=== PATIENT | male | born 1980 | race African-American/Black ===

== ENCOUNTER 2020-08-04 11:32 | Emergency (ER) | payer SELFPAY ==
--- NOTE | ~2020-08-04 | US_ITS ---
EXAMINATION:US venous doppler LE LT INDICATION:Left calf pain TECHNIQUE: Multiple grayscale, color flow and Doppler images of the left lower extremity deep venous systems were obtained and reviewed. COMPARISON:No prior studies for comparison. FINDINGS: The common femoral, superficial femoral and popliteal veins demonstrate normal respiratory variation, augmentation and compressibility. Color flow is also seen within the posterior tibial, pe roneal, greater saphenous and profunda veins. IMPRESSION: 1: No lower extremity deep venous thrombosis. Reviewed, dictated and finalized at [facility].
[2020-08-04 11:33] VITALS: BP 144/88; PULSE 68; RESP 14; TEMP 36.4; O2SAT 100
[2020-08-04 11:37] VITALS: BP 138/78; PULSE 78; RESP 18; TEMP 36.8; O2SAT 99
--- NOTE | 2020-08-04 12:14 | ED.GENADULT ---
HPI - General Adult General Chief complaint: Extremity Injury, Lower Stated complaint: calf pain Time Seen by Provider: 08/04/20 11:52 Source: patient Mode of arrival: ambulatory Limitations: no limitations History of Present Illness HPI narrative: Patient is a 40-year-old male who presents with injury to the left calf that occurred a month ago was jogging when he felt a pop in the calf developed swelling has since had aching pain and tingling from the calf to chest above the ankle patient no swelling of the calf presents in no distress denies other complaints denies similar occurrence in the past Related Data Allergies Allergy/AdvReac Type Severity Reaction Status Date / Time No Known Allergies Allergy Unknown Verified 08/03/19 12:37 No Known Allergies Allergy Uncoded 08/03/19 12:37 Review of Systems Review of Systems: All systems reviewed & are unremarkable except as noted in HPI and below PMFSH Surgical History Surgical History History of orthopedic surgery Social History Social History Gender identity (if verbalized by the patient): Male Exam Narrative: Exam Narrative: GENERAL: Well-appearing, well-nourished, and in no acute distress. HEAD: Normocephalic, atraumatic. EYES: PERRLA and EOMI. ENT: Nares clear, no rhinorrhea or epistaxis. Mucous membranes moist. CHEST: Clear to auscultation. No respiratory distress. No wheezes rales or rhonchi HEART: Regular rate and rhythm. No murmur heard. Normal peripheral pulses. EXTREMITIES: Normal range of motion. No edema. Mild tenderness of the left calf no deformity noted SKIN: Warm, dry, no rash. NEURO: No focal deficits. Alert and oriented x3. Neurovascularly intact. Capillary refill less than 2 seconds PSYCH: Normal mood and affect. Course Course Emergency Course: Patient in the room in no distress aware of case findings treatment plan diagnosis will be referred to orthopedic surgery Vital Signs Vital signs: Vital Signs Temperature 97.5 F L 08/04/20 11:33 Pulse Rate 68 08/04/20 11:33 Respiratory Rate 14 08/04/20 11:33 Blood Pressure 144/88 H 08/04/20 11:33 Pulse Oximetry 100 08/04/20 11:33 Temperature 98.3 F 08/04/20 11:37 Pulse Rate 78 08/04/20 11:37 Respiratory Rate 18 08/04/20 11:37 Blood Pressure 138/78 08/04/20 11:37 Pulse Oximetry 99 08/04/20 11:37 Medical Decision Making MDM Narrative Medical decision making narrative: Patients injury or pain is consistent with musculoskeletal etiology. No signs of neurological or vascular compromise on exam. Compartments and tisues are soft without signs of compartment syndrome. Pain is felt appropriate for further evaluation on an outpatient basis. Vital Signs Vital Signs: Vital Signs Temperature 97.5 F L 08/04/20 11:33 Pulse Rate 68 08/04/20 11:33 Respiratory Rate 14 08/04/20 11:33 Blood Pressure 144/88 H 08/04/20 11:33 Pulse Oximetry 100 08/04/20 11:33 Temperature 98.3 F 08/04/20 11:37 Pulse Rate 78 08/04/20 11:37 Respiratory Rate 18 08/04/20 11:37 Blood Pressure 138/78 08/04/20 11:37 Pulse Oximetry 99 08/04/20 11:37 Discharge Plan Discharge Clinical Impression: Leg pain, left Patient Disposition: Home, Self-Care Condition: Stable Instructions: Antibiotic Form, Leg Pain (ED) Additional Instructions: Wear Jeremy wrap with limited weight on the affected leg until able to bear weight without pain. Ice and elevate extremity. Pain medication as needed and directed. Follow up with your doctor for further care in the next 7 days. Return if symptoms worsen or concerns or any increase in redness swelling pain or fever over 100.5 Prescriptions: New ibuprofen [IBU] 600 mg tablet 600 mg PO Q6H PRN (Reason: fever or pain) Qty: 7 RF: 0 Follow-up/Referrals: Nitesh De La Torre MD [Physician] - PHYSICIAN,[facility]
[2020-08-04 13:10] VITALS: BP 148/76; PULSE 80; RESP 18; O2SAT 99
== END 2020-08-04 13:12 | disposition home or self-care (01) ==
PROVIDERS: Emergency Provider Emergency Medicine
DX: M79.662 Pain in left lower leg (principal)
CPT/HCPCS: 93971; 99284

== ENCOUNTER 2022-02-23 12:19 | Emergency (ER) | payer OTHER, SELFPAY ==
[2022-02-23 12:30] VITALS: BP 160/114; PULSE 66; RESP 20; TEMP 37.1; O2SAT 97
[2022-02-23 13:38] LABS: Anion Gap 7 mmol/L (8-16); Blood Urea Nitrogen 11 mg/dL (9-20); Calcium 8.9 mg/dL (8.4-10.2); Carbon Dioxide 27 mmol/L (22-30); Chloride 102 mmol/L (98-107); Estimated CRCL calculation 83 ml/min; Estimated Glomerular Filt Rate > 60; Glucose 97 mg/dL (65-110); Sodium 136 mmol/L (137-145)
--- NOTE | 2022-02-23 14:04 | ED.GENADULT ---
HPI - General Adult General Chief complaint: Recheck/Abnormal Lab/Rx Stated complaint: HTN Time Seen by Provider: 02/23/22 12:48 History of Present Illness HPI narrative: Patient is a 42-year-old male who presents ER with elevated blood pressure. Reports he has had a work physical when he was told his blood pressure was high and he needed to seek evaluation. No chest pain or chest pressure. No fevers or chills or sweats. Reports he occasionally checks his blood pressure. Last time he checked his blood pressure was a week ago and he felt like his blood pressure was in the 110's/70s. Reports has been told in the past that his blood pressure was elevated when he gets a work physical but then he reports of being normal and goes to [facility]. He does not have a primary care physician. Related Data Allergies Allergy/AdvReac Type Severity Reaction Status Date / Time No Known Allergies Allergy Unknown Verified 02/23/22 12:42 Review of Systems Constitutional: Constitutional: Denies chills, Denies fever(s) and Denies weakness Cardiovascular: Cardiovascular: Denies chest pain, Denies rapid heart rate and Denies radiating jaw, neck or arm pain Respiratory: Respiratory: Denies cough and Denies dyspnea Gastrointestinal: Gastrointestinal: Denies abdominal pain, Denies nausea and Denies vomiting Psychiatric: Psychiatric: Denies anxiety PMFSH Past Medical History Medical History (Updated 02/23/22 @ 14:09 by Romulo Cope MD) Healthy adult male Surgical History Surgical History History of orthopedic surgery Family History Family History Other Hypertension Social History Social History Smoking packs per day: 0.5 Smoking cigarettes per day: 10.0 Years smoked: 20 Smoking pack-years: 10.00 Smoking status: Never smoker Alcohol intake: current Drinks per week: 5 Gender identity (if verbalized by the patient): Male Exam Narrative: GENERAL: Well-appearing, well-nourished, and in no acute distress. HEAD: Normocephalic, atraumatic. CHEST: Clear to auscultation. No respiratory distress. HEART: Regular rate and rhythm. Normal peripheral pulses. EXTREMITIES: Normal range of motion. No edema. SKIN: Warm, dry, no rash. NEURO: Alert and oriented x3. PSYCH: Normal mood and affect. Course Course Emergency Course: Patient's blood pressure has been 160s/116 mmHg. We will start patient on hydrochlorothiazide and give him PCP follow-up. Vital Signs Vital signs: Vital Signs Temperature 98.7 F 02/23/22 12:30 Pulse Rate 66 02/23/22 12:30 Respiratory Rate 20 02/23/22 12:30 Blood Pressure 160/114 H 02/23/22 12:30 Pulse Oximetry 97 02/23/22 12:30 Temperature 98.7 F 02/23/22 12:30 Pulse Rate 66 02/23/22 12:30 Respiratory Rate 20 02/23/22 12:30 Blood Pressure 160/114 H 02/23/22 12:30 Pulse Oximetry 97 02/23/22 12:30 Medical Decision Making Vital Signs Vital Signs: Vital Signs Temperature 98.7 F 02/23/22 12:30 Pulse Rate 66 02/23/22 12:30 Respiratory Rate 02/23/22 12:30 Blood Pressure 160/114 H 02/23/22 12:30 Pulse Oximetry 97 02/23/22 12:30 Temperature 98.7 F 02/23/22 12:30 Pulse Rate 66 02/23/22 12:30 Respiratory Rate 02/23/22 12:30 Blood Pressure 160/114 H 02/23/22 12:30 Pulse Oximetry 97 02/23/22 12:30 Lab Data Result diagrams: 02/23/22 13:20 Labs: Lab Results 02/23/22 Range/Units 13:20 Sodium 136 L (137-145) mmol/L Potassium 4.0 (3.4-5.0) mmol/L Chloride 102 (98-107) mmol/L Carbon Dioxide 27 (22-30) mmol/L Anion Gap 7 L (8-16) mmol/L BUN 11 (9-20) mg/dL Creatinine 1.00 (0.7-1.3) mg/dL Estim Creat Clear Calc 83 ml/min Estimated GFR > 60 (59 - ) Glucose 97 (65-110) mg/dL Calcium 8.9 (8.4-10.2) mg
[2022-02-23 14:33] VITALS: BP 165/105; PULSE 92; RESP 17; O2SAT 99
== END 2022-02-23 14:32 | disposition home or self-care (01) ==
PROVIDERS: Emergency Provider Emergency Medicine
DX: I10 Essential (primary) hypertension (principal); F17.210 Nicotine dependence, cigarettes, uncomplicated
CPT/HCPCS: 36415; 80048; 83735; 99283

== ENCOUNTER 2024-06-03 12:59 | Emergency (ER) | payer BC, SELFPAY ==
[2024-06-03] VITALS (7 sets, daily range): BP systolic 124–154; BP diastolic 88–118; PULSE 119–130; RESP 20–30; TEMP 36.3–38.1; O2SAT 94–99
--- NOTE | ~2024-06-03 | CT_ITS ---
EXAMINATION: CT chest abdomen pelvis w con DATE: 06/03/2024 15:11 INDICATION: Recent fall downstairs. Reportedly rib fractures and liver laceration. Shortness of breath, nausea and vomiting TECHNIQUE: Computed tomography (CT) of the chest, abdomen, and pelvis was performed with 100 CC Omnip aque 350 intravenous contrast. Automated exposure control and iterative reconstruction technique were employed. Exam dose: 730.34 mGy-cm total exam DLP. COMPARISON: None FINDINGS: CHEST CT: Normal heart size. No thoracic aortic aneurysm or dissection. No hilar or mediastinal mass lesion or lymphadenopathy. Trace pericardial fluid. No pleural effusion. There is suspicion of left lower lobe possible pulmonary embolism. This examination is diagnostically limited for evaluation of pulmonary emboli. At least right third through seventh nondisplaced recent rib fractures. Is atelectasis in the right mid and lower lung zones. No pneumothorax or pneumomediastinum. No pleural effusion. ABDOMEN/PELVIS CT: The stomach is distended with fluid and gas with prominent air-fluid level. Dilatation of the duodenu m with air-fluid levels. Prominent jejunal dilatation up to 4.5 cm diameter, with air-fluid levels an d pneumatosis of the wall of the small bowel. There is a transition zone in the left lower quadrant. Small bowel obstruction due to internal hernia with vascular compromise and bowel necrosis is suspect ed There is extensive portal venous gas. Emergency surgical consultation is recommended. There is moderate free fluid in the dependent pelvic area. There is a huge subcapsular fluid collection along the posterior inferior aspect of the right hepatic lobe, which may be due to hematoma; infected hematoma or abscess not excluded. The patient did prese nt with complaint of shortness of breath in addition to nausea and vomiting. There is evidence of right hepatic laceration with apparent coil embolization; recommend correlation with recent medical history. The spleen, pancreas, adrenal glands and kidneys are unremarkable. Normal caliber of the abdominal aorta. The urinary bladder is relatively evacuated, unremarkable. IMPRESSION: Suspected internal bowel hernia causing prominent small bowel dilatation, air-fluid leve ls, pneumatosis and portal venous hypertension. Emergency surgical consultation and surgical intervention are recommended. Cannot exclude left lower lobe pulmonary embolism Large right hepatic subcapsular fluid collection which may be hematoma; infected hematoma or abscess is not excluded Right hepatic laceration with suggestion of prior coil embolization Dr. Nagel discussed by telephone the results with the emergency room physician Dr. Syed Rosenbaum at 16 11 hours on 06/03/2024, with urgent recommendation for emergency surgical consult and surgery to corre ct the suspected internal hernia/bowel obstruction causing the vascular compromise of the bowel and p ortal venous gas. Additional findings include moderate free fluid in the dependent lower abdomen pelv is the large subcapsular fluid collection of the liver and evidence of liver laceration and probable prior embolization. Dr. Nagel telephoned Dr. Rosenbaum again at 1623 hours to inform him that left lower lobe pulmonary emb olism is suggested on the scan. The scan is not conclusively diagnostic but pulmonary emboli are susp ected. Reviewed, dictated and finalized at [facility]. Reviewed, dictated and finalized at [facility]. IMPRESSION: Suspected internal bowel hernia causing prominent small bowel dila tation, air-fluid levels, pneumatosis and portal venous hypertension. Emergency surgical consultation and surgical intervention are recommended. Cannot exclude left lower lobe pulmonary embolism Large right hepatic subcapsular fluid
--- NOTE | 2024-06-03 13:51 | ECG_ITS ---
Test Date: 2024-06-03 13:57:30 Measurements Intervals [place] Rate: 126 P: 48 AK: 146 QRS: -1 QRSD: 97 T: 3 QT: 323 QTc: 469 Interpretive Statements SINUS TACHYCARDIA LEFT VENTRICULAR HYPERTROPHY AND ST-T CHANGE [VOLTAGE CRITERIA PLUS ST/T ABNORMALITY] POSSIBLE INFERIOR MYOCARDIAL INFARCTION , PROBABLY OLD [30 ms Q WAVE IN II/aVF] POSSIBLE ANTEROSEPTAL MYOCARDIAL INFARCTION , POSSIBLY ACUTE [30 ms Q WAVE IN V1-V4] ABNORMAL ECG Electronically Signed On 06-04-2024 10:54:36 CDT by Wade Love M.D.
[2024-06-03] MEDS: ONDANSETRON INJ 4 MG/2 ML VIAL IV PUSH (14:06)
[2024-06-03] MEDS: SODIUM CHLORIDE 0.9% IV 1,000 ML 999 ML IV CONT ×2 (14:22→15:26)
--- NOTE | 2024-06-03 14:23 | ED.GENADULT ---
HPI - General Adult General Chief complaint: Nausea/Vomiting/Diarrhea Stated complaint: dehyrdated Time Seen by Provider: 06/03/24 14:11 History of Present Illness HPI narrative: 44-year-old male presenting to the emergency department for evaluation for abdominal distension, persistent nausea and vomiting, suprapubic abdominal pain and generalized weakness. Was involved in a fall 05/23 and was admitted to [facility] due to having multiple rib fractures and a liver laceration. Patient states he did have surgery on his liver with suspected embolization. Patient reports he did have some nausea and vomiting while hospitalized but it was worsened after being discharged.. Patient states he has not been able to keep anything down over last few days and has also had increased difficulty with urination. Related Data Home Medications Medication Instructions Recorded Confirmed acetaminophen 500 mg capsule 500 mg PO Q6H PRN 06/01/24 06/01/24 folic acid 1 mg tablet 1 mg PO DAILY 06/01/24 06/01/24 lidocaine 5 % topical patch 2 patch topical DAILY 06/01/24 06/01/24 (DermacinRx Lidocan) oxycodone 5 mg tablet 5 mg PO Q6H PRN 06/01/24 06/01/24 polyethylene glycol 3350 17 17 g PO DAILY 06/01/24 06/01/24 gram/dose oral powder thiamine HCl (vitamin B1) 100 mg 50 mg PO DAILY 06/01/24 06/01/24 tablet Allergies Allergy/AdvReac Type Severity Reaction Status Date / Time No Known Allergies Allergy Unknown Verified 06/01/24 13:49 Review of Systems Review of Systems: All systems reviewed & are unremarkable except as noted in HPI and below PMFSH Surgical History Surgical History History of orthopedic surgery Family History Family History Other Hypertension Social History Social History Smoking packs per day: 0.5 Smoking cigarettes per day: 10.0 Years smoked: 20 Smoking pack-years: 10.00 Smoking status: Former smoker Alcohol intake: current Drinks per week: 5 Gender identity (if verbalized by the patient): Male Exam Narrative: APPEARANCE: Ill-appearing HEAD: normocephalic, atraumatic. EYES: PERRLA/EOMI, conjunctivae clear. NOSE: Normal no drainage EARS:TMS clear with good light reflex. THROAT: Pharynx clear, no exudate. NECK: Supple. No adenopathy, no masses. RESPIRATORY: Airway patent, respirations nonlabored. Clear to auscultation bilaterally, no rales, rhonchi, wheezing. CARDIOVASCULAR: Regular rate and rhythm without murmurs rubs or gallops. ABDOMINAL: Distended abdomen, decreased bowel sounds MUSCULOSKELETAL: Moves all extremities. Strength/ROM intact, No edema, No calf tenderness. NEURO: Alert. Cranial nerves II through XII intact. Grossly intact SKIN: Warm, dry. Normal Color Course Course Emergency Course: Patient was transferred to [facility] emergency department via helicopter for incarcerated bowel, internal hernia with bowel necrosis Vital Signs Vital signs: Vital Signs Temperature 97.7 F 06/03/24 13:08 Pulse Rate 127 H 06/03/24 13:08 Respiratory Rate 20 06/03/24 13:08 Blood Pressure 124/88 06/03/24 13:08 Pulse Oximetry 98 06/03/24 13:08 Oxygen Delivery Room Air 06/03/24 13:08 Temperature 100.5 F H 06/03/24 16:43 Pulse Rate 129 H 06/03/24 16:43 Respiratory Rate 26 H 06/03/24 16:43 Blood Pressure 141/113 H 06/03/24 16:43 Pulse Oximetry 94 06/03/24 16:43 Oxygen Delivery Room Air 06/03/24 13:45 Medical Decision Making MDM Narrative Medical decision making narrative: 44-year-old male present to the emergency department for evaluation for worsening abdominal pain and decreased p.o. intake after a recent abdominal trauma and surgery. Patient was afebrile upon arrival emergency department but does have a leukocytosis of 26.3. Patient's hemoglobin was 15.8. Patient does have a new MEDHAT with a
[2024-06-03] MEDS: HYDROmorphone HCL INJ (*CRX) 1 MG/ML SYR 0.5 MG IV PUSH (14:30)
[2024-06-03 15:01] LABS: Estimated CRCL calculation 33 ml/min; Estimated Glomerular Filt Rate 32
[2024-06-03 15:04] LABS: Hematocrit 47.2 % (42.0-52.0); Hemoglobin 15.8 g/dL (14.0-18.0); Mean Corpuscular HGB Conc 33.5 g/dl (32-36); Mean Corpuscular Hemoglobin 31.5 pg (26-34); Mean Platelet Volume 9.5 fl (7.4-10.4); Platelet Count Result 727 k/mm3 (150-375); Red Blood Count 5.02 M/mm3 (4.6-6.20); Red Cell Distribution Width 13.4 % (11.5-14.5); White Blood Count 26.3 K/mm3 (4.5-10.0)
[2024-06-03 15:15] LABS: Alanine Aminotransferase 141 U/L (6-50); Albumin Level 4.4 g/dL (3.5-5.1); Alkaline Phosphatase 196 U/L (38-126); Anion Gap 16 mmol/L (4-12); Aspartate Amino Transferase 97 U/L (17-59); Bilirubin,Total 1.7 mg/dL (0.2-1.3); Blood Urea Nitrogen 48 mg/dL (9-20); Calcium 8.9 mg/dL (8.4-10.2); Carbon Dioxide 36 mmol/L (22-30); Chloride 89 mmol/L (98-107); Estimated CRCL calculation 35 ml/min; Estimated Glomerular Filt Rate 36; Glucose 130 mg/dL (65-110); Potassium 3.5 mmol/L (3.4-5.0); Sodium 141 mmol/L (137-145)
[2024-06-03 15:19] LABS: INR 1.2; Partial Thromboplastin Time 27.9 Seconds (22.3-36.8); Prothrombin Time 15.8 Seconds (11.1-14.7)
[2024-06-03 15:37] LABS: Band Neutrophils Percent 4 % (0-6); Lymphocytes Absolute Manual 1.31 K/mm3 (1.1-4.5); Metamyelocytes Percent 2 %; Monocytes Percent Manual 8 % (3-9); Myelocytes Percent 1 %; Neutrophils Absolute Manual 22.09 K/mm3 (1.3-6.7); Neutrophils Percent Manual 80 % (46-73); Platelet Estimate Increased (Adequate); Schistocytes None Seen; Total Cells Counted 100
[2024-06-03 16:13] LABS: Add Urine Microscopic? YES; Appearance Urine Cloudy (Clear); Bacteria Urine Rare /hpf; Bilirubin Urine 2+ (Negative); Blood Urine Non-Hemolyzed Trace (Negative); Color Urine Dark Yellow (Yellow); Glucose Urine UA Negative (Negative); Ketones Urine Trace mg/dL (Negative); Leukocyte Esterase Ur Negative LEU/UL (Negative); Need Manual Microscopic Reviewed; Nitrate Urine Negative (Negative); Non Pathogenic Casts >20; Protein Urine 1+ mg/dL (Negative); Specific Grav Ur > 1.045 (1.001-1.035); Squamous Epithelial Cell Urine Few /hpf (Few)
[2024-06-03] MEDS: METOCLOPRAMIDE HCL INJ 10 MG/2 ML VIAL IV PUSH (16:16)
[2024-06-03] MEDS: PIPERACILLN/TAZ 3.375GM/NS50ML 3.375 GM/50 ML BAG IVPB (16:54)
[2024-06-03 18:02] LABS: Reflex Lactic Acid Yes or No Add Lactic
== END 2024-06-03 17:10 | disposition short-term general hospital (02) ==
PROVIDERS: Emergency Provider Emergency Medicine; PCP Family Medicine
DX: A41.9 Sepsis, unspecified organism (principal); S36.112A Contusion of liver, initial encounter; K46.0 Unspecified abdominal hernia with obstruction, without gangrene; R00.0 Tachycardia, unspecified; N17.9 Acute kidney failure, unspecified; Z87.891 Personal history of nicotine dependence; K76.6 Portal hypertension; K63.89 Other specified diseases of intestine; R91.8 Other nonspecific abnormal finding of lung field; I51.7 Cardiomegaly; R94.31 Abnormal electrocardiogram [ECG] [EKG]; W10.9XXA Fall (on) (from) unspecified stairs and steps, initial encounter
CPT/HCPCS: 36415; 51702; 71260; 74177; 80053; 81001; 83605; 85025; 85610; 85730; 86850; 86900; 86901; 87086; 93005; 96361; 96365; 96375; 99285; J1170; J2405; J2543; J2765; J7030; Q9967

== ENCOUNTER 2024-07-02 13:53 | Outpatient (CLI) | payer BC, SELFPAY ==
--- NOTE | ~2024-07-02 | XR_ITS ---
EXAMINATION: XR shoulder RT min 2V DATE: 07/02/2024 14:11 INDICATION: Bilateral shoulder pain and limited range of motion post fall one month prior TECHNIQUE: 1. AP internally and externally rotated, AP oblique externally rotated and transscapular Y views of t he right shoulder were obtained. 2. AP internally and externally rotated, AP oblique externally rotated and transscapular Y views of t he left shoulder were obtained. COMPARISON: Chest CT dated 06/03/2024 FINDINGS: Normal alignment at both shoulders. No fracture at either shoulder. There are likely subacute nondisp laced fractures at the anterior right fifth and sixth ribs. Additional nondisplaced fractures of the third, fourth and seventh ribs on the prior CT. There is also a minimally displaced subacute fracture at the posterior right ninth rib. Additional nondisplaced fractures of the posterior right seventh a nd eighth ribs also evident on prior CT. Finally there are subacute fractures of the left anterior fi fth and sixth ribs also evident on prior CT. Mild bilateral acromioclavicular osteoarthritis. Bilater al glenohumeral joint spaces are normal. Visualized portion of the lungs are clear. Soft tissues are unremarkable. Small likely embolization coils projecting over the liver. IMPRESSION: Subacute non to minimally displaced bilateral rib fractures. No acute osseous abnormality at either s [facility]. Reviewed, dictated and finalized at location [facility]. IMPRESSION: Subacute non to minimally displaced bilateral rib fractures. No acute osseous a bnormality at either shoulder.
--- NOTE | ~2024-07-02 | XR_ITS ---
EXAMINATION: XR shoulder LT min 2V DATE: 07/02/2024 14:11 INDICATION: Bilateral shoulder pain and limited range of motion post fall one month prior TECHNIQUE: 1. AP internally and externally rotated, AP oblique externally rotated and transscapular Y views of t he right shoulder were obtained. 2. AP internally and externally rotated, AP oblique externally rotated and transscapular Y views of t he left shoulder were obtained. COMPARISON: Chest CT dated 06/03/2024 FINDINGS: Normal alignment at both shoulders. No fracture at either shoulder. There are likely subacute nondisp laced fractures at the anterior right fifth and sixth ribs. Additional nondisplaced fractures of the third, fourth and seventh ribs on the prior CT. There is also a minimally displaced subacute fracture at the posterior right ninth rib. Additional nondisplaced fractures of the posterior right seventh a nd eighth ribs also evident on prior CT. Finally there are subacute fractures of the left anterior fi fth and sixth ribs also evident on prior CT. Mild bilateral acromioclavicular osteoarthritis. Bilater al glenohumeral joint spaces are normal. Visualized portion of the lungs are clear. Soft tissues are unremarkable. Small likely embolization coils projecting over the liver. IMPRESSION: Subacute non to minimally displaced bilateral rib fractures. No acute osseous abnormality at either s [facility]. Reviewed, dictated and finalized at location [facility]. IMPRESSION: Subacute non to minimally displaced bilateral rib fractures. No acute osseous a bnormality at either shoulder.
== END 2024-07-02 13:54 | disposition home or self-care (01) ==
PROVIDERS: PCP Family Medicine; Visit Provider Family Medicine
DX: M25.511 Pain in right shoulder (principal); M25.512 Pain in left shoulder; S22.32XD Fracture of one rib, left side, subsequent encounter for fracture with routine healing; S22.31XD Fracture of one rib, right side, subsequent encounter for fracture with routine healing; X58.XXXD Exposure to other specified factors, subsequent encounter
CPT/HCPCS: 73030

== ENCOUNTER 2024-08-02 07:22 | Outpatient (CLI) | payer BC, SELFPAY ==
--- NOTE | ~2024-08-02 | MR_ITS ---
MRI of the right shoulder Technique: Axial proton-density fat-sat images, coronal proton density fat-sat and T2 fat-sat images, and sagittal T1-weighted and T2 fat-sat images were acquired. Clinical History: Pain Findings: There is mild AC joint degenerative change, with small subacromial spur. Coracoclavicular, coracoacromial, and coracohumeral ligaments are intact. There are complete, full-thickness tears involving the entirety of the supraspinatus and infraspinatu s tendons. Fluid-filled gap measures approximately 4.9 x 4.6 cm in extent, the tendons retracted to t he level of glenoid. Subscapularis tendon is intact, with moderate tendinosis. Tendon of long head of the biceps is intact. No definite labral tear seen. Inferior glenohumeral ligament is mildly thickened and hyperintense. There are small glenohumeral mary nt effusion, with fluid passing through the rotator cuff defect into the subacromial/subdeltoid bursa . There is edematous change of the supraspinatus and infraspinatus muscle bellies, without mehnaz atro phy. No degenerative change of the glenohumeral joint is evident. Impression: Complete, full-thickness tears involving the entire supraspinatus and infraspinatus tendons, as detden led above. Edematous change of the supraspinatus and infraspinatus muscle bellies, without mehnaz atrophic change . Mildly thickened and hyperintense inferior glenohumeral ligament. Correlate for adhesive capsulitis. Reviewed, dictated and finalized at [facility]. Impression: Complete, full-thickness tears involving the entire supraspinatus and infraspin atus tendons, as detailed above. Edematous change of the supraspinatus and infraspinatus muscle bellies, without mehnaz atrophic change. Mildly thickened and hyperintense inferior glenohumeral ligament. Correlate for adhesive capsulitis.
--- NOTE | ~2024-08-02 | MR_ITS ---
MRI of the left shoulder Technique: Axial proton-density fat-sat images, coronal proton density fat-sat and T2 fat-sat images, and sagittal T1-weighted and T2 fat-sat images were acquired. Clinical History: Pain Findings: There is mild AC joint degenerative change. Coracoclavicular, coracoacromial, and coracohum eral ligaments are intact. There is complete, full-thickness tear involving the entire supraspinatus tendon, which is retracted to the medial aspect of the humeral head. Fluid-filled gap measures approximately 3.1 x 3.8 cm in ext ent. Infraspinatus tendon is intact. There is tearing of the distal transverse ligament fibers of the subscapularis tendon, with medial dislocation of the biceps tendon from the bicipital groove. No labral tear evident. Inferior glenohumeral ligament is intact. No degenerative change of the glenohumeral joint. There is small glenohumeral joint effusion, with fluid passing through the rotator cuff defect, into the subac romial/subdeltoid bursa. No muscle atrophy or edema. Impression: Complete, full-thickness tear involving the entire supraspinatus tendon, as detailed above. Full-thickness tearing of the distal subscapularis tendon, with associated medial dislocation of the biceps tendon from the bicipital groove. Reviewed, dictated and finalized at [facility]. Impression: Complete, full-thickness tear involving the entire supraspinatus tendon, as det nicole above. Full-thickness tearing of the distal subscapularis tendon, with associated medi al dislocation of the biceps tendon from the bicipital groove.
== END 2024-08-02 07:23 | disposition home or self-care (01) ==
PROVIDERS: PCP Family Medicine; Visit Provider Family Medicine
DX: S43.431A Superior glenoid labrum lesion of right shoulder, initial encounter (principal); S43.432A Superior glenoid labrum lesion of left shoulder, initial encounter; X58.XXXA Exposure to other specified factors, initial encounter
CPT/HCPCS: 73221

== ENCOUNTER 2024-11-26 10:32 | Outpatient (CLI) | payer BC, SELFPAY ==
--- NOTE | 2024-11-26 10:39 | ECG_ITS ---
Test Date: 2024-11-26 11:01:30 Measurements Intervals [place] Rate: 84 P: 61 [place]: 187 QRS: -30 QRSD: 119 T: 31 QT: 364 QTc: 431 Interpretive Statements SINUS RHYTHM INCOMPLETE LEFT BUNDLE BRANCH BLOCK CANNOT R/O SEPTAL INFARCT, AGE INDETERMINATE CONSIDER INFERIOR INFARCT, AGE INDETERMINATE BASELINE ARTIFACT- I, II, AVR, AVL, AVF ABNORMAL ECG Compared to ECG 06/03/2024 13:57:30 HEART RATE HAS DECREASED INCOMPLETE LEFT BUNDLE BRANCH BLOCK NOW PRESENT Electronically Signed On 11-26-2024 12:00:59 JET SKI MECHANIC by Jose E Hurt D.O.
--- OUTSIDE RECORDS SUMMARY | 2024-11-26 11:24 | XMS_ITS | Continuity of Care Document ---
Author Organization [facility] Address [address] [facility] [place] [address] [place] [address] Phone Care Team Providers Care Mental Health Program Director Name Role Phone Matty Dasilva MD Unavailable Unavailable Allergies, Adverse Reactions, Alerts Substance Reaction Status Criticality No Known Allergies Active No Inform ation Medications Medication Instructions Dosage Effective Dates (start - stop) Status Comments Klonopin 1 mg tablet take 1 tablet (1MG) by oral route every bedtime 1 MG - Active Procedures Procedure Date PREV VISIT, [facility], AGE 18-39 OFFICE/OUTPATIENT VISIT, [facility] Advance Directives Directive Yes / No Effective Date File Name No Information Encounters Encounter Description Practice Location Reason(s) For Visit Diagnoses Date Provider Providers Copied on Encounter PREV VISIT, NEW, AGE 18-39 [facility], [address], [place], [id number], [place] tel:[phone] [facility] Physical (chief complaint) Routine Medical ExamInsomnia, OtherRoutine Medical ExamGeneralized anxiety disorder [address] [facility] [place], [id number] , [place]. tel:[phone] Referring Provider: Matty Dasilva, [address] [facility] [place], [id number]. tel:[phone] Family History Family Member Type Diagnosis Age At Onset Father Problem (finding) Hypertension Sister Problem (finding) Alive and well Mother Problem (finding) Hypertension Payers Payer name Insurance type Covered green party ID Authoriza tion(s) No Information Social History Type Description Quantity Date Captured Comments Alcohol Use Details Caffeine Use Details Unknown Tobacco Use Status No Information Smoking Status Current every day smoker Non-Smoking Tobacco Use Details Smokeless: No Details Available Smokeless: No Details Available Sex Male Vital Signs Date / Time: Height Weight BMI Pulse Rate Blood Pressure Temperature Respiratory Rate Body Surface Area Head Circumference BMI percentile Pulse Ox Inhaled Ox 5:52 PM 69.00 in 182.00 lbs 26.8 7 kg/m eter (2) 79 /min 139/91 mm[Hg] 98.5 F 16 /min Chief Complaint And Reason For Visit From encounter dated '05/09/2013 15:45'. Physical (chief complaint) Plan Of Treatment Date Type Action Status Goal Tobacco cessation counseling completed History Of Present Illness Encounter Date Complaint History Of Prese nt Illness No Information Instructions Date Instruction Additional Infor mation No Information Assessments Type Assessment Date No Information Mental Status Date Cognitive Assessment Orientation - [address] ed to time, place, person, situation.
--- OUTSIDE RECORDS SUMMARY | 2024-11-26 11:24 | XMS_ITS | Clinical Summary ---
Author Organization [facility] Address [address] [place] [address] Care Team Providers Care Facility Maintenance Mechanic Name Role Phone Esteban Palm MD Primary Care Provider [phone] Source Comments [facility],non-owned Affiliates and Associated Physician Practices is amultiple site organization consisting of ambulatory clinics and hospital sitesin [place], [place], [place] and [place]. This disclosure is being madepursuant to the Care Everywhere program and may not contain all information available regarding this patient. Last updated 18.[facility] Allergies No known active allergies Medications * Be aware that medications may not be up to date on this document. Alwaysverify current medications with the patient. Medication Sig Dispensed Refills Start Date End Date Status acetaminophen (Tylenol) 500 MG tablet Take 2 (two) tablets by mouth every 6 hours Maximum allowable Acetaminophen amount = 4 Grams (4000 mg) / 24 hours. 06/15/2024 Active saline nasal spray ([place]; Baby Lamoure) 0.65 % nasal spray [place] 1 (one) spray into each nostril every 1 hour as needed for Dry Nose 06/15/2024 Active lidocaine (Lidoderm) 5 % patch Apply 2 (two) patches to skin every 24 hours Apply patch to most painful area and remove after 12 hours. May reapply a new patch 12 hours later. 06/15/2024 Active folic acid (Folvite) 1 MG tablet Take 1 (one) tablet by mouth once daily 06/15/2024 Active polyethylene glycol 3350 (Miralax) 17 g packetIndications :Constipation Take 17 (seventeen) g by mouth once daily Reasons: Constipation 06/15/2024 Active senna-docusate (Senokot-S) 8.6-50 MG tablet Take 1 (one) tablet by mouth once daily 06/15/2024 Active phenol 1.4 % 1 spray by Mouth/Throat route every 1 hour as needed 06/15/2024 Active multiple vitamins with minerals tablet Take 1 (one) tablet by mouth once daily 06/15/2024 Active white petroleum (Vaseline) ointment Apply to affected area 2 times daily 06/15/2024 Active thiamine (Vitamin B-1) 100 MG tablet Take 1 (one) tablet by mouth once daily 06/15/2024 Active methocarbamol (Robaxin) 750 MG tablet TAKE ONE TABLET BY MOUTH EVERY 6 HOURS NEEDED FOR MUSCLE SPASMS 12 tablet 05/30/2024 05/30/2025 Active oxyCODONE, immediate release, (Roxicodone) 5 MG tabletIndications :Unspecified laceration of spleen, initial encounter TAKE ONE TABLET BY MOUTH EVERY 4 HOURS NEEDED 16 tablet 06/15/2024 12/12/2024 Active Active Problems Problem Noted Date Diagnosed Date Ileus following gastrointestinal surgery 024 Small bowel ischemia 06/15/2024 Leukocytosis 06/15/2024 Decreased mobility 06/15/2024 SBO (small bowel obstruction) 06/03/2024 Splenic laceration, initial encounter 05/24/2024 Multiple fractures of ribs, right side, init for clos fx 05/24/2024 Laceration of liver, initial encounter Immunizations Name Administration Dates Next Due TDAP (7yrs+) 05/23/2024 Social History Tobacco Use Types Packs/Day Years Used Date Smoking Tobacco: Former Cigarettes Smokeless Tobacco: Never Tobacco Cessation:Counseling Given: No Alcohol Use Standard Drinks/Week Comments Yes 30 (1 standard drink = 0.6 oz pure alcohol) Pt states he drinks at least 3-4 beers daily AUDIT-C Answer Date Recorded Q1: How often do you have a drink containing alc ohol? 2-4 times a month 06/03/2024 Q2: How many drinks containi ng alcohol do you have on a typical day when you are drinking? 5 or 6 06/03/2024 Q3: How often do you have si x or more drinks on one occasion? Monthly 06/03/2024 Overall Financial Resource Strain (CARDIA) Answe r Date Recorded How hard is it for you to pa y for the very basics like food, housing, medical care, and heating? Not hard at all 06/04/2024 [facility] [place] of Occupat ional Health - Occupational Stress Questionnaire Answer Date Recorded Do you feel stress - tense, restless, nervous, or anxious, or unable to sleep at night because your mind is troubled all the time - these days? Only a little 06/04/2024 Hunger Vital Sign Answer Date Recorded Within the past 12 months, y ou worried that your food would run out before you got the money to buy more. Never true 06/04/20 24 Within the past 12 months, t he food you bought just didn't last and you didn't have money to get more. Never true 06/04/2024 PRAPARE - Transportation Answer Date Re corded In the past 12 months, has l ack of transportation kept you from medical appointments or from getting medications? No 05/17 In the past 12 months, has l ack of transportation kept you from meetings, work, or from getting things needed for daily living? No 06/04/2024 Housing Stability Vital Sign Answer Romeo e Recorded In the last 12 months, was t here a time when you were not able to pay the mortgage or rent on time? No 06/04/2024 In the last 12 months, how many places have you lived? 1 06/04/2024 In the last 12 months, was t here a time when you did not have a steady place to sleep or slept in a mcc (including now)? No 06/04/2024 Sex and Gender Information Value Date Recorded Sex Assigned at Not on file Gender Identity Not on file Sexual Orientation Not on file Last Filed Vital Signs Vital Sign Reading Time Taken Comments Blood Pressure 150/97 07/10/2024 2:31 PM CDT Pulse 85 07/10/2024 2:31 PM CDT Temperature 37.1 C (98.7 F) 07/10/2024 2:31 PM CDT Respiratory Rate 18 06/21/2024 11:44 AM CDT Oxygen Saturation 97% 07/10/2024 2:31 PM CDT Inhaled Oxygen Concentration 40% 06/09/2024 6 :28 AM CDT Weight 70.8 kg (156 lb) 07/10/2024 2:31 PM CDT Height 175.3 cm (5' 9 ) 07/10/2024 2:31 PM CDT Body Mass Index 23.04 07/10/2024 2:31 PM CDT Plan of Treatment Health Maintenance Due Date Last Done Comments COLOGUARD (AGES 45-75) - COL ON CA SCREENING 1978 COLON MONITORING 1978 COLONOSCOPY - COLON CA SCREENING 1978 CT COLONOGRAPHY - COLON CA SCREENING 1978 Colorectal Cancer Screening 1978 FIT - COLON CA SCREENING 1978 FLEX SIG - COLON CA SCREENING 1978 LIPID TESTING 1978 HIV SCREENING 1993 HEPATITIS C SCREENING 12/29/1995 HEPATITIS B VACCINE (1 of 3 - + 3-dose series) 1997 COVID-19 VACCINE (2023-2 5 season) 2024 05/08/2021, 04/17/2021 INFLUENZA VACCINE (#1) 2024 08/25/2015 DEPRESSION SCREENING 10/17/2024 ZOSTER VACCINE (1 of 2) 01/03/2028 DTAP/TDAP/TD VACCINES (2 - T d or Tdap) 05/23/2034 05/23/2024 HIB VACCINE Aged Out No longer eligi ble based on patient's age to complete this topic HPV VACCINE Aged Out No longer eligi ble based on patient's age to complete this topic MENINGOCOCCAL (Group B) VACCINE Aged Out No longer eligible b ased on patient's age to complete this topic MENINGOCOCCAL VACCINE Aged Out No anjel jason eligible based on patient's age to complete this topic PNEUMOCOCCAL VACCINE Aged Out No long er eligible based on patient's age to complete this topic Medical Devices Implanted Type Area Nuclear Waste Management Engineer Device Identifier Shelf Expiration Date Model / Serial / Lot Coil Azur Cx Hdrcl 4cm 2mm Dtch Loop Sld Implanted:Qty: 1 on 05/24/2024 by Deonna Huff MD at [facility] [employer] [facility] 01/14/2029 [id number] / / [id number] Prtcl Embl 2.5mm 1ml Syr Embocube Geltn Implanted:Qty: 1 on 05/24/2024 by Deonna Huff MD at [facility] Right: Liver [employer] 01/23/2027 [id number] / / [id number] Coil Azur Cx Hdrcl 4cm 2mm Dtch Loop Sld Implanted:Qty: 1 on 05/24/2024 by Deonna Huff MD at [facility] Right: Liver [employer] 01/14/2029 [id number] / / [id number] Advance Directives * Full Code (Latest Code Status on File) Date Activated Date Inactivated Comments 06/08/2024 5:14 PM 06/15/2024 5:35 PM * Full Code Date Activated Date Inactivated Comments 05/23/2024 11:39 PM 05/31/2024 6:42 PM Care Teams Facility Maintenance Mechanic Relationship Specialty Start Date End Date Esteban Palm MD [address] [place] [address] PCP - General Family Medicine 05/25/24
--- OUTSIDE RECORDS SUMMARY | 2024-11-26 11:24 | XMS_ITS | Clinical Summary ---
Author Organization [facility] [address] Address [address] [place] [address] Care Team Providers Care Jewelry Bench Worker Name Role Phone No, Physician Primary Care Provider [phone] Allergies No known active allergies Medications al & mag hydroxide with simethicone-diph enhydramine-lido edis (MAGIC MOUTHWASH) suspension [id number] :Acute pharyngitis, unspecified etiology Swish and swallow 15 mL every 4 (four) hours as needed (sore throat) 120 mL 3 Active Additional Information Patient not taking.Reported on 09/21/2023 predniSONE (DELTASONE) 10 mg tablet 3 Active triamcinolone (KENALOG) 0.1 % cream APPLY TOPICALLY TO THE AFFECTED AREA TWICE DAILY UNTIL GONE. RUB IN WELL 3 Active Active Problems No known active problems Social History Tobacco Use Types Packs/Day Years Used Date Smoking Tobacco: Never Assessed Sex and Gender Information Value Date Recorded Sex Assigned at Not on file Legal Sex Male 1:55 PM IT SENIOR ANALYST Gender Identity Not on file Sexual Orientation Not on file Obstetrics History Last Filed Vital Signs Vital Sign Reading Time Taken Comments Blood Pressure 132/84 09/21/2023 5:59 PM IT SENIOR ANALYST Pulse 76 09/21/2023 5:59 PM IT SENIOR ANALYST Temperature 36.9 C (98.4 F) 09/21/2023 5:59 PM IT SENIOR ANALYST Respiratory Rate 18 09/21/2023 5:59 PM IT SENIOR ANALYST Oxygen Saturation 96% 09/21/2023 5:59 PM IT SENIOR ANALYST Inhaled Oxygen Concentration - - Weight 78 kg (172 lb) 09/21/2023 5:59 PM IT SENIOR ANALYST Height 175.3 cm (5' 9 ) 09/21/2023 5:59 PM IT SENIOR ANALYST Body Mass Index 25.4 09/21/2023 5:59 PM IT SENIOR ANALYST Plan of Treatment Health Maintenance Due Date Last Done Comments Colon Cancer Screening-Colonoscopy 1978 Depression Screening 1978 Hepatitis C Screening 1978 Prostate Cancer Screening-PSA 1978 DTaP/Tdap/Td Vaccine (1 - Tdap) 1989 Hepatitis B Screening 01/03/1996 Regular Well Visit/Exam 18-64 01/03/1996 Covid-19 Vaccine (3 - 2023-2 5 season) 2024 05/08/2021, 04/17/2021 Influenza Vaccine (#1) 2024 08/25/2015 HPV Vaccines Aged Out No longer eligi ble based on patient's age to complete this topic Pneumococcal vaccine <65 Aged Out No longer eligible based on patient's age to complete this topic Insurance [employer] O[employer] Care Teams Jewelry Bench Worker Relationship Specialty Start Date End Date No, Physician PCP - General 03/01/23
--- OUTSIDE RECORDS SUMMARY | 2024-11-26 11:24 | XMS_ITS | CONTINUITY OF CARE DOCUMENT ---
Author Name stephen mitchell Address Unknown Organization [facility] Address [address] [place] [address] [address] [place] [address] Phone [phone] Care Team Providers Care Rn Case Management Name Role Phone Ranjit NÚÑEZ, Akash Unavailable [phone] INSURANCE PROVIDERS Payer name Policy type / Coverage type Constantin red constitution party ID SELF PAY [id number]
--- OUTSIDE RECORDS SUMMARY | 2024-11-26 11:24 | XMS_ITS | Referral Summary ---
Author Organization [facility] [address] Address [address] [place] [address] Care Team Providers Care Corporate Travel Counselor Name Role Phone No, Physician Primary Care Provider [phone] Allergies No known active allergies Medications al & mag hydroxide with simethicone-diph enhydramine-lido edis (MAGIC MOUTHWASH) suspension [id number] :Acute pharyngitis, unspecified etiology Swish and swallow [...] on file Legal Sex Male 1:55 PM KNIFE FINISHER Gender Identity Not on file Sexual Orientation Not on file Last Filed Vital Signs Vital Sign Reading Time Taken Comments Blood Pressure 132/84 09/21/2023 5:59 PM KNIFE FINISHER Pulse 76 09/21/2023 5:59 PM KNIFE FINISHER Temperature 36.9 C (98.4 F) 09/21/2023 5:59 PM KNIFE FINISHER Respiratory Rate 18 09/21/2023 5:59 PM KNIFE FINISHER Oxygen Saturation 96% 09/21/2023 5:59 PM KNIFE FINISHER Inhaled Oxygen Concentration - - Weight 78 kg (172 lb) 09/21/2023 5:59 PM KNIFE FINISHER Height 175.3 cm (5' 9 ) 09/21/2023 5:59 PM KNIFE FINISHER Body Mass Index 25.4 09/21/2023 5:59 PM KNIFE FINISHER Plan of Treatment Not on file Insurance [employer]IM[employer] OOS NIMBOXX OOS Care Teams Corporate Travel Counselor Relationship Specialty Start Date End Date No, Physician PCP - General 03/01/23
--- OUTSIDE RECORDS SUMMARY | 2024-11-26 11:24 | XMS_ITS | Referral Summary ---
Author Organization [facility] Address [address] [facility] [place] [address] Care Team Providers Care Pest Controller Assistant Name Role Phone Esteban Palm MD Primary Care Provider [phone] Source Comments [facility],non-owned Affiliates and Associated Physician Practices is amultiple site organization consisting of ambulatory clinics and hospital sitesin [place], [place], [place] and [place]. This disclosure is being madepursuant to the Care Everywhere program and may not contain all information available regarding this patient. Last updated 18.[facility] Allergies No known active allergies Medications * [...] 24 hours. 06/15/2024 Active saline nasal spray ([place]; Baby Swisher) 0.65 % nasal spray [place] 1 (one) spray into each nostril every [...] and heating? Not hard at all 06/04/2024 [facility] [place] of Occupat ional Health - Occupational Stress [...] place to sleep or slept in a intermediate (including now)? No 06/04/2024 Sex and Gender [...] Mass Index 23.04 07/10/2024 2:31 PM CDT Functional Status Functional Status Response Date of Assess ment Is person deaf or have serious hearing difficult y? No 06/04/2024 Is person blind or have serious difficulty seein g? No 06/04/2024 Does person have serious dif ficulty walking/climbing stairs? No 06/04/2024 Does person have difficulty dressing/bathing? No 06/04/2024 Does person have difficulty doing errands alone? No 06/04/2024 Cognitive Status Response Date of Assessm ent Does person have difficulty concentrating/remembering/making decisions? No 06/04/2024 Plan of Treatment Not on file Medical Devices Implanted Type Area Ase Certified Technician Device Identifier Shelf Expiration Date Model / Serial / Lot Coil Azur Cx Hdrcl 4cm 2mm Dtch Loop Sld Implanted:Qty: 1 on 05/24/2024 by Deonna Huff MD at [facility] [employer] 01/14/2029 [id number] / / [id number] Prtcl Embl 2.5mm 1ml Syr Embocube Geltn Implanted:Qty: 1 on 05/24/2024 by Deonna Huff MD at [facility] Right: Liver [employer] 01/23/2027 [id number] / / [id number] Coil Azur Cx Hdrcl 4cm 2mm Dtch Loop Sld Implanted:Qty: 1 on 05/24/2024 by Deonna Huff MD at [facility] Right: Liver [employer] 01/14/2029 [id number] / / [id number] Advance Directives * Full Code (Latest Code Status on File) Date Activated Date Inactivated Comments 06/08/2024 5:14 PM 06/15/2024 5:35 PM * Full Code Date Activated Date Inactivated Comments 05/23/2024 11:39 PM 05/31/2024 6:42 PM Care Teams Pest Controller Assistant Relationship Specialty Start Date End Date Esteban Palm MD [address] [place] [address] PCP - General Family Medicine 05/25/24
--- OUTSIDE RECORDS SUMMARY | 2024-11-26 11:25 | XMS_ITS | Patient Health Summary ---
Author Organization [facility] Address [address] [place] [address] Care Team Providers Care Team Otr Truck Driver Name Role Phone Esteban Palm MD Primary Care Provider [phone] Note from [facility],non-owned Affiliates and Associated Physician Practices is amultiple site organization consisting of ambulatory clinics and hospital sitesin [place] and [place]. This disclosure is being madepursuant to the Care Everywhere program and may not contain all information available regarding this patient. Last updated 18.[facility] Allergies No known active allergies Medications * Be aware that medications may not be up to date on this document. Alwaysverify current medications with the patient. * acetaminophen (Tylenol) 500 MG tablet(Started 06/15/2024) Take 2 (two) tablets by mouth every 6 hours Maximum allowable Acetaminophen amount = 4 Grams (4000 mg) / 24 hours. * saline nasal spray ([place]; Baby [place]) 0.65 % nasal spray(Started 06/15/2024) [place] 1 (one) spray into each nostril every 1 hour as needed for Dry Nose * lidocaine (Lidoderm) 5 % patch(Started 06/15/2024) Apply 2 (two) patches to skin every 24 hours Apply patch to most painful area and remove after 12 hours. May reapply a new patch 12 hours later. * folic acid (Folvite) 1 MG tablet(Started 06/15/2024) Take 1 (one) tablet by mouth once daily * polyethylene glycol 3350 (Miralax) 17 g packet(Started 06/15/2024) Take 17 (seventeen) g by mouth once daily Reasons: Constipation * senna-docusate (Senokot-S) 8.6-50 MG tablet(Started 06/15/2024) Take 1 (one) tablet by mouth once daily * phenol 1.4 %(Started 06/15/2024) 1 spray by Mouth/Throat route every 1 hour as needed * multiple vitamins with minerals tablet(Started 06/15/2024) Take 1 (one) tablet by mouth once daily * white petroleum (Vaseline) ointment(Started 06/15/2024) Apply to affected area 2 times daily * thiamine (Vitamin B-1) 100 MG tablet(Started 06/15/2024) Take 1 (one) tablet by mouth once daily * methocarbamol (Robaxin) 750 MG tablet(Started 05/30/2024) TAKE ONE TABLET BY MOUTH EVERY 6 HOURS NEEDED FOR MUSCLE SPASMS * oxyCODONE, immediate release, (Roxicodone) 5 MG tablet(Started 06/15/2024) TAKE ONE TABLET BY MOUTH EVERY 4 HOURS NEEDED Active Problems Problem Noted Date Diagnosed Date Ileus following gastrointestinal surgery 024 Small bowel ischemia 06/15/2024 Leukocytosis 06/15/2024 Decreased mobility 06/15/2024 SBO (small bowel obstruction) 06/03/2024 Splenic laceration, initial encounter 05/24/2024 Multiple fractures of ribs, right side, init for clos fx 05/24/2024 Laceration of liver, initial encounter 4 Immunizations * TDAP (7yrs+)(Given 05/23/2024) Social History Tobacco Use Types Packs/Day Years [...] and heating? Not hard at all 06/04/2024 [facility] - Occupational Stress [...] place to sleep or slept in a nursing home (including now)? No 06/04/2024 Sex and Gender [...] Mass Index 23.04 07/10/2024 2:31 PM CDT Medical Devices Implanted Type Area Network Support Manager Device Identifier Shelf Expiration Date Model / Serial / Lot Coil Azur Cx Hdrcl 4cm 2mm Dtch Loop Sld Implanted:Qty: 1 on 05/24/2024 by Deonna Huff MD at [facility] [employer] 01/14/2029 [id number] / / [id number] Prtcl Embl 2.5mm 1ml Syr Embocube Geltn Implanted:Qty: 1 on 05/24/2024 by Deonna Huff MD at [facility] Right: Liver [employer] 01/23/2027 [id number] / / [id number] Coil Azur Cx Hdrcl 4cm 2mm Dtch Loop Sld Implanted:Qty: 1 on 05/24/2024 by Deonna Huff MD at [facility] Right: Liver [employer] Winifred 01/14/2029 [id number] / / [id number] Procedures * PHOSPHORUS BLOOD(Performed 06/15/2024) * MAGNESIUM BLOOD(Performed 06/15/2024) * CBC W/O DIFFERENTIAL(Performed 06/15/2024) * BASIC METABOLIC PANEL (CALCIUM TOTAL)(Performed 06/15/2024) * TRIGLYCERIDES BLOOD(Performed 06/14/2024) * PHOSPHORUS BLOOD(Performed 06/14/2024) * MAGNESIUM BLOOD(Performed 06/14/2024) * CBC W/O DIFFERENTIAL(Performed 06/14/2024) * BASIC METABOLIC PANEL (CALCIUM TOTAL)(Performed 06/14/2024) * PHOSPHORUS BLOOD(Performed 06/13/2024) * MAGNESIUM BLOOD(Performed 06/13/2024) * CBC W/O DIFFERENTIAL(Performed 06/13/2024) * CALCIUM IONIZED WHOLE BLOOD(Performed 06/13/2024) * BASIC METABOLIC PANEL (CALCIUM TOTAL)(Performed 06/13/2024) * XR ABDOMEN KUB PORTABLE(Performed 06/12/2024) Performed for SBO (small bowel obstruction) (HCC) * HEPATIC FUNCTION PANEL(Performed 06/12/2024) * CBC W/O DIFFERENTIAL(Performed 06/12/2024) * BASIC METABOLIC PANEL (CALCIUM TOTAL)(Performed 06/12/2024) * CALCIUM IONIZED WHOLE BLOOD(Performed 06/12/2024) * PHOSPHORUS BLOOD(Performed 06/12/2024) * MAGNESIUM BLOOD(Performed 06/12/2024) * CBC W/O DIFFERENTIAL(Performed 06/11/2024) * BASIC METABOLIC PANEL (CALCIUM TOTAL)(Performed 06/11/2024) * CALCIUM IONIZED WHOLE BLOOD(Performed 06/11/2024) * PHOSPHORUS BLOOD(Performed 06/11/2024) * MAGNESIUM BLOOD(Performed 06/11/2024) * XR CHEST 1VW PORTABLE(Performed 06/10/2024) Performed for Splenic laceration, initial encounter * CBC W/O DIFFERENTIAL(Performed 06/10/2024) * BASIC METABOLIC PANEL (CALCIUM TOTAL)(Performed 06/10/2024) * CALCIUM IONIZED WHOLE BLOOD(Performed 06/10/2024) * PHOSPHORUS BLOOD(Performed 06/10/2024) * MAGNESIUM BLOOD(Performed 06/10/2024) * XR ABDOMEN KUB PORTABLE(Performed 06/09/2024) Performed for SBO (small bowel obstruction) (HCC) * EXTUBATION(Performed 06/09/2024) * XR ABDOMEN KUB PORTABLE(Performed 06/09/2024) Performed for SBO (small bowel obstruction) (HCC) * CBC W/O DIFFERENTIAL(Performed 06/09/2024) * BASIC METABOLIC PANEL (CALCIUM TOTAL)(Performed 06/09/2024) * CALCIUM IONIZED WHOLE BLOOD(Performed 06/09/2024) * PHOSPHORUS BLOOD(Performed 06/09/2024) * MAGNESIUM BLOOD(Performed 06/09/2024) * XR CHEST 1VW PORTABLE(Performed 06/08/2024) Performed for Multiple fractures of ribs, right side, init for clos fx * METABOLIC STUDY(Performed 06/08/2024) * CALCIUM IONIZED WHOLE BLOOD(Performed 06/08/2024) * PHOSPHORUS BLOOD(Performed 06/08/2024) * MAGNESIUM BLOOD(Performed 06/08/2024) * BASIC METABOLIC PANEL (CALCIUM TOTAL)(Performed 06/08/2024) * CBC W/O DIFFERENTIAL(Performed 06/08/2024) * XR CHEST 1VW PORTABLE(Performed 06/08/2024) Performed for Splenic laceration, initial encounter * XR CHEST 1VW PORTABLE(Performed 06/07/2024) Performed for Splenic laceration, initial encounter * TX EXPLORATORY OF ABDOMEN(Performed 06/07/2024) Performed for Open wound of abdomen, subsequent encounter * XR CHEST 1VW PORTABLE(Performed 06/07/2024) Performed for Splenic laceration, initial encounter * VANCOMYCIN LEVEL RANDOM(Performed 06/07/2024) * XR CHEST 1VW PORTABLE(Performed 06/07/2024) Performed for Multiple fractures of ribs, right side, init for clos fx * TYPE + SCREEN PANEL(Performed 06/07/2024) Performed for Splenic laceration, initial encounter * CALCIUM IONIZED WHOLE BLOOD(Performed 06/07/2024) * BASIC METABOLIC PANEL (CALCIUM TOTAL)(Performed 06/07/2024) * CBC W AUTO DIFFERENTIAL(Performed 06/07/2024) * PHOSPHORUS BLOOD(Performed 06/07/2024) * MAGNESIUM BLOOD(Performed 06/07/2024) * DIFFERENTIAL MANUAL(Performed 06/07/2024) * CBC W AUTO DIFFERENTIAL(Performed 06/07/2024) * BASIC METABOLIC PANEL (CALCIUM TOTAL)(Performed 06/07/2024) * CALCIUM IONIZED WHOLE BLOOD(Performed 06/07/2024) * TRIGLYCERIDES BLOOD(Performed 06/07/2024) * PHOSPHORUS BLOOD(Performed 06/07/2024) * MAGNESIUM BLOOD(Performed 06/07/2024) * DIFFERENTIAL MANUAL(Performed 06/06/2024) * BASIC METABOLIC PANEL (CALCIUM TOTAL)(Performed 06/06/2024) * VANCOMYCIN LEVEL RANDOM(Performed 06/06/2024) * CBC W AUTO DIFFERENTIAL(Performed 06/06/2024) * XR CHEST 1VW PORTABLE(Performed 06/06/2024) Performed for Splenic laceration, initial encounter * BASIC METABOLIC PANEL (CALCIUM TOTAL)(Performed 06/06/2024) * XR CHEST 1VW PORTABLE(Performed 06/06/2024) Performed for Splenic laceration, initial encounter * DIFFERENTIAL MANUAL(Performed 06/06/2024) * BASIC METABOLIC PANEL (CALCIUM TOTAL)(Performed 06/06/2024) * CALCIUM IONIZED WHOLE BLOOD(Performed 06/06/2024) * CBC W AUTO DIFFERENTIAL(Performed 06/06/2024) * PHOSPHORUS BLOOD(Performed 06/06/2024) * MAGNESIUM BLOOD(Performed 06/06/2024) * VANCOMYCIN LEVEL RANDOM(Performed 06/05/2024) * BASIC METABOLIC PANEL (CALCIUM TOTAL)(Performed 06/05/2024) * CBC W/O DIFFERENTIAL(Performed 06/05/2024) * BASIC METABOLIC PANEL (CALCIUM TOTAL)(Performed 06/05/2024) * BLOOD GAS+COOX+LYTES+METAB VENOUS POCT(Performed 06/05/2024) * BLOOD GAS BRANDI+LYTES+METAB+COOX POC NOTIF(Performed 06/05/2024) Performed for Splenic laceration, initial encounter * CARDIAC EKG ORDER(Performed 06/05/2024) * TX EXPLORATORY OF ABDOMEN(Performed 06/05/2024) Performed for Open wound of abdomen, initial encounter * VANCOMYCIN LEVEL RANDOM(Performed 06/05/2024) * BASIC METABOLIC PANEL (CALCIUM TOTAL)(Performed 06/05/2024) * XR CHEST 1VW PORTABLE(Performed 06/05/2024) Performed for Splenic laceration, initial encounter * DIFFERENTIAL MANUAL(Performed 06/05/2024) * PHOSPHORUS BLOOD(Performed 06/05/2024) * MAGNESIUM BLOOD(Performed 06/05/2024) * CALCIUM IONIZED WHOLE BLOOD(Performed 06/05/2024) * BASIC METABOLIC PANEL (CALCIUM TOTAL)(Performed 06/05/2024) * CBC W AUTO DIFFERENTIAL(Performed 06/05/2024) * TRIGLYCERIDES BLOOD(Performed 06/05/2024) * BASIC METABOLIC PANEL (CALCIUM TOTAL)(Performed 06/04/2024) * DIFFERENTIAL MANUAL(Performed 06/04/2024) * BASIC METABOLIC PANEL (CALCIUM TOTAL)(Performed 06/04/2024) * CBC W AUTO DIFFERENTIAL(Performed 06/04/2024) * XR ABDOMEN KUB PORTABLE(Performed 06/04/2024) Performed for SBO (small bowel obstruction) (HCC) * DIFFERENTIAL MANUAL(Performed 06/04/2024) * LACTIC ACID BLOOD(Performed 06/04/2024) * BASIC METABOLIC PANEL (CALCIUM TOTAL)(Performed 06/04/2024) * CBC W AUTO DIFFERENTIAL(Performed 06/04/2024) * VANCOMYCIN LEVEL RANDOM(Performed 06/04/2024) * CULTURE BLOOD(Performed 06/04/2024) * CULTURE BLOOD(Performed 06/04/2024) * DIFFERENTIAL MANUAL(Performed 06/04/2024) * BASIC METABOLIC PANEL (CALCIUM TOTAL)(Performed 06/04/2024) * CBC W AUTO DIFFERENTIAL(Performed 06/04/2024) * XR CHEST 1VW PORTABLE(Performed 06/04/2024) Performed for SBO (small bowel obstruction) (HCC) * DIFFERENTIAL MANUAL(Performed 06/04/2024) * PHOSPHORUS BLOOD(Performed 06/04/2024) * MAGNESIUM BLOOD(Performed 06/04/2024) * LACTIC ACID BLOOD(Performed 06/04/2024) * BASIC METABOLIC PANEL (CALCIUM TOTAL)(Performed 06/04/2024) * CBC W AUTO DIFFERENTIAL(Performed 06/04/2024) * BLOOD GASES ART + COOX PANEL(Performed 06/04/2024) * CULTURE FLUID+GRAM STAIN(Performed 06/04/2024) * CULTURE ANAEROBE(Performed 06/04/2024) * BLOOD GAS+COOX+LYTES+METAB ARTERIAL POCT(Performed 06/03/2024) * BLOOD GAS ART+LYTES+METAB+COOX POC NOTIF(Performed 06/03/2024) Performed for SBO (small bowel obstruction) (HCC) * ENDOTRACHEAL TUBE NOTE(Performed 06/03/2024) * ARTERIAL LINE NOTE(Performed 06/03/2024) * TX EXPLORATORY OF ABDOMEN(Performed 06/03/2024) Performed for Trauma * LACTIC ACID BLOOD(Performed 06/03/2024) * TYPE + SCREEN PANEL(Performed 06/03/2024) * DIFFERENTIAL MANUAL(Performed 06/03/2024) * PT-INR [facility](Performed 06/03/2024) * CBC W AUTO DIFFERENTIAL(Performed 06/03/2024) * COMPREHENSIVE METABOLIC PANEL(Performed 06/03/2024) * EKG 12-LEAD(Performed 06/03/2024) Performed for SBO (small bowel obstruction) (HCC) * GLUCOSE - POINT OF CARE(Performed 05/30/2024) * XR ABDOMEN KUB PORTABLE(Performed 05/29/2024) Performed for Trauma * GLUCOSE - POINT OF CARE(Performed 05/29/2024) * PHOSPHORUS BLOOD(Performed 05/29/2024) * MAGNESIUM BLOOD(Performed 05/29/2024) * CBC W/O DIFFERENTIAL(Performed 05/29/2024) * BASIC METABOLIC PANEL (CALCIUM TOTAL)(Performed 05/29/2024) * XR CHEST 1VW PORTABLE(Performed 05/29/2024) Performed for Chest tube in place * OT EVAL AND TREAT(Performed 05/28/2024) * CBC W/O DIFFERENTIAL(Performed 05/28/2024) * PHOSPHORUS BLOOD(Performed 05/28/2024) * MAGNESIUM BLOOD(Performed 05/28/2024) * BASIC METABOLIC PANEL (CALCIUM TOTAL)(Performed 05/28/2024) * XR CHEST 1VW PORTABLE(Performed 05/28/2024) Performed for Trauma, Multiple fractures of ribs, right side, init for clos fx * TROPONIN-I HIGH SENSITIVE(Performed 05/27/2024) * CK BLOOD(Performed 05/27/2024) * XR CHEST 1VW PORTABLE(Performed 05/27/2024) Performed for Trauma, Laceration of spleen, initial encounter * XR ABDOMEN KUB PORTABLE(Performed 05/27/2024) Performed for Nausea and vomiting, unspecified vomiting type * EKG 12-LEAD(Performed 05/27/2024) Performed for Nausea and vomiting, unspecified vomiting type, Tachycardia, unspecified * PREPARE RBC LEUKOREDUCED UNIT(Performed 05/27/2024) Performed for Trauma * PREPARE RBC LEUKOREDUCED UNIT(Performed 05/27/2024) Performed for Trauma * CBC W/O DIFFERENTIAL(Performed 05/26/2024) * PHOSPHORUS BLOOD(Performed 05/26/2024) * MAGNESIUM BLOOD(Performed 05/26/2024) * BASIC METABOLIC PANEL (CALCIUM TOTAL)(Performed 05/26/2024) * CBC W/O DIFFERENTIAL(Performed 05/26/2024) * MAGNESIUM BLOOD(Performed 05/26/2024) * BASIC METABOLIC PANEL (CALCIUM TOTAL)(Performed 05/26/2024) * PHOSPHORUS BLOOD(Performed 05/26/2024) * CBC W/O DIFFERENTIAL(Performed 05/26/2024) * CBC W/O DIFFERENTIAL(Performed 05/25/2024) * CBC W/O DIFFERENTIAL(Performed 05/25/2024) * XR CHEST 1VW PORTABLE(Performed 05/25/2024) Performed for Multiple fractures of ribs, right side, init for clos fx * CBC W/O DIFFERENTIAL(Performed 05/25/2024) * XR CHEST 1VW PORTABLE(Performed 05/25/2024) Performed for Trauma * PHOSPHORUS BLOOD(Performed 05/24/2024) * MAGNESIUM BLOOD(Performed 05/24/2024) * BASIC METABOLIC PANEL (CALCIUM TOTAL)(Performed 05/24/2024) * CBC W/O DIFFERENTIAL(Performed 05/24/2024) * XR HUMERUS LEFT 2VW OR MORE(Performed 05/24/2024) Performed for Trauma * XR SHOULDER RIGHT 2VW OR MORE(Performed 05/24/2024) Performed for Trauma * XR SHOULDER LEFT 2VW OR MORE(Performed 05/24/2024) Performed for Trauma * CBC W/O DIFFERENTIAL(Performed 05/24/2024) * CARDIAC EKG ORDER(Performed 05/24/2024) * CBC W/O DIFFERENTIAL(Performed 05/24/2024) * GLUCOSE - POINT OF CARE(Performed 05/24/2024) * GLUCOSE - POINT OF CARE(Performed 05/24/2024) * CT 3D RECON W INDEPENDENT WKSN(Performed 05/24/2024) Performed for Trauma * BLOOD GASES ART + COOX PANEL(Performed 05/24/2024) * BASIC METABOLIC PANEL (CALCIUM TOTAL)(Performed 05/24/2024) * GLUCOSE - POINT OF CARE(Performed 05/24/2024) * GLUCOSE - POINT OF CARE(Performed 05/24/2024) * BASIC METABOLIC PANEL (CALCIUM TOTAL)(Performed 05/24/2024) * CBC W/O DIFFERENTIAL(Performed 05/24/2024) * GLUCOSE - POINT OF CARE(Performed 05/24/2024) * GLUCOSE - POINT OF CARE(Performed 05/24/2024) * EKG 12-LEAD(Performed 05/24/2024) Performed for Trauma * TEG 6 GLOBAL HEMOSTASIS W/ LYSIS(Performed 05/24/2024) * TEG 6S PLATELET MAPPING(Performed 05/24/2024) * PHOSPHORUS BLOOD(Performed 05/24/2024) * MAGNESIUM BLOOD(Performed 05/24/2024) * CBC W/O DIFFERENTIAL(Performed 05/24/2024) * BASIC METABOLIC PANEL (CALCIUM TOTAL)(Performed 05/24/2024) * XR CHEST 1VW PORTABLE(Performed 05/24/2024) Performed for Trauma * IR VISCERAL ANGIO(Performed 05/24/2024) Performed for Trauma * TRANSFUSE RED BLOOD CELL LEUKOREDUCED ML(S)(Performed 05/24/2024) * TRANSFUSE RED BLOOD CELL LEUKOREDUCED ML(S)(Performed 05/24/2024) * PREPARE RBC LEUKOREDUCED UNIT(Performed 05/24/2024) * ENDOTRACHEAL TUBE NOTE(Performed 05/24/2024) * BLOOD TYPE VERIFICATION(Performed 05/23/2024) * URINE DRUG SCREEN IMMUNOASSAY(Performed 05/23/2024) * DIFFERENTIAL MANUAL(Performed 05/23/2024) * TROPONIN-I HIGH SENSITIVE REFLEX 1HOUR(Performed 05/23/2024) * CBC W AUTO DIFFERENTIAL(Performed 05/23/2024) * CT FACIAL BONES WO CONTRAST(Performed 05/23/2024) Performed for Trauma * CT LUMBAR SPINE WO CONTRAST(Performed 05/23/2024) Performed for Trauma * CT THORACIC SPINE WO CONTRAST(Performed 05/23/2024) Performed for Trauma * CT CHEST ABDOMEN PELVIS W CONT(Performed 05/23/2024) Performed for Trauma * CT CERVICAL SPINE WO CONTRAST(Performed 05/23/2024) Performed for Trauma * CT HEAD WO CONTRAST(Performed 05/23/2024) Performed for Trauma * EKG 12-LEAD(Performed 05/23/2024) Performed for Fall, initial encounter * TYPE + SCREEN PANEL(Performed 05/23/2024) * TROPONIN-I HIGH SENSITIVE BASELINE + 1HR(Performed 05/23/2024) * PT-INR [facility](Performed 05/23/2024) * BASIC METABOLIC PANEL (CALCIUM TOTAL)(Performed 05/23/2024) * ALCOHOL ETHYL BLOOD(Performed 05/23/2024) * XR CHEST 1VW PORTABLE(Performed 05/23/2024) Performed for Trauma * XR PELVIS 1 OR 2VW(Performed 05/23/2024) Performed for Trauma Results * (ABNORMAL) CBC W/O DIFFERENTIAL (06/15/2024 4:17 AM CDT) Only the most recent of22 resultswithin the time period is included. WBC 14.8(H) 4.0 - 10.7 x10E9/L 06/15/2024 5:40 AM CDT [facility] RBC Count 3.39(L) 4.30 - 5.80 x10E12/L 06/15/2024 5:40 AM CDT [facility] Hemoglobin 10.3(L) 13.3 - 17.5 g/dL 06/15/2024 5:40 AM [facility] Hematocrit 31.5(L) 38.7 - 51.1 % 06/15/2024 5:40 AM [facility] MCV 92.9 80.0 - 98.0 fL 06/15/2024 5:40 AM [facility] MCH 30.4 26.7 - 33.6 pg 06/15/2024 5:40 AM [facility] MCHC 32.7 31.7 - 36.3 g/dL 06/15/2024 5:40 AM [facility] RDW-CV 13.2 11.3 - 14.8 % 06/15/2024 5:40 AM [facility] Platelet Count 435(H) 150 - 420 x10E9/L 06/15/2024 5:40 AM [facility] MPV 9.8 7.8 - 11.4 fL 06/15/2024 5:40 AM [facility] Blood BLOOD SPECIMEN / Unknown Lab Venipuncture / Unknown 06/15/2024 4:17 AM CDT 06/15/2024 5:14 AM CDT Honey Alfaro MD LAB - HEMATOLOGY ORDERABLES [facility] [address] [place] [id number], [facility] [phone] * (ABNORMAL) BASIC METABOLIC PANEL (CALCIUM TOTAL) (06/15/2024 4:17 AM CDT) Only the most recent of31 resultswithin the time period is included. BUN 20 7 - 26 mg/dL 06/15/2024 5:51 AM [facility] Creatinine 0.68(L) 0.71 - 1.16 mg/dL 06/15/2024 5:51 AM [facility] Sodium 139 136 - 145 mmol/L 06/15/2024 5:51 AM [facility] Potassium 3.5 3.5 - 4.5 mmol/L 06/15/2024 5:51 AM [facility] Chloride 108(H) 98 - 107 mmol/L 06/15/2024 5:51 AM [facility] CO2 21(L) 22 - 29 mmol/L 06/15/2024 5:51 AM [facility] Glucose 114 70 - 115 mg/dL 06/15/2024 5:51 AM [facility] Calcium 8.1(L) 8.4 - 10.2 mg/dL 06/15/2024 5:51 AM [facility] Anion Gap 10 6 - 16 06/15/2024 5:51 AM [facility] BUN/Creatinine Ratio 29(H) 7 - 23 06/15/2024 5:51 AM [facility] Osmolality Calculated 291 275 - 295 mOsm/kg 06/15/2024 5:51 AM [facility] eGFR by CKD-EPI >90 >=90 mL/min/1.7 3 m2 06/15/2024 5:51 AM [facility] Blood BLOOD SPECIMEN / Unknown Lab Venipuncture / Unknown 06/15/2024 4:17 AM CDT 06/15/2024 5:14 AM CDT Honey Alfaro MD LAB - CHEMISTRY O FALGUNI Performing Organization Address City/[facility]/ZIP Co de Phone Number [address] [address], [facility] [phone] * PHOSPHORUS BLOOD (06/15/2024 4:17 AM CDT) Only the most recent of19 resultswithin the time period is included. Phosphorus 4.0 2.8 - 5.1 mg/dL 06/15/2024 5:51 AM T [facility] Blood BLOOD SPECIMEN / Unknown Lab Venipuncture / Unknown 06/15/2024 4:17 AM CDT 06/15/2024 5:14 AM CDT Honey Alfaro MD LAB - CHEMISTRY O FALG[place]I [address] [place] [address], [place] [phone] * MAGNESIUM BLOOD (06/15/2024 4:17 AM CDT) Only the most recent of19 resultswithin the time period is included. Magnesium 1.9 1.6 - 2.6 mg/dL 06/15/2024 5:51 AM CDT [facility] Blood BLOOD SPECIMEN / Unknown Lab Venipuncture / Unknown 06/15/2024 4:17 AM CDT 06/15/2024 5:14 AM CDT Honey Alfaro MD LAB - CHEMISTRY O [place] [address] [address], [facility] [phone] * (ABNORMAL) TRIGLYCERIDES BLOOD (06/14/2024 4:04 AM CDT) Only the most recent of3 resultswithin the time period is included. Triglycerides 225(H) <150 mg/dL 06/14/2024 4:51 AM CDT [facility] Comment: ATP III Classification of Triglycerides: <150 mg/dL: Normal 150 - 199 mg/dL: Borderline High 200 - 400 mg/dL: High >500 mg/dL: Very High Blood BLOOD SPECIMEN / Unknown Lab Venipuncture / Unknown 06/14/2024 4:04 AM CDT 06/14/2024 4:21 AM CDT Celina Tellez PA-C LAB - CHEMISTRY ONEAL CALDERA [address] [address], [facility] [phone] * (ABNORMAL) CALCIUM IONIZED WHOLE BLOOD (06/13/2024 4:08 AM CDT) Only the most recent of10 resultswithin the time period is included. Calcium Ionized 1.14 mmol/L 06/13/2024 4:28 AM CDT [facility] pH 7.45 7.35 - 7.45 pH 06/13/2024 4:28 AM CDT [facility] Ionized Calcium pH Adjusted 1.16(L) 1.19 - 1.34 mmol/L 06/13/2024 4:28 AM CDT [facility] Blood BLOOD SPECIMEN / Unknown Lab Venipuncture / Unknown 06/13/2024 4:08 AM CDT 06/13/2024 4:19 AM CDT Honey Alfaro MD LAB - CHEMISTRY O RDERABLES [facility] [address] [place] [address], [facility] [phone] * XR Abdomen Kub Portable (06/12/2024 9:29 AM CDT) Only the most recent of6 resultswithin the time period is included. Anatomical Region Laterality Modality Abdomen Radiographic Alicia ging 06/12/2024 9:53 AM CDT Impressions 06/12/2024 2:57 PM CDT IMPRESSION: Improving appearance of the previously visualized incomplete small bowel obstruction. > Dictated by Scott Baltazar MD, (director of residential services). I, Nick Polanco MD have personally reviewed and interpreted this examination/study. > Interpreting Provider: Nick Polanco MD on 06/12/2024 2:57 PM Narrative 06/12/2024 2:57 PM CDT PROCEDURE: XR ABDOMEN KUB PORTABLE, DATE/TIME OF EXAM: 06/12/2024 9:29 AM, LOCATION [facility] INDICATION: K56.609: SBO (small bowel obstruction) ([facility]) ADDITIONAL CLINICAL INFORMATION: Ordering Provider Reason For Exam: r/o ileus COMPARISON: X-ray KUB from 06/09/2024. TECHNIQUE: AP Supine frontal radiograph of the abdomen. FINDINGS/IMPRESSION: *Enteric tube partially coiled with tip terminating in the fundus of the stomach. *Surgical maricel along the abdominal midline Moderate colonic stool load is present with gas mixed with fecal debris extending to the level of the rectal vault.. Improvement in previously seen dilated loops of small bowel in the left upper quadrant. Procedure Note Nick Polanco MD - 06/12/2024 PROCEDURE: XR ABDOMEN KUB PORTABLE, DATE/TIME OF EXAM: 06/12/2024 9:29AM, LOCATION [facility] INDICATION: K56.609: SBO (small bowel obstruction) ([facility]) ADDITIONAL CLINICAL INFORMATION: Ordering Provider Reason For Exam: r/o ileus COMPARISON: X-ray KUB from 06/09/2024. TECHNIQUE: AP Supine frontal radiograph of the abdomen. FINDINGS/IMPRESSION: *Enteric tube partially coiled with tip terminating in the fundus of the stomach. *Surgical maricel along the abdominal midline Moderate colonic stool load is present with gas mixed with fecal debris extending to the level of the rectal vault.. Improvement in previouslyseen dilated loops of small bowel in the left upper quadrant. IMPRESSION: Improving appearance of the previously visualized incomplete small bowel obstruction. > Dictated by Scott Baltazar MD, (director of residential services). I, Nick Polanco MD have personally reviewed and interpreted this examination/study. > Interpreting Provider: Nick Polanco MD on 06/12/2024 2:57 PM Honey Alfaro MD DIAGNOSTIC ACACIA G ORDERABLES * (ABNORMAL) HEPATIC FUNCTION PANEL (06/12/2024 12:38 AM CDT) Protein Total 7.3 6.0 - 8.3 g/dL 024 1:16 AM [facility] Albumin 1.9(L) 3.4 - 5.0 g/dL 06/12/2024 1:16 AM [facility] Bilirubin Total 0.3 0.2 - 1.2 mg/dL 05/18 1:16 AM CDT [facility] Bilirubin Conjugated 0.2 0.1 - 0.5 mg/dL 06/12/2024 1:16 AM [facility] Bilirubin Unconjugated 0.1 Unconjugated Bilirubin is a calculated value: Reference ranges have not been established. mg/dL 06/12/2024 1:16 AM [facility] Alkaline Phosphatase 173(H) 40 - 150 U/L 06/12/2024 1:16 AM [facility] ALT 71(H) 5 - 55 U/L 06/12/2024 1:16 AM CDT [facility] AST 76(H) 5 - 34 U/L 06/12/2024 1:16 AM CDT [facility] Albumin/Globulin Ratio 0.4(L) 1.1 - 2.3 06/12/2024 1:16 AM CDT [facility] Blood BLOOD SPECIMEN / Unknown Venipuncture / Unknown 06/12/2024 12:38 AM CDT 06/12/2024 12:49 AM CDT Honey Alfaro MD LAB - CHEMISTRY O RDERABLES [facility] [address] [place] [address], [facility] [phone] * XR Chest 1Vw Portable (06/10/2024 5:10 AM CDT) Only the most recent of17 resultswithin the time period is included. Anatomical Region Laterality Modality Chest Radiographic Alicia ging 06/10/2024 12:1 3 PM CDT Narrative 06/10/2024 1:05 PM CDT PROCEDURE: XR CHEST 1VW PORTABLE, DATE/TIME OF EXAM: 06/10/2024 5:10 AM, LOCATION [facility] INDICATION: S36.039A: Splenic laceration, initial encounter ADDITIONAL CLINICAL INFORMATION: Ordering Provider Reason For Exam: intrapulmonary process? COMPARISON: Chest radiograph dated 06/08/2024 FINDINGS/IMPRESSION: Enteric tube coursing the stomach. Low lung volumes bilaterally with bronchovascular crowding. Mild bibasilar atelectasis. Intervally improved aeration of left retrocardiac space. There is no pleural effusion or pneumothorax. The cardiomediastinal silhouette is normal. > Dictated by James Foreman MD (director of residential services). I, Wade Garner DO have personally reviewed and interpreted this examination/study. > Interpreting Provider: Wade Garner DO on 06/10/2024 1:05 PM Procedure Note Wade Garner DO - 06/10/2024 PROCEDURE: XR CHEST 1VW PORTABLE, DATE/TIME OF EXAM: 06/10/2024 5:10AM, LOCATION [facility] INDICATION: S36.039A: Splenic laceration, initial encounter ADDITIONAL CLINICAL INFORMATION: Ordering Provider Reason For Exam: intrapulmonary process? COMPARISON: Chest radiograph dated 06/08/2024 FINDINGS/IMPRESSION: Enteric tube coursing the stomach. Low lung volumes bilaterally with bronchovascular crowding. Mildbibasilar atelectasis. Intervally improved aeration of left retrocardiac space.There is no pleural effusion or pneumothorax. The cardiomediastinal silhouetteis normal. > Dictated by James Foreman MD (director of residential services). I, Wade Garner DO have personally reviewed and interpreted this examination/study. > Interpreting Provider: Wade Garner DO on 06/10/2024 1:05 PM Honey Alfaro MD DIAGNOSTIC IMAGIN G ORDERABLES * METABOLIC STUDY (06/08/2024 11:40 AM CDT) Impressions Beatriz Lazaro MD - 06/08/2024 11:40 AM CDT [facility] DEPARTMENT OF PULMONARY, CRITICAL CARE, AND SLEEP MEDICINE METABOLIC STUDY Darin Yepez Robi 06/08/2024 INTERPRETATION The test shows a mean resting energy expenditure (REE) of 2368 kcal/day. The mean respiratory quotient (RQ) is 0.81. IMPRESSION 1- The patient is not meeting his daily caloric needs, but patient is NPO. Haider Waller MD Pulmonary & Critical Care Fellow Division of Pulmonary, Critical Care and Sleep Medicine [facility] I have personally reviewed the fellow's interpretation of the test and made any necessary changes when needed. Beatriz Lazaro MD Class A Regional Driverspantry worker Division of Pulmonary, Critical Care and Sleep Medicine [facility] Pager: [phone] Narrative Beatriz Lazaro MD - 06/08/2024 11:40 AM CDT Haider Fox MD 06/08/2024 12:24 PM Procedure Note Haider Fox MD - 06/08/2024 11:40 AM CDT Images from the original note were not included. Willie Marte PA-C RESPIRATORY THERA PY ORDERABLES * VANCOMYCIN LEVEL RANDOM (06/07/2024 6:35 AM CDT) Only the most recent of5 resultswithin the time period is included. [facility] Vancomycin Random 9.1 Therapeutic Ranges not established for random specimens ug/mL 06/07/2024 7:19 AM CDT [facility] Blood BLOOD SPECIMEN / Unknown Venipuncture / Unknown 06/07/2024 6:35 AM CDT 06/07/2024 6:39 AM CDT Narrative [facility] - 06/07/2024 7:19 AM CDT See institution protocol. Honey Alfaro MD LAB - CHEMISTRY O RDERABLES Performing Organization Address City/[facility]/ZIP Co de Phone Number [address] [address], [facility] [phone] * TYPE + SCREEN PANEL (06/07/2024 12:03 AM CDT) Only the most recent of3 resultswithin the time period is included. [facility] Antibody Screen NEG 06/07/2024 1:45 AM CDT [facility] BLOOD BANK LAB ABO Rh AB POS 06/07/2024 1:45 AM CDT [facility] BLOOD BANK LAB Blood Bank BLOOD SPECIMEN / Unknown Venipuncture / Unknown 06/07/2024 12:03 AM CDT 06/07/2024 1:09 AM CDT Calderon Ramos MD LAB - BLOOD BANK ORD ERABLES Performing Organization Address City/[facility]/ZIP Co de Phone Number [facility] B[facility]OD BANK LAB [address] [place] [phone], [place] [phone] * (ABNORMAL) CBC W AUTO DIFFERENTIAL (06/07/2024 12:03 AM CDT) Only the most recent of11 resultswithin the time period is included. [facility] WBC 18.2(H) 4.0 - 10.7 x10E9/L 06/07/2024 12:15 AM [facility] RBC Count 2.92(L) 4.30 - 5.80 x10E12/L 06/07/2024 12:15 AM [facility] Hemoglobin 9.0(L) 13.3 - 17.5 g/dL 06/07/2024 12:15 AM [facility] Hematocrit 28.2(L) 38.7 - 51.1 % 06/07/2024 12:15 AM [facility] MCV 96.6 80.0 - 98.0 fL 06/07/2024 12:15 AM [facility] MCH 30.8 26.7 - 33.6 pg 06/07/2024 12:15 AM [facility] MCHC 31.9 31.7 - 36.3 g/dL 06/07/2024 12:15 AM [facility] RDW-CV 14.3 11.3 - 14.8 % 06/07/2024 12:15 AM [facility] Platelet Count 396 150 - 420 x10E9/L 06/07/2024 12:15 AM [facility] MPV 9.1 7.8 - 11.4 fL 06/07/2024 12:15 AM [facility] Neutrophil % 83.3(H) 41.0 - 74.0 % 06/07/2024 12:15 AM [facility] Lymphocyte % 5.3(L) 17.0 - 47.0 % 06/07/2024 12:15 AM [facility] Monocyte % 5.3 3.0 - 11.0 % 06/07/2024 12:15 AM [facility] Eosinophil % 1.2 0.0 - 7.0 % 06/07/2024 12:15 AM [facility] Basophil % 0.4 0.0 - 1.6 % 06/07/2024 12:15 AM [facility] Immature Granulocytes % 4.5(H) 0.0 - 1.0 % 06/07/2024 12:15 AM [facility] Neutrophil Absolute 15.18(H) 1.60 - 7.50 x10E9/L 06/07/2024 12:15 AM [facility] Lymphocyte Absolute 0.96(L) 1.00 - 4.40 x10E9/L 06/07/2024 12:15 AM CDT [facility] Monocyte Absolute 0.96 0.15 - 1.00 x10E9/L 06/07/2024 12:15 AM CDT [facility] Eosinophil Absolute 0.22 0.00 - 0.60 x10E9/L 06/07/2024 12:15 AM T [facility] Basophil Absolute 0.07 0.00 - 0.13 x10E9/L 06/07/2024 12:15 AM [facility] Blood BLOOD SPECIMEN / Unknown Venipuncture / Unknown 06/07/2024 12:03 AM CDT 06/07/2024 12:11 AM CDT Willie Marte PA-C LAB - HEMATOLOGY ORDERABLES [facility] [address] [place] [address], [facility] [phone] * (ABNORMAL) DIFFERENTIAL MANUAL (06/07/2024 12:00 AM CDT) Only the most recent of10 resultswithin the time period is included. Neutrophil % 82(H) 41 - 74 % 06/08/2024 12:57 AM [facility] Lymphocyte % 4(L) 17 - 47 % 06/08/2024 12:57 AM [facility] Monocyte % 7 3 - 11 % 06/08/2024 12:57 AM [facility] Eosinophil % 1 0 - 7 % 06/08/2024 12:57 AM [facility] Metamyelocyte % 3(H) 0% % 12:57 AM [facility] Myelocyte % 3(H) 0% % 06/08/2024 12:57 AM [facility] Neutrophil Absolute 14.27(H) 1.60 - 7.50 x10E9/L 06/08/2024 12:57 AM [facility] Lymphocyte Absolute 0.70(L) 1.00 - 4.40 x10E9/L 06/08/2024 12:57 AM T [facility] Monocyte Absolute 1.22(H) 0.15 - 1.00 x10E9/L 06/08/2024 12:57 AM [facility] Eosinophil Absolute 0.17 0.00 - 0.60 x10E9/L 06/08/2024 12:57 AM [facility] RBC Morphology REVIEWED 06/08/2024 12:57 AM [facility] Stomatocytes MANY(A) (none) 06/08/2024 12:57 AM [facility] Comment See Comment 06/08/2024 12:57 AM [facility] Comment:Platelets Clumped On Smear Blood BLOOD SPECIMEN / Unknown Venipuncture / Unknown 06/07/2024 06/08/2024 12:09 AM T Willie Marte PA-C LAB - HEMATOLOGY ORDERABLES Performing Organization Address City/State/[facility] Co de Phone Number [facility] [address] [place] [phone], [facility] [phone] * (ABNORMAL) BLOOD GAS+COOX+LYTES+METAB VENOUS POCT (06/05/2024 12:16 PM CDT) pH Venous 7.45(H) 7.32 - 7.42 pH 06/05/2024 12:16 PM [facility] pO2 Venous 44(H) 35 - 40 mmHg 06/05/2024 12:16 PM [facility] pCO2 Venous 43 40 - 50 mmHg 06/05/2024 12:16 PM [facility] HCO3 Venous 29.9 20 - 30 mmol/L 06/05/2024 12:16 PM [facility] Base Excess Venous 5.2(H) -2.0 - 2.0 mmol/L 06/05/2024 12:16 PM [facility] Oxyhemoglobin Venous 73.8 % 05/18 12:16 PM [facility] Deoxyhemoglobin (HHB) Venous % 23.9 % 06/05/2024 12:16 PM [facility] Methemoglobin <0.8 0.0 - 2.0 % 06/05/2024 12:16 PM [facility] Carboxyhemoglobin 1.9 0.0 - 2.0 % 2023 12:16 PM [facility] Comment:Carboxyhemoglobin No rmal Concentration: Non-smokers: 0-2%; Smokers: 0- 9%; Toxic: >20% O2 Content Venous 13.8 Interpret within clinical context ml/dL 06/05/2024 12:16 PM [facility] Hemoglobin by COOX 13.3 12.0 - 17.6 g/dL 06/05/2024 12:16 PM [facility] O2 Saturation Venous 76 >=70 % 05/18 12:16 PM [facility] Sodium Whole Blood 134(L) 135 - 145 mmol/L 06/05/2024 12:16 PM [facility] Potassium Whole Blood 4.0 3.5 - 5.5 mmol/L 06/05/2024 12:16 PM [facility] Chloride WB 102 78 - 107 mmol/L 06/05/2024 12:16 PM [facility] Calcium Ionized 1.12 mmol/L 12:16 PM [facility] Ionized Calcium pH Adjusted 1.14(L) 1.19 - 1.34 mmol/L 06/05/2024 12:16 PM [facility] Anion Gap (AG) Arterial 2(L) 6 - 16 mmol/L 06/05/2024 12:16 PM [facility] Glucose WB 105 70 - 115 mg/dL 06/05/2024 12:16 PM [facility] Lactic Acid Whole Blood 1.5 <=2.0 mmol/L 06/05/2024 12:16 PM [facility] Blood BLOOD SPECIMEN / Unknown 06/05/2024 12:16 PM CDT 06/05/2024 12:16 PM [facility] Honey Alfaro MD LAB - POINT OF [place] RE ORDERABLES [facility] [address] [place] [address], [place] [phone] * BLOOD GAS BRANDI+LYTES+METAB+COOX POC NOTIF (06/05/2024 12:14 PM CDT) [facility] Comment Notification Label Only - See Separate Report 06/05/2024 1:32 PM CDT [facility] Other MISCELLANEOUS SAMPLES / Unknown 06/05/2024 12:14 PM CDT 06/05/2024 12:14 PM CDT Shireen Baird MD LAB - BLOOD GASES ORDERABLES Performing Organization Address City/[facility]/ZIP Co de Phone Number [address] [address], [facility] [phone] * CARDIAC EKG ORDER (06/05/2024 11:50 AM CDT) Only the most recent of2 resultswithin the time period is included. Narrative 06/05/2024 11:50 AM CDT Ordered by an unspecified provider. Scanned Document CARDIAC SERVICES ORD ERABLES * LACTIC ACID BLOOD (06/04/2024 8:23 AM CDT) Only the most recent of3 resultswithin the time period is included. [facility] Lactic Acid-Stat 1.5 <=2.0 mmol/L 06/04/2024 8:50 AM CDT [facility] Blood BLOOD SPECIMEN / Unknown Venipuncture / Unknown 06/04/2024 8:23 AM CDT 06/04/2024 8:27 AM CDT Honey Alfaro MD LAB - CHEMISTRY O RDERABLES [address] [address], [facility] [phone] * CULTURE BLOOD (06/04/2024 5:45 AM CDT) Only the most recent of2 resultswithin the time period is included. [facility] Culture No growth day 5 SKYLER 06/09/2024 10:32 AM CDT [facility] MICROBIOLOGY Blood PERIPHERAL BLOOD / Unknown Venipuncture / Unknown 06/04/2024 5:45 AM CDT 06/04/2024 5:48 AM CDT Honey Alfaro MD LAB - MICROBIOLOG Y ORDERABLES [facility] MICROBIOLOGY [address] [place] [address], [facility] [phone] * (ABNORMAL) BLOOD GASES ART + COOX PANEL (06/04/2024 12:42 AM CDT) Only the most recent of2 resultswithin the time period is included. pH Arterial 7.48(H) 7.35 - 7.45 pH 06/04/2024 12:46 AM [facility] pO2 Arterial 129(H) 80 - 100 mmHg 06/04/2024 12:46 AM [facility] pCO2 Arterial 39 35 - 45 mmHg 12:46 AM [facility] HCO3 Arterial 29.0 20.0 - 30.0 mmol/L 06/04/2024 12:46 AM [facility] BE Arterial 5.2(H) -2.0 - 2.0 mmol/L 06/04/2024 12:46 AM [facility] Oxyhemoglobin Arterial 96.3 % 06/04/2024 12:46 AM [facility] Dexoyhemoglobin (HHB) % <1.0 % 06/04/2024 12:46 AM [facility] Methemoglobin 1.2 0.0 - 2.0 % 06/04/2024 12:46 AM [facility] Carboxyhemoglobin 2.4(H) 0.0 - 2.0 % 2023 12:46 AM [facility] O2 Content Arterial 19.9 Interpret within clinical context ml/dL 06/04/2024 12:46 AM [facility] Hemoglobin by COOX 14.6 12.0 - 17.6 g/dL 06/04/2024 12:46 AM [facility] O2 Saturation Arterial 100 90 - 100 % 06/04/2024 12:46 AM CDT [facility] FI O2 Arterial 50.0 % 06/04/2024 12:46 AM CDT [facility] Blood, arterial ARTERIAL BLOOD SPECIMEN / Unknown 06/04/2024 12:42 AM CDT 06/04/2024 12:42 AM CDT Narrative [facility] - 06/04/2024 12:46 AM CDT Carboxyhemoglobin Normal Concentration: Non-smokers: 0-2%; Smokers: 0-9%; Toxic: >20% Honey Alfaro MD LAB - BLOOD GASES ORDERABLES [facility] [address] [place] [address], [place] [phone] * CULTURE FLUID+GRAM STAIN (06/04/2024 12:27 AM CDT) Culture No growth SKYLER 06/07/2024 5:07 AM CDT [facility] MICROBIOLOGY Gram Stain Heavy Red blood cells 06/07/2024 5:07 AM CDT [facility] MICRO[facility]OLOG[facility] Gram Stain Light Polymorphonuclear cells 06/07/2024 5:07 AM CDT [facility] MICRO[facility]OLOG[facility] Gram Stain No organisms seen 024 5:07 AM CDT [facility] MICRO[facility]OLOG[facility] Other PERITONEAL FLUID / Unknown Collection / Unknown 06/04/2024 12:27 AM CDT 06/04/2024 12:27 AM CDT Honey Alfaro MD LAB - MICROBIOLOG Y ORDERABLES [facility] MICROBIOLOGY [address] [place] [address], [facility] [phone] * (ABNORMAL) CULTURE ANAEROBE (06/04/2024 12:26 AM CDT) Culture Rare Cutibacterium (formerly Propionibacterium ) acnes(AA) SKYLER 06/10/2024 10:40 AM CDT [facility] MICROBIOLOGY Microbiology PERITONEAL FLUID / Unknown Collection / Unknown 06/04/2024 12:26 AM CDT 06/04/2024 12:26 AM CDT Honey Alfaro MD LAB - MICROBIOLOG Y ORDERABLES [facility] MICROBIOLOGY [address] [place] [address], [facility] [phone] * (ABNORMAL) BLOOD GAS+COOX+LYTES+METAB ARTERIAL POCT (06/03/2024 10:15 PM CDT) pH Arterial 7.52(H) 7.35 - 7.45 pH 06/03/2024 10:15 PM [facility] pO2 Arterial 167(H) 80 - 100 mmHg 06/03/2024 10:15 PM [facility] pCO2 Arterial 40 35 - 45 mmHg 10:15 PM [facility] HCO3 Arterial 32.7(H) 20.0 - 30.0 mmol/L 06/03/2024 10:15 PM [facility] BE Arterial 9.0(H) -2.0 - 2.0 mmol/L 06/03/2024 10:15 PM [facility] Oxyhemoglobin Arterial 96.5 % 06/03/2024 10:15 PM [facility] Dexoyhemoglobin (HHB) % <1.0 % 06/03/2024 10:15 PM [facility] Methemoglobin 1.3 0.0 - 2.0 % 06/03/2024 10:15 PM [facility] Carboxyhemoglobin 1.7 0.0 - 2.0 % 2023 10:15 PM [facility] Comment:Carboxyhemoglobin No rmal Concentration: Non-smokers: 0-2%; Smokers: 0- 9%; Toxic: >20% O2 Content Arterial 19.2 Interpret within clinical context ml/dL 06/03/2024 10:15 PM [facility] Hemoglobin by COOX 13.9 12.0 - 17.6 g/dL 06/03/2024 10:15 PM [facility] O2 Saturation Arterial 99 90 - 100 % 06/03/2024 10:15 PM CDT [facility] Sodium Whole Blood 136 135 - 145 mmol/L 06/03/2024 10:15 PM CDT [facility] Potassium Whole Blood 4.0 3.5 - 5.5 mmol/L 06/03/2024 10:15 PM CDT [facility] Chloride WB 97 78 - 107 mmol/L 06/03/2024 10:15 PM CDT [facility] Calcium Ionized 0.94 mmol/L 10:15 PM CDT [facility] Ionized Calcium pH Adjusted 0.99(L) 1.19 - 1.34 mmol/L 06/03/2024 10:15 PM CDT [facility] Anion Gap (AG) Arterial 6 6 - 16 mmol/L 06/03/2024 10:15 PM CDT [facility] Glucose WB 110 70 - 115 mg/dL 06/03/2024 10:15 PM CDT [facility] Lactic Acid Whole Blood 1.8 <=2.0 mmol/L 06/03/2024 10:15 PM CDT [facility] Blood, arterial ARTERIAL BLOOD SPECIMEN / Unknown 06/03/2024 10:15 PM CDT 06/03/2024 10:16 PM CDT Honey Alfaro MD LAB - [place]INT [place] RE ORDERABLES [address] [address], [facility] [phone] * BLOOD GAS ART+LYTES+METAB+COOX POC NOTIF (06/03/2024 10:10 PM CDT) Comment Notification Label Only - See Separate Report 06/03/2024 11:32 PM CDT [facility] Other MISCELLANEOUS SAMPLES / Unknown 06/03/2024 10:10 PM CDT 06/03/2024 10:13 PM CDT Jovani Banegas MD LAB - BLOOD GASES O RDERABLES [facility] [address] [address], [facility] [phone] * ETT LINE PERFORMABLE (06/03/2024 9:47 PM CDT) Narrative Crys Dawson MD - 06/03/2024 9:47 PM CDT Crys Dawson MD 06/03/2024 9:47 PM Endotracheal Tube Placement: Patient Location: OR. Intubation Event Date/Time: 06/03/2024 9:27 PM Procedure: intubation ([id number]) Procedure Section: Sedation: under general anesthesia. Indications for Airway Management: anesthesia Induction: standard IV Patient Position: supine and sniffing Mask Ventilation: easy and not attempted. Blade Type: Video Blade Size: 4 Laryngoscopy View: grade 1 (full cords) Intubation Adjuncts: stylet and video laryngoscope Tube: endotracheal tube Placement: oral Tube type: cuff - inflated Tube Size (MM): 8 Depth of Insertion (CM): 22 Measured From: teeth Cuff Inflated With: air Number of Attempts: 1. Placement Verified By: direct visualization, bilateral breath sounds, CO2 monitor and chest auscultation Tube secured with: adhesive tape. Dentition unchanged? Yes Difficult Airway? No. Procedure Start Time: 06/03/2024 9:27 PM. Staff Section Anesthesia Provider: Crys Dawson MD, Performed the procedure Provider #1: Jovani Banegas MD. Jovani Banegas MD GENERAL ANESTHESIA ORDERABLES * ARTERIAL LINE PERFORMABLE (06/03/2024 9:41 PM CDT) Narrative Gavin Hayes MD - 06/03/2024 9:41 PM CDT Gavin Hayes MD 06/03/2024 9:41 PM Arterial Line Placement Procedure Note Patient Location: OR. Insertion Time: 06/03/2024 9:35 PM Procedure: Arterial Line ([id number]) Procedure Section Indications: continuous blood pressure monitoring and blood sampling needed. Consent: informed consent was obtained for the procedure. Skin Prep: Chloraprep. Orientation: Right. Site: radial. Site Identification: palpation. Sterile Technique: cap and mask. Gauge: 20. Catheter Length: 1 and 3/4 inch. Catheter Type: Arrow. Seldinger Technique Used? Yes Number of Attempts: 1. Line Secured with: Tegaderm. Procedure Tolerance: performed while patient under general anesthesia. Local Anesthetic Used? No Staff Section Anesthesia Provider: Crys Dawson MD, Performed the procedure Provider #1: Gavin Hayes MD. Provider #2: Jovani Banegas MD. Jovani Banegas MD GENERAL ANESTHESIA ORDERABLES * (ABNORMAL) PT-INR [facility] (06/03/2024 6:27 PM CDT) Only the most recent of2 resultswithin the time period is included. Pathologist [facility] PT 15.6(H) 12.1 - 14.8 Seconds 06/03/2024 6:55 PM CDT [facility] INR 1.3 See Comment 06/03/2024 6:55 PM T [facility] Comment:The suggested therap eutic range for standard coumadin (warfarin) therapy is an INR of 2.0-3.0. For high-risk patients (Mechanical Mitral Valve Prosthesis, etc.), the suggested prophylactic therapeutic range is an INR of 2.5-3.5. Blood BLOOD SPECIMEN / Unknown Venipuncture / Unknown 06/03/2024 6:27 PM CDT 06/03/2024 6:33 PM CDT Blaze Dumont MD LAB - COAGULATION OR DERABLES Performing Organization Address City/State/[facility] Co de Phone Number [facility] [address] [place] [address], [facility] [phone] * (ABNORMAL) COMPREHENSIVE METABOLIC PANEL (06/03/2024 6:27 PM CDT) BUN 49(H) 7 - 26 mg/dL 06/03/2024 7:00 PM CDT [facility] Creatinine 2.35(H) 0.71 - 1.16 mg/dL 06/03/2024 7:00 PM T [facility] Sodium 142 136 - 145 mmol/L 06/03/2024 7:00 PM T [facility] Potassium 3.6 3.5 - 4.5 mmol/L 06/03/2024 7:00 PM T [facility] Chloride 92(L) 98 - 107 mmol/L 06/03/2024 7:00 PM [facility] CO2 30(H) 22 - 29 mmol/L 06/03/2024 7:00 PM [facility] Glucose 112 70 - 115 mg/dL 06/03/2024 7:00 PM [facility] Calcium 8.8 8.4 - 10.2 mg/dL 06/03/2024 7:00 PM [facility] Protein Total 8.2 6.0 - 8.3 g/dL 06/03/2024 7:00 PM [facility] Albumin 2.8(L) 3.4 - 5.0 g/dL 06/03/2024 7:00 PM [facility] Bilirubin Total 1.5(H) 0.2 - 1.2 mg/dL 06/03/2024 7:00 PM [facility] Alkaline Phosphatase 166(H) 40 - 150 U/L 06/03/2024 7:00 PM [facility] ALT 351(H) 5 - 55 U/L 06/03/2024 7:00 PM [facility] AST 360(H) 5 - 34 U/L 06/03/2024 7:00 PM [facility] Anion Gap 20(H) 6 - 16 06/03/2024 7:00 PM [facility] BUN/Creatinine Ratio 21 7 - 23 06/03/2024 7:00 PM [facility] Osmolality Calculated 308(H) 275 - 295 mOsm/kg 06/03/2024 7:00 PM [facility] Albumin/Globulin Ratio 0.5(L) 1.1 - 2.3 06/03/2024 7:00 PM [facility] eGFR by CKD-EPI 34(L) >=90 mL/min/1.7 3 m2 06/03/2024 7:00 PM [facility] Blood BLOOD SPECIMEN / Unknown Venipuncture / Unknown 06/03/2024 6:27 PM CDT 06/03/2024 6:33 PM T Blaze Dumont MD LAB - CHEMISTRY [facility] Organization Address City/State/ZIP Co de Phone Number [address] [address], [facility] [phone] * EKG 12-LEAD (06/03/2024 6:12 PM CDT) Only the most recent of4 resultswithin the time period is included. Pathologist [facility] Ventricular Rate 140 BPM [facility] MUSE Atrial Rate 140 BPM [facility] P-R Interval 114 ms [facility] QRS Duration ms 80 ms [facility] Q-T Interval ms 304 ms [facility] QTC Calculation (Bezet) 464 ms [facility] Calculated P [place] 28 degrees [facility] Calculated R [place] -41 degrees [facility] MUSE Calculated T [place] 5 degrees [facility] MUSE Interpretation EKG SINUS TACHYCARDIA POSSIBLE LEFT ATRIAL ENLARGEMENT LEFT AXIS DEVIATION LEFT VENTRICULAR HYPERTROPHY ( Kalen product , Romhilt-Powell ) CANNOT RULE OUT SEPTAL INFARCT (CITED ON OR BEFORE 23-MAY-2024) ABNORMAL ECG WHEN COMPARED WITH ECG OF 27-MAY-2024 06:23, QUESTIONABLE CHANGE IN INITIAL FORCES OF LATERAL LEADS T WAVE AMPLITUDE HAS INCREASED IN ANTERIOR LEADS Confirmed by MD DAMIR, HENOK ([id number]) on 06/04/2024 12:56:07 PM [facility] MUSE 06/03/2024 6:12 PM CDT 06/04/2024 12:56 PM CDT Blaze Dumont MD ECG ORDERABLES Performing Organization Address City/[facility]/ZIP Co de Phone Number [facility] MUSE * (ABNORMAL) GLUCOSE - POINT OF CARE (05/30/2024 7:41 AM CDT) Only the most recent of8 resultswithin the time period is included. [facility] Glucose WB/POC 119(H) 70 - 115 mg/dL 05/30/2024 6:13 PM CDT [facility] Specimen Type Cap Fingerstick 2023 6:13 PM CDT [facility] Blood BLOOD SPECIMEN / Unknown 05/30/2024 7:41 AM CDT 05/30/2024 6:13 PM CDT Willie Johnson DO LAB - POINT OF CARE ORDERABLES [address] [address], [place] [phone] * TROPONIN-I HIGH SENSITIVE (05/27/2024 12:39 PM CDT) Pathologist [facility] Troponin I High Sensitive <3 <=35 ng/L 05/27/2024 1:35 PM CDT [facility] Blood BLOOD SPECIMEN / Unknown Venipuncture / Unknown 05/27/2024 12:39 PM CDT 05/27/2024 12:52 PM CDT Willie Johnson DO LAB - CHEMISTRY ORD ERABLES Performing Organization Address [facility] Co de Phone Number [address] [address], [place] [phone] * (ABNORMAL) CK BLOOD (05/27/2024 8:38 AM CDT) Pathologist [facility] CK Total 262(H) 30 - 200 U/L 05/27/2024 9:22 AM CDT [facility] Blood BLOOD SPECIMEN / Unknown Venipuncture / Unknown 05/27/2024 8:38 AM CDT 05/27/2024 8:53 AM CDT Willie Johnson DO LAB - CHEMISTRY ORD ERABLES Performing Organization Address [facility] Co de Phone Number [address] [address], [place] [phone] * PREPARE (CROSSMATCH) RBC UNIT(S), 2 Units (05/27/2024 1:17 AM CDT) Only the most recent of3 resultswithin the time period is included. Pathologist [facility] Unit Description N/A [facility] BLOOD BANK LAB Blood Bank BLOOD SPECIMEN / Unknown 05/23/2024 10:33 PM CDT Willie Johnson DO LAB - BLOOD BANK OR DERABLES Performing Organization Address City/[facility]/ZIP Co de Phone Number [facility] BLOOD BANK LAB [address] [place] [address], [facility] [phone] * XR Humerus Left 2Vw or More (05/24/2024 8:11 PM CDT) Anatomical Region Laterality Modality Upper Extremity Radiographic Alicia ging 05/25/2024 8:57 AM CDT Impressions 05/25/2024 8:58 AM CDT IMPRESSION: No humeral fracture > Interpreting Provider: Adin Corral MD on 05/25/2024 8:58 AM Narrative 05/25/2024 8:58 AM CDT PROCEDURE: XR HUMERUS LEFT 2VW OR MORE DATE/TIME OF EXAM: 05/24/2024 8:30 PM CLINICAL INFORMATION: None relevant/not provided if blank. Indication: T14.90XA: Trauma Additional History: COMPARISON: None. TECHNIQUE: FINDINGS: No humeral fracture is present. An antecubital IV is noted. Procedure Note Adin Corral MD - 05/25/2024 PROCEDURE: XR HUMERUS LEFT 2VW OR MORE DATE/TIME OF EXAM: 05/24/2024 8:30 PM CLINICAL INFORMATION: None relevant/not provided if blank. Indication: T14.90XA: Trauma Additional History: COMPARISON: None. TECHNIQUE: FINDINGS: No humeral fracture is present. An antecubital IV is noted. IMPRESSION: No humeral fracture > Interpreting Provider: Adin Corral MD on 05/25/2024 8:58 AM Willie Marte PA-C DIAGNOSTIC IMAGIN G ORDERABLES * XR Shoulder Right 2Vw or More (05/24/2024 8:10 PM CDT) Anatomical Region Laterality Modality Upper Extremity Radiographic Alicia ging 05/25/2024 8:55 AM CDT Impressions 05/25/2024 8:59 AM CDT IMPRESSION: No acute fracture or dislocation identified. > Dictated by Wade Morin DO (director of residential services). I, Adin Corral MD have personally reviewed and interpreted this examination/study. > Interpreting Provider: Adin Corral MD on 05/25/2024 8:59 AM Narrative 05/25/2024 8:59 AM CDT PROCEDURE: XR SHOULDER RIGHT 2VW OR MORE, DATE/TIME OF EXAM: 05/24/2024 8:30 PM, LOCATION [facility] INDICATION: T14.90XA: Trauma ADDITIONAL CLINICAL INFORMATION: Ordering Provider Reason For Exam: acute fracture COMPARISON: None. FINDINGS: The lung volumes. Opacities noted within the right midlung, potentially atelectasis. The osseous structures are intact without acute fracture. The glenohumeral and acromioclavicular joints are in anatomic alignment. Bone density and texture are normal. Procedure Note Adin Corral MD - 05/25/2024 PROCEDURE: XR SHOULDER RIGHT 2VW OR MORE, DATE/TIME OF EXAM: 05/24/2024 8:30 PM, LOCATION [facility] INDICATION: T14.90XA: Trauma ADDITIONAL CLINICAL INFORMATION: Ordering Provider Reason For Exam: acute fracture COMPARISON: None. FINDINGS: The lung volumes. Opacities noted within the right midlung, potentially atelectasis. The osseous structures are intact without acute fracture. Theglenohumeral and acromioclavicular joints are in anatomic alignment. Bone density and texture are normal. IMPRESSION: No acute fracture or dislocation identified. > Dictated by Wade Morin DO (director of residential services). Adin Pardo MD have personally reviewed and interpreted this examination/study. > Interpreting Provider: Adin Corral MD on 05/25/2024 8:59 AM Willie GARCIA-Kaveh DIAGNOSTIC IMAGIN G ORDERABLES * XR Shoulder Left 2Vw or More (05/24/2024 8:05 PM CDT) Anatomical Region Laterality Modality Upper Extremity Radiographic Alicia ging 05/25/2024 1:36 PM CDT Impressions 05/25/2024 1:39 PM CDT IMPRESSION: No acute fracture or dislocation identified. > Dictated by Wade Morin DO (director of residential services). Meme Pardo MD have personally reviewed and interpreted this examination/study. > Interpreting Provider: Meme Valenzuela MD on 05/25/2024 1:39 PM Narrative 05/25/2024 1:39 PM CDT PROCEDURE: XR SHOULDER LEFT 2VW OR MORE, DATE/TIME OF EXAM: 05/24/2024 9:42 PM, LOCATION [facility] INDICATION: T14.90XA: Trauma ADDITIONAL CLINICAL INFORMATION: Ordering Provider Reason For Exam: acute fracture COMPARISON: None. FINDINGS: The osseous structures are intact without acute fracture. The glenohumeral and acromioclavicular joints are in anatomic alignment. Bone density and texture are normal. Procedure Note Meme Valenzuela MD - 05/25/2024 PROCEDURE: XR SHOULDER LEFT 2VW OR MORE, DATE/TIME OF EXAM: 49:42 PM, LOCATION [facility] INDICATION: T14.90XA: Trauma ADDITIONAL CLINICAL INFORMATION: Ordering Provider Reason For Exam: acute fracture COMPARISON: None. FINDINGS: The osseous structures are intact without acute fracture. Theglenohumeral and acromioclavicular joints are in anatomic alignment. Bone density and texture are normal. IMPRESSION: No acute fracture or dislocation identified. > Dictated by Wade Morin DO (director of residential services). Meme Pardo MD have personally reviewed and interpreted this examination/study. > Interpreting Provider: Meme Valenzuela MD on 05/25/2024 1:39 PM Willie Marte PA-C DIAGNOSTIC IMAGIN G ORDERABLES * CT 3D Recon W Independent Wksn (05/24/2024 9:09 AM CDT) Anatomical Region Laterality Modality Computed Tomogra phy 05/24/2024 1:07 PM CDT Impressions 05/24/2024 11:55 PM CDT IMPRESSION: Three-dimensional rendering for operative planning. Report dictated by Cherrie Villa Dr, MD (director of residential services). Eliseo Pardo MD have personally reviewed and interpreted this examination/study. > Interpreting Provider: Eliseo Mckeon MD on 05/24/2024 11:55 PM Narrative 05/24/2024 11:55 PM CDT PROCEDURE: CT 3D RECON W INDEPENDENT WKSN, DATE/TIME OF EXAM: 05/24/2024 9:10 AM, LOCATION [facility] INDICATION: T14.90XA: Trauma ADDITIONAL CLINICAL INFORMATION: Ordering Provider Reason For Exam: ct chest, rib fracture for possible plating Technologist Note: Additional: COMPARISON: CT chest abdomen pelvis with contrast dated 05/23/2024 TECHNIQUE: Three-dimensional shaded surface rendering of the ribs was performed by a technologist on a separate three-dimensional workstation at the request of the referring physician and submitted for review. FINDINGS: The three-dimensional images confirm the findings of Nondisplaced fractures of right posterior 7th-12th ribs and right anterolateral 4th-7th ribs.Please see the report from the original study for further details. Procedure Note Eliseo Mckeon MD - 05/24/2024 PROCEDURE: CT 3D RECON W INDEPENDENT WKSN, DATE/TIME OF EXAM: 05/24/2024 9:10 AM, LOCATION [facility] INDICATION: T14.90XA: Trauma ADDITIONAL CLINICAL INFORMATION: Ordering Provider Reason For Exam: ct chest, rib fracture for possible plating Technologist Note: Additional: COMPARISON: CT chest abdomen pelvis with contrast dated 05/23/2024 TECHNIQUE: Three-dimensional shaded surface rendering of the ribs was performed by a technologist on a separate three-dimensional workstationat the request of the referring physician and submitted for review. FINDINGS: The three-dimensional images confirm the findings of Nondisplacedfractures of right posterior 7th-12th ribs and right anterolateral 4th-7th ribs.Please see the report from the original study for further details. IMPRESSION: Three-dimensional rendering for operative planning. Report dictated by Cherrie Villa Dr, MD (director of residential services). I, Eliseo Mckeon MD have personally reviewed and interpreted this examination/study. > Interpreting Provider: Eliseo Mckeon MD on 05/24/2024 11:55 PM Willie Marte PA-C CT ORDERABLES * (ABNORMAL) TEG 6 GLOBAL HEMOSTASIS W/ LYSIS (05/24/2024 3:06 AM CDT) Citrated Kaolin R (Reaction Time) 3.3(L) 4.6 - 9.1 min 05/24/2024 4:55 AM [facility] Comment:CK R result below no rmal range. Consistent with hypercoagulable clotting factors. Citrated Kaolin LY30 (Lysis) 0.0 0.0 - 2.6 % 05/24/2024 4:55 AM [facility] Citrated Functional Fibrinogen MA (Max Amplitude) 4.2(L) 15.0 - 32.0 mm 05/24/2024 4:55 AM [facility] Comment:CFF MA below normal range. Consistent with decreased fibrinogen contribution to clot strength. Citrated RapidTEG MA (Max Amplitude) <40.0(L) 52.0 - 70.0 mm 05/24/2024 4:55 AM [facility] Comment:PET HOUSE SITTER MA below normal range. Consistent with reduced clot strength from platelets or fibrinogen. Compare with CFF MA. Blood BLOOD SPECIMEN / Unknown Venipuncture / Unknown 05/24/2024 3:06 AM CDT 05/24/2024 3:40 AM CDT Willie Johnson DO LAB - HEMATOLOGY OR DERABLES [facility] [address] [place] [address], [facility] [phone] * (ABNORMAL) TEG 6S PLATELET MAPPING (05/24/2024 3:06 AM CDT) TEGPLM (Max Amplitude) Koalin <42.0(L) 53.0 - 68.0 mm 05/24/2024 4:30 AM [facility] TEGPLM (Max Amplitude) ACTF 4.2 2.0 - 19.0 mm 05/24/2024 4:30 AM [facility] TEGPLM (Max Amplitude) ADP 20.4(L) 45.0 - 69.0 mm 05/24/2024 4:30 AM [facility] Comment:ADP MA below normal range. Inhibition present. TEGPLM (Max Amplitude) AA 19.8(L) 51.0 - 71.0 mm 05/24/2024 4:30 AM CDT [facility] Comment:AA MA below normal r froilan. Inhibition present. TEGPLM %Inhibition ADP 05/24/2024 4:30 AM CDT [facility] Comment:1 or more values are outside of the TEG maximum reportable ranges, calculation cannot be determined. TEGPLM %Inhibition AA 05/24/2024 4:30 AM T [facility] Comment:1 or more values are outside of the TEG maximum reportable ranges, calculation cannot be determined. TEGPLM %Aggregation ADP 05/24/2024 4:30 AM T [facility] Comment:1 or more values are outside of the TEG maximum reportable ranges, calculation cannot be determined. TEGPLM % Aggregation AA 05/24/2024 4:30 AM T [facility] Comment:1 or more values are outside of the TEG maximum reportable ranges, calculation cannot be determined. Blood BLOOD SPECIMEN / Unknown Venipuncture / Unknown 05/24/2024 3:06 AM CDT 05/24/2024 3:40 AM CDT Willie Johnson DO LAB - HEMATOLOGY OR DERABLES [address] [address], [facility] [phone] * IR Visceral Angio (05/24/2024 1:38 AM CDT) Anatomical Region Laterality Modality Abdomen X-Ray Angiograph y 05/24/2024 1:49 AM CDT Impressions 05/24/2024 8:20 AM CDT Impression: 1.Visceral angiogram demonstrated a replaced common hepatic artery arising from the superior mesenteric artery with extravasation from two branches of the right hepatic artery 2.No active extravasation seen within the splenic artery. Dr. Deonna Pardo performed/was present throughout the procedure. The anesthesia team provided general anesthesia throughout the case. > Dictated by Jonathon Rosario MD (Truck Engine Technician) 05/24/2024 1:49 AM Deonna Pardo MD have personally reviewed and interpreted this examination/study. > Interpreting Provider: Deonna Huff MD on 05/24/2024 8:20 AM Narrative 05/24/2024 8:20 AM CDT History: Approximately 44-year-old male brought in by ambulance as level 1 trauma following an unwitnessed fall down stairs while intoxicated (alcohol), noted to have splenic and liver injury with active extravasation noted from a branch of the right hepatic artery on triple phase CT scan referred to interventional radiology reversal angiogram and possible embolization. Operators: 1.Dr. Deonna Huff, Attending Physician 2.Dr. Jonathon Rosario, interventional director of residential services Physician Anesthesia: 1.Local anesthesia - 10 mL of 1% lidocaine 2.General anesthesia with anesthesia team Procedure: 1.Ultrasound-guided access of the right common femoral artery. 2.Selective catheterization of the superior mesenteric artery (1st order) and angiogram. 3.Selective coaxial catheterization of the replaced common hepatic (2nd order) followed by the proper hepatic artery (3rd order) and angiogram. 4.Selective catheterization of the replaced right hepatic artery (beyond 3rd order) and angiogram. 5.Embolization of 2 branches of the right hepatic artery with coils (lateralmost branch) and Gelfoam (medial branch) under fluoroscopic guidance. 6.Post-embolization angiogram of the replaced hepatic artery. 7.Post-embolization angiogram of the superior mesenteric artery. 8.Selective catheterization of the celiac artery (first order) and angiogram 9.Selective coaxial catheterization of the splenic artery (second order) and angiogram 10.Selective catheterization of upper and lower splenic arterial branches with angiogram 11.Sheath angiogram of the right common femoral artery. 12.Hemostasis with mynx control closure device. Fluoroscopic time: 30.7 minutes Contrast: 120 mL of Isovue-300 Procedure in detail: The procedure, risks, and possible complications were explained to the patient's family, with the patient's mother being patient's designated decision maker (per patient) in detail, and informed consent was from the mother. The patient was placed supine on the angiography table. The right groin was prepped and draped in the usual sterile fashion. Perforator Typist radiograph of the abdomen was obtained, which was unremarkable. The patient was induced with general anesthesia the anesthesia team present. Following induction, the patient briefly required pressor support; his blood pressure improved throughout the case with 2 units of PRBC and fluid. Limited ultrasound of the right common femoral artery demonstrated a patent vessel, and the level of its bifurcation was identified. A mello scale image was documented. The right common femoral artery was accessed using a micropuncture needle under realtime ultrasound guidance. The needle entry was documented. Following a series of exchanges, a 5-St Lucian vascular sheath was placed. 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 Selective catheterization of the replaced common hepatic artery was performed with a coaxially advanced 2.4 [place] Lucian microcatheter and angiogram was obtained. The angiogram demonstrated a replaced but otherwise normal gastroduodenal artery without evidence of acute arterial injury. Under fluoroscopic guidance, the coaxial system was advanced beyond the gastroduodenal artery into the proper hepatic artery. Contrast injection and angiogram demonstrated 2 areas (a more lateral and a more medial branch) of contrast in the region seen on CT in the right posterior liver. Embolization of the more lateral branch of the hepatic artery was performed with 2mm amy coils under fluoroscopic guidance. Post-embolization angiogram just proximal to this demonstrated adequate stasis without further extravasation from this branch but continue to show contrast pooling on subsequent images arising from the more medial arterial branch. This vessel was coaxially selected, but the microcatheter/wire system could not safely be advanced to the more distal aspect of this branch in the location of extravasation; therefore, embolization was performed proximally using Gelfoam. Following both embolizations, contrast injection through the replaced common Hepatic artery showed satisfactory stasis. The microcatheter system was removed and a reverse curvature catheter and wire were again used to selectively catheterize the splenic artery. System was exchanged for a coaxial microcatheter system which was advanced more distally. Contrast injection revealed filling of the lower pole without evidence of extravasation. The coaxial system was retracted slightly and used to select a branch supplying the upper and lower pole. No evidence of extravasation was seen within the spleen. The coaxial microcatheter system was removed. The reversed curvature base catheter was then removed. Hemostasis was achieved with mynx control closure device. Sterile dressing with Erlin, gauze, and Tegaderm was applied. The patient tolerated the procedure well and was transferred to the holding area in stable condition. There were no immediate complications associated with the procedure. Procedure Note Deonna Huff MD - 05/24/2024 History: Approximately 44-year-old male brought in by ambulance as level1 trauma following an unwitnessed fall down stairs while intoxicated (alcohol), noted to have splenic and liver injury with activeextravasation noted from a branch of the right hepatic artery on triple phase CT scan referred to interventional radiology reversal angiogram and possible embolization. Operators: 1.Dr. Deonna Huff, Attending Physician 2.Dr. Jonathon Rosario, interventional director of residential services Physician Anesthesia: 1.Local anesthesia - 10 mL of 1% lidocaine 2.General anesthesia with anesthesia team Procedure: 1.Ultrasound-guided access of the right common femoral artery. 2.Selective catheterization of the superior mesenteric artery (1storder) and angiogram. 3.Selective coaxial catheterization of the replaced common hepatic (2nd order) followed by the proper hepatic artery (3rd order) and angiogram. 4.Selective catheterization of the replaced right hepatic artery (beyond 3rd order) and angiogram. 5.Embolization of 2 branches of the right hepatic artery with coils (lateralmost branch) and Gelfoam (medial branch) under fluoroscopic guidance. 6.Post-embolization angiogram of the replaced hepatic artery. 7.Post-embolization angiogram of the superior mesenteric artery. 8.Selective catheterization of the celiac artery (first order) and angiogram 9.Selective coaxial catheterization of the splenic artery (second order) and angiogram 10.Selective catheterization of upper and lower splenic arterialbranches with angiogram 11.Sheath angiogram of the right common femoral artery. 12.Hemostasis with mynx control closure device. Fluoroscopic time: 30.7 minutes Contrast: 120 mL of Isovue-300 Procedure in detail: The procedure, risks, and possible complications were explained to the patient's family, with the patient's mother being patient's designated decision maker (per patient) in detail, and informed consent was fromthe mother. The patient was placed supine on the angiography table. Theright groin was prepped and draped in the usual sterile fashion. Scoutradiograph of the abdomen was obtained, which was unremarkable. The patient was induced with general anesthesia the anesthesia team present. Following induction, the patient briefly required pressorsupport; his blood pressure improved throughout the case with 2 units of PRBC and fluid. Limited ultrasound of the right common femoral artery demonstrated apatent vessel, and the level of its bifurcation was identified. A mello scaleimage was documented. The right common femoral artery was accessed using a micropuncture needle under realtime ultrasound guidance. The needleentry was documented. Following a series of exchanges, a 5-St Lucian vascular sheath was placed. 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 Selective catheterization of the replaced common hepatic artery was performed with a coaxially advanced 2.4 [place] Lucian microcatheter andangiogram was obtained. The angiogram demonstrated a replaced but otherwise normal gastroduodenal artery without evidence of acute arterial injury. Under fluoroscopic guidance, the coaxial system was advanced beyond the gastroduodenal artery into the proper hepatic artery. Contrastinjection and angiogram demonstrated 2 areas (a more lateral and a more medial branch) of contrast in the region seen on CT in the right posteriorliver. Embolization of the more lateral branch of the hepatic artery wasperformed with 2mm amy coils under fluoroscopic guidance. Post-embolization angiogram just proximal to this demonstrated adequate stasis without further extravasation from this branch but continue to show contrast pooling on subsequent images arising from the more medial arterialbranch. This vessel was coaxially selected, but the microcatheter/wire systemcould not safely be advanced to the more distal aspect of this branch in the location of extravasation; therefore, embolization was performedproximally using Gelfoam. Following both embolizations, contrast injection through the replaced common Hepatic artery showed satisfactory stasis. The microcathetersystem was removed and a reverse curvature catheter and wire were again used to selectively catheterize the splenic artery. System was exchanged for a coaxial microcatheter system which was advanced more distally. Contrast injection revealed filling of the lower pole without evidence of extravasation. The coaxial system was retracted slightly and used toselect a branch supplying the upper and lower pole. No evidence ofextravasation was seen within the spleen. The coaxial microcatheter system was removed. The reversed curvaturebase catheter was then removed. Hemostasis was achieved with mynx control closure device. Sterile dressing with Erlin, gauze, and Tegaderm was applied. The patient tolerated the procedure well [facility] There were no immediate complicationsassociated with the procedure. Impression: 1.Visceral angiogram demonstrated a replaced common hepatic arteryarising from the superior mesenteric artery with extravasation from two branchesof the right hepatic artery 2.No active extravasation seen within the splenic artery. IDr. Deonna performed/was present throughout the procedure. The anesthesia team provided general anesthesia throughout the case. > Dictated by Jonathon Rosario MD (Truck Engine Technician) 05/24/2024 1:49 AM IDeonna MD have personally reviewed and interpreted this examination/study. > Interpreting Provider: Deonna Huff MD on 05/24/2024 8:20 AM Farrukh Bedolla MD IR ORDERABLES * TRANSFUSE RED BLOOD CELL LEUKOREDUCED ML(S) (05/24/2024 12:54 AM CDT) Cheyenne Jackson DO NURSING - BLOOD TX OD TRANSFUSION * TRANSFUSE RED BLOOD CELL LEUKOREDUCED ML(S) (05/24/2024 12:44 AM CDT) Cheyenne Jackson DO NURSING - BLOOD TX OD TRANSFUSION * ETT LINE PERFORMABLE (05/24/2024 12:04 AM CDT) Narrative Jen Haskins MD - 05/24/2024 12:04 AM CDT Jen Haskins MD 05/24/2024 12:05 AM Endotracheal Tube Placement: Patient Location: OR. Intubation Event Date/Time: 05/23/2024 11:50 PM Procedure: intubation (88409) Procedure Section: Sedation: under general anesthesia. Indications for Airway Management: anesthesia Procedure pretreatments used? No Induction: rapid sequence Patient Position: sniffing Mask Ventilation: not attempted. Blade Type: Video Blade Size: 4 Laryngoscopy View: grade 1 (full cords) Intubation Adjuncts: stylet Tube: endotracheal tube Placement: oral Tube type: cuff - inflated Tube Size (MM): 8 Depth of Insertion (CM): 25 Measured From: teeth Cuff volume (mL): 10 Cuff Inflated With: air Number of Attempts: 1. Placement Verified By: direct visualization, bilateral breath sounds, chest auscultation and CO2 monitor Tube secured with: adhesive tape. Dentition unchanged? Yes Difficult Airway? No. Procedure Start Time: 05/23/2024 11:50 PM. Procedure End Time: 05/24/2024 11:51 PM. Procedure Total Time: 1441 minutes. Staff Section Anesthesia Provider: Jen Haskins MD, Performed the procedure Provider #1: Cheyenne Jackson DO. Additional Comments: Airway performed by LAKEISHA Bob. Cheyenne Jackson DO GENERAL ANESTHESIA ORDERABLES * BLOOD TYPE VERIFICATION (05/23/2024 11:02 PM CDT) ABO Rh AB POS 05/23/2024 11:40 PM CDT [facility] BLOOD BANK LAB Blood Bank BLOOD SPECIMEN / Unknown Venipuncture / Unknown 05/23/2024 11:02 PM CDT 05/23/2024 11:12 PM CDT Romulo Willis MD LAB - BLOOD BANK ORD ERABLES [facility] BLOOD BANK LAB [address] [place] [address], [facility] [phone] * (ABNORMAL) URINE DRUG SCREEN IMMUNOASSAY (05/23/2024 10:18 PM CDT) Amphetamines Screen Urine Negative Negative : < 1000 ng/mL 05/23/2024 10:49 PM CDT [facility] Barbiturates Screen Urine Negative Negative : < 200 ng/mL 05/23/2024 10:49 PM CDT [facility]ORAT[facility] Benzodiazepine Screen Urine Negative Negative : < 200 ng/mL 05/23/2024 10:49 PM CDT [facility] Opiates Urine Negative Negative : < 300 ng/mL 05/23/2024 10:49 PM T [facility] Cocaine Metabolites Urine Negative Negative : < 300 ng/mL 05/23/2024 10:49 PM CDT [facility] Phencyclidine Screen Urine Negative Negative : < 25 ng/ml 05/23/2024 10:49 PM T [facility] Cannabinoids Screen Urine Positive(A) Negative : <50 ng/mL 05/23/2024 10:49 PM T [facility] Comment:Positive urine canna binoids (THC) screening results should be confirmed by another generally accepted non-immunological method such as gas chromatography or mass spectrometry. Methadone Screen Urine Negative Negative : < 300 ng/mL 05/23/2024 10:49 PM CDT [facility] Fentanyl Screen Urine Negative Negative : <1.5 ng/mL 05/23/2024 10:49 PM CDT [facility] Urine URINE / Unknown Collection / Unknown 05/23/2024 10:18 PM CDT 05/23/2024 10:36 PM CDT Narrative [facility] - 05/23/2024 10:49 PM CDT The Urine Toxicology Screening Panel does not screen for Propoxyphene, Meprobamate, Carisoprodol, Trazodone, afxm-ijm-[id number] medications and/or volatiles (Acetone, Isopropanol, Methanol or Ethylene Glycol). Ethanol, Salicylate, Acetaminophen, Tricyclic Antidepressants and several therapeutic drugs may be individually assayed in serum or plasma specimen. Toxicology testing by the [facility] is an aid to medical diagnosis and treatment of patients. No documented chain of custody was maintained. Results are intended to be used for clinical purposes only. Romulo Willis MD LAB - URINE CHEMISTR Y ORDERABLES Performing Organization Address City/[facility]/ZIP Co de Phone Number [address] [address], [facility] [phone] * TROPONIN-I HIGH SENSITIVE REFLEX 1HOUR (05/23/2024 9:54 PM CDT) Troponin I High Sensitive 4 <=35 ng/L 05/23/2024 10:38 PM CDT [facility] Delta Troponin I HS 1 <6 ng/L 05/23/2024 10:38 PM CDT [facility] Blood BLOOD SPECIMEN / Unknown Venipuncture / Unknown 05/23/2024 9:54 PM CDT 05/23/2024 10:17 PM CDT Romulo Willis MD LAB - CHEMISTRY ORDE RABLES Performing Organization Address City/[facility]/ZIP Co de Phone Number [address] [address], [place] [phone] * CT CHEST ABDOMEN PELVIS W CONT - Abdomen-pelvis trauma, blunt or penetrating (05/23/2024 9:32 PM CDT) Anatomical Region Laterality Modality Chest, Abdomen, Pelvis Computed Tomography 05/23/2024 9:23 PM CDT Impressions 05/24/2024 12:43 AM CDT IMPRESSION: 1.Nondisplaced fractures of right posterior 7th-12th ribs and right anterolateral 4th-7th. 2.Trace pneumothorax in posterior aspect of the right hemithorax adjacent to the above mentioned fractures. 3.Right liver laceration involving hepatic segments 6 and 7 with active extravasation. (AAST liver injury grade 4). 4.Moderate sized subcapsular hematoma of the spleen involving over 50% of its surface. No evidence of contrast extravasation or parenchymal hematoma (AAST splenic injury grade 3). 5.Moderate volume hemoperitoneum with blood surrounding the pancreatic body and jejunal loops in left hemiabdomen as well as in the pelvis likely from the liver and spleen injury. Recommend serial abdominal exams. 6.Right adrenal gland injury with hematoma. These findings were discussed in detail with the patient's care provider, Dr. Jaxon Loyd at 9:[address] Branden Reina at [address] Cerna via telephone on 05/23/2024 with readback comprehension and verification. > Dictated by He Cerna MD (director of residential services). I, Eliseo Mckeon MD have personally reviewed and interpreted this examination/study. > Interpreting Provider: Eliseo Mckeon MD on 05/24/2024 12:43 AM Narrative 05/24/2024 12:43 AM CDT PROCEDURE: CT CHEST ABDOMEN PELVIS W CONT, DATE/TIME OF EXAM: 05/23/2024 9:34 PM, LOCATION [facility] INDICATION: Trauma COMPARISON: None. TECHNIQUE: CT of the chest, abdomen, and pelvis was performed after the uneventful administration of 100 mL of Isovue 370 intravenous contrast according to standard protocol. FINDINGS: Chest: Lower Neck and Axillae: Normal. Lungs: Trace pneumothorax in posterior aspect of the right hemithorax adjacent to the below-mentioned fractures. Mild bibasilar atelectasis. No pulmonary parenchymal or airway process is otherwise present. No suspicious pulmonary nodules are identified. No pleural fluid is present. Heart and Pericardium: The cardiac chambers are normal in size. No pericardial fluid or thickening is present. Mediastinum and Ella: No mediastinal hemorrhage is present. No enlarged lymph nodes are present. Thoracic Vasculature: No vascular abnormality is present. Abdomen/pelvis: Liver: There is a laceration involving hepatic 6 and 7 extension of hematoma into the peritoneal cavity within the abdomen and pelvis. There is a large intraparenchymal hematoma measuring up to 8 cm within segment 7 of the liver and to lesser extent involving segments 8 and 6. There is active contrast extravasation enlarging up to 2 cm during delayed images (series 11, image 15) compatible with active bleeding. Findings are compatible with liver injury (AAST grade 4). Gallbladder and Bile Ducts: Normal. Spleen: Moderate sized subcapsular hematoma over the spleen involving over 50% of its surface. No evidence of contrast extravasation or parenchymal hematoma. Findings are compatible with splenic injury (AAST grade 3). Adrenals: Contour irregularity with 7 to 8 mm hypoattenuation within the right adrenal gland (series 4, image 32 and series 5, image 70) adjacent to the above mentioned perihepatic hematoma is suspicious for adrenal injury/hematoma. The left adrenal gland is normal. Kidneys: There are multiple renal cysts with cortical scarring. No hydronephrosis. Gastrointestinal/Pancreas/Mesentery/Peritoneum/Retroperitoneum: There is moderate volume hemoperitoneum. Hyperattenuated blood products are noted within the dependent portion in the cul-de-sac (for example series 4, image 127). Additional areas of intra-abdominal hematoma around the pancreatic body (series 4, image 31) and jejunal loops in left upper quadrant (for reference series 4, image 51) with lesser extension into left lower quadrant are concerning for injuries to these organs. The stomach and visualized loops of large and small bowel are otherwise unremarkable. Normal appendix. No free intraperitoneal air. Bladder: Normal. Reproductive Organs: The prostate is normal. Abdominal Vasculature: Atherosclerotic calcification of the aorta and its branch vessels. Bones: Nondisplaced fractures of right posterior 7th-12th ribs and right anterolateral 4th-7th. Chronic fracture deformities of C6, T4 and T5 spinous processes. Bone windows demonstrate no suspicious lytic or blastic lesions. Soft tissues: Small soft tissue stranding over right lateral hip area. Small fat-containing umbilical hernia. Procedure Note Eliseo Mckeon MD - 05/24/2024 PROCEDURE: CT CHEST ABDOMEN PELVIS W CONT, DATE/TIME OF EXAM: 05/23/2024 9:34 PM, LOCATION [facility] INDICATION: Trauma COMPARISON: None. TECHNIQUE: CT of the chest, abdomen, and pelvis was performed after the uneventful administration of 100 mL of Isovue 370 intravenous contrast according to standard protocol. FINDINGS: Chest: Lower Neck and Axillae: Normal. Lungs: Trace pneumothorax in posterior aspect of the right hemithorax adjacent to the below-mentioned fractures. Mild bibasilar atelectasis.No pulmonary parenchymal or airway process is otherwise present. Nosuspicious pulmonary nodules are identified. No pleural fluid is present. Heart and Pericardium: The cardiac chambers are normal in size. No pericardial fluid or thickening is present. Mediastinum and Ella: No mediastinal hemorrhage is present. No enlarged lymph nodes are present. Thoracic Vasculature: No vascular abnormality is present. Abdomen/pelvis: Liver: There is a laceration involving hepatic 6 and 7 extension of hematoma into the peritoneal cavity within the abdomen and pelvis. Thereis a large intraparenchymal hematoma measuring up to 8 cm within segment 7of the liver and to lesser extent involving segments 8 and 6. There isactive contrast extravasation enlarging up to 2 cm during delayed images(series 11, image 15) compatible with active bleeding. Findings are compatiblewith liver injury (AAST grade 4). Gallbladder and Bile Ducts: Normal. Spleen: Moderate sized subcapsular hematoma over the spleen involvingover 50% of its surface. No evidence of contrast extravasation or parenchymal hematoma. Findings are compatible with splenic injury (AAST grade 3). Adrenals: Contour irregularity with 7 to 8 mm hypoattenuation within the right adrenal gland (series 4, image 32 and series 5, image 70) adjacentto the above mentioned perihepatic hematoma is suspicious for adrenal injury/hematoma. The left adrenal gland is normal. Kidneys: There are multiple renal cysts with cortical scarring. No hydronephrosis. Gastrointestinal/Pancreas/Mesentery/Peritoneum/Retroperitoneum: There is moderate volume hemoperitoneum. Hyperattenuated blood products are noted within the dependent portion in the cul-de-sac (for example series 4,image 127). Additional areas of intra-abdominal hematoma around the pancreatic body (series 4, image 31) and jejunal loops in left upper quadrant (for reference series 4, image 51) with lesser extension into left lower quadrant are concerning for injuries to these organs. The stomach and visualized loops of large and small bowel are otherwise unremarkable. Normal appendix. No free intraperitoneal air. Bladder: Normal. Reproductive Organs: The prostate is normal. Abdominal Vasculature: Atherosclerotic calcification of the aorta andits branch vessels. Bones: Nondisplaced fractures of right posterior 7th-12th ribs and right anterolateral 4th-7th. Chronic fracture deformities of C6, T4 and T5 spinous processes. Bone windows demonstrate no suspicious lytic orblastic lesions. Soft tissues: Small soft tissue stranding over right lateral hip area. Small fat-containing umbilical hernia. IMPRESSION: 1.Nondisplaced fractures of right posterior 7th-12th ribs and right anterolateral 4th-7th. 2.Trace pneumothorax in posterior aspect of the right hemithoraxadjacent to the above mentioned fractures. 3.Right liver laceration involving hepatic segments 6 and 7 with active extravasation. (AAST liver injury grade 4). 4.Moderate sized subcapsular hematoma of the spleen involving over 50%of its surface. No evidence of contrast extravasation or parenchymalhematoma (AAST splenic injury grade 3). 5.Moderate volume hemoperitoneum with blood surrounding the pancreaticbody and jejunal loops in left hemiabdomen as well as in the pelvis likelyfrom the liver and spleen injury. Recommend serial abdominal exams. 6.Right adrenal gland injury with hematoma. These findings were discussed in detail with the patient's careprovider, Dr. Jaxon Loyd at 9:[address] Branden Reina at 10 PM byDr. Cerna via telephone on 05/23/2024 with readback comprehension and verification. > Dictated by He Cerna MD (director of residential services). I, Eliseo Mckeon MD have personally reviewed and interpreted this examination/study. > Interpreting Provider: Eliseo Mckeon MD on 05/24/2024 12:43 AM Romulo Willis MD CT ORDERABLES * CT LUMBAR SPINE WO CONTRAST - T/L-spine trauma, Spine fracture (05/23/2024 9:32 PM CDT) Anatomical Region Laterality Modality Spine Computed Tomogra phy 05/23/2024 10:1 7 PM CDT Impressions 05/24/2024 12:28 AM CDT IMPRESSION: 1.No acute intracranial abnormality. 2.No acute maxillofacial fracture. 3.Cerumen and nonspecific small metallic foreign body within the right external auditory canal. Recommend correlation with otoscopic exam. 4.No acute fracture or traumatic malalignment of the cervical, thoracic, or lumbar spine. 5.Please refer to concurrently reported chest, abdomen, and pelvis CT for description of additional nonspine-related abnormalities, including an acute nondisplaced fractures of the right posterior fourth rib and right posterior seventh through ninth ribs, trace right pneumothorax, laceration of the posterior aspect of the right hepatic lobe, right adrenal gland hemorrhage, and tgaet-[id number] volume hemoperitoneum within the abdomen and pelvis. Report dictated by Twan Mullen MD I, Yadira Jj MD, PhD have personally reviewed and interpreted this examination/study. > Interpreting Provider: Yadira Jj MD, PhD on 05/24/2024 12:28 AM Narrative 05/24/2024 12:28 AM CDT EXAM: CT HEAD WO CONTRAST, CT FACIAL BONES WO CONTRAST, CT CERVICAL SPINE WO CONTRAST, CT THORACIC SPINE WO CONTRAST, CT LUMBAR SPINE WO CONTRAST, DATE/TIME OF EXAM: 05/23/2024 9:34 PM, LOCATION: [facility] HISTORY: Trauma EXAMINATION: CT scan of the head and facial bones/paranasal sinuses in addition to CT scan of the cervical, thoracic, and lumbar spine without intravenous contrast TECHNIQUE: CT of the head, facial bones/paranasal sinuses, and cervical spine was performed without intravenous contrast according to standard protocol. CT dose reduction technique was used, including Automated Exposure Control. Reformatted axial, sagittal, and coronal images of the thoracic and lumbar spine were obtained by the technologist from a concurrently performed chest, abdomen, and pelvis CT and sent to the workstation for review. COMPARISON: No prior similar studies are available for comparison. FINDINGS: HEAD: BRAIN PARENCHYMA: No acute hemorrhage, large vascular territory infarct, or mass effect. White matter is within normal limits for age. VENTRICLES/EXTRA-AXIAL SPACES: No ventriculomegaly or extra-axial collection. Basal cisterns are patent. EXTRACRANIAL STRUCTURES: No acute osseous abnormality. Normal soft tissues. Brain injury guidelines: Skull fracture: No. Subdural hematoma: No subdural hematoma. Epidural hematoma: No epidural hematoma. Intraparenchymal hemorrhage: No intraparenchymal hemorrhage. Subarachnoid hemorrhage: No subarachnoid hemorrhage. Intraventricular hemorrhage: No. Midline shift: No. FACE/SINUSES: BONES: No acute maxillofacial fracture. Incidentally noted torus maxillaris. Osseous structures are demineralized. SOFT TISSUES: Unremarkable. PARANASAL SINUSES: Clear. NASAL CAVITY: Left middle and inferior nasal turbinate hypertrophy; otherwise, nasal cavity is clear. Midline nasal septum with a small right-sided spur. MASTOID AIR CELLS/MIDDLE EAR CAVITIES: Clear. ORBITS: Unremarkable. OTHER: Cerumen and nonspecific small metallic foreign body within the right external auditory canal. Periodontal disease characterized by scattered missing teeth and a few periapical lucencies/possible abscesses and dental caries of the remaining maxillary mandibular teeth. CERVICAL SPINE: ALIGNMENT: Mild levoconvex curvature of the cervical spine without significant listhesis. No traumatic malalignment. ATLANTOAXIAL JOINT: The dens is intact, the lateral masses of C1 are normally aligned relative to C2, and the atlantodental interval is normal. Mild degenerative changes of the middle atlantoaxial joint. BONES: Vertebral body heights are maintained without evidence of acute fracture. Osseous structures are demineralized. DISCS: Multilevel mild disc space narrowing. DEGENERATIVE CHANGES: Overall minimal multilevel degenerative changes, characterized by varying degrees of anterior endplate osteophytes and posterior disc bulges. SPINAL CANAL/NEUROFORAMEN: No significant osseous spinal canal stenosis or neuroforaminal narrowing. SOFT TISSUES: No prevertebral soft tissue swelling. Visualized neck soft tissues are normal. OTHER: Minimal calcific atherosclerosis of the left carotid bulb. Partially imaged portions of lung apices are clear with minimal paraseptal emphysema. THORACIC SPINE: ALIGNMENT: Minimal levoconvex curvature of the upper thoracic spine and mild kyphosis centered at the T5-T6 level without significant listhesis. No traumatic malalignment. BONES: No evidence of an acute fracture. Chronic-appearing minimal anterior wedging of T5 and T6 vertebral bodies without retropulsion, which is likely degenerative in nature. Remaining vertebral body heights are maintained. Osseous structures are demineralized. DISCS: Normal. DEGENERATIVE CHANGES: No significant degenerative changes for age. SPINAL CANAL/NEUROFORAMEN: No significant osseous spinal canal stenosis or neuroforaminal narrowing. SOFT TISSUES: Visualized soft tissues are normal. OTHER: Acute nondisplaced fractures of the right posterior fourth rib (56), right posterior seventh rib (), right posterior eighth rib (), and right ninth posterior rib (, 1143). Trace right pneumothorax. Right adrenal gland hemorrhage. Right kidney with a few scattered small cysts. Tiny hiatal hernia. These findings are better evaluated on concurrently reported chest, abdomen, and pelvis CT. LUMBAR SPINE: ALIGNMENT: Minimal levoconvex curvature of the lumbar spine without significant listhesis. No traumatic malalignment. BONES: Vertebral body heights are maintained without evidence of acute fracture. 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 Osseous structures are demineralized. DISCS: Normal. DEGENERATIVE CHANGES: No significant degenerative changes for age. SPINAL CANAL/NEUROFORAMEN: No significant osseous spinal canal stenosis or neuroforaminal narrowing. SOFT TISSUES: Visualized soft tissues are normal. OTHER: Mild degenerative of the bilateral sacroiliac joints, left greater than right. Partially imaged laceration of the posterior aspect of the right hepatic lobe and [id number] volume hemoperitoneum within the abdomen and pelvis. Right adrenal gland hemorrhage. Kidneys with scattered small cysts. Sigmoid colon with a few diverticula without evidence of diverticulitis. Minimal calcific atherosclerosis of the abdominal aorta and proximal branches. These findings are better evaluated on concurrently reported chest, abdomen, and pelvis CT. Procedure Note Yadira Jj MD - 05/24/2024 EXAM: CT HEAD WO CONTRAST, CT FACIAL BONES WO CONTRAST, CT CERVICALSPINE WO CONTRAST, CT THORACIC SPINE WO CONTRAST, CT LUMBAR SPINE WO CONTRAST, DATE/TIME OF EXAM: 05/23/2024 9:34 PM, LOCATION: [facility] HISTORY: Trauma EXAMINATION: CT scan of the head and facial bones/paranasal sinuses in addition to CT scan of the cervical, thoracic, and lumbar spine without intravenous contrast TECHNIQUE: CT of the head, facial bones/paranasal sinuses, and cervical spine was performed without intravenous contrast according to standard protocol.CT dose reduction technique was used, including Automated Exposure Control. Reformatted axial, sagittal, and coronal images of the thoracic andlumbar spine were obtained by the technologist from a concurrently performed chest, abdomen, and pelvis CT and sent to the workstation for review. COMPARISON: No prior similar studies are available for comparison. FINDINGS: HEAD: BRAIN PARENCHYMA: No acute hemorrhage, large vascular territory infarct,or mass effect. White matter is within normal limits for age. VENTRICLES/EXTRA-AXIAL SPACES: No ventriculomegaly or extra-axial collection. Basal cisterns are patent. EXTRACRANIAL STRUCTURES: No acute osseous abnormality. Normal softtissues. Brain injury guidelines: Skull fracture: No. Subdural hematoma: No subdural hematoma. Epidural hematoma: No epidural hematoma. Intraparenchymal hemorrhage: No intraparenchymal hemorrhage. Subarachnoid hemorrhage: No subarachnoid hemorrhage. Intraventricular hemorrhage: No. Midline shift: No. FACE/SINUSES: BONES: No acute maxillofacial fracture. Incidentally noted torus maxillaris. Osseous structures are demineralized. SOFT TISSUES: Unremarkable. PARANASAL SINUSES: Clear. NASAL CAVITY: Left middle and inferior nasal turbinate hypertrophy; otherwise, nasal cavity is clear. Midline nasal septum with a small right-sided spur. MASTOID AIR CELLS/MIDDLE EAR CAVITIES: Clear. ORBITS: Unremarkable. OTHER: Cerumen and nonspecific small metallic foreign body within theright external auditory canal. Periodontal disease characterized by scattered missing teeth and a few periapical lucencies/possible abscesses anddental caries of the remaining maxillary mandibular teeth. CERVICAL SPINE: ALIGNMENT: Mild levoconvex curvature of the cervical spine without significant listhesis. No traumatic malalignment. ATLANTOAXIAL JOINT: The dens is intact, the lateral masses of C1 are normally aligned relative to C2, and the atlantodental interval isnormal. Mild degenerative changes of the middle atlantoaxial joint. BONES: Vertebral body heights are maintained without evidence of acute fracture. Osseous structures are demineralized. DISCS: Multilevel mild disc space narrowing. DEGENERATIVE CHANGES: Overall minimal multilevel degenerative changes, characterized by varying degrees of anterior endplate osteophytes and posterior disc bulges. SPINAL CANAL/NEUROFORAMEN: No significant osseous spinal canal stenosisor neuroforaminal narrowing. SOFT TISSUES: No prevertebral soft tissue swelling. Visualized neck soft tissues are normal. OTHER: Minimal calcific atherosclerosis of the left carotid bulb.Partially imaged portions of lung apices are clear with minimal paraseptalemphysema. THORACIC SPINE: ALIGNMENT: Minimal levoconvex curvature of the upper thoracic spine and mild kyphosis centered at the T5-T6 level without significant listhesis.No traumatic malalignment. BONES: No evidence of an acute fracture. Chronic-appearing minimalanterior wedging of T5 and T6 vertebral bodies without retropulsion, which islikely degenerative in nature. Remaining vertebral body heights are maintained. Osseous structures are demineralized. DISCS: Normal. DEGENERATIVE CHANGES: No significant degenerative changes for age. SPINAL CANAL/NEUROFORAMEN: No significant osseous spinal canal stenosisor neuroforaminal narrowing. SOFT TISSUES: Visualized soft tissues are normal. OTHER: Acute nondisplaced fractures of the right posterior fourth rib (1/56), right posterior seventh rib (1/107), right posterior eighth rib (5/76), and right ninth posterior rib (5/77, 1/143). Trace right pneumothorax. Right adrenal gland hemorrhage. Right kidney with a few scattered small cysts. Tiny hiatal hernia. These findings are better evaluated on concurrently reported chest, abdomen, and pelvis CT. LUMBAR SPINE: ALIGNMENT: Minimal levoconvex curvature of the lumbar spine without significant listhesis. No traumatic malalignment. BONES: Vertebral body heights are maintained without evidence of acute fracture. Incidentally noted congenital incomplete fusion of the [id number] transverse process. Osseous structures are demineralized. DISCS: Normal. DEGENERATIVE CHANGES: No significant degenerative changes for age. SPINAL CANAL/NEUROFORAMEN: No significant osseous spinal canal stenosisor neuroforaminal narrowing. SOFT TISSUES: Visualized soft tissues are normal. OTHER: Mild degenerative of the bilateral sacroiliac joints, leftgreater than right. Partially imaged laceration of the posterior aspect of the right hepatic lobe and hnhbt-ps-ecawuapc volume hemoperitoneum withinthe abdomen and pelvis. Right adrenal gland hemorrhage. Kidneys withscattered small cysts. Sigmoid colon with a few diverticula without evidence of diverticulitis. Minimal calcific atherosclerosis of the abdominal aortaand proximal branches. These findings are better evaluated on concurrently reported chest, abdomen, and pelvis CT. IMPRESSION: 1.No acute intracranial abnormality. 2.No acute maxillofacial fracture. 3.Cerumen and nonspecific small metallic foreign body within the right external auditory canal. Recommend correlation with otoscopic exam. 4.No acute fracture or traumatic malalignment of the cervical, thoracic,or lumbar spine. 5.Please refer to concurrently reported chest, abdomen, and pelvis CTfor description of additional nonspine-related abnormalities, including an acute nondisplaced fractures of the right posterior fourth rib and right posterior seventh through ninth ribs, trace right pneumothorax,laceration of the posterior aspect of the right hepatic lobe, right adrenal gland hemorrhage, and trikd-sz-jjrkriej volume hemoperitoneum within theabdomen and pelvis. Report dictated by Twan Mullen MD I, Yadira Jj MD, PhD have personally reviewed and interpreted this examination/study. > Interpreting Provider: Yadira Jj MD, PhD on 05/24/2024 12:28 AM Romulo Willis MD CT ORDERABLES * CT THORACIC SPINE WO CONTRAST - T/L-spine trauma, spine fracture (05/23/2024 9:32 PM CDT) Anatomical Region Laterality Modality Spine Computed Tomogra phy 05/23/2024 10:1 7 PM CDT Impressions 05/24/2024 12:28 AM CDT IMPRESSION: 1.No acute intracranial abnormality. 2.No acute maxillofacial fracture. 3.Cerumen and nonspecific small metallic foreign body within the right external auditory canal. Recommend correlation with otoscopic exam. 4.No acute fracture or traumatic malalignment of the cervical, thoracic, or lumbar spine. 5.Please refer to concurrently reported chest, abdomen, and pelvis CT for description of additional nonspine-related abnormalities, including an acute nondisplaced fractures of the right posterior fourth rib and right posterior seventh through ninth ribs, trace right pneumothorax, laceration of the posterior aspect of the right hepatic lobe, right adrenal gland hemorrhage, and xkpre-mv-ztvqsbzc volume hemoperitoneum within the abdomen and pelvis. Report dictated by Twan Mullen MD I, Yadira Jj MD, PhD have personally reviewed and interpreted this examination/study. > Interpreting Provider: Yadira Jj MD, PhD on 05/24/2024 12:28 AM Narrative 05/24/2024 12:28 AM CDT EXAM: CT HEAD WO CONTRAST, CT FACIAL BONES WO CONTRAST, CT CERVICAL SPINE WO CONTRAST, CT THORACIC SPINE WO CONTRAST, CT LUMBAR SPINE WO CONTRAST, DATE/TIME OF EXAM: 05/23/2024 9:34 PM, LOCATION: [facility] HISTORY: Trauma EXAMINATION: CT scan of the head and facial bones/paranasal sinuses in addition to CT scan of the cervical, thoracic, and lumbar spine without intravenous contrast TECHNIQUE: CT of the head, facial bones/paranasal sinuses, and cervical spine was performed without intravenous contrast according to standard protocol. CT dose reduction technique was used, including Automated Exposure Control. Reformatted axial, sagittal, and coronal images of the thoracic and lumbar spine were obtained by the technologist from a concurrently performed chest, abdomen, and pelvis CT and sent to the workstation for review. COMPARISON: No prior similar studies are available for comparison. FINDINGS: HEAD: BRAIN PARENCHYMA: No acute hemorrhage, large vascular territory infarct, or mass effect. White matter is within normal limits for age. VENTRICLES/EXTRA-AXIAL SPACES: No ventriculomegaly or extra-axial collection. Basal cisterns are patent. EXTRACRANIAL STRUCTURES: No acute osseous abnormality. Normal soft tissues. Brain injury guidelines: Skull fracture: No. Subdural hematoma: No subdural hematoma. Epidural hematoma: No epidural hematoma. Intraparenchymal hemorrhage: No intraparenchymal hemorrhage. Subarachnoid hemorrhage: No subarachnoid hemorrhage. Intraventricular hemorrhage: No. Midline shift: No. FACE/SINUSES: BONES: No acute maxillofacial fracture. Incidentally noted torus maxillaris. Osseous structures are demineralized. SOFT TISSUES: Unremarkable. PARANASAL SINUSES: Clear. NASAL CAVITY: Left middle and inferior nasal turbinate hypertrophy; otherwise, nasal cavity is clear. Midline nasal septum with a small right-sided spur. MASTOID AIR CELLS/MIDDLE EAR CAVITIES: Clear. ORBITS: Unremarkable. OTHER: Cerumen and nonspecific small metallic foreign body within the right external auditory canal. Periodontal disease characterized by scattered missing teeth and a few periapical lucencies/possible abscesses and dental caries of the remaining maxillary mandibular teeth. CERVICAL SPINE: ALIGNMENT: Mild levoconvex curvature of the cervical spine without significant listhesis. No traumatic malalignment. ATLANTOAXIAL JOINT: The dens is intact, the lateral masses of C1 are normally aligned relative to C2, and the atlantodental interval is normal. Mild degenerative changes of the middle atlantoaxial joint. BONES: Vertebral body heights are maintained without evidence of acute fracture. Osseous structures are demineralized. DISCS: Multilevel mild disc space narrowing. DEGENERATIVE CHANGES: Overall minimal multilevel degenerative changes, characterized by varying degrees of anterior endplate osteophytes and posterior disc bulges. SPINAL CANAL/NEUROFORAMEN: No significant osseous spinal canal stenosis or neuroforaminal narrowing. SOFT TISSUES: No prevertebral soft tissue swelling. Visualized neck soft tissues are normal. OTHER: Minimal calcific atherosclerosis of the left carotid bulb. Partially imaged portions of lung apices are clear with minimal paraseptal emphysema. THORACIC SPINE: ALIGNMENT: Minimal levoconvex curvature of the upper thoracic spine and mild kyphosis centered at the T5-T6 level without significant listhesis. No traumatic malalignment. BONES: No evidence of an acute fracture. Chronic-appearing minimal anterior wedging of T5 and T6 vertebral bodies without retropulsion, which is likely degenerative in nature. Remaining vertebral body heights are maintained. Osseous structures are demineralized. DISCS: Normal. DEGENERATIVE CHANGES: No significant degenerative changes for age. SPINAL CANAL/NEUROFORAMEN: No significant osseous spinal canal stenosis or neuroforaminal narrowing. SOFT TISSUES: Visualized soft tissues are normal. OTHER: Acute nondisplaced fractures of the right posterior fourth rib (1/56), right posterior seventh rib (/107), right posterior eighth rib (), and right ninth posterior rib (, 1/143). Trace right pneumothorax. Right adrenal gland hemorrhage. Right kidney with a few scattered small cysts. Tiny hiatal hernia. These findings are better evaluated on concurrently reported chest, abdomen, and pelvis CT. LUMBAR SPINE: ALIGNMENT: Minimal levoconvex curvature of the lumbar spine without significant listhesis. No traumatic malalignment. BONES: Vertebral body heights are maintained without evidence of acute fracture. 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 Osseous structures are demineralized. DISCS: Normal. DEGENERATIVE CHANGES: No significant degenerative changes for age. SPINAL CANAL/NEUROFORAMEN: No significant osseous spinal canal stenosis or neuroforaminal narrowing. SOFT TISSUES: Visualized soft tissues are normal. OTHER: Mild degenerative of the bilateral sacroiliac joints, left greater than right. Partially imaged laceration of the posterior aspect of the right hepatic lobe and tukjt-yg-jojssiln volume hemoperitoneum within the abdomen and pelvis. Right adrenal gland hemorrhage. Kidneys with scattered small cysts. Sigmoid colon with a few diverticula without evidence of diverticulitis. Minimal calcific atherosclerosis of the abdominal aorta and proximal branches. These findings are better evaluated on concurrently reported chest, abdomen, and pelvis CT. Procedure Note Yadira Jj MD - 05/24/2024 EXAM: CT HEAD WO CONTRAST, CT FACIAL BONES WO CONTRAST, CT CERVICALSPINE WO CONTRAST, CT THORACIC SPINE WO CONTRAST, CT LUMBAR SPINE WO CONTRAST, DATE/TIME OF EXAM: 05/23/2024 9:34 PM, LOCATION: [facility] HISTORY: Trauma EXAMINATION: CT scan of the head and facial bones/paranasal sinuses in addition to CT scan of the cervical, thoracic, and lumbar spine without intravenous contrast TECHNIQUE: CT of the head, facial bones/paranasal sinuses, and cervical spine was performed without intravenous contrast according to standard protocol.CT dose reduction technique was used, including Automated Exposure Control. Reformatted axial, sagittal, and coronal images of the thoracic andlumbar spine were obtained by the technologist from a concurrently performed chest, abdomen, and pelvis CT and sent to the workstation for review. COMPARISON: No prior similar studies are available for comparison. FINDINGS: HEAD: BRAIN PARENCHYMA: No acute hemorrhage, large vascular territory infarct,or mass effect. White matter is within normal limits for age. VENTRICLES/EXTRA-AXIAL SPACES: No ventriculomegaly or extra-axial collection. Basal cisterns are patent. EXTRACRANIAL STRUCTURES: No acute osseous abnormality. Normal softtissues. Brain injury guidelines: Skull fracture: No. Subdural hematoma: No subdural hematoma. Epidural hematoma: No epidural hematoma. Intraparenchymal hemorrhage: No intraparenchymal hemorrhage. Subarachnoid hemorrhage: No subarachnoid hemorrhage. Intraventricular hemorrhage: No. Midline shift: No. FACE/SINUSES: BONES: No acute maxillofacial fracture. Incidentally noted torus maxillaris. Osseous structures are demineralized. SOFT TISSUES: Unremarkable. PARANASAL SINUSES: Clear. NASAL CAVITY: Left middle and inferior nasal turbinate hypertrophy; otherwise, nasal cavity is clear. Midline nasal septum with a small right-sided spur. MASTOID AIR CELLS/MIDDLE EAR CAVITIES: Clear. ORBITS: Unremarkable. OTHER: Cerumen and nonspecific small metallic foreign body within theright external auditory canal. Periodontal disease characterized by scattered missing teeth and a few periapical lucencies/possible abscesses anddental caries of the remaining maxillary mandibular teeth. CERVICAL SPINE: ALIGNMENT: Mild levoconvex curvature of the cervical spine without significant listhesis. No traumatic malalignment. ATLANTOAXIAL JOINT: The dens is intact, the lateral masses of C1 are normally aligned relative to C2, and the atlantodental interval isnormal. Mild degenerative changes of the middle atlantoaxial joint. BONES: Vertebral body heights are maintained without evidence of acute fracture. Osseous structures are demineralized. DISCS: Multilevel mild disc space narrowing. DEGENERATIVE CHANGES: Overall minimal multilevel degenerative changes, characterized by varying degrees of anterior endplate osteophytes and posterior disc bulges. SPINAL CANAL/NEUROFORAMEN: No significant osseous spinal canal stenosisor neuroforaminal narrowing. SOFT TISSUES: No prevertebral soft tissue swelling. Visualized neck soft tissues are normal. OTHER: Minimal calcific atherosclerosis of the left carotid bulb.Partially imaged portions of lung apices are clear with minimal paraseptalemphysema. THORACIC SPINE: ALIGNMENT: Minimal levoconvex curvature of the upper thoracic spine and mild kyphosis centered at the T5-T6 level without significant listhesis.No traumatic malalignment. BONES: No evidence of an acute fracture. Chronic-appearing minimalanterior wedging of T5 and T6 vertebral bodies without retropulsion, which islikely degenerative in nature. Remaining vertebral body heights are maintained. Osseous structures are demineralized. DISCS: Normal. DEGENERATIVE CHANGES: No significant degenerative changes for age. SPINAL CANAL/NEUROFORAMEN: No significant osseous spinal canal stenosisor neuroforaminal narrowing. SOFT TISSUES: Visualized soft tissues are normal. OTHER: Acute nondisplaced fractures of the right posterior fourth rib (1/56), right posterior seventh rib (1/107), right posterior eighth rib (5/76), and right ninth posterior rib (5/77, 1/143). Trace right pneumothorax. Right adrenal gland hemorrhage. Right kidney with a few scattered small cysts. Tiny hiatal hernia. These findings are better evaluated on concurrently reported chest, abdomen, and pelvis CT. LUMBAR SPINE: ALIGNMENT: Minimal levoconvex curvature of the lumbar spine without significant listhesis. No traumatic malalignment. BONES: Vertebral body heights are maintained without evidence of acute fracture. Incidentally noted congenital incomplete fusion of the R1vauko transverse process. Osseous structures are demineralized. DISCS: Normal. DEGENERATIVE CHANGES: No significant degenerative changes for age. SPINAL CANAL/NEUROFORAMEN: No significant osseous spinal canal stenosisor neuroforaminal narrowing. SOFT TISSUES: Visualized soft tissues are normal. OTHER: Mild degenerative of the bilateral sacroiliac joints, leftgreater than right. Partially imaged laceration of the posterior aspect of the right hepatic lobe and ptoku-ij-jnbwlera volume hemoperitoneum withinthe abdomen and pelvis. Right adrenal gland hemorrhage. Kidneys withscattered small cysts. Sigmoid colon with a few diverticula without evidence of diverticulitis. Minimal calcific atherosclerosis of the abdominal aortaand proximal branches. These findings are better evaluated on concurrently reported chest, abdomen, and pelvis CT. IMPRESSION: 1.No acute intracranial abnormality. 2.No acute maxillofacial fracture. 3.Cerumen and nonspecific small metallic foreign body within the right external auditory canal. Recommend correlation with otoscopic exam. 4.No acute fracture or traumatic malalignment of the cervical, thoracic,or lumbar spine. 5.Please refer to concurrently reported chest, abdomen, and pelvis CTfor description of additional nonspine-related abnormalities, including an acute nondisplaced fractures of the right posterior fourth rib and right posterior seventh through ninth ribs, trace right pneumothorax,laceration of the posterior aspect of the right hepatic lobe, right adrenal gland hemorrhage, and wrwlc-ux-ivpkmosg volume hemoperitoneum within theabdomen and pelvis. Report dictated by Twan Mullen MD I, Yadira Jj MD, PhD have personally reviewed and interpreted this examination/study. > Interpreting Provider: Yadira Jj MD, PhD on 05/24/2024 12:28 AM Romulo Willis MD CT ORDERABLES * CT CERVICAL SPINE WO CONTRAST - C-Spine Trauma, Spine fracture (05/23/2024 9:32 PM CDT) Anatomical Region Laterality Modality Spine Computed Tomogra phy 05/23/2024 10:1 7 PM CDT Impressions 05/24/2024 12:28 AM CDT IMPRESSION: 1.No acute intracranial abnormality. 2.No acute maxillofacial fracture. 3.Cerumen and nonspecific small metallic foreign body within the right external auditory canal. Recommend correlation with otoscopic exam. 4.No acute fracture or traumatic malalignment of the cervical, thoracic, or lumbar spine. 5.Please refer to concurrently reported chest, abdomen, and pelvis CT for description of additional nonspine-related abnormalities, including an acute nondisplaced fractures of the right posterior fourth rib and right posterior seventh through ninth ribs, trace right pneumothorax, laceration of the posterior aspect of the right hepatic lobe, right adrenal gland hemorrhage, and bhjer-th-plfdekjp volume hemoperitoneum within the abdomen and pelvis. Report dictated by Twan Mullen MD I, Yadira Jj MD, PhD have personally reviewed and interpreted this examination/study. > Interpreting Provider: Yadira Jj MD, PhD on 05/24/2024 12:28 AM Narrative 05/24/2024 12:28 AM CDT EXAM: CT HEAD WO CONTRAST, CT FACIAL BONES WO CONTRAST, CT CERVICAL SPINE WO CONTRAST, CT THORACIC SPINE WO CONTRAST, CT LUMBAR SPINE WO CONTRAST, DATE/TIME OF EXAM: 05/23/2024 9:34 PM, LOCATION: [facility] HISTORY: Trauma EXAMINATION: CT scan of the head and facial bones/paranasal sinuses in addition to CT scan of the cervical, thoracic, and lumbar spine without intravenous contrast TECHNIQUE: CT of the head, facial bones/paranasal sinuses, and cervical spine was performed without intravenous contrast according to standard protocol. CT dose reduction technique was used, including Automated Exposure Control. Reformatted axial, sagittal, and coronal images of the thoracic and lumbar spine were obtained by the technologist from a concurrently performed chest, abdomen, and pelvis CT and sent to the workstation for review. COMPARISON: No prior similar studies are available for comparison. FINDINGS: HEAD: BRAIN PARENCHYMA: No acute hemorrhage, large vascular territory infarct, or mass effect. White matter is within normal limits for age. VENTRICLES/EXTRA-AXIAL SPACES: No ventriculomegaly or extra-axial collection. Basal cisterns are patent. EXTRACRANIAL STRUCTURES: No acute osseous abnormality. Normal soft tissues. Brain injury guidelines: Skull fracture: No. Subdural hematoma: No subdural hematoma. Epidural hematoma: No epidural hematoma. Intraparenchymal hemorrhage: No intraparenchymal hemorrhage. Subarachnoid hemorrhage: No subarachnoid hemorrhage. Intraventricular hemorrhage: No. Midline shift: No. FACE/SINUSES: BONES: No acute maxillofacial fracture. Incidentally noted torus maxillaris. Osseous structures are demineralized. SOFT TISSUES: Unremarkable. PARANASAL SINUSES: Clear. NASAL CAVITY: Left middle and inferior nasal turbinate hypertrophy; otherwise, nasal cavity is clear. Midline nasal septum with a small right-sided spur. MASTOID AIR CELLS/MIDDLE EAR CAVITIES: Clear. ORBITS: Unremarkable. OTHER: Cerumen and nonspecific small metallic foreign body within the right external auditory canal. Periodontal disease characterized by scattered missing teeth and a few periapical lucencies/possible abscesses and dental caries of the remaining maxillary mandibular teeth. CERVICAL SPINE: ALIGNMENT: Mild levoconvex curvature of the cervical spine without significant listhesis. No traumatic malalignment. ATLANTOAXIAL JOINT: The dens is intact, the lateral masses of C1 are normally aligned relative to C2, and the atlantodental interval is normal. Mild degenerative changes of the middle atlantoaxial joint. BONES: Vertebral body heights are maintained without evidence of acute fracture. Osseous structures are demineralized. DISCS: Multilevel mild disc space narrowing. DEGENERATIVE CHANGES: Overall minimal multilevel degenerative changes, characterized by varying degrees of anterior endplate osteophytes and posterior disc bulges. SPINAL CANAL/NEUROFORAMEN: No significant osseous spinal canal stenosis or neuroforaminal narrowing. SOFT TISSUES: No prevertebral soft tissue swelling. Visualized neck soft tissues are normal. OTHER: Minimal calcific atherosclerosis of the left carotid bulb. Partially imaged portions of lung apices are clear with minimal paraseptal emphysema. THORACIC SPINE: ALIGNMENT: Minimal levoconvex curvature of the upper thoracic spine and mild kyphosis centered at the T5-T6 level without significant listhesis. No traumatic malalignment. BONES: No evidence of an acute fracture. Chronic-appearing minimal anterior wedging of T5 and T6 vertebral bodies without retropulsion, which is likely degenerative in nature. Remaining vertebral body heights are maintained. Osseous structures are demineralized. DISCS: Normal. DEGENERATIVE CHANGES: No significant degenerative changes for age. SPINAL CANAL/NEUROFORAMEN: No significant osseous spinal canal stenosis or neuroforaminal narrowing. SOFT TISSUES: Visualized soft tissues are normal. OTHER: Acute nondisplaced fractures of the right posterior fourth rib (1/56), right posterior seventh rib (1/107), right posterior eighth rib (5/76), and right ninth posterior rib (5/77, 1/143). Trace right pneumothorax. Right adrenal gland hemorrhage. Right kidney with a few scattered small cysts. Tiny hiatal hernia. These findings are better evaluated on concurrently reported chest, abdomen, and pelvis CT. LUMBAR SPINE: ALIGNMENT: Minimal levoconvex curvature of the lumbar spine without significant listhesis. No traumatic malalignment. BONES: Vertebral body heights are maintained without evidence of acute fracture. 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 Osseous structures are demineralized. DISCS: Normal. DEGENERATIVE CHANGES: No significant degenerative changes for age. SPINAL CANAL/NEUROFORAMEN: No significant osseous spinal canal stenosis or neuroforaminal narrowing. SOFT TISSUES: Visualized soft tissues are normal. OTHER: Mild degenerative of the bilateral sacroiliac joints, left greater than right. Partially imaged laceration of the posterior aspect of the right hepatic lobe and ukvhu-iz-btmlqpgp volume hemoperitoneum within the abdomen and pelvis. Right adrenal gland hemorrhage. Kidneys with scattered small cysts. Sigmoid colon with a few diverticula without evidence of diverticulitis. Minimal calcific atherosclerosis of the abdominal aorta and proximal branches. These findings are better evaluated on concurrently reported chest, abdomen, and pelvis CT. Procedure Note Yadira Jj MD - 05/24/2024 EXAM: CT HEAD WO CONTRAST, CT FACIAL BONES WO CONTRAST, CT CERVICALSPINE WO CONTRAST, CT THORACIC SPINE WO CONTRAST, CT LUMBAR SPINE WO CONTRAST, DATE/TIME OF EXAM: 05/23/2024 9:34 PM, LOCATION: [facility] HISTORY: Trauma EXAMINATION: CT scan of the head and facial bones/paranasal sinuses in addition to CT scan of the cervical, thoracic, and lumbar spine without intravenous contrast TECHNIQUE: CT of the head, facial bones/paranasal sinuses, and cervical spine was performed without intravenous contrast according to standard protocol.CT dose reduction technique was used, including Automated Exposure Control. Reformatted axial, sagittal, and coronal images of the thoracic andlumbar spine were obtained by the technologist from a concurrently performed chest, abdomen, and pelvis CT and sent to the workstation for review. COMPARISON: No prior similar studies are available for comparison. FINDINGS: HEAD: BRAIN PARENCHYMA: No acute hemorrhage, large vascular territory infarct,or mass effect. White matter is within normal limits for age. VENTRICLES/EXTRA-AXIAL SPACES: No ventriculomegaly or extra-axial collection. Basal cisterns are patent. EXTRACRANIAL STRUCTURES: No acute osseous abnormality. Normal softtissues. Brain injury guidelines: Skull fracture: No. Subdural hematoma: No subdural hematoma. Epidural hematoma: No epidural hematoma. Intraparenchymal hemorrhage: No intraparenchymal hemorrhage. Subarachnoid hemorrhage: No subarachnoid hemorrhage. Intraventricular hemorrhage: No. Midline shift: No. FACE/SINUSES: BONES: No acute maxillofacial fracture. Incidentally noted torus maxillaris. Osseous structures are demineralized. SOFT TISSUES: Unremarkable. PARANASAL SINUSES: Clear. NASAL CAVITY: Left middle and inferior nasal turbinate hypertrophy; otherwise, nasal cavity is clear. Midline nasal septum with a small right-sided spur. MASTOID AIR CELLS/MIDDLE EAR CAVITIES: Clear. ORBITS: Unremarkable. OTHER: Cerumen and nonspecific small metallic foreign body within theright external auditory canal. Periodontal disease characterized by scattered missing teeth and a few periapical lucencies/possible abscesses anddental caries of the remaining maxillary mandibular teeth. CERVICAL SPINE: ALIGNMENT: Mild levoconvex curvature of the cervical spine without significant listhesis. No traumatic malalignment. ATLANTOAXIAL JOINT: The dens is intact, the lateral masses of C1 are normally aligned relative to C2, and the atlantodental interval isnormal. Mild degenerative changes of the middle atlantoaxial joint. BONES: Vertebral body heights are maintained without evidence of acute fracture. Osseous structures are demineralized. DISCS: Multilevel mild disc space narrowing. DEGENERATIVE CHANGES: Overall minimal multilevel degenerative changes, characterized by varying degrees of anterior endplate osteophytes and posterior disc bulges. SPINAL CANAL/NEUROFORAMEN: No significant osseous spinal canal stenosisor neuroforaminal narrowing. SOFT TISSUES: No prevertebral soft tissue swelling. Visualized neck soft tissues are normal. OTHER: Minimal calcific atherosclerosis of the left carotid bulb.Partially imaged portions of lung apices are clear with minimal paraseptalemphysema. THORACIC SPINE: ALIGNMENT: Minimal levoconvex curvature of the upper thoracic spine and mild kyphosis centered at the T5-T6 level without significant listhesis.No traumatic malalignment. BONES: No evidence of an acute fracture. Chronic-appearing minimalanterior wedging of T5 and T6 vertebral bodies without retropulsion, which islikely degenerative in nature. Remaining vertebral body heights are maintained. Osseous structures are demineralized. DISCS: Normal. DEGENERATIVE CHANGES: No significant degenerative changes for age. SPINAL CANAL/NEUROFORAMEN: No significant osseous spinal canal stenosisor neuroforaminal narrowing. SOFT TISSUES: Visualized soft tissues are normal. OTHER: Acute nondisplaced fractures of the right posterior fourth rib (/56), right posterior seventh rib (1/107), right posterior eighth rib (), and right ninth posterior rib (, 1/143). Trace right pneumothorax. Right adrenal gland hemorrhage. Right kidney with a few scattered small cysts. Tiny hiatal hernia. These findings are better evaluated on concurrently reported chest, abdomen, and pelvis CT. LUMBAR SPINE: ALIGNMENT: Minimal levoconvex curvature of the lumbar spine without significant listhesis. No traumatic malalignment. BONES: Vertebral body heights are maintained without evidence of acute fracture. Incidentally noted congenital incomplete fusion of the [id number] transverse process. Osseous structures are demineralized. DISCS: Normal. DEGENERATIVE CHANGES: No significant degenerative changes for age. SPINAL CANAL/NEUROFORAMEN: No significant osseous spinal canal stenosisor neuroforaminal narrowing. SOFT TISSUES: Visualized soft tissues are normal. OTHER: Mild degenerative of the bilateral sacroiliac joints, leftgreater than right. Partially imaged laceration of the posterior aspect of the right hepatic lobe and [id number]-bd-xzajhxal volume hemoperitoneum withinthe abdomen and pelvis. Right adrenal gland hemorrhage. Kidneys withscattered small cysts. Sigmoid colon with a few diverticula without evidence of diverticulitis. Minimal calcific atherosclerosis of the abdominal aortaand proximal branches. These findings are better evaluated on concurrently reported chest, abdomen, and pelvis CT. IMPRESSION: 1.No acute intracranial abnormality. 2.No acute maxillofacial fracture. 3.Cerumen and nonspecific small metallic foreign body within the right external auditory canal. Recommend correlation with otoscopic exam. 4.No acute fracture or traumatic malalignment of the cervical, thoracic,or lumbar spine. 5.Please refer to concurrently reported chest, abdomen, and pelvis CTfor description of additional nonspine-related abnormalities, including an acute nondisplaced fractures of the right posterior fourth rib and right posterior seventh through ninth ribs, trace right pneumothorax,laceration of the posterior aspect of the right hepatic lobe, right adrenal gland hemorrhage, and fdxdf-pf-ewkzdzex volume hemoperitoneum within theabdomen and pelvis. Report dictated by Twan Mullen MD I, Yadira Jj MD, PhD have personally reviewed and interpreted this examination/study. > Interpreting Provider: Yadira Jj MD, PhD on 05/24/2024 12:28 AM Romulo Willis MD CT ORDERABLES * CT FACIAL BONES WO CONTRAST - Facial trauma, fx suspected, blunt (05/23/2024 9:32 PM CDT) Anatomical Region Laterality Modality Head Computed Tomogra phy 05/23/2024 10:1 7 PM CDT Impressions 05/24/2024 12:28 AM CDT IMPRESSION: 1.No acute intracranial abnormality. 2.No acute maxillofacial fracture. 3.Cerumen and nonspecific small metallic foreign body within the right external auditory canal. Recommend correlation with otoscopic exam. 4.No acute fracture or traumatic malalignment of the cervical, thoracic, or lumbar spine. 5.Please refer to concurrently reported chest, abdomen, and pelvis CT for description of additional nonspine-related abnormalities, including an acute nondisplaced fractures of the right posterior fourth rib and right posterior seventh through ninth ribs, trace right pneumothorax, laceration of the posterior aspect of the right hepatic lobe, right adrenal gland hemorrhage, and ngpsp-hz-pltgdtdk volume hemoperitoneum within the abdomen and pelvis. Report dictated by Twan Mullen MD I, Yadira Jj MD, PhD have personally reviewed and interpreted this examination/study. > Interpreting Provider: Yadira Jj MD, PhD on 05/24/2024 12:28 AM Narrative 05/24/2024 12:28 AM CDT EXAM: CT HEAD WO CONTRAST, CT FACIAL BONES WO CONTRAST, CT CERVICAL SPINE WO CONTRAST, CT THORACIC SPINE WO CONTRAST, CT LUMBAR SPINE WO CONTRAST, DATE/TIME OF EXAM: 05/23/2024 9:34 PM, LOCATION: [facility] HISTORY: Trauma EXAMINATION: CT scan of the head and facial bones/paranasal sinuses in addition to CT scan of the cervical, thoracic, and lumbar spine without intravenous contrast TECHNIQUE: CT of the head, facial bones/paranasal sinuses, and cervical spine was performed without intravenous contrast according to standard protocol. CT dose reduction technique was used, including Automated Exposure Control. Reformatted axial, sagittal, and coronal images of the thoracic and lumbar spine were obtained by the technologist from a concurrently performed chest, abdomen, and pelvis CT and sent to the workstation for review. COMPARISON: No prior similar studies are available for comparison. FINDINGS: HEAD: BRAIN PARENCHYMA: No acute hemorrhage, large vascular territory infarct, or mass effect. White matter is within normal limits for age. VENTRICLES/EXTRA-AXIAL SPACES: No ventriculomegaly or extra-axial collection. Basal cisterns are patent. EXTRACRANIAL STRUCTURES: No acute osseous abnormality. Normal soft tissues. Brain injury guidelines: Skull fracture: No. Subdural hematoma: No subdural hematoma. Epidural hematoma: No epidural hematoma. Intraparenchymal hemorrhage: No intraparenchymal hemorrhage. Subarachnoid hemorrhage: No subarachnoid hemorrhage. Intraventricular hemorrhage: No. Midline shift: No. FACE/SINUSES: BONES: No acute maxillofacial fracture. Incidentally noted torus maxillaris. Osseous structures are demineralized. SOFT TISSUES: Unremarkable. PARANASAL SINUSES: Clear. NASAL CAVITY: Left middle and inferior nasal turbinate hypertrophy; otherwise, nasal cavity is clear. Midline nasal septum with a small right-sided spur. MASTOID AIR CELLS/MIDDLE EAR CAVITIES: Clear. ORBITS: Unremarkable. OTHER: Cerumen and nonspecific small metallic foreign body within the right external auditory canal. Periodontal disease characterized by scattered missing teeth and a few periapical lucencies/possible abscesses and dental caries of the remaining maxillary mandibular teeth. CERVICAL SPINE: ALIGNMENT: Mild levoconvex curvature of the cervical spine without significant listhesis. No traumatic malalignment. ATLANTOAXIAL JOINT: The dens is intact, the lateral masses of C1 are normally aligned relative to C2, and the atlantodental interval is normal. Mild degenerative changes of the middle atlantoaxial joint. BONES: Vertebral body heights are maintained without evidence of acute fracture. Osseous structures are demineralized. DISCS: Multilevel mild disc space narrowing. DEGENERATIVE CHANGES: Overall minimal multilevel degenerative changes, characterized by varying degrees of anterior endplate osteophytes and posterior disc bulges. SPINAL CANAL/NEUROFORAMEN: No significant osseous spinal canal stenosis or neuroforaminal narrowing. SOFT TISSUES: No prevertebral soft tissue swelling. Visualized neck soft tissues are normal. OTHER: Minimal calcific atherosclerosis of the left carotid bulb. Partially imaged portions of lung apices are clear with minimal paraseptal emphysema. THORACIC SPINE: ALIGNMENT: Minimal levoconvex curvature of the upper thoracic spine and mild kyphosis centered at the T5-T6 level without significant listhesis. No traumatic malalignment. BONES: No evidence of an acute fracture. Chronic-appearing minimal anterior wedging of T5 and T6 vertebral bodies without retropulsion, which is likely degenerative in nature. Remaining vertebral body heights are maintained. Osseous structures are demineralized. DISCS: Normal. DEGENERATIVE CHANGES: No significant degenerative changes for age. SPINAL CANAL/NEUROFORAMEN: No significant osseous spinal canal stenosis or neuroforaminal narrowing. SOFT TISSUES: Visualized soft tissues are normal. OTHER: Acute nondisplaced fractures of the right posterior fourth rib (56), right posterior seventh rib (), right posterior eighth rib (), and right ninth posterior rib (, 1143). Trace right pneumothorax. Right adrenal gland hemorrhage. Right kidney with a few scattered small cysts. Tiny hiatal hernia. These findings are better evaluated on concurrently reported chest, abdomen, and pelvis CT. LUMBAR SPINE: ALIGNMENT: Minimal levoconvex curvature of the lumbar spine without significant listhesis. No traumatic malalignment. BONES: Vertebral body heights are maintained without evidence of acute fracture. 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 Osseous structures are demineralized. DISCS: Normal. DEGENERATIVE CHANGES: No significant degenerative changes for age. SPINAL CANAL/NEUROFORAMEN: No significant osseous spinal canal stenosis or neuroforaminal narrowing. SOFT TISSUES: Visualized soft tissues are normal. OTHER: Mild degenerative of the bilateral sacroiliac joints, left greater than right. Partially imaged laceration of the posterior aspect of the right hepatic lobe and fqnff-uy-nhmuzeea volume hemoperitoneum within the abdomen and pelvis. Right adrenal gland hemorrhage. Kidneys with scattered small cysts. Sigmoid colon with a few diverticula without evidence of diverticulitis. Minimal calcific atherosclerosis of the abdominal aorta and proximal branches. These findings are better evaluated on concurrently reported chest, abdomen, and pelvis CT. Procedure Note Yadira Jj MD - 05/24/2024 EXAM: CT HEAD WO CONTRAST, CT FACIAL BONES WO CONTRAST, CT CERVICALSPINE WO CONTRAST, CT THORACIC SPINE WO CONTRAST, CT LUMBAR SPINE WO CONTRAST, DATE/TIME OF EXAM: 05/23/2024 9:34 PM, LOCATION: [facility] HISTORY: Trauma EXAMINATION: CT scan of the head and facial bones/paranasal sinuses in addition to CT scan of the cervical, thoracic, and lumbar spine without intravenous contrast TECHNIQUE: CT of the head, facial bones/paranasal sinuses, and cervical spine was performed without intravenous contrast according to standard protocol.CT dose reduction technique was used, including Automated Exposure Control. Reformatted axial, sagittal, and coronal images of the thoracic andlumbar spine were obtained by the technologist from a concurrently performed chest, abdomen, and pelvis CT and sent to the workstation for review. COMPARISON: No prior similar studies are available for comparison. FINDINGS: HEAD: BRAIN PARENCHYMA: No acute hemorrhage, large vascular territory infarct,or mass effect. White matter is within normal limits for age. VENTRICLES/EXTRA-AXIAL SPACES: No ventriculomegaly or extra-axial collection. Basal cisterns are patent. EXTRACRANIAL STRUCTURES: No acute osseous abnormality. Normal softtissues. Brain injury guidelines: Skull fracture: No. Subdural hematoma: No subdural hematoma. Epidural hematoma: No epidural hematoma. Intraparenchymal hemorrhage: No intraparenchymal hemorrhage. Subarachnoid hemorrhage: No subarachnoid hemorrhage. Intraventricular hemorrhage: No. Midline shift: No. FACE/SINUSES: BONES: No acute maxillofacial fracture. Incidentally noted torus maxillaris. Osseous structures are demineralized. SOFT TISSUES: Unremarkable. PARANASAL SINUSES: Clear. NASAL CAVITY: Left middle and inferior nasal turbinate hypertrophy; otherwise, nasal cavity is clear. Midline nasal septum with a small right-sided spur. MASTOID AIR CELLS/MIDDLE EAR CAVITIES: Clear. ORBITS: Unremarkable. OTHER: Cerumen and nonspecific small metallic foreign body within theright external auditory canal. Periodontal disease characterized by scattered missing teeth and a few periapical lucencies/possible abscesses anddental caries of the remaining maxillary mandibular teeth. CERVICAL SPINE: ALIGNMENT: Mild levoconvex curvature of the cervical spine without significant listhesis. No traumatic malalignment. ATLANTOAXIAL JOINT: The dens is intact, the lateral masses of C1 are normally aligned relative to C2, and the atlantodental interval isnormal. Mild degenerative changes of the middle atlantoaxial joint. BONES: Vertebral body heights are maintained without evidence of acute fracture. Osseous structures are demineralized. DISCS: Multilevel mild disc space narrowing. DEGENERATIVE CHANGES: Overall minimal multilevel degenerative changes, characterized by varying degrees of anterior endplate osteophytes and posterior disc bulges. SPINAL CANAL/NEUROFORAMEN: No significant osseous spinal canal stenosisor neuroforaminal narrowing. SOFT TISSUES: No prevertebral soft tissue swelling. Visualized neck soft tissues are normal. OTHER: Minimal calcific atherosclerosis of the left carotid bulb.Partially imaged portions of lung apices are clear with minimal paraseptalemphysema. THORACIC SPINE: ALIGNMENT: Minimal levoconvex curvature of the upper thoracic spine and mild kyphosis centered at the T5-T6 level without significant listhesis.No traumatic malalignment. BONES: No evidence of an acute fracture. Chronic-appearing minimalanterior wedging of T5 and T6 vertebral bodies without retropulsion, which islikely degenerative in nature. Remaining vertebral body heights are maintained. Osseous structures are demineralized. DISCS: Normal. DEGENERATIVE CHANGES: No significant degenerative changes for age. SPINAL CANAL/NEUROFORAMEN: No significant osseous spinal canal stenosisor neuroforaminal narrowing. SOFT TISSUES: Visualized soft tissues are normal. OTHER: Acute nondisplaced fractures of the right posterior fourth rib (1/56), right posterior seventh rib (1/107), right posterior eighth rib (5/76), and right ninth posterior rib (5/77, 1/143). Trace right pneumothorax. Right adrenal gland hemorrhage. Right kidney with a few scattered small cysts. Tiny hiatal hernia. These findings are better evaluated on concurrently reported chest, abdomen, and pelvis CT. LUMBAR SPINE: ALIGNMENT: Minimal levoconvex curvature of the lumbar spine without significant listhesis. No traumatic malalignment. BONES: Vertebral body heights are maintained without evidence of acute fracture. Incidentally noted congenital incomplete fusion of the P1mbrop transverse process. Osseous structures are demineralized. DISCS: Normal. DEGENERATIVE CHANGES: No significant degenerative changes for age. SPINAL CANAL/NEUROFORAMEN: No significant osseous spinal canal stenosisor neuroforaminal narrowing. SOFT TISSUES: Visualized soft tissues are normal. OTHER: Mild degenerative of the bilateral sacroiliac joints, leftgreater than right. Partially imaged laceration of the posterior aspect of the right hepatic lobe and wqfxa-kg-pwkwhohs volume hemoperitoneum withinthe abdomen and pelvis. Right adrenal gland hemorrhage. Kidneys withscattered small cysts. Sigmoid colon with a few diverticula without evidence of diverticulitis. Minimal calcific atherosclerosis of the abdominal aortaand proximal branches. These findings are better evaluated on concurrently reported chest, abdomen, and pelvis CT. IMPRESSION: 1.No acute intracranial abnormality. 2.No acute maxillofacial fracture. 3.Cerumen and nonspecific small metallic foreign body within the right external auditory canal. Recommend correlation with otoscopic exam. 4.No acute fracture or traumatic malalignment of the cervical, thoracic,or lumbar spine. 5.Please refer to concurrently reported chest, abdomen, and pelvis CTfor description of additional nonspine-related abnormalities, including an acute nondisplaced fractures of the right posterior fourth rib and right posterior seventh through ninth ribs, trace right pneumothorax,laceration of the posterior aspect of the right hepatic lobe, right adrenal gland hemorrhage, and nqxbh-kv-hwqeotcs volume hemoperitoneum within theabdomen and pelvis. Report dictated by Twan Mullen MD I, Yadira Jj MD, PhD have personally reviewed and interpreted this examination/study. > Interpreting Provider: Yadira Jj MD, PhD on 05/24/2024 12:28 AM Romulo Willis MD CT ORDERABLES * CT HEAD WO CONTRAST - Head Trauma, CSF leak, mental status changes (05/23/2024 9:32 PM CDT) Anatomical Region Laterality Modality Head Computed Tomogra phy 05/23/2024 10:1 7 PM CDT Impressions 05/24/2024 12:28 AM CDT IMPRESSION: 1.No acute intracranial abnormality. 2.No acute maxillofacial fracture. 3.Cerumen and nonspecific small metallic foreign body within the right external auditory canal. Recommend correlation with otoscopic exam. 4.No acute fracture or traumatic malalignment of the cervical, thoracic, or lumbar spine. 5.Please refer to concurrently reported chest, abdomen, and pelvis CT for description of additional nonspine-related abnormalities, including an acute nondisplaced fractures of the right posterior fourth rib and right posterior seventh through ninth ribs, trace right pneumothorax, laceration of the posterior aspect of the right hepatic lobe, right adrenal gland hemorrhage, and dhwtu-ie-mwutzrsx volume hemoperitoneum within the abdomen and pelvis. Report dictated by Twan Mullen MD I, Yadira Jj MD, PhD have personally reviewed and interpreted this examination/study. > Interpreting Provider: Yadira Jj MD, PhD on 05/24/2024 12:28 AM Narrative 05/24/2024 12:28 AM CDT EXAM: CT HEAD WO CONTRAST, CT FACIAL BONES WO CONTRAST, CT CERVICAL SPINE WO CONTRAST, CT THORACIC SPINE WO CONTRAST, CT LUMBAR SPINE WO CONTRAST, DATE/TIME OF EXAM: 05/23/2024 9:34 PM, LOCATION: [facility] HISTORY: Trauma EXAMINATION: CT scan of the head and facial bones/paranasal sinuses in addition to CT scan of the cervical, thoracic, and lumbar spine without intravenous contrast TECHNIQUE: CT of the head, facial bones/paranasal sinuses, and cervical spine was performed without intravenous contrast according to standard protocol. CT dose reduction technique was used, including Automated Exposure Control. Reformatted axial, sagittal, and coronal images of the thoracic and lumbar spine were obtained by the technologist from a concurrently performed chest, abdomen, and pelvis CT and sent to the workstation for review. COMPARISON: No prior similar studies are available for comparison. FINDINGS: HEAD: BRAIN PARENCHYMA: No acute hemorrhage, large vascular territory infarct, or mass effect. White matter is within normal limits for age. VENTRICLES/EXTRA-AXIAL SPACES: No ventriculomegaly or extra-axial collection. Basal cisterns are patent. EXTRACRANIAL STRUCTURES: No acute osseous abnormality. Normal soft tissues. Brain injury guidelines: Skull fracture: No. Subdural hematoma: No subdural hematoma. Epidural hematoma: No epidural hematoma. Intraparenchymal hemorrhage: No intraparenchymal hemorrhage. Subarachnoid hemorrhage: No subarachnoid hemorrhage. Intraventricular hemorrhage: No. Midline shift: No. FACE/SINUSES: BONES: No acute maxillofacial fracture. Incidentally noted torus maxillaris. Osseous structures are demineralized. SOFT TISSUES: Unremarkable. PARANASAL SINUSES: Clear. NASAL CAVITY: Left middle and inferior nasal turbinate hypertrophy; otherwise, nasal cavity is clear. Midline nasal septum with a small right-sided spur. MASTOID AIR CELLS/MIDDLE EAR CAVITIES: Clear. ORBITS: Unremarkable. OTHER: Cerumen and nonspecific small metallic foreign body within the right external auditory canal. Periodontal disease characterized by scattered missing teeth and a few periapical lucencies/possible abscesses and dental caries of the remaining maxillary mandibular teeth. CERVICAL SPINE: ALIGNMENT: Mild levoconvex curvature of the cervical spine without significant listhesis. No traumatic malalignment. ATLANTOAXIAL JOINT: The dens is intact, the lateral masses of C1 are normally aligned relative to C2, and the atlantodental interval is normal. Mild degenerative changes of the middle atlantoaxial joint. BONES: Vertebral body heights are maintained without evidence of acute fracture. Osseous structures are demineralized. DISCS: Multilevel mild disc space narrowing. DEGENERATIVE CHANGES: Overall minimal multilevel degenerative changes, characterized by varying degrees of anterior endplate osteophytes and posterior disc bulges. SPINAL CANAL/NEUROFORAMEN: No significant osseous spinal canal stenosis or neuroforaminal narrowing. SOFT TISSUES: No prevertebral soft tissue swelling. Visualized neck soft tissues are normal. OTHER: Minimal calcific atherosclerosis of the left carotid bulb. Partially imaged portions of lung apices are clear with minimal paraseptal emphysema. THORACIC SPINE: ALIGNMENT: Minimal levoconvex curvature of the upper thoracic spine and mild kyphosis centered at the T5-T6 level without significant listhesis. No traumatic malalignment. BONES: No evidence of an acute fracture. Chronic-appearing minimal anterior wedging of T5 and T6 vertebral bodies without retropulsion, which is likely degenerative in nature. Remaining vertebral body heights are maintained. Osseous structures are demineralized. DISCS: Normal. DEGENERATIVE CHANGES: No significant degenerative changes for age. SPINAL CANAL/NEUROFORAMEN: No significant osseous spinal canal stenosis or neuroforaminal narrowing. SOFT TISSUES: Visualized soft tissues are normal. OTHER: Acute nondisplaced fractures of the right posterior fourth rib (/56), right posterior seventh rib (107), right posterior eighth rib (), and right ninth posterior rib (, 1/143). Trace right pneumothorax. Right adrenal gland hemorrhage. Right kidney with a few scattered small cysts. Tiny hiatal hernia. These findings are better evaluated on concurrently reported chest, abdomen, and pelvis CT. LUMBAR SPINE: ALIGNMENT: Minimal levoconvex curvature of the lumbar spine without significant listhesis. No traumatic malalignment. BONES: Vertebral body heights are maintained without evidence of acute fracture. 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 Osseous structures are demineralized. DISCS: Normal. DEGENERATIVE CHANGES: No significant degenerative changes for age. SPINAL CANAL/NEUROFORAMEN: No significant osseous spinal canal stenosis or neuroforaminal narrowing. SOFT TISSUES: Visualized soft tissues are normal. OTHER: Mild degenerative of the bilateral sacroiliac joints, left greater than right. Partially imaged laceration of the posterior aspect of the right hepatic lobe and nxvxa-sc-qmrtbiod volume hemoperitoneum within the abdomen and pelvis. Right adrenal gland hemorrhage. Kidneys with scattered small cysts. Sigmoid colon with a few diverticula without evidence of diverticulitis. Minimal calcific atherosclerosis of the abdominal aorta and proximal branches. These findings are better evaluated on concurrently reported chest, abdomen, and pelvis CT. Procedure Note Yadira Jj MD - 05/24/2024 EXAM: CT HEAD WO CONTRAST, CT FACIAL BONES WO CONTRAST, CT CERVICALSPINE WO CONTRAST, CT THORACIC SPINE WO CONTRAST, CT LUMBAR SPINE WO CONTRAST, DATE/TIME OF EXAM: 05/23/2024 9:34 PM, LOCATION: [facility] HISTORY: Trauma EXAMINATION: CT scan of the head and facial bones/paranasal sinuses in addition to CT scan of the cervical, thoracic, and lumbar spine without intravenous contrast TECHNIQUE: CT of the head, facial bones/paranasal sinuses, and cervical spine was performed without intravenous contrast according to standard protocol.CT dose reduction technique was used, including Automated Exposure Control. Reformatted axial, sagittal, and coronal images of the thoracic andlumbar spine were obtained by the technologist from a concurrently performed chest, abdomen, and pelvis CT and sent to the workstation for review. COMPARISON: No prior similar studies are available for comparison. FINDINGS: HEAD: BRAIN PARENCHYMA: No acute hemorrhage, large vascular territory infarct,or mass effect. White matter is within normal limits for age. VENTRICLES/EXTRA-AXIAL SPACES: No ventriculomegaly or extra-axial collection. Basal cisterns are patent. EXTRACRANIAL STRUCTURES: No acute osseous abnormality. Normal softtissues. Brain injury guidelines: Skull fracture: No. Subdural hematoma: No subdural hematoma. Epidural hematoma: No epidural hematoma. Intraparenchymal hemorrhage: No intraparenchymal hemorrhage. Subarachnoid hemorrhage: No subarachnoid hemorrhage. Intraventricular hemorrhage: No. Midline shift: No. FACE/SINUSES: BONES: No acute maxillofacial fracture. Incidentally noted torus maxillaris. Osseous structures are demineralized. SOFT TISSUES: Unremarkable. PARANASAL SINUSES: Clear. NASAL CAVITY: Left middle and inferior nasal turbinate hypertrophy; otherwise, nasal cavity is clear. Midline nasal septum with a small right-sided spur. MASTOID AIR CELLS/MIDDLE EAR CAVITIES: Clear. ORBITS: Unremarkable. OTHER: Cerumen and nonspecific small metallic foreign body within theright external auditory canal. Periodontal disease characterized by scattered missing teeth and a few periapical lucencies/possible abscesses anddental caries of the remaining maxillary mandibular teeth. CERVICAL SPINE: ALIGNMENT: Mild levoconvex curvature of the cervical spine without significant listhesis. No traumatic malalignment. ATLANTOAXIAL JOINT: The dens is intact, the lateral masses of C1 are normally aligned relative to C2, and the atlantodental interval isnormal. Mild degenerative changes of the middle atlantoaxial joint. BONES: Vertebral body heights are maintained without evidence of acute fracture. Osseous structures are demineralized. DISCS: Multilevel mild disc space narrowing. DEGENERATIVE CHANGES: Overall minimal multilevel degenerative changes, characterized by varying degrees of anterior endplate osteophytes and posterior disc bulges. SPINAL CANAL/NEUROFORAMEN: No significant osseous spinal canal stenosisor neuroforaminal narrowing. SOFT TISSUES: No prevertebral soft tissue swelling. Visualized neck soft tissues are normal. OTHER: Minimal calcific atherosclerosis of the left carotid bulb.Partially imaged portions of lung apices are clear with minimal paraseptalemphysema. THORACIC SPINE: ALIGNMENT: Minimal levoconvex curvature of the upper thoracic spine and mild kyphosis centered at the T5-T6 level without significant listhesis.No traumatic malalignment. BONES: No evidence of an acute fracture. Chronic-appearing minimalanterior wedging of T5 and T6 vertebral bodies without retropulsion, which islikely degenerative in nature. Remaining vertebral body heights are maintained. Osseous structures are demineralized. DISCS: Normal. DEGENERATIVE CHANGES: No significant degenerative changes for age. SPINAL CANAL/NEUROFORAMEN: No significant osseous spinal canal stenosisor neuroforaminal narrowing. SOFT TISSUES: Visualized soft tissues are normal. OTHER: Acute nondisplaced fractures of the right posterior fourth rib (1/56), right posterior seventh rib (1/107), right posterior eighth rib (5/76), and right ninth posterior rib (5/77, 1/143). Trace right pneumothorax. Right adrenal gland hemorrhage. Right kidney with a few scattered small cysts. Tiny hiatal hernia. These findings are better evaluated on concurrently reported chest, abdomen, and pelvis CT. LUMBAR SPINE: ALIGNMENT: Minimal levoconvex curvature of the lumbar spine without significant listhesis. No traumatic malalignment. BONES: Vertebral body heights are maintained without evidence of acute fracture. Incidentally noted congenital incomplete fusion of the [id number] transverse process. Osseous structures are demineralized. DISCS: Normal. DEGENERATIVE CHANGES: No significant degenerative changes for age. SPINAL CANAL/NEUROFORAMEN: No significant osseous spinal canal stenosisor neuroforaminal narrowing. SOFT TISSUES: Visualized soft tissues are normal. OTHER: Mild degenerative of the bilateral sacroiliac joints, leftgreater than right. Partially imaged laceration of the posterior aspect of the right hepatic lobe and igsbr-gd-yrtxfydt volume hemoperitoneum withinthe abdomen and pelvis. Right adrenal gland hemorrhage. Kidneys withscattered small cysts. Sigmoid colon with a few diverticula without evidence of diverticulitis. Minimal calcific atherosclerosis of the abdominal aortaand proximal branches. These findings are better evaluated on concurrently reported chest, abdomen, and pelvis CT. IMPRESSION: 1.No acute intracranial abnormality. 2.No acute maxillofacial fracture. 3.Cerumen and nonspecific small metallic foreign body within the right external auditory canal. Recommend correlation with otoscopic exam. 4.No acute fracture or traumatic malalignment of the cervical, thoracic,or lumbar spine. 5.Please refer to concurrently reported chest, abdomen, and pelvis CTfor description of additional nonspine-related abnormalities, including an acute nondisplaced fractures of the right posterior fourth rib and right posterior seventh through ninth ribs, trace right pneumothorax,laceration of the posterior aspect of the right hepatic lobe, right adrenal gland hemorrhage, and hncwk-so-jseekeat volume hemoperitoneum within theabdomen and pelvis. Report dictated by Twan Mullen MD I, Yadira Jj MD, PhD have personally reviewed and interpreted this examination/study. > Interpreting Provider: Yadira Jj MD, PhD on 05/24/2024 12:28 AM Romulo Willis MD CT ORDERABLES * TROPONIN-I HIGH SENSITIVE BASELINE + 1HR (05/23/2024 8:58 PM CDT) [facility] Troponin I High Sensitive 3 <=35 ng/L 05/23/2024 9:41 PM CDT [facility] Blood BLOOD SPECIMEN / Unknown Venipuncture / Unknown 05/23/2024 8:58 PM CDT 05/23/2024 9:21 PM CDT Romulo Willis MD LAB - CHEMISTRY ONE[facility] Organization Address City/State/ZIP Co de Phone Number [facility] [address] [place] [phone], [facility] [phone] * (ABNORMAL) ALCOHOL ETHYL BLOOD (05/23/2024 8:58 PM CDT) Ethanol (mg/dL) 296(H) <10 mg/dL 9:37 PM CDT [facility] Ethanol Calculated (g/dL) 0.296(H) <=0.010 g/dL 05/23/2024 9:37 PM CDT [facility] Blood BLOOD SPECIMEN / Unknown Venipuncture / Unknown 05/23/2024 8:58 PM CDT 05/23/2024 9:21 PM CDT Narrative [facility] - 05/23/2024 9:37 PM CDT Ethanol Interp <10: None Detected. Depression of [employer] ENGRAVER: >100 mg/dl Potentially Critical: >250 mg/dl Potentially Fatal >400 mg/dl Ethanol in the patient's blood will contribute to the osmolar gap. Ethanol's contribution to the osmolar gap can be estimated by dividing the concentration of ethanol in mg/dL by 4.6. This test is for clinical use only and does not equal a HANNA for legal purposes. Romulo Willis MD LAB - CHEMISTRY [facility] Organization Address City/State/ZIP Co de Phone Number [facility] [address] [place] [phone], [facility] [phone] * XR PELVIS 1 OR 2VW (05/23/2024 8:57 PM CDT) Anatomical Region Laterality Modality Pelvis Radiographic Alicia ging 05/23/2024 9:00 PM CDT Impressions 05/23/2024 10:01 PM CDT IMPRESSION: No acute fracture identified. Report dictated by Cherrie Villa Dr, MD (director of residential services). IMeme MD have personally reviewed and interpreted this examination/study. > Interpreting Provider: Meme Valenzuela MD on 05/23/2024 10:01 PM Narrative 05/23/2024 10:01 PM CDT PROCEDURE: XR PELVIS 1 OR 2VW, DATE/TIME OF EXAM: 05/23/2024 8:58 PM, LOCATION [facility] INDICATION: Trauma Fracture suspected ADDITIONAL CLINICAL INFORMATION: Ordering Provider Reason For Exam: Technologist Note: Additional: COMPARISON: None. FINDINGS: No acute fracture is identified. The femoral heads appear well-seated within their respective acetabula. The pubic symphysis is intact. Bone density and texture are normal. The sacroiliac joints are normal. Procedure Note Meme Valenzuela MD - 05/23/2024 PROCEDURE: XR PELVIS 1 OR 2VW, DATE/TIME OF EXAM: 05/23/2024 8:58 PM, LOCATION [facility] INDICATION: Trauma Fracture suspected ADDITIONAL CLINICAL INFORMATION: Ordering Provider Reason For Exam: Technologist Note: Additional: COMPARISON: None. FINDINGS: No acute fracture is identified. The femoral heads appear well-seated within their respective acetabula. The pubic symphysis is intact. Bone density and texture are normal. The sacroiliac joints are normal. IMPRESSION: No acute fracture identified. Report dictated by Cherrie Villa Dr, MD (director of residential services). I, Meme Valenzuela MD have personally reviewed and interpreted this examination/study. > Interpreting Provider: Meme Valenzuela MD on 05/23/2024 10:01 PM Romulo Willis MD DIAGNOSTIC IMAGING [facility] Care Teams Team Otr Truck Driver Relationship Specialty Start Date End Date Esteban Palm MD [address] [place] [phone] PCP - General Family Medicine 05/25/24
== END 2024-11-26 10:33 | disposition home or self-care (01) ==
PROVIDERS: PCP Family Medicine; Visit Provider Orthopaedic Surgery
DX: Z01.810 Encounter for preprocedural cardiovascular examination (principal); R94.31 Abnormal electrocardiogram [ECG] [EKG]; I10 Essential (primary) hypertension; Z79.899 Other long term (current) drug therapy
CPT/HCPCS: 36415; 93005

== ENCOUNTER 2024-11-26 11:13 | Emergency (ER) | payer BC, SELFPAY ==
--- NOTE | ~2024-11-26 | XR_ITS ---
EXAMINATION: XR chest 2V DATE: 11/26/2024 12:29 INDICATION: Chest pain. TECHNIQUE: Frontal and lateral views of the chest were obtained. COMPARISON: Chest CT 06/03/2024 FINDINGS: There is no pneumonia, pleural effusion, or pneumothorax. The heart size is normal. There a re embolization coils in the liver. IMPRESSION: 1. No acute cardiopulmonary disease. Reviewed, dictated and finalized at location A. TEGIES ANALYST
--- NOTE | 2024-11-26 11:16 | ECG_ITS ---
Test Date: 2024-11-26 11:26:47 Measurements Intervals [place] Rate: 76 P: 54 CT: 191 QRS: -44 QRSD: 95 T: 58 QT: 362 QTc: 408 Interpretive Statements SINUS RHYTHM WITH SINUS ARRHYTHMIA LEFT AXIS DEVIATION LEFT VENTRICULAR HYPERTROPHY WITH ST-T CHANGE CANNOT R/O SEPTAL INFARCT, AGE INDETERMINATE BASELINE ARTIFACT- I, II, AVR, AVL ABNORMAL ECG Compared to ECG 11/26/2024 11:01:30 INCOMPLETE LEFT BUNDLE BRANCH BLOCK NO LONGER PRESENT Electronically Signed On 11-26-2024 13:05:52 ANIMAL COP by Jose E Hurt D.O.
[2024-11-26 11:21] VITALS: BP 156/97; PULSE 79; RESP 17; TEMP 36.7; O2SAT 99
[2024-11-26 11:38] VITALS: BP 140/102; PULSE 79; RESP 13; O2SAT 99
[2024-11-26 11:40] VITALS: PULSE 76; O2SAT 100
[2024-11-26 11:48] LABS: Basophils Absolute Auto 0.1 K/mm3 (0.0-0.1); Basophils Percent Auto 0.9 % (0.2-1.2); Eosinophils Absolute Auto 0.2 K/mm3 (0-0.3); Eosinophils Percent Auto 2.6 % (0-4.4); Hematocrit 42.8 % (42.0-52.0); Hemoglobin 14.7 g/dL (14.0-18.0); Immature Granulocyte Absolute 0.04 K/mm3 (0.00-0.031); Immature Granulocyte Percent A 0.6 % (0-0.5); Lymphocytes Absolute Auto 2.22 K/mm3 (0.9-3.2); Lymphocytes Percent Auto 34.2 % (18.3-44.2); Mean Corpuscular HGB Conc 34.3 g/dl (32-36); Mean Corpuscular Hemoglobin 30.9 pg (26-34); Mean Corpuscular Volume 89.9 fl (80-100); Mean Platelet Volume 8.7 fl (7.4-10.4); Monocytes Absolute Auto 0.8 K/mm3 (0.1-0.6); Monocytes Percent Auto 11.5 % (2.6-8.5); Neutrophils Absolute Auto 3.3 K/mm3 (1.3-6.7); Neutrophils Percent Auto 50.2 % (45.5-73.1); Platelet Count Result 237 k/mm3 (150-375); Red Blood Count 4.76 M/mm3 (4.6-6.20); Red Cell Distribution Width 12.8 % (11.5-14.5); White Blood Count 6.5 K/mm3 (4.5-10.0)
[2024-11-26 12:01] LABS: Prothrombin Time 13.2 Seconds (11.1-14.7)
[2024-11-26 12:02] LABS: Partial Thromboplastin Time 27.2 Seconds (22.3-36.8)
--- OUTSIDE RECORDS SUMMARY | 2024-11-26 12:07 | XMS_ITS | Clinical Summary ---
Author Organization [facility] [address] Address [address] [place] [phone] Care Team Providers Care Public Relations Assistant Name Role Phone No, Physician Primary Care Provider [phone] Allergies No known active allergies Medications al & mag hydroxide with simethicone-diph enhydramine-lido edis (MAGIC MOUTHWASH) suspension [id number] :Acute pharyngitis, unspecified etiology Swish and swallow [...] on file Legal Sex Male 1:55 PM [employer] Gender Identity Not on file Sexual Orientation Not on file Obstetrics History Last Filed Vital Signs Vital Sign Reading Time Taken Comments Blood Pressure 132/84 09/21/2023 5:59 PM [employer] Pulse 76 09/21/2023 5:59 PM [employer] Temperature 36.9 C (98.4 F) 09/21/2023 5:59 PM [employer] Respiratory Rate 18 09/21/2023 5:59 PM [employer] Oxygen Saturation 96% 09/21/2023 5:59 PM [employer] Inhaled Oxygen Concentration - - Weight 78 kg (172 lb) 09/21/2023 5:59 PM [employer] P[employer] Height 175.3 cm (5' 9 ) 09/21/2023 5:59 PM [employer] Body Mass Index 25.4 09/21/2023 5:59 PM [employer] P[employer] Plan of Treatment Health Maintenance Due Date [...] patient's age to complete this topic [employer] Care Teams Public Relations Assistant Relationship Specialty Start Date End Date No, Physician PCP - General 03/01/23
--- OUTSIDE RECORDS SUMMARY | 2024-11-26 12:07 | XMS_ITS | Patient Health Summary ---
Author Organization [facility] Address [address] [place] [address] Care Team Providers Care Night Coordinator Name Role Phone Esteban Palm MD Primary Care Provider [phone] Note from [facility],non-owned Affiliates and Associated Physician Practices is amultiple site organization consisting of ambulatory clinics and hospital sitesin [place], [place], [place] and [place]. This disclosure is being madepursuant to the Care Everywhere program and may not contain all information available regarding this patient. Last updated 18.[facility] Allergies No known active allergies Medications * Be aware that medications may not be up to date on this document. Alwaysverify current medications with the patient. * acetaminophen (Tylenol) 500 MG tablet(Started 06/15/2024) Take 2 (two) tablets by mouth every 6 hours Maximum allowable Acetaminophen amount = 4 Grams (4000 mg) / 24 hours. * saline nasal spray ([place]; Baby [place]) 0.65 % nasal spray(Started 06/15/2024) [facility] 1 (one) spray into each nostril every [...] and heating? Not hard at all 06/04/2024 [facility] of Occupat ional Health - Occupational Stress [...] place to sleep or slept in a group home (including now)? No 06/04/2024 Sex and [...] PM CDT Medical Devices Implanted Type Area Waxer Tender Device Identifier Shelf Expiration Date Model / Serial / Lot Coil Azur Cx Hdrcl 4cm 2mm Dtch Loop Sld Implanted:Qty: 1 on 05/24/2024 by Deonna Huff MD at [facility] [employer]red 01/14/2029 [id number] / / [id number] Prtcl Embl 2.5mm 1ml Syr Embocube Geltn Implanted:Qty: 1 on 05/24/2024 by Deonna Huff MD at [facility] Right: Liver [employer] 01/23/2027 [id number] / / [id number] Coil Azur Cx Hdrcl 4cm 2mm Dtch Loop Sld Implanted:Qty: 1 on 05/24/2024 by Deonna Huff MD at [facility] Right: Liver eSolar[employer] Victor Winifred 01/14/2029 [id number] / / [id number] Procedures * PHOSPHORUS BLOOD(Performed 06/15/2024) * [...] Performed for Splenic laceration, initial encounter * RI EXPLORATORY OF ABDOMEN(Performed 06/07/2024) Performed for Open [...] encounter * CARDIAC EKG ORDER(Performed 06/05/2024) * RI EXPLORATORY OF ABDOMEN(Performed 06/05/2024) Performed for Open [...] 06/03/2024) * ARTERIAL LINE NOTE(Performed 06/03/2024) * RI EXPLORATORY OF ABDOMEN(Performed 06/03/2024) Performed for Trauma [...] SENSITIVE BASELINE + 1HR(Performed 05/23/2024) * PT-INR [facility](Performed 05/23/2024) * BASIC METABOLIC PANEL (CALCIUM TOTAL)(Performed 05/23/2024) * ALCOHOL ETHYL BLOOD(Performed 05/23/2024) * XR CHEST 1VW PORTABLE(Performed 05/23/2024) Performed for Trauma * XR PELVIS 1 OR 2VW(Performed 05/23/2024) Performed for Trauma Results * (ABNORMAL) CBC W/O DIFFERENTIAL (06/15/2024 4:17 AM CDT) Only the most recent of22 resultswithin the time period is included. WBC 14.8(H) 4.0 - 10.7 x10E9/L 06/15/2024 5:40 AM CDT [facility] RBC Count 3.39(L) 4.30 - 5.80 x10E12/L 06/15/2024 5:40 AM CDT [facility] Hemoglobin 10.3(L) 13.3 - 17.5 g/dL 06/15/2024 5:40 AM [facility] Hematocrit 31.5(L) 38.7 - 51.1 % 06/15/2024 5:40 AM [facility] MCV 92.9 80.0 - 98.0 fL 06/15/2024 5:40 AM [facility] MCH 30.4 26.7 - 33.6 pg 06/15/2024 5:40 AM [facility] MCHC 32.7 31.7 - 36.3 g/dL 06/15/2024 5:40 AM [facility] RDW-CV 13.2 11.3 - 14.8 % 06/15/2024 5:40 AM [facility] Platelet Count 435(H) 150 - 420 x10E9/L 06/15/2024 5:40 AM [facility] MPV 9.8 7.8 - 11.4 fL 06/15/2024 5:40 AM [facility] Blood BLOOD SPECIMEN / Unknown Lab Venipuncture / Unknown 06/15/2024 4:17 AM CDT 06/15/2024 5:14 AM CDT Honey Alfaro MD LAB - HEMATOLOGY ORDERABLES [facility] [address] [place] [address], [facility] [phone] * (ABNORMAL) BASIC METABOLIC PANEL (CALCIUM TOTAL) (06/15/2024 4:17 AM CDT) Only the most recent of31 resultswithin the time period is included. BUN 20 7 - 26 mg/dL 06/15/2024 5:51 AM [facility] Creatinine 0.68(L) 0.71 - 1.16 mg/dL 06/15/2024 5:51 AM [facility] Sodium 139 136 - 145 mmol/L 06/15/2024 5:51 AM [facility] Potassium 3.5 3.5 - 4.5 mmol/L 06/15/2024 5:51 AM [facility] Chloride 108(H) 98 - 107 mmol/L 06/15/2024 5:51 AM [facility] CO2 21(L) 22 - 29 mmol/L 06/15/2024 5:51 AM [facility] Glucose 114 70 - 115 mg/dL 06/15/2024 5:51 AM [facility] Calcium 8.1(L) 8.4 - 10.2 mg/dL 06/15/2024 5:51 AM [facility] Anion Gap 10 6 - 16 06/15/2024 5:51 AM [facility] BUN/Creatinine Ratio 29(H) 7 - 23 06/15/2024 5:51 AM [facility] Osmolality Calculated 291 275 - 295 mOsm/kg 06/15/2024 5:51 AM [facility] eGFR by CKD-EPI >90 >=90 mL/min/1.7 3 m2 06/15/2024 5:51 AM [facility] Blood BLOOD SPECIMEN / Unknown Lab Venipuncture / Unknown 06/15/2024 4:17 AM CDT 06/15/2024 5:14 AM CDT Honey Alfaro MD LAB - CHEMISTRY O FALGUNI Performing Organization Address City/[facility]/ZIP Co de Phone Number [address] [address], [facility] [phone] * PHOSPHORUS BLOOD (06/15/2024 4:17 AM CDT) Only the most recent of19 resultswithin the time period is included. Phosphorus 4.0 2.8 - 5.1 mg/dL 06/15/2024 5:51 AM T [facility] Blood BLOOD SPECIMEN / Unknown Lab Venipuncture / Unknown 06/15/2024 4:17 AM CDT 06/15/2024 5:14 AM CDT Honey Alfaro MD LAB - CHEMISTRY O FALGUNI [address] [place] [address], [place] [phone] * MAGNESIUM BLOOD (06/15/2024 4:17 AM CDT) Only the most recent of19 resultswithin the time period is included. Magnesium 1.9 1.6 - 2.6 mg/dL 06/15/2024 5:51 AM CDT [facility] Blood BLOOD SPECIMEN / Unknown Lab Venipuncture / Unknown 06/15/2024 4:17 AM CDT 06/15/2024 5:14 AM CDT Honey Alfaro MD LAB - CHEMISTRY O FALGUNI [address] [address], [facility] [phone] * (ABNORMAL) TRIGLYCERIDES BLOOD (06/14/2024 4:04 AM CDT) Only the most recent of3 resultswithin the time period is included. Triglycerides 225(H) <150 mg/dL 06/14/2024 4:51 AM CDT [facility] Comment: ATP III Classification of Triglycerides: <150 mg/dL: Normal 150 - 199 mg/dL: Borderline High 200 - 400 mg/dL: High >500 mg/dL: Very High Blood BLOOD SPECIMEN / Unknown Lab Venipuncture / Unknown 06/14/2024 4:04 AM CDT 06/14/2024 4:21 AM CDT Celina Tellez PA-C LAB - CHEMISTRY ONEAL CALDERA [address] [address], [facility] [phone] * (ABNORMAL) CALCIUM IONIZED WHOLE BLOOD (06/13/2024 4:08 AM CDT) Only the most recent of10 resultswithin the time period is included. Calcium Ionized 1.14 mmol/L 06/13/2024 4:28 AM CDT [facility] pH 7.45 7.35 - 7.45 pH 06/13/2024 4:28 AM CDT [facility] Ionized Calcium pH Adjusted 1.16(L) 1.19 - 1.34 mmol/L 06/13/2024 4:28 AM CDT [facility] Blood BLOOD SPECIMEN / Unknown Lab Venipuncture / Unknown 06/13/2024 4:08 AM CDT 06/13/2024 4:19 AM CDT Honey Alfaro MD LAB - CHEMISTRY O RDERABLES [facility] [address] [place] [address], [facility] [phone] * XR Abdomen Kub Portable (06/12/2024 9:29 AM CDT) Only the most recent of6 resultswithin the time period is included. Anatomical Region Laterality Modality Abdomen Radiographic Alicia ging 06/12/2024 9:53 AM CDT Impressions 06/12/2024 2:57 PM CDT IMPRESSION: Improving appearance of the previously visualized incomplete small bowel obstruction. > Dictated by Scott Baltazar MD, (residential appraiser). I, Nick Polanco MD have personally reviewed and interpreted this examination/study. > Interpreting Provider: Nick Polanco MD on 06/12/2024 2:57 PM Narrative 06/12/2024 2:57 PM CDT PROCEDURE: XR ABDOMEN KUB PORTABLE, DATE/TIME OF EXAM: 06/12/2024 9:29 AM, LOCATION [facility] INDICATION: K56.609: SBO (small bowel obstruction) ([facility]) ADDITIONAL CLINICAL INFORMATION: Ordering Provider Reason For [...] PORTABLE, DATE/TIME OF EXAM: 06/12/2024 9:29AM, LOCATION [facility] INDICATION: K56.609: SBO (small bowel obstruction) ([facility]) [...] obstruction. > Dictated by Scott Baltazar MD, (residential appraiser). I, Nick Polanco MD have personally reviewed and interpreted this examination/study. > Interpreting Provider: Nick Polanco MD on 06/12/2024 2:57 PM Honey Alfaro MD DIAGNOSTIC ACACIA G ORDERABLES * (ABNORMAL) HEPATIC FUNCTION PANEL (06/12/2024 12:38 AM CDT) Protein Total 7.3 6.0 - 8.3 g/dL 024 1:16 AM [facility] Albumin 1.9(L) 3.4 - 5.0 g/dL 06/12/2024 1:16 AM [facility] Bilirubin Total 0.3 0.2 - 1.2 mg/dL 05/18 1:16 AM CDT [facility] Bilirubin Conjugated 0.2 0.1 - 0.5 mg/dL 06/12/2024 1:16 AM [facility] Bilirubin Unconjugated 0.1 Unconjugated Bilirubin is a calculated value: Reference ranges have not been established. mg/dL 06/12/2024 1:16 AM [facility] Alkaline Phosphatase 173(H) 40 - 150 U/L 06/12/2024 1:16 AM [facility] ALT 71(H) 5 - 55 U/L 06/12/2024 1:16 AM CDT [facility] AST 76(H) 5 - 34 U/L 06/12/2024 1:16 AM CDT [facility] Albumin/Globulin Ratio 0.4(L) 1.1 - 2.3 06/12/2024 1:16 AM CDT [facility] Blood BLOOD SPECIMEN / Unknown Venipuncture / Unknown 06/12/2024 12:38 AM CDT 06/12/2024 12:49 AM CDT Honey Alfaro MD LAB - CHEMISTRY O RDERABLES [facility] [address] [place] [address], [facility] [phone] * XR Chest 1Vw Portable (06/10/2024 5:10 AM CDT) Only the most recent of17 resultswithin the time period is included. Anatomical Region Laterality Modality Chest Radiographic Alicia ging 06/10/2024 12:1 3 PM CDT Narrative 06/10/2024 1:05 PM CDT PROCEDURE: XR CHEST 1VW PORTABLE, DATE/TIME OF EXAM: 06/10/2024 5:10 AM, LOCATION [facility] INDICATION: S36.039A: Splenic laceration, initial encounter ADDITIONAL CLINICAL INFORMATION: Ordering Provider Reason For Exam: intrapulmonary process? COMPARISON: Chest radiograph dated 06/08/2024 FINDINGS/IMPRESSION: Enteric tube coursing the stomach. Low lung volumes bilaterally with bronchovascular crowding. Mild bibasilar atelectasis. Intervally improved aeration of left retrocardiac space. There is no pleural effusion or pneumothorax. The cardiomediastinal silhouette is normal. > Dictated by James Foreman MD (residential appraiser). I, Wade Garner DO have personally reviewed and interpreted this examination/study. > Interpreting Provider: Wade Garner DO on 06/10/2024 1:05 PM Procedure Note Wade Garner DO - 06/10/2024 PROCEDURE: XR CHEST 1VW PORTABLE, DATE/TIME OF EXAM: 06/10/2024 5:10AM, LOCATION [facility] INDICATION: S36.039A: Splenic laceration, initial encounter ADDITIONAL CLINICAL INFORMATION: Ordering Provider Reason For Exam: intrapulmonary process? COMPARISON: Chest radiograph dated 06/08/2024 FINDINGS/IMPRESSION: Enteric tube coursing the stomach. Low lung volumes bilaterally with bronchovascular crowding. Mildbibasilar atelectasis. Intervally improved aeration of left retrocardiac space.There is no pleural effusion or pneumothorax. The cardiomediastinal silhouetteis normal. > Dictated by James Foreman MD (residential appraiser). I, aWde Garner DO have personally reviewed and interpreted this examination/study. > Interpreting Provider: Wade Garner DO on 06/10/2024 1:05 PM Honey Alfaro MD DIAGNOSTIC IMAGIN G ORDERABLES * METABOLIC STUDY (06/08/2024 11:40 AM CDT) Impressions Beatriz Lazaro MD - 06/08/2024 11:40 AM CDT [facility] DEPARTMENT OF PULMONARY, CRITICAL CARE, AND SLEEP [...] of Pulmonary, Critical Care and Sleep Medicine [facility] I have personally reviewed the fellow's interpretation of the test and made any necessary changes when needed. Beatriz Lazaro MD [employer] inspector Division of Pulmonary, Critical Care and Sleep Medicine [facility] Pager: [phone] Narrative Beatriz Lazaro MD - 06/08/2024 11:40 AM CDT Haider Fox MD 06/08/2024 12:24 PM Procedure Note Haider Fox MD - 06/08/2024 11:40 AM CDT Images from the original note were not included. Willie Marte PA-C RESPIRATORY THERA PY ORDERABLES * VANCOMYCIN LEVEL RANDOM (06/07/2024 6:35 AM CDT) Only the most recent of5 resultswithin the time period is included. [facility] Vancomycin Random 9.1 Therapeutic Ranges not established for random specimens ug/mL 06/07/2024 7:19 AM CDT [facility] Blood BLOOD SPECIMEN / Unknown Venipuncture / Unknown 06/07/2024 6:35 AM CDT 06/07/2024 6:39 AM CDT Narrative [facility] - 06/07/2024 7:19 AM CDT See institution protocol. Honey Alfaro MD LAB - CHEMISTRY O RDERABLES Performing Organization Address City/[facility]/ZIP Co de Phone Number [address] [address], [facility] [phone] * TYPE + SCREEN PANEL (06/07/2024 12:03 AM CDT) Only the most recent of3 resultswithin the time period is included. [facility] Antibody Screen NEG 06/07/2024 1:45 AM CDT [facility] ABO Rh AB POS 06/07/2024 1:45 AM CDT [facility] Blood Bank BLOOD SPECIMEN / Unknown Venipuncture / Unknown 06/07/2024 12:03 AM CDT 06/07/2024 1:09 AM CDT Calderon Ramos MD LAB - BLOOD BANK ORD ERABLES Performing Organization Address City/[facility]/ZIP Co de Phone Number [facility] [address] [place] [address], [place] [phone] * (ABNORMAL) CBC W AUTO DIFFERENTIAL (06/07/2024 12:03 AM CDT) Only the most recent of11 resultswithin the time period is included. [facility] WBC 18.2(H) 4.0 - 10.7 x10E9/L 06/07/2024 12:15 AM [facility] RBC Count 2.92(L) 4.30 - 5.80 x10E12/L 06/07/2024 12:15 AM [facility] Hemoglobin 9.0(L) 13.3 - 17.5 g/dL 06/07/2024 12:15 AM [facility] Hematocrit 28.2(L) 38.7 - 51.1 % 06/07/2024 12:15 AM [facility] MCV 96.6 80.0 - 98.0 fL 06/07/2024 12:15 AM [facility] MCH 30.8 26.7 - 33.6 pg 06/07/2024 12:15 AM [facility] MCHC 31.9 31.7 - 36.3 g/dL 06/07/2024 12:15 AM [facility] RDW-CV 14.3 11.3 - 14.8 % 06/07/2024 12:15 AM [facility] Platelet Count 396 150 - 420 x10E9/L 06/07/2024 12:15 AM [facility] MPV 9.1 7.8 - 11.4 fL 06/07/2024 12:15 AM [facility] Neutrophil % 83.3(H) 41.0 - 74.0 % 06/07/2024 12:15 AM [facility] Lymphocyte % 5.3(L) 17.0 - 47.0 % 06/07/2024 12:15 AM [facility] Monocyte % 5.3 3.0 - 11.0 % 06/07/2024 12:15 AM [facility] Eosinophil % 1.2 0.0 - 7.0 % 06/07/2024 12:15 AM [facility] Basophil % 0.4 0.0 - 1.6 % 06/07/2024 12:15 AM [facility] Immature Granulocytes % 4.5(H) 0.0 - 1.0 % 06/07/2024 12:15 AM [facility] Neutrophil Absolute 15.18(H) 1.60 - 7.50 x10E9/L 06/07/2024 12:15 AM [facility] Lymphocyte Absolute 0.96(L) 1.00 - 4.40 x10E9/L 06/07/2024 12:15 AM CDT [facility] Monocyte Absolute 0.96 0.15 - 1.00 x10E9/L 06/07/2024 12:15 AM CDT [facility] Eosinophil Absolute 0.22 0.00 - 0.60 x10E9/L 06/07/2024 12:15 AM T [facility] Basophil Absolute 0.07 0.00 - 0.13 x10E9/L 06/07/2024 12:15 AM [facility] Blood BLOOD SPECIMEN / Unknown Venipuncture / Unknown 06/07/2024 12:03 AM CDT 06/07/2024 12:11 AM CDT Willie Marte PA-C LAB - HEMATOLOGY ORDERABLES [facility] [address] [place] [address], [facility] [phone] * (ABNORMAL) DIFFERENTIAL MANUAL (06/07/2024 12:00 AM CDT) Only the most recent of10 resultswithin the time period is included. Neutrophil % 82(H) 41 - 74 % 06/08/2024 12:57 AM [facility] Lymphocyte % 4(L) 17 - 47 % 06/08/2024 12:57 AM [facility] Monocyte % 7 3 - 11 % 06/08/2024 12:57 AM [facility] Eosinophil % 1 0 - 7 % 06/08/2024 12:57 AM [facility] Metamyelocyte % 3(H) 0% % 12:57 AM [facility] Myelocyte % 3(H) 0% % 06/08/2024 12:57 AM [facility] Neutrophil Absolute 14.27(H) 1.60 - 7.50 x10E9/L 06/08/2024 12:57 AM [facility] Lymphocyte Absolute 0.70(L) 1.00 - 4.40 x10E9/L 06/08/2024 12:57 AM T [facility] Monocyte Absolute 1.22(H) 0.15 - 1.00 x10E9/L 06/08/2024 12:57 AM [facility] Eosinophil Absolute 0.17 0.00 - 0.60 x10E9/L 06/08/2024 12:57 AM [facility] RBC Morphology REVIEWED 06/08/2024 12:57 AM [facility] Stomatocytes MANY(A) (none) 06/08/2024 12:57 AM [facility] Comment See Comment 06/08/2024 12:57 AM [facility] Comment:Platelets Clumped On Smear Blood BLOOD SPECIMEN / Unknown Venipuncture / Unknown 06/07/2024 06/08/2024 12:09 AM T Willie Marte PA-C LAB - HEMATOLOGY ORDERABLES Performing Organization Address City/State/[facility] Co de Phone Number [facility] [address] [place] [address], [facility] [phone] * (ABNORMAL) BLOOD GAS+COOX+LYTES+METAB VENOUS POCT (06/05/2024 12:16 PM CDT) pH Venous 7.45(H) 7.32 - 7.42 pH 06/05/2024 12:16 PM [facility] pO2 Venous 44(H) 35 - 40 mmHg 06/05/2024 12:16 PM [facility] pCO2 Venous 43 40 - 50 mmHg 06/05/2024 12:16 PM [facility] HCO3 Venous 29.9 20 - 30 mmol/L 06/05/2024 12:16 PM [facility] Base Excess Venous 5.2(H) -2.0 - 2.0 mmol/L 06/05/2024 12:16 PM [facility] Oxyhemoglobin Venous 73.8 % 05/18 12:16 PM [facility] Deoxyhemoglobin (HHB) Venous % 23.9 % 06/05/2024 12:16 PM [facility] Methemoglobin <0.8 0.0 - 2.0 % 06/05/2024 12:16 PM [facility] Carboxyhemoglobin 1.9 0.0 - 2.0 % 2023 12:16 PM [facility] Comment:Carboxyhemoglobin No rmal Concentration: Non-smokers: 0-2%; Smokers: 0- 9%; Toxic: >20% O2 Content Venous 13.8 Interpret within clinical context ml/dL 06/05/2024 12:16 PM [facility] Hemoglobin by COOX 13.3 12.0 - 17.6 g/dL 06/05/2024 12:16 PM [facility] O2 Saturation Venous 76 >=70 % 05/18 12:16 PM [facility] Sodium Whole Blood 134(L) 135 - 145 mmol/L 06/05/2024 12:16 PM [facility] Potassium Whole Blood 4.0 3.5 - 5.5 mmol/L 06/05/2024 12:16 PM [facility] Chloride WB 102 78 - 107 mmol/L 06/05/2024 12:16 PM [facility] Calcium Ionized 1.12 mmol/L 12:16 PM [facility] Ionized Calcium pH Adjusted 1.14(L) 1.19 - 1.34 mmol/L 06/05/2024 12:16 PM [facility] Anion Gap (AG) Arterial 2(L) 6 - 16 mmol/L 06/05/2024 12:16 PM [facility] Glucose WB 105 70 - 115 mg/dL 06/05/2024 12:16 PM [facility] Lactic Acid Whole Blood 1.5 <=2.0 mmol/L 06/05/2024 12:16 PM [facility] Blood BLOOD SPECIMEN / Unknown 06/05/2024 12:16 PM CDT 06/05/2024 12:[address] [facility] Honey Alfaro MD LAB - POINT OF [place] RE ORDERABLES [facility] [address] [place] [address], [place] [phone] * BLOOD GAS BRANDI+LYTES+METAB+COOX POC NOTIF (06/05/2024 12:14 PM CDT) [facility] Comment Notification Label Only - See Separate Report 06/05/2024 1:32 PM CDT [facility] Other MISCELLANEOUS SAMPLES / Unknown 06/05/2024 12:14 PM CDT 06/05/2024 12:14 PM CDT Shireen Baird MD LAB - BLOOD GASES ORDERABLES Performing Organization Address City/[facility]/ZIP Co de Phone Number [address] [address], [facility] [phone] * CARDIAC EKG ORDER (06/05/2024 11:50 AM CDT) Only the most recent of2 resultswithin the time period is included. Narrative 06/05/2024 11:50 AM CDT Ordered by an unspecified provider. Scanned Document CARDIAC SERVICES ORD ERABLES * LACTIC ACID BLOOD (06/04/2024 8:23 AM CDT) Only the most recent of3 resultswithin the time period is included. [facility] Lactic Acid-Stat 1.5 <=2.0 mmol/L 06/04/2024 8:50 AM CDT [facility] Blood BLOOD SPECIMEN / Unknown Venipuncture / Unknown 06/04/2024 8:23 AM CDT 06/04/2024 8:27 AM CDT Honey Alfaro MD LAB - CHEMISTRY O RDERABLES [address] [address], [facility] [phone] * CULTURE BLOOD (06/04/2024 5:45 AM CDT) Only the most recent of2 resultswithin the time period is included. [facility] Culture No growth day 5 SKYLER 06/09/2024 10:32 AM CDT [facility] Blood PERIPHERAL BLOOD / Unknown Venipuncture / Unknown 06/04/2024 5:45 AM CDT 06/04/2024 5:48 AM CDT Honey Alfaro MD LAB - MICROBIOLOG Y ORDERABLES [facility] [address] [place] [address], [facility] [phone] * (ABNORMAL) BLOOD GASES ART + COOX PANEL (06/04/2024 12:42 AM CDT) Only the most recent of2 resultswithin the time period is included. pH Arterial 7.48(H) 7.35 - 7.45 pH 06/04/2024 12:46 AM [facility] pO2 Arterial 129(H) 80 - 100 mmHg 06/04/2024 12:46 AM [facility] pCO2 Arterial 39 35 - 45 mmHg 12:46 AM [facility] HCO3 Arterial 29.0 20.0 - 30.0 mmol/L 06/04/2024 12:46 AM [facility] BE Arterial 5.2(H) -2.0 - 2.0 mmol/L 06/04/2024 12:46 AM [facility] Oxyhemoglobin Arterial 96.3 % 06/04/2024 12:46 AM [facility] Dexoyhemoglobin (HHB) % <1.0 % 06/04/2024 12:46 AM [facility] Methemoglobin 1.2 0.0 - 2.0 % 06/04/2024 12:46 AM [facility] Carboxyhemoglobin 2.4(H) 0.0 - 2.0 % 2023 12:46 AM [facility] O2 Content Arterial 19.9 Interpret within clinical context ml/dL 06/04/2024 12:46 AM [facility] Hemoglobin by COOX 14.6 12.0 - 17.6 g/dL 06/04/2024 12:46 AM [facility] O2 Saturation Arterial 100 90 - 100 % 06/04/2024 12:46 AM CDT [facility] FI O2 Arterial 50.0 % 06/04/2024 12:46 AM CDT [facility] Blood, arterial ARTERIAL BLOOD SPECIMEN / Unknown 06/04/2024 12:42 AM CDT 06/04/2024 12:42 AM CDT Narrative [facility] - 06/04/2024 12:46 AM CDT Carboxyhemoglobin Normal Concentration: Non-smokers: 0-2%; Smokers: 0-9%; Toxic: >20% Honey Alfaro MD LAB - BLOOD GASES ORDERABLES [facility] [address] [place] [address], [place] [phone] * CULTURE FLUID+GRAM STAIN (06/04/2024 12:27 AM CDT) Culture No growth SKYLER 06/07/2024 5:07 AM CDT [facility]CRO[facility] Gram Stain Heavy Red blood cells 06/07/2024 5:07 AM CDT [facility] Gram Stain Light Polymorphonuclear cells 06/07/2024 5:07 AM CDT [facility] Gram Stain No organisms seen 024 5:07 AM CDT [facility] Other PERITONEAL FLUID / Unknown Collection / Unknown 06/04/2024 12:27 AM CDT 06/04/2024 12:27 AM CDT Honey Alfaro MD LAB - MICROBIOLOG Y ORDERABLES [facility] [address] [place] [address], [facility] [phone] * (ABNORMAL) CULTURE ANAEROBE (06/04/2024 12:26 AM CDT) Culture Rare Cutibacterium (formerly Propionibacterium ) acnes(AA) SKYLER 06/10/2024 10:40 AM CDT [facility]CRO[facility] Microbiology PERITONEAL FLUID / Unknown Collection / Unknown 06/04/2024 12:26 AM CDT 06/04/2024 12:26 AM CDT Honey Alfaro MD LAB - MICROBIOLOG Y ORDERABLES [facility]CRO[facility] [address] [place] [address], [facility] [phone] * (ABNORMAL) BLOOD GAS+COOX+LYTES+METAB ARTERIAL POCT (06/03/2024 10:15 PM CDT) pH Arterial 7.52(H) 7.35 - 7.45 pH 06/03/2024 10:15 PM [facility] pO2 Arterial 167(H) 80 - 100 mmHg 06/03/2024 10:15 PM [facility] pCO2 Arterial 40 35 - 45 mmHg 10:15 PM [facility] HCO3 Arterial 32.7(H) 20.0 - 30.0 mmol/L 06/03/2024 10:15 PM [facility] BE Arterial 9.0(H) -2.0 - 2.0 mmol/L 06/03/2024 10:15 PM [facility] Oxyhemoglobin Arterial 96.5 % 06/03/2024 10:15 PM [facility] Dexoyhemoglobin (HHB) % <1.0 % 06/03/2024 10:15 PM [facility] Methemoglobin 1.3 0.0 - 2.0 % 06/03/2024 10:15 PM [facility] Carboxyhemoglobin 1.7 0.0 - 2.0 % 2023 10:15 PM [facility] Comment:Carboxyhemoglobin No rmal Concentration: Non-smokers: 0-2%; Smokers: 0- 9%; Toxic: >20% O2 Content Arterial 19.2 Interpret within clinical context ml/dL 06/03/2024 10:15 PM [facility] Hemoglobin by COOX 13.9 12.0 - 17.6 g/dL 06/03/2024 10:15 PM [facility] O2 Saturation Arterial 99 90 - 100 % 06/03/2024 10:15 PM CDT [facility] Sodium Whole Blood 136 135 - 145 mmol/L 06/03/2024 10:15 PM CDT [facility] Potassium Whole Blood 4.0 3.5 - 5.5 mmol/L 06/03/2024 10:15 PM CDT [facility] Chloride WB 97 78 - 107 mmol/L 06/03/2024 10:15 PM CDT [facility] Calcium Ionized 0.94 mmol/L 10:15 PM CDT [facility] Ionized Calcium pH Adjusted 0.99(L) 1.19 - 1.34 mmol/L 06/03/2024 10:15 PM CDT [facility] Anion Gap (AG) Arterial 6 6 - 16 mmol/L 06/03/2024 10:15 PM CDT [facility] Glucose WB 110 70 - 115 mg/dL 06/03/2024 10:15 PM CDT [facility] Lactic Acid Whole Blood 1.8 <=2.0 mmol/L 06/03/2024 10:15 PM CDT [facility] Blood, arterial ARTERIAL BLOOD SPECIMEN / Unknown 06/03/2024 10:15 PM CDT 06/03/2024 10:16 PM CDT Honey Alfaro MD LAB - POINT OF [place] RE ORDERABLES [address] [address], [facility] [phone] * BLOOD GAS ART+LYTES+METAB+COOX POC NOTIF (06/03/2024 10:10 PM CDT) Comment Notification Label Only - See Separate Report 06/03/2024 11:32 PM CDT [facility] Other MISCELLANEOUS SAMPLES / Unknown 06/03/2024 10:10 PM CDT 06/03/2024 10:13 PM CDT Jovani Banegas MD LAB - BLOOD GASES O RDERABLES [facility] [address] [address], [facility] [phone] * ETT LINE PERFORMABLE (06/03/2024 9:47 PM CDT) Narrative Crys Dawson MD - 06/03/2024 9:47 PM CDT Crys Dawson MD 06/03/2024 9:47 PM Endotracheal Tube Placement: Patient Location: OR. Intubation Event Date/Time: 06/03/2024 9:27 PM Procedure: intubation ([id number]) Procedure Section: Sedation: under general anesthesia. Indications [...] Time: 06/03/2024 9:35 PM Procedure: Arterial Line (27073) Procedure Section Indications: continuous blood pressure monitoring [...] MD GENERAL ANESTHESIA ORDERABLES * (ABNORMAL) PT-INR [facility] (06/03/2024 6:27 PM CDT) Only the most recent of2 resultswithin the time period is included. Pathologist [facility] PT 15.6(H) 12.1 - 14.8 Seconds 06/03/2024 6:55 PM CDT [facility] INR 1.3 See Comment 06/03/2024 6:55 PM T [facility] Comment:The suggested therap eutic range for standard coumadin (warfarin) therapy is an INR of 2.0-3.0. For high-risk patients (Mechanical Mitral Valve Prosthesis, etc.), the suggested prophylactic therapeutic range is an INR of 2.5-3.5. Blood BLOOD SPECIMEN / Unknown Venipuncture / Unknown 06/03/2024 6:27 PM CDT 06/03/2024 6:33 PM CDT Blaze Dumont MD LAB - COAGULATION OR DERABLES Performing Organization Address City/State/[facility] Co de Phone Number [facility] [address] [place] [address], [facility] [phone] * (ABNORMAL) COMPREHENSIVE METABOLIC PANEL (06/03/2024 6:27 PM CDT) BUN 49(H) 7 - 26 mg/dL 06/03/2024 7:00 PM CDT [facility] Creatinine 2.35(H) 0.71 - 1.16 mg/dL 06/03/2024 7:00 PM T [facility] Sodium 142 136 - 145 mmol/L 06/03/2024 7:00 PM T [facility] Potassium 3.6 3.5 - 4.5 mmol/L 06/03/2024 7:00 PM T [facility] Chloride 92(L) 98 - 107 mmol/L 06/03/2024 7:00 PM [facility] CO2 30(H) 22 - 29 mmol/L 06/03/2024 7:00 PM [facility] Glucose 112 70 - 115 mg/dL 06/03/2024 7:00 PM [facility] Calcium 8.8 8.4 - 10.2 mg/dL 06/03/2024 7:00 PM [facility] Protein Total 8.2 6.0 - 8.3 g/dL 06/03/2024 7:00 PM [facility] Albumin 2.8(L) 3.4 - 5.0 g/dL 06/03/2024 7:00 PM [facility] Bilirubin Total 1.5(H) 0.2 - 1.2 mg/dL 06/03/2024 7:00 PM [facility] Alkaline Phosphatase 166(H) 40 - 150 U/L 06/03/2024 7:00 PM [facility] ALT 351(H) 5 - 55 U/L 06/03/2024 7:00 PM [facility] AST 360(H) 5 - 34 U/L 06/03/2024 7:00 PM [facility] Anion Gap 20(H) 6 - 16 06/03/2024 7:00 PM [facility] BUN/Creatinine Ratio 21 7 - 23 06/03/2024 7:00 PM [facility] Osmolality Calculated 308(H) 275 - 295 mOsm/kg 06/03/2024 7:00 PM [facility] Albumin/Globulin Ratio 0.5(L) 1.1 - 2.3 06/03/2024 7:00 PM [facility] eGFR by CKD-EPI 34(L) >=90 mL/min/1.7 3 m2 06/03/2024 7:00 PM [facility] Blood BLOOD SPECIMEN / Unknown Venipuncture / Unknown 06/03/2024 6:27 PM CDT 06/03/2024 6:33 PM T Blaze Dumont MD LAB - CHEMISTRY ONEAL CALDERA [facility] Organization Address City/State/ZIP Co de Phone Number [address] [address], [facility] [phone] * EKG 12-LEAD (06/03/2024 6:12 PM CDT) Only the most recent of4 resultswithin the time period is included. Pathologist [facility] Ventricular Rate 140 BPM [facility] Atrial Rate 140 BPM [facility] P-R Interval 114 ms [facility] QRS Duration ms 80 ms [facility] Q-T Interval ms 304 ms [facility] QTC Calculation (Bezet) 464 ms [facility] Calculated P [place] 28 degrees [facility] Calculated R [place] -41 degrees [facility] Calculated T [place] 5 degrees [facility] Interpretation EKG SINUS TACHYCARDIA POSSIBLE LEFT [...] DAMIR, HENOK ([id number]) on 06/04/2024 12:56:07 PM [facility] 06/03/2024 6:12 PM CDT 06/04/2024 12:56 PM CDT Blaze Dumont MD ECG ORDERABLES Performing Organization Address City/[facility]/ZIP Co de Phone Number [facility] * (ABNORMAL) GLUCOSE - POINT OF CARE (05/30/2024 7:41 AM CDT) Only the most recent of8 resultswithin the time period is included. [facility] Glucose WB/POC 119(H) 70 - 115 mg/dL 05/30/2024 6:13 PM CDT [facility] Specimen Type Cap Fingerstick 2023 6:13 PM CDT [facility] Blood BLOOD SPECIMEN / Unknown 05/30/2024 7:41 AM CDT 05/30/2024 6:13 PM CDT Willie Johnson DO LAB - POINT OF CARE ORDERABLES [address] [address], [place] [phone] * TROPONIN-I HIGH SENSITIVE (05/27/2024 12:39 PM CDT) Pathologist [facility] Troponin I High Sensitive <3 <=35 ng/L 05/27/2024 1:35 PM CDT [facility] Blood BLOOD SPECIMEN / Unknown Venipuncture / Unknown 05/27/2024 12:39 PM CDT 05/27/2024 12:52 PM CDT Willie Johnson DO LAB - CHEMISTRY ORD ERABLES Performing Organization Address [facility] Co de Phone Number [address] [address], [place] [phone] * (ABNORMAL) CK BLOOD (05/27/2024 8:38 AM CDT) Pathologist [facility] CK Total 262(H) 30 - 200 U/L 05/27/2024 9:22 AM CDT [facility] Blood BLOOD SPECIMEN / Unknown Venipuncture / Unknown 05/27/2024 8:38 AM CDT 05/27/2024 8:53 AM CDT Willie Johnson DO LAB - CHEMISTRY ORD ERABLES Performing Organization Address [facility] Co de Phone Number [address] [address], [place] [phone] * PREPARE (CROSSMATCH) RBC UNIT(S), 2 Units (05/27/2024 1:17 AM CDT) Only the most recent of3 resultswithin the time period is included. Pathologist [facility] Unit Description N/A [facility] Blood Bank BLOOD SPECIMEN / Unknown 05/23/2024 10:33 PM CDT Willie Johnson DO LAB - BLOOD BANK OR DERABLES Performing Organization Address City/[facility]/ZIP Co de Phone Number [facility] [address] [place] [address], [facility] [phone] * XR Humerus Left 2Vw or More [...] identified. > Dictated by Wade Morin DO (residential appraiser). I, Adin Corral MD have personally reviewed and interpreted this examination/study. > Interpreting Provider: Adin Corral MD on 05/25/2024 8:59 AM Narrative 05/25/2024 8:59 AM CDT PROCEDURE: XR SHOULDER RIGHT 2VW OR MORE, DATE/TIME OF EXAM: 05/24/2024 8:30 PM, LOCATION [facility] INDICATION: T14.90XA: Trauma ADDITIONAL CLINICAL INFORMATION: Ordering [...] DATE/TIME OF EXAM: 05/24/2024 8:30 PM, LOCATION [facility] INDICATION: T14.90XA: Trauma ADDITIONAL CLINICAL INFORMATION: Ordering Provider Reason For Exam: acute fracture COMPARISON: None. FINDINGS: The lung volumes. Opacities noted within the right midlung, potentially atelectasis. The osseous structures are intact without acute fracture. Theglenohumeral and acromioclavicular joints are in anatomic alignment. Bone density and texture are normal. IMPRESSION: No acute fracture or dislocation identified. > Dictated by Wade Morin DO (residential appraiser). Adin Pardo MD have personally reviewed and [...] identified. > Dictated by Wade Morin DO (residential appraiser). Meme Pardo MD have personally reviewed and interpreted this examination/study. > Interpreting Provider: Meme Valenzuela MD on 05/25/2024 1:39 PM Narrative 05/25/2024 1:39 PM CDT PROCEDURE: XR SHOULDER LEFT 2VW OR MORE, DATE/TIME OF EXAM: 05/24/2024 9:42 PM, LOCATION [facility] INDICATION: T14.90XA: Trauma ADDITIONAL CLINICAL INFORMATION: Ordering Provider Reason For Exam: acute fracture COMPARISON: None. FINDINGS: The osseous structures are intact without acute fracture. The glenohumeral and acromioclavicular joints are in anatomic alignment. Bone density and texture are normal. Procedure Note Meme Valenzuela MD - 05/25/2024 PROCEDURE: XR SHOULDER LEFT 2VW OR MORE, DATE/TIME OF EXAM: 49:42 PM, LOCATION [facility] INDICATION: T14.90XA: Trauma ADDITIONAL CLINICAL INFORMATION: Ordering Provider Reason For Exam: acute fracture COMPARISON: None. FINDINGS: The osseous structures are intact without acute fracture. Theglenohumeral and acromioclavicular joints are in anatomic alignment. Bone density and texture are normal. IMPRESSION: No acute fracture or dislocation identified. > Dictated by Wade Morin DO (residential appraiser). Meme Pardo MD have personally reviewed and [...] Report dictated by Cherrie Villa Dr, MD (residential appraiser). Eliseo Pardo MD have personally reviewed and interpreted this examination/study. > Interpreting Provider: Eliseo Mckeon MD on 05/24/2024 11:55 PM Narrative 05/24/2024 11:55 PM CDT PROCEDURE: CT 3D RECON W INDEPENDENT WKSN, DATE/TIME OF EXAM: 05/24/2024 9:10 AM, LOCATION [facility] INDICATION: T14.90XA: Trauma ADDITIONAL CLINICAL INFORMATION: Ordering [...] DATE/TIME OF EXAM: 05/24/2024 9:10 AM, LOCATION [facility] INDICATION: T14.90XA: Trauma ADDITIONAL CLINICAL INFORMATION: Ordering [...] Report dictated by Cherrie Villa Dr, MD (residential appraiser). I, Eliseo Mckeon MD have personally reviewed and interpreted this examination/study. > Interpreting Provider: Eliseo Mckeon MD on 05/24/2024 11:55 PM Willie Marte PA-C CT ORDERABLES * (ABNORMAL) TEG 6 GLOBAL HEMOSTASIS W/ LYSIS (05/24/2024 3:06 AM CDT) Citrated Kaolin R (Reaction Time) 3.3(L) 4.6 - 9.1 min 05/24/2024 4:55 AM [facility] Comment:CK R result below no rmal range. Consistent with hypercoagulable clotting factors. Citrated Kaolin LY30 (Lysis) 0.0 0.0 - 2.6 % 05/24/2024 4:55 AM [facility] Citrated Functional Fibrinogen MA (Max Amplitude) 4.2(L) 15.0 - 32.0 mm 05/24/2024 4:55 AM [facility] Comment:CFF MA below normal range. Consistent with decreased fibrinogen contribution to clot strength. Citrated RapidTEG MA (Max Amplitude) <40.0(L) 52.0 - 70.0 mm 05/24/2024 4:55 AM [facility] Comment:BOILER TESTER MA below normal range. Consistent with reduced clot strength from platelets or fibrinogen. Compare with CFF MA. Blood BLOOD SPECIMEN / Unknown Venipuncture / Unknown 05/24/2024 3:06 AM CDT 05/24/2024 3:40 AM CDT Willie Johnson DO LAB - HEMATOLOGY OR DERABLES [facility] [address] [place] [address], [facility] [phone] * (ABNORMAL) TEG 6S PLATELET MAPPING (05/24/2024 3:06 AM CDT) TEGPLM (Max Amplitude) [place] <42.0(L) 53.0 - 68.0 mm 05/24/2024 4:30 AM [facility] TEGPLM (Max Amplitude) ACTF 4.2 2.0 - 19.0 mm 05/24/2024 4:30 AM [facility] TEGPLM (Max Amplitude) ADP 20.4(L) 45.0 - 69.0 mm 05/24/2024 4:30 AM [facility] Comment:ADP MA below normal range. Inhibition present. TEGPLM (Max Amplitude) AA 19.8(L) 51.0 - 71.0 mm 05/24/2024 4:30 AM CDT [facility] Comment:AA MA below normal r froilan. Inhibition present. TEGPLM %Inhibition ADP 05/24/2024 4:30 AM CDT [facility] Comment:1 or more values are outside of the TEG maximum reportable ranges, calculation cannot be determined. TEGPLM %Inhibition AA 05/24/2024 4:30 AM T [facility] Comment:1 or more values are outside of the TEG maximum reportable ranges, calculation cannot be determined. TEGPLM %Aggregation ADP 05/24/2024 4:30 AM T [facility] Comment:1 or more values are outside of the TEG maximum reportable ranges, calculation cannot be determined. TEGPLM % Aggregation AA 05/24/2024 4:30 AM T [facility] Comment:1 or more values are outside of the TEG maximum reportable ranges, calculation cannot be determined. Blood BLOOD SPECIMEN / Unknown Venipuncture / Unknown 05/24/2024 3:06 AM CDT 05/24/2024 3:40 AM CDT Willie Johnson DO LAB - HEMATOLOGY OR DERABLES [address] [address], [facility] [phone] * IR Visceral Angio (05/24/2024 1:38 AM [...] case. > Dictated by Jonathon Rosario MD (Sheet Manufacturing Supervisor) 05/24/2024 1:49 AM Deonna Pardo MD have [...] Huff, Attending Physician 2.Dr. Jonathon Rosario, interventional residential appraiser Physician Anesthesia: 1.Local anesthesia - 10 mL [...] and draped in the usual sterile fashion. Biofuels Processing Technician radiograph of the abdomen was obtained, which [...] documented. Following a series of exchanges, a 5-[place] Citizen vascular sheath was placed. 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 Selective catheterization of the replaced common hepatic artery was performed with a coaxially advanced 2.4 [place] Citizen microcatheter and angiogram was obtained. The angiogram [...] Huff, Attending Physician 2.Dr. Jonathon Rosario, interventional residential appraiser Physician Anesthesia: 1.Local anesthesia - 10 mL [...] documented. Following a series of exchanges, a 5-[place] Citizen vascular sheath was placed. 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 Selective catheterization of the replaced common hepatic artery was performed with a coaxially advanced 2.4 [place] Citizen microcatheter andangiogram was obtained. The angiogram demonstrated [...] the procedure well [facility] There were no [...] case. > Dictated by Jonathon Rosario MD (Sheet Manufacturing Supervisor) 05/24/2024 1:49 AM IDeonna MD have personally reviewed and interpreted this examination/study. > Interpreting Provider: Deonna Huff MD on 05/24/2024 8:20 AM Farrukh Bedolla MD IR ORDERABLES * TRANSFUSE RED BLOOD CELL LEUKOREDUCED ML(S) (05/24/2024 12:54 AM CDT) Cheyenne Jackson DO NURSING - BLOOD RI OD TRANSFUSION * TRANSFUSE RED BLOOD CELL LEUKOREDUCED ML(S) (05/24/2024 12:44 AM CDT) Cheyenne Jackson DO NURSING - BLOOD RI OD TRANSFUSION * ETT LINE PERFORMABLE (05/24/2024 12:04 AM CDT) Narrative Jen Haskins MD - 05/24/2024 12:04 AM CDT Jen Haskins MD 05/24/2024 12:05 AM Endotracheal Tube Placement: Patient Location: OR. Intubation Event Date/Time: 05/23/2024 11:50 PM Procedure: intubation (65127) Procedure Section: Sedation: under general anesthesia. Indications [...] Rh AB POS 05/23/2024 11:40 PM CDT [facility] Blood Bank BLOOD SPECIMEN / Unknown Venipuncture / Unknown 05/23/2024 11:02 PM CDT 05/23/2024 11:12 PM CDT Romulo Willis MD LAB - BLOOD BANK ORD ERABLES [facility] [address] [place] [address], [facility] [phone] * (ABNORMAL) URINE DRUG SCREEN IMMUNOASSAY (05/23/2024 10:18 PM CDT) Amphetamines Screen Urine Negative Negative : < 1000 ng/mL 05/23/2024 10:49 PM CDT [facility] Barbiturates Screen Urine Negative Negative : < 200 ng/mL 05/23/2024 10:49 PM CDT [facility] Benzodiazepine Screen Urine Negative Negative : < 200 ng/mL 05/23/2024 10:49 PM CDT [facility] Opiates Urine Negative Negative : < 300 ng/mL 05/23/2024 10:49 PM T [facility] Cocaine Metabolites Urine Negative Negative : < 300 ng/mL 05/23/2024 10:49 PM CDT [facility] Phencyclidine Screen Urine Negative Negative : < 25 ng/ml 05/23/2024 10:49 PM T [facility] Cannabinoids Screen Urine Positive(A) Negative : <50 ng/mL 05/23/2024 10:49 PM T [facility] Comment:Positive urine canna binoids (THC) screening results should be confirmed by another generally accepted non-immunological method such as gas chromatography or mass spectrometry. Methadone Screen Urine Negative Negative : < 300 ng/mL 05/23/2024 10:49 PM CDT [facility] Fentanyl Screen Urine Negative Negative : <1.5 ng/mL 05/23/2024 10:49 PM CDT [facility] Urine URINE / Unknown Collection / Unknown 05/23/2024 10:18 PM CDT 05/23/2024 10:36 PM CDT Narrative [facility] - 05/23/2024 10:49 PM CDT The Urine Toxicology Screening Panel does not screen for Propoxyphene, Meprobamate, Carisoprodol, Trazodone, pgcc-fxx-jnvxwgi medications and/or volatiles (Acetone, Isopropanol, Methanol or Ethylene Glycol). Ethanol, Salicylate, Acetaminophen, Tricyclic Antidepressants and several therapeutic drugs may be individually assayed in serum or plasma specimen. Toxicology testing by the [facility] is an aid to medical diagnosis and treatment of patients. No documented chain of custody was maintained. Results are intended to be used for clinical purposes only. Romulo Willis MD LAB - URINE CHEMISTR Y ORDERABLES Performing Organization Address City/[facility]/ZIP Co de Phone Number [address] [address], [facility] [phone] * TROPONIN-I HIGH SENSITIVE REFLEX 1HOUR (05/23/2024 9:54 PM CDT) Troponin I High Sensitive 4 <=35 ng/L 05/23/2024 10:38 PM CDT [facility] Delta Troponin I HS 1 <6 ng/L 05/23/2024 10:38 PM CDT [facility] Blood BLOOD SPECIMEN / Unknown Venipuncture / Unknown 05/23/2024 9:54 PM CDT 05/23/2024 10:17 PM CDT Romulo Willis MD LAB - CHEMISTRY ORDE RABLES Performing Organization Address City/[facility]/ZIP Co de Phone Number [address] [address], [place] [phone] * CT CHEST ABDOMEN PELVIS W CONT [...] verification. > Dictated by He Cerna MD (residential appraiser). I, Eliseo Mckeon MD have personally reviewed and interpreted this examination/study. > Interpreting Provider: Eliseo Mckeon MD on 05/24/2024 12:43 AM Narrative 05/24/2024 12:43 AM CDT PROCEDURE: CT CHEST ABDOMEN PELVIS W CONT, DATE/TIME OF EXAM: 05/23/2024 9:34 PM, LOCATION [facility] INDICATION: Trauma COMPARISON: None. TECHNIQUE: CT of [...] DATE/TIME OF EXAM: 05/23/2024 9:34 PM, LOCATION [facility] INDICATION: Trauma COMPARISON: None. TECHNIQUE: CT of [...] verification. > Dictated by He Cerna MD (residential appraiser). I, Eliseo Mckeon MD have personally reviewed [...] hepatic lobe, right adrenal gland hemorrhage, and pghpv-hg-sdnhimlh volume hemoperitoneum within the abdomen and pelvis. [...] DATE/TIME OF EXAM: 05/23/2024 9:34 PM, LOCATION: [facility] HISTORY: Trauma EXAMINATION: CT scan of the [...] aspect of the right hepatic lobe and zjlcb-mh-uyczcwuf volume hemoperitoneum within the abdomen and pelvis. 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 Osseous structures are demineralized. DISCS: Normal. DEGENERATIVE CHANGES: No significant degenerative changes for age. SPINAL CANAL/NEUROFORAMEN: No significant osseous spinal canal stenosisor neuroforaminal narrowing. SOFT TISSUES: Visualized soft tissues are normal. OTHER: Mild degenerative of the bilateral sacroiliac joints, leftgreater than right. Partially imaged laceration of the posterior aspect of the right hepatic lobe and suqbz-lu-hrhrarnq volume hemoperitoneum withinthe abdomen and pelvis. Right [...] hepatic lobe, right adrenal gland hemorrhage, and oukpg-ag-xxfrxynh volume hemoperitoneum within theabdomen and pelvis. Report [...] hepatic lobe, right adrenal gland hemorrhage, and ygnoe-ux-lplpjusm volume hemoperitoneum within the abdomen and pelvis. [...] DATE/TIME OF EXAM: 05/23/2024 9:34 PM, LOCATION: [facility] HISTORY: Trauma EXAMINATION: CT scan of the [...] aspect of the right hepatic lobe and rigtf-ph-mnyfydrk volume hemoperitoneum within the abdomen and pelvis. [...] DATE/TIME OF EXAM: 05/23/2024 9:34 PM, LOCATION: [facility] HISTORY: Trauma EXAMINATION: CT scan of the [...] Incidentally noted congenital incomplete fusion of the [id number] transverse process. Osseous structures are demineralized. DISCS: Normal. DEGENERATIVE CHANGES: No significant degenerative changes for age. SPINAL CANAL/NEUROFORAMEN: No significant osseous spinal canal stenosisor neuroforaminal narrowing. SOFT TISSUES: Visualized soft tissues are normal. OTHER: Mild degenerative of the bilateral sacroiliac joints, leftgreater than right. Partially imaged laceration of the posterior aspect of the right hepatic lobe and lwjch-vx-snqylzpm volume hemoperitoneum withinthe abdomen and pelvis. Right [...] hepatic lobe, right adrenal gland hemorrhage, and xbrly-mf-gpxougck volume hemoperitoneum within theabdomen and pelvis. Report [...] hepatic lobe, right adrenal gland hemorrhage, and lbmyb-pz-lggyybjh volume hemoperitoneum within the abdomen and pelvis. [...] DATE/TIME OF EXAM: 05/23/2024 9:34 PM, LOCATION: [facility] HISTORY: Trauma EXAMINATION: CT scan of the [...] aspect of the right hepatic lobe and bjygx-iu-fgxzylqn volume hemoperitoneum within the abdomen and pelvis. [...] DATE/TIME OF EXAM: 05/23/2024 9:34 PM, LOCATION: [facility] HISTORY: Trauma EXAMINATION: CT scan of the [...] Incidentally noted congenital incomplete fusion of the P5bqbkl transverse process. Osseous structures are demineralized. DISCS: Normal. DEGENERATIVE CHANGES: No significant degenerative changes for age. SPINAL CANAL/NEUROFORAMEN: No significant osseous spinal canal stenosisor neuroforaminal narrowing. SOFT TISSUES: Visualized soft tissues are normal. OTHER: Mild degenerative of the bilateral sacroiliac joints, leftgreater than right. Partially imaged laceration of the posterior aspect of the right hepatic lobe and ylzjz-nq-eghusivz volume hemoperitoneum withinthe abdomen and pelvis. Right [...] hepatic lobe, right adrenal gland hemorrhage, and acfgx-zs-yybioipy volume hemoperitoneum within theabdomen and pelvis. Report [...] hepatic lobe, right adrenal gland hemorrhage, and zlbaz-cm-kntiggdy volume hemoperitoneum within the abdomen and pelvis. [...] DATE/TIME OF EXAM: 05/23/2024 9:34 PM, LOCATION: [facility] HISTORY: Trauma EXAMINATION: CT scan of the [...] aspect of the right hepatic lobe and zmqro-cm-mmzrjglv volume hemoperitoneum within the abdomen and pelvis. [...] DATE/TIME OF EXAM: 05/23/2024 9:34 PM, LOCATION: [facility] HISTORY: Trauma EXAMINATION: CT scan of the [...] Incidentally noted congenital incomplete fusion of the B0pgjaz transverse process. Osseous structures are demineralized. DISCS: Normal. DEGENERATIVE CHANGES: No significant degenerative changes for age. SPINAL CANAL/NEUROFORAMEN: No significant osseous spinal canal stenosisor neuroforaminal narrowing. SOFT TISSUES: Visualized soft tissues are normal. OTHER: Mild degenerative of the bilateral sacroiliac joints, leftgreater than right. Partially imaged laceration of the posterior aspect of the right hepatic lobe and lrgds-gv-fylimstv volume hemoperitoneum withinthe abdomen and pelvis. Right [...] hepatic lobe, right adrenal gland hemorrhage, and dlcwl-nc-ymqdsrop volume hemoperitoneum within theabdomen and pelvis. Report [...] hepatic lobe, right adrenal gland hemorrhage, and lehii-oz-ptdcnrbr volume hemoperitoneum within the abdomen and pelvis. [...] DATE/TIME OF EXAM: 05/23/2024 9:34 PM, LOCATION: [facility] HISTORY: Trauma EXAMINATION: CT scan of the [...] aspect of the right hepatic lobe and lplvu-lf-qizryfpd volume hemoperitoneum within the abdomen and pelvis. [...] DATE/TIME OF EXAM: 05/23/2024 9:34 PM, LOCATION: [facility] HISTORY: Trauma EXAMINATION: CT scan of the [...] Incidentally noted congenital incomplete fusion of the H2syems transverse process. Osseous structures are demineralized. DISCS: Normal. DEGENERATIVE CHANGES: No significant degenerative changes for age. SPINAL CANAL/NEUROFORAMEN: No significant osseous spinal canal stenosisor neuroforaminal narrowing. SOFT TISSUES: Visualized soft tissues are normal. OTHER: Mild degenerative of the bilateral sacroiliac joints, leftgreater than right. Partially imaged laceration of the posterior aspect of the right hepatic lobe and qfdjd-jn-inohvcxj volume hemoperitoneum withinthe abdomen and pelvis. Right [...] hepatic lobe, right adrenal gland hemorrhage, and rrykk-th-wsnquqjc volume hemoperitoneum within theabdomen and pelvis. Report dictated by Twan Mullen MD I, Yadira Jj MD, PhD have personally reviewed and interpreted this examination/study. > Interpreting Provider: Yadira Jj MD, PhD on 05/24/2024 12:28 AM Romulo Willis MD CT ORDERABLES * TROPONIN-I HIGH SENSITIVE BASELINE + 1HR (05/23/2024 8:58 PM CDT) [facility] Troponin I High Sensitive 3 <=35 ng/L 05/23/2024 9:41 PM CDT [facility] Blood BLOOD SPECIMEN / Unknown Venipuncture / Unknown 05/23/2024 8:58 PM CDT 05/23/2024 9:21 PM CDT Romulo Willis MD LAB - CHEMISTRY ONEAL [facility] Organization Address City/State/ZIP Co de Phone Number [facility] [address] [place] [phone], [facility] [phone] * (ABNORMAL) ALCOHOL ETHYL BLOOD (05/23/2024 8:58 PM CDT) Ethanol (mg/dL) 296(H) <10 mg/dL 9:37 PM CDT [facility] Ethanol Calculated (g/dL) 0.296(H) <=0.010 g/dL 05/23/2024 9:37 PM CDT [facility] Blood BLOOD SPECIMEN / Unknown Venipuncture / Unknown 05/23/2024 8:58 PM CDT 05/23/2024 9:21 PM CDT Narrative [facility] - 05/23/2024 9:37 PM CDT Ethanol Interp <10: None Detected. Depression of LANOLIN PLANT OPERATOR: >100 mg/dl Potentially Critical: >250 mg/dl Potentially [...] Willis MD LAB - CHEMISTRY ONEAL [facility] Organization Address City/State/ZIP Co de Phone Number [facility] [address] [place] [phone], [facility] [phone] * XR PELVIS 1 OR 2VW (05/23/2024 8:57 PM CDT) Anatomical Region Laterality Modality Pelvis Radiographic Alicia ging 05/23/2024 9:00 PM CDT Impressions 05/23/2024 10:01 PM CDT IMPRESSION: No acute fracture identified. Report dictated by Cherrie Villa Dr, MD (residential appraiser). IMeme MD have personally reviewed and interpreted this examination/study. > Interpreting Provider: Meme Valenzuela MD on 05/23/2024 10:01 PM Narrative 05/23/2024 10:01 PM CDT PROCEDURE: XR PELVIS 1 OR 2VW, DATE/TIME OF EXAM: 05/23/2024 8:58 PM, LOCATION [facility] INDICATION: Trauma Fracture suspected ADDITIONAL CLINICAL INFORMATION: [...] DATE/TIME OF EXAM: 05/23/2024 8:58 PM, LOCATION [facility] INDICATION: Trauma Fracture suspected ADDITIONAL CLINICAL INFORMATION: Ordering Provider Reason For Exam: Technologist Note: Additional: COMPARISON: None. FINDINGS: No acute fracture is identified. The femoral heads appear well-seated within their respective acetabula. The pubic symphysis is intact. Bone density and texture are normal. The sacroiliac joints are normal. IMPRESSION: No acute fracture identified. Report dictated by Cherrie Villa Dr, MD (residential appraiser). I, Meme Valenzuela MD have personally reviewed and interpreted this examination/study. > Interpreting Provider: Meme Valenzuela MD on 05/23/2024 10:01 PM Romulo Willis MD DIAGNOSTIC IMAGING [facility] Care Teams Night Coordinator Relationship Specialty Start Date End Date Esteban Palm MD [address] [place] [address] PCP - General Family Medicine 05/25/24
--- OUTSIDE RECORDS SUMMARY | 2024-11-26 12:07 | XMS_ITS | Clinical Summary ---
Author Organization [facility] Address [address] [place] [address] Care Team Providers Care Aerial Survey Technician Name Role Phone Esteban Palm MD Primary Care Provider [phone] Source Comments [facility],non-owned Affiliates and Associated Physician Practices is amultiple site organization consisting of ambulatory clinics and hospital sitesin [place], [place], [place] and [place]. This disclosure is being madepursuant to the Care Everywhere program and may not contain all information available regarding this patient. Last updated 18.[facility] Allergies No known active allergies Medications * [...] 24 hours. 06/15/2024 Active saline nasal spray ([place]; Baby Ama) 0.65 % nasal spray Moore 1 (one) spray into each nostril every [...] and heating? Not hard at all 06/04/2024 [facility] [place] of Occupat ional Health - Occupational Stress [...] place to sleep or slept in a jail (including now)? No 06/04/2024 Sex and Gender [...] this topic Medical Devices Implanted Type Area Bomb Squad Commander Device Identifier Shelf Expiration Date Model / Serial / Lot Coil Azur Cx Hdrcl 4cm 2mm Dtch Loop Sld Implanted:Qty: 1 on 05/24/2024 by Deonna Huff MD at [facility] [employer] 01/14/2029 [id number] / / [id number] Prtcl Embl 2.5mm 1ml Syr Embocube Geltn Implanted:Qty: 1 on 05/24/2024 by Deonna Huff MD at [facility] Right: Liver [employer] 01/23/2027 [id number] / / [id number] Coil Azur Cx Hdrcl 4cm 2mm Dtch Loop Sld Implanted:Qty: 1 on 05/24/2024 by Deonna Huff MD at [facility] Right: Liver [employer] 01/14/2029 [id number] / / [id number] Advance Directives * Full Code (Latest Code Status on File) Date Activated Date Inactivated Comments 06/08/2024 5:14 PM 06/15/2024 5:35 PM * Full Code Date Activated Date Inactivated Comments 05/23/2024 11:39 PM 05/31/2024 6:42 PM Care Teams Aerial Survey Technician Relationship Specialty Start Date End Date Esteban Palm MD [address] [place] [address] PCP - General Family Medicine 05/25/24
--- OUTSIDE RECORDS SUMMARY | 2024-11-26 12:07 | XMS_ITS | Referral Summary ---
Author Organization [facility] Address [address] [place] [address] Care Team Providers Care Mechanical Manager Name Role Phone Esteban Palm MD Primary Care Provider Source Comments [facility],non-owned Affiliates and Associated Physician Practices is amultiple site organization consisting of ambulatory clinics and hospital sitesin [place], [place], [place] and [place]. This disclosure is being madepursuant to the Care Everywhere program and may not contain all information available regarding this patient. Last updated 18.[facility] Allergies No known active allergies Medications * [...] 24 hours. 06/15/2024 Active saline nasal spray ([place]; Baby [place]) 0.65 % nasal spray Mellen 1 (one) spray into each nostril every [...] and heating? Not hard at all 06/04/2024 [facility] [place] of Occupat ional Health - Occupational Stress [...] place to sleep or slept in a penitentiary (including now)? No 06/04/2024 Sex and Gender [...] on file Medical Devices Implanted Type Area Maths Tutor Device Identifier Shelf Expiration Date Model / Serial / Lot Coil Azur Cx Hdrcl 4cm 2mm Dtch Loop Sld Implanted:Qty: 1 on 05/24/2024 by Deonna Huff MD at [facility] [employer] 01/14/2029 [id number] / / [id number] Prtcl Embl 2.5mm 1ml Syr Embocube Geltn Implanted:Qty: 1 on 05/24/2024 by Deonna Huff MD at [facility] Right: Liver [employer] 01/23/2027 [id number] / / [id number] Coil Azur Cx Hdrcl 4cm 2mm Dtch Loop Sld Implanted:Qty: 1 on 05/24/2024 by Deonna Huff MD at [facility] Right: Liver [employer] 01/14/2029 [id number] / / [id number] Advance Directives * Full Code (Latest Code Status on File) Date Activated Date Inactivated Comments 06/08/2024 5:14 PM 06/15/2024 5:35 PM * Full Code Date Activated Date Inactivated Comments 05/23/2024 11:39 PM 05/31/2024 6:42 PM Care Teams Mechanical Manager Relationship Specialty Start Date End Date Esteban Palm MD [address] [place] [address] PCP - General Family Medicine 05/25/24
--- OUTSIDE RECORDS SUMMARY | 2024-11-26 12:07 | XMS_ITS | Continuity of Care Document ---
Author Organization [facility] Address [address] [address] [place] [address] Phone Care Team Providers Care Director Of Sales Marketing Name Role Phone Matty Dasilva MD Unavailable Unavailable Allergies, Adverse Reactions, Alerts Substance Reaction Status Criticality No Known Allergies Active No Inform ation Medications Medication Instructions Dosage Effective Dates (start - stop) Status Comments Klonopin 1 mg tablet take 1 tablet (1MG) by oral route every bedtime 1 MG - Active Procedures Procedure Date PREV VISIT, [facility], AGE 18-39 OFFICE/OUTPATIENT VISIT, [facility] Advance Directives Directive Yes / No Effective Date File Name No Information Encounters Encounter Description Practice Location Reason(s) For Visit Diagnoses Date Provider Providers Copied on Encounter PREV VISIT, NEW, AGE 18-39 [facility], [address] [place], [place], [id number], [place] tel:[phone] [facility] Physical (chief complaint) Routine Medical ExamInsomnia, OtherRoutine Medical ExamGeneralized anxiety disorder [address] [facility] [place], [id number] , [place]. tel:[phone] Referring Provider: Matty Dasilva, [address] [facility] [place], [id number]. tel:[phone] Family History Family Member Type Diagnosis Age At Onset Father Problem (finding) Hypertension Sister Problem (finding) Alive and well Mother Problem (finding) Hypertension Payers Payer name Insurance type Covered constitution party ID Authoriza tion(s) No Information Social [...] Mental Status Date Cognitive Assessment Orientation - Mound ed to time, place, person, situation.
--- OUTSIDE RECORDS SUMMARY | 2024-11-26 12:07 | XMS_ITS | CONTINUITY OF CARE DOCUMENT ---
Author Name stephen mitchell Address Unknown Organization [facility] Address [address] [place] [address] [address] [place] [address] Phone [phone] Care Team Providers Care Motorcycle Fabricator Name Role Phone Ranjit NÚÑEZ, Akash Unavailable [phone] INSURANCE PROVIDERS Payer name Policy type / Coverage type Constantin red green party ID [id number] PAY [id number]
--- OUTSIDE RECORDS SUMMARY | 2024-11-26 12:07 | XMS_ITS | Referral Summary ---
Author Organization [facility] [address] Address [address] [place] [address] Care Team Providers Care Inspector Multifocal Lens Name Role Phone No, Physician Primary Care Provider Allergies No known active allergies Medications al & mag hydroxide with simethicone-diph enhydramine-lido edis (MAGIC MOUTHWASH) suspension 9-9-9Asjhzwopyyf :Acute pharyngitis, unspecified etiology Swish and swallow [...] on file Legal Sex Male 1:55 PM SHINGLE CATCHER Gender Identity Not on file Sexual Orientation Not on file Last Filed Vital Signs Vital Sign Reading Time Taken Comments Blood Pressure 132/84 09/21/2023 5:59 PM SHINGLE CATCHER Pulse 76 09/21/2023 5:59 PM SHINGLE CATCHER Temperature 36.9 C (98.4 F) 09/21/2023 5:59 PM SHINGLE CATCHER Respiratory Rate 18 09/21/2023 5:59 PM SHINGLE CATCHER Oxygen Saturation 96% 09/21/2023 5:59 PM SHINGLE CATCHER Inhaled Oxygen Concentration - - Weight 78 kg (172 lb) 09/21/2023 5:59 PM SHINGLE CATCHER Height 175.3 cm (5' 9 ) 09/21/2023 5:59 PM SHINGLE CATCHER Body Mass Index 25.4 09/21/2023 5:59 PM SHINGLE CATCHER Plan of Treatment Not on file Insurance [email or web address] OOS [email or web address] Care Teams Inspector Multifocal Lens Relationship Specialty Start Date End Date No, Physician PCP - General 03/01/23
[2024-11-26 12:15] LABS: Troponin I < 0.012 ng/mL (0.000-0.034)
[2024-11-26 12:17] LABS: Alanine Aminotransferase 42 U/L (6-50); Albumin Level 4.6 g/dL (3.5-5.1); Alkaline Phosphatase 89 U/L (38-126); Anion Gap 9 mmol/L (4-12); Aspartate Amino Transferase 46 U/L (17-59); Bilirubin,Total 0.5 mg/dL (0.2-1.3); Blood Urea Nitrogen 13 mg/dL (9-20); Calcium 9.3 mg/dL (8.4-10.2); Carbon Dioxide 27 mmol/L (22-30); Chloride 100 mmol/L (98-107); Estimated CRCL calculation 99 ml/min; Estimated Glomerular Filt Rate > 60; Glucose 96 mg/dL (65-110); Lipase 118 U/L (23-300); Potassium 4.2 mmol/L (3.4-5.0); Sodium 136 mmol/L (137-145)
--- OUTSIDE RECORDS SUMMARY | 2024-11-26 12:33 | XMS_ITS | Clinical Summary ---
Author Organization [facility] [employer] [employer] Address [address] [place] [address] Care Team Providers Care Room Cooler Installer Name Role Phone Esteban Palm MD Primary Care Provider [phone] Source Comments [facility] [employer],non-owned Affiliates and Associated Physician Practices is amultiple site organization consisting of ambulatory clinics and hospital sitesin [place], [place], [place] and [place]. This disclosure is being madepursuant to the Care Everywhere program and may not contain all information available regarding this patient. Last updated 18.[facility] [facility] Allergies No known active allergies Medications * [...] 24 hours. 06/15/2024 Active saline nasal spray ([place]; Baby [place]) 0.65 % nasal spray Isabella 1 (one) spray into each nostril every [...] and heating? Not hard at all 06/04/2024 [facility] [place] of Occupat ional Health - Occupational Stress [...] place to sleep or slept in a snf (including now)? No 06/04/2024 Sex and Gender [...] this topic Medical Devices Implanted Type Area Insulation Blanket Maker Device Identifier Shelf Expiration Date Model / Serial / Lot Coil Azur Cx Hdrcl 4cm 2mm Dtch Loop Sld Implanted:Qty: 1 on 05/24/2024 by Deonna Huff MD at [facility] [facility] 01/14/2029 [id number] / / [id number] Prtcl Embl 2.5mm 1ml Syr Embocube Geltn Implanted:Qty: 1 on 05/24/2024 by Deonna Huff MD at [facility] Right: Liver [employer] 01/23/2027 [id number] / / [id number] Coil Azur Cx Hdrcl 4cm 2mm Dtch Loop Sld Implanted:Qty: 1 on 05/24/2024 by Deonna Huff MD at [facility] Right: Liver [employer] 01/14/2029 [id number] / / [id number] Advance Directives * Full Code (Latest Code Status on File) Date Activated Date Inactivated Comments 06/08/2024 5:14 PM 06/15/2024 5:35 PM * Full Code Date Activated Date Inactivated Comments 05/23/2024 11:39 PM 05/31/2024 6:42 PM Care Teams Room Cooler Installer Relationship Specialty Start Date End Date Esteban Palm MD [address] [place] [address] PCP - General Family Medicine 05/25/24
--- OUTSIDE RECORDS SUMMARY | 2024-11-26 12:33 | XMS_ITS | Referral Summary ---
Author Organization [facility] [address] Address [address] [place] [phone] Care Team Providers Care Echo Tech Name Role Phone No, Physician Primary Care Provider [phone] Allergies No known active allergies Medications al & mag hydroxide with simethicone-diph enhydramine-lido edis (MAGIC MOUTHWASH) suspension 7-5-8Ubplnqerdjv :Acute pharyngitis, unspecified etiology Swish and swallow [...] on file Legal Sex Male 1:55 PM HEALTH AND SAFETY ADVISOR Gender Identity Not on file Sexual Orientation Not on file Last Filed Vital Signs Vital Sign Reading Time Taken Comments Blood Pressure 132/84 09/21/2023 5:59 PM HEALTH AND SAFETY ADVISOR Pulse 76 09/21/2023 5:59 PM HEALTH AND SAFETY ADVISOR Temperature 36.9 C (98.4 F) 09/21/2023 5:59 PM HEALTH AND SAFETY ADVISOR Respiratory Rate 18 09/21/2023 5:59 PM HEALTH AND SAFETY ADVISOR Oxygen Saturation 96% 09/21/2023 5:59 PM HEALTH AND SAFETY ADVISOR Inhaled Oxygen Concentration - - Weight 78 kg (172 lb) 09/21/2023 5:59 PM HEALTH AND SAFETY ADVISOR Height 175.3 cm (5' 9 ) 09/21/2023 5:59 PM HEALTH AND SAFETY ADVISOR Body Mass Index 25.4 09/21/2023 5:59 PM HEALTH AND SAFETY ADVISOR Plan of Treatment Not on file Insurance [employer]AI OOS AMKAI OOS Care Teams Echo Tech Relationship Specialty Start Date End Date No, Physician PCP - General 03/01/23
--- OUTSIDE RECORDS SUMMARY | 2024-11-26 12:33 | XMS_ITS | Continuity of Care Document ---
Author Organization [facility] Address [address] [facility] [place] [address] [place] [address] Phone Care Team Providers Care Student Education Specialist Name Role Phone Matty Dasilva MD Unavailable Unavailable Allergies, Adverse Reactions, Alerts Substance Reaction Status Criticality No Known Allergies Active No Inform ation Medications Medication Instructions Dosage Effective Dates (start - stop) Status Comments Klonopin 1 mg tablet take 1 tablet (1MG) by oral route every bedtime 1 MG - Active Procedures Procedure Date PREV VISIT, [facility], AGE 18-39 OFFICE/OUTPATIENT VISIT, [facility] Advance Directives Directive Yes / No Effective Date File Name No Information Encounters Encounter Description Practice Location Reason(s) For Visit Diagnoses Date Provider Providers Copied on Encounter PREV VISIT, NEW, AGE 18-39 [facility], [address] [place], [place], [id number], [place] tel:[phone] [facility] Physical (chief complaint) Routine Medical ExamInsomnia, OtherRoutine Medical ExamGeneralized anxiety disorder [address] [facility] [place], [id number] , [place]. tel:[phone] Referring Provider: Matty Dasilva, [address] [facility] [place], [id number]. tel:[phone] Family History Family Member Type Diagnosis Age [...] Mental Status Date Cognitive Assessment Orientation - Horatio ed to time, place, person, situation.
--- OUTSIDE RECORDS SUMMARY | 2024-11-26 12:33 | XMS_ITS | Clinical Summary ---
Author Organization [facility] [address] Address [address] [place] [address] Care Team Providers Care Tree Surgeon Name Role Phone No, Physician Primary Care Provider [phone] Allergies No known active allergies Medications al & mag hydroxide with simethicone-diph enhydramine-lido edis (MAGIC MOUTHWASH) suspension 9-1-3Zpbgnylfezo :Acute pharyngitis, unspecified etiology Swish and swallow [...] on file Legal Sex Male 1:55 PM UNDERGROUND DISTRIBUTION ENGINEER Gender Identity Not on file Sexual Orientation Not on file Obstetrics History Last Filed Vital Signs Vital Sign Reading Time Taken Comments Blood Pressure 132/84 09/21/2023 5:59 PM UNDERGROUND DISTRIBUTION ENGINEER Pulse 76 09/21/2023 5:59 PM UNDERGROUND DISTRIBUTION ENGINEER Temperature 36.9 C (98.4 F) 09/21/2023 5:59 PM UNDERGROUND DISTRIBUTION ENGINEER Respiratory Rate 18 09/21/2023 5:59 PM UNDERGROUND DISTRIBUTION ENGINEER Oxygen Saturation 96% 09/21/2023 5:59 PM UNDERGROUND DISTRIBUTION ENGINEER Inhaled Oxygen Concentration - - Weight 78 kg (172 lb) 09/21/2023 5:59 PM UNDERGROUND DISTRIBUTION ENGINEER Height 175.3 cm (5' 9 ) 09/21/2023 5:59 PM UNDERGROUND DISTRIBUTION ENGINEER Body Mass Index 25.4 09/21/2023 5:59 PM UNDERGROUND DISTRIBUTION ENGINEER Plan of Treatment Health Maintenance Due Date [...] patient's age to complete this topic Insurance [employer] O[employer] Care Teams Tree Surgeon Relationship Specialty Start Date End Date No, Physician PCP - General 03/01/23
--- OUTSIDE RECORDS SUMMARY | 2024-11-26 12:33 | XMS_ITS | CONTINUITY OF CARE DOCUMENT ---
Author Name stephen mitchell Address Unknown Organization [facility] Address [address] [place] [address] [address] [place] [address] Phone [phone] Care Team Providers Care Travograph Operator Name Role Phone Ranjit NÚÑEZ, Akash Unavailable INSURANCE PROVIDERS Payer name Policy type / Coverage type Constantin red constitution party ID SELF PAY [id number]
--- OUTSIDE RECORDS SUMMARY | 2024-11-26 12:33 | XMS_ITS | Patient Health Summary ---
Author Organization [facility] Address [address] [place] [address] Care Team Providers Care Field Return Repairer Name Role Phone Esteban Palm MD Primary Care Provider [phone] Note from [facility],non-owned Affiliates and Associated Physician Practices is amultiple site organization consisting of ambulatory clinics and hospital sitesin [place], [place], [place] and [place]. This disclosure is being madepursuant to the Care Everywhere program and may not contain all information available regarding this patient. Last updated 18.[facility] Allergies No known active allergies Medications * Be aware that medications may not be up to date on this document. Alwaysverify current medications with the patient. * acetaminophen (Tylenol) 500 MG tablet(Started 06/15/2024) Take 2 (two) tablets by mouth every 6 hours Maximum allowable Acetaminophen amount = 4 Grams (4000 mg) / 24 hours. * saline nasal spray ([place]; Baby [place]) 0.65 % nasal spray(Started 06/15/2024) [place] 1 (one) spray into each nostril every [...] and heating? Not hard at all 06/04/2024 [facility] [place] of Occupat ional Health - Occupational Stress [...] PM CDT Medical Devices Implanted Type Area Scrap Sorter Device Identifier Shelf Expiration Date Model / Serial / Lot Coil Azur Cx Hdrcl 4cm 2mm Dtch Loop Sld Implanted:Qty: 1 on 05/24/2024 by Deonna Huff MD at [facility] Win[employer]red 01/14/2029 [id number] / / [id number] Prtcl Embl 2.5mm 1ml Syr Embocube Geltn Implanted:Qty: 1 on 05/24/2024 by Deonna Huff MD at [facility] Right: Liver [employer] 01/23/2027 [id number] / / [id number] Coil Azur Cx Hdrcl 4cm 2mm Dtch Loop Sld Implanted:Qty: 1 on 05/24/2024 by Deonna Huff MD at [facility] Right: Liver [employer] Winifred 01/14/2029 [id number] / / [id number] Procedures * PHOSPHORUS BLOOD(Performed 06/15/2024) * [...] Performed for Splenic laceration, initial encounter * DE EXPLORATORY OF ABDOMEN(Performed 06/07/2024) Performed for Open [...] encounter * CARDIAC EKG ORDER(Performed 06/05/2024) * DE EXPLORATORY OF ABDOMEN(Performed 06/05/2024) Performed for Open [...] 06/03/2024) * ARTERIAL LINE NOTE(Performed 06/03/2024) * DE EXPLORATORY OF ABDOMEN(Performed 06/03/2024) Performed for Trauma [...] SENSITIVE BASELINE + 1HR(Performed 05/23/2024) * PT-INR [facility](Performed 05/23/2024) * BASIC METABOLIC PANEL (CALCIUM [...] - 10.7 x10E9/L 06/15/2024 5:40 AM CDT [facility] RBC Count 3.39(L) 4.30 - 5.80 x10E12/L 06/15/2024 5:40 AM CDT [facility] Hemoglobin 10.3(L) 13.3 - 17.5 g/dL 06/15/2024 5:40 AM [facility] Hematocrit 31.5(L) 38.7 - 51.1 % 06/15/2024 5:40 AM [facility] MCV 92.9 80.0 - 98.0 fL 06/15/2024 5:40 AM [facility] MCH 30.4 26.7 - 33.6 pg 06/15/2024 5:40 AM [facility] MCHC 32.7 31.7 - 36.3 g/dL 06/15/2024 5:40 AM [facility] RDW-CV 13.2 11.3 - 14.8 % 06/15/2024 5:40 AM [facility] Platelet Count 435(H) 150 - 420 x10E9/L 06/15/2024 5:40 AM [facility] MPV 9.8 7.8 - 11.4 fL 06/15/2024 5:40 AM [facility] Blood BLOOD SPECIMEN / Unknown Lab Venipuncture / Unknown 06/15/2024 4:17 AM CDT 06/15/2024 5:14 AM CDT Honey Alfaro MD LAB - HEMATOLOGY ORDERABLES [facility] [address] [place] [id number], [facility] [phone] * (ABNORMAL) BASIC METABOLIC PANEL (CALCIUM TOTAL) (06/15/2024 4:17 AM CDT) Only the most recent of31 resultswithin the time period is included. BUN 20 7 - 26 mg/dL 06/15/2024 5:51 AM [facility] Creatinine 0.68(L) 0.71 - 1.16 mg/dL 06/15/2024 5:51 AM [facility] Sodium 139 136 - 145 mmol/L 06/15/2024 5:51 AM [facility] Potassium 3.5 3.5 - 4.5 mmol/L 06/15/2024 5:51 AM [facility] Chloride 108(H) 98 - 107 mmol/L 06/15/2024 5:51 AM [facility] CO2 21(L) 22 - 29 mmol/L 06/15/2024 5:51 AM [facility] Glucose 114 70 - 115 mg/dL 06/15/2024 5:51 AM [facility] Calcium 8.1(L) 8.4 - 10.2 mg/dL 06/15/2024 5:51 AM [facility] Anion Gap 10 6 - 16 06/15/2024 5:51 AM [facility] BUN/Creatinine Ratio 29(H) 7 - 23 06/15/2024 5:51 AM [facility] Osmolality Calculated 291 275 - 295 mOsm/kg 06/15/2024 5:51 AM [facility] eGFR by CKD-EPI >90 >=90 mL/min/1.7 3 m2 06/15/2024 5:51 AM [facility] Blood BLOOD SPECIMEN / Unknown Lab Venipuncture / Unknown 06/15/2024 4:17 AM CDT 06/15/2024 5:14 AM CDT Honey Alfaro MD LAB - CHEMISTRY O FALGUNI Performing Organization Address City/[facility]/ZIP Co de Phone Number [address] [address], [facility] [phone] * PHOSPHORUS BLOOD (06/15/2024 4:17 AM CDT) Only the most recent of19 resultswithin the time period is included. Phosphorus 4.0 2.8 - 5.1 mg/dL 06/15/2024 5:51 AM T [facility] Blood BLOOD SPECIMEN / Unknown Lab Venipuncture / Unknown 06/15/2024 4:17 AM CDT 06/15/2024 5:14 AM CDT Honey Alfaro MD LAB - CHEMISTRY O FALGUNI [address] [place] [address], [place] [phone] * MAGNESIUM BLOOD (06/15/2024 4:17 AM CDT) Only the most recent of19 resultswithin the time period is included. Magnesium 1.9 1.6 - 2.6 mg/dL 06/15/2024 5:51 AM CDT [facility] Blood BLOOD SPECIMEN / Unknown Lab Venipuncture / Unknown 06/15/2024 4:17 AM CDT 06/15/2024 5:14 AM CDT Honey Alfaro MD LAB - CHEMISTRY O FALGUNI [address] [address], [facility] [phone] * (ABNORMAL) TRIGLYCERIDES BLOOD (06/14/2024 4:04 AM CDT) Only the most recent of3 resultswithin the time period is included. Triglycerides 225(H) <150 mg/dL 06/14/2024 4:51 AM CDT [facility] Comment: ATP III Classification of Triglycerides: <150 mg/dL: Normal 150 - 199 mg/dL: Borderline High 200 - 400 mg/dL: High >500 mg/dL: Very High Blood BLOOD SPECIMEN / Unknown Lab Venipuncture / Unknown 06/14/2024 4:04 AM CDT 06/14/2024 4:21 AM CDT Celina Tellez PA-C LAB - CHEMISTRY ONEAL CALDERA [address] [address], [facility] [phone] * (ABNORMAL) CALCIUM IONIZED WHOLE BLOOD (06/13/2024 4:08 AM CDT) Only the most recent of10 resultswithin the time period is included. Calcium Ionized 1.14 mmol/L 06/13/2024 4:28 AM CDT [facility] pH 7.45 7.35 - 7.45 pH 06/13/2024 4:28 AM CDT [facility] Ionized Calcium pH Adjusted 1.16(L) 1.19 - 1.34 mmol/L 06/13/2024 4:28 AM CDT [facility] Blood BLOOD SPECIMEN / Unknown Lab Venipuncture / Unknown 06/13/2024 4:08 AM CDT 06/13/2024 4:19 AM CDT Honey Alfaro MD LAB - CHEMISTRY O RDERABLES [facility] [address] [place] [address], [facility] [phone] * XR Abdomen Kub Portable (06/12/2024 9:29 AM CDT) Only the most recent of6 resultswithin the time period is included. Anatomical Region Laterality Modality Abdomen Radiographic Alicia ging 06/12/2024 9:53 AM CDT Impressions 06/12/2024 2:57 PM CDT IMPRESSION: Improving appearance of the previously visualized incomplete small bowel obstruction. > Dictated by Scott Baltazar MD, (vice president for philanthropy). I, Nick Polanco MD have personally reviewed and interpreted this examination/study. > Interpreting Provider: Nick Polanco MD on 06/12/2024 2:57 PM Narrative 06/12/2024 2:57 PM CDT PROCEDURE: XR ABDOMEN KUB PORTABLE, DATE/TIME OF EXAM: 06/12/2024 9:29 AM, LOCATION [facility] INDICATION: K56.609: SBO (small bowel obstruction) ([facility]) ADDITIONAL CLINICAL INFORMATION: Ordering Provider Reason [...] PORTABLE, DATE/TIME OF EXAM: 06/12/2024 9:29AM, LOCATION [facility] INDICATION: K56.609: SBO (small bowel obstruction) ([facility]) [...] obstruction. > Dictated by Scott Baltazar MD, (vice president for philanthropy). I, Nick Polanco MD have personally reviewed and interpreted this examination/study. > Interpreting Provider: Nick Polanco MD on 06/12/2024 2:57 PM Honey Alfaro MD DIAGNOSTIC ACACIA G ORDERABLES * (ABNORMAL) HEPATIC FUNCTION PANEL (06/12/2024 12:38 AM CDT) Protein Total 7.3 6.0 - 8.3 g/dL 024 1:16 AM [facility] Albumin 1.9(L) 3.4 - 5.0 g/dL 06/12/2024 1:16 AM [facility] Bilirubin Total 0.3 0.2 - 1.2 mg/dL 05/18 1:16 AM CDT [facility] Bilirubin Conjugated 0.2 0.1 - 0.5 mg/dL 06/12/2024 1:16 AM [facility] Bilirubin Unconjugated 0.1 Unconjugated Bilirubin is a calculated value: Reference ranges have not been established. mg/dL 06/12/2024 1:16 AM [facility] Alkaline Phosphatase 173(H) 40 - 150 U/L 06/12/2024 1:16 AM [facility] ALT 71(H) 5 - 55 U/L 06/12/2024 1:16 AM CDT [facility] AST 76(H) 5 - 34 U/L 06/12/2024 1:16 AM CDT [facility] Albumin/Globulin Ratio 0.4(L) 1.1 - 2.3 06/12/2024 1:16 AM CDT [facility] Blood BLOOD SPECIMEN / Unknown Venipuncture / Unknown 06/12/2024 12:38 AM CDT 06/12/2024 12:49 AM CDT Honey Alfaro MD LAB - CHEMISTRY O RDERABLES [facility] [address] [place] [address], [facility] [phone] * XR Chest 1Vw Portable (06/10/2024 5:10 AM CDT) Only the most recent of17 resultswithin the time period is included. Anatomical Region Laterality Modality Chest Radiographic Alicia ging 06/10/2024 12:1 3 PM CDT Narrative 06/10/2024 1:05 PM CDT PROCEDURE: XR CHEST 1VW PORTABLE, DATE/TIME OF EXAM: 06/10/2024 5:10 AM, LOCATION [facility] INDICATION: S36.039A: Splenic laceration, initial encounter ADDITIONAL CLINICAL INFORMATION: Ordering Provider Reason For Exam: intrapulmonary process? COMPARISON: Chest radiograph dated 06/08/2024 FINDINGS/IMPRESSION: Enteric tube coursing the stomach. Low lung volumes bilaterally with bronchovascular crowding. Mild bibasilar atelectasis. Intervally improved aeration of left retrocardiac space. There is no pleural effusion or pneumothorax. The cardiomediastinal silhouette is normal. > Dictated by James Foreman MD (vice president for philanthropy). I, Wade Garner DO have personally reviewed and interpreted this examination/study. > Interpreting Provider: Wade Garner DO on 06/10/2024 1:05 PM Procedure Note Wade Garner DO - 06/10/2024 PROCEDURE: XR CHEST 1VW PORTABLE, DATE/TIME OF EXAM: 06/10/2024 5:10AM, LOCATION [facility] INDICATION: S36.039A: Splenic laceration, initial encounter ADDITIONAL CLINICAL INFORMATION: Ordering Provider Reason For Exam: intrapulmonary process? COMPARISON: Chest radiograph dated 06/08/2024 FINDINGS/IMPRESSION: Enteric tube coursing the stomach. Low lung volumes bilaterally with bronchovascular crowding. Mildbibasilar atelectasis. Intervally improved aeration of left retrocardiac space.There is no pleural effusion or pneumothorax. The cardiomediastinal silhouetteis normal. > Dictated by James Foreman MD (vice president for philanthropy). I, Wade Garner DO have personally reviewed and interpreted this examination/study. > Interpreting Provider: Wade Garner DO on 06/10/2024 1:05 PM Honey Alfaro MD DIAGNOSTIC IMAGIN G ORDERABLES * METABOLIC STUDY (06/08/2024 11:40 AM CDT) Impressions Beatriz Lazaro MD - 06/08/2024 11:40 AM CDT [facility] DEPARTMENT OF PULMONARY, CRITICAL CARE, AND SLEEP [...] of Pulmonary, Critical Care and Sleep Medicine [facility] I have personally reviewed the fellow's interpretation of the test and made any necessary changes when needed. Beatriz Lazaro MD Mac Artistpersonal loan specialist Division of Pulmonary, Critical Care and Sleep Medicine [facility] Pager: [phone] Narrative Beatriz Lazaro MD - 06/08/2024 11:40 AM CDT Haider Fox MD 06/08/2024 12:24 PM Procedure Note Haider Fox MD - 06/08/2024 11:40 AM CDT Images from the original note were not included. Willie Marte PA-C [facility]PIRATORY THERA PY ORDERABLES * VANCOMYCIN LEVEL RANDOM (06/07/2024 6:35 AM CDT) Only the most recent of5 resultswithin the time period is included. [facility] Vancomycin Random 9.1 Therapeutic Ranges not established for random specimens ug/mL 06/07/2024 7:19 AM CDT [facility] Blood BLOOD SPECIMEN / Unknown Venipuncture / Unknown 06/07/2024 6:35 AM CDT 06/07/2024 6:39 AM CDT Narrative [facility] - 06/07/2024 7:19 AM CDT See institution protocol. Honey Alfaro MD LAB - CHEMISTRY O RDERABLES Performing Organization Address City/[facility]/ZIP Co de Phone Number [address] [address], [facility] [phone] * TYPE + SCREEN PANEL (06/07/2024 12:03 AM CDT) Only the most recent of3 resultswithin the time period is included. [facility] Antibody Screen NEG 06/07/2024 1:45 AM CDT [facility]OD [facility]ANK LAB ABO Rh AB POS 06/07/2024 1:45 AM CDT [facility] B[facility]OD [facility] LAB Blood Bank BLOOD SPECIMEN / Unknown Venipuncture / Unknown 06/07/2024 12:03 AM CDT 06/07/2024 1:09 AM CDT Calderon Ramos MD LAB - BLOOD BANK ORD ERABLES Performing Organization Address City/[facility]/ZIP Co de Phone Number [facility] [address] [place] [phone], [place] [phone] * (ABNORMAL) CBC W AUTO DIFFERENTIAL (06/07/2024 12:03 AM CDT) Only the most recent of11 resultswithin the time period is included. [facility] WBC 18.2(H) 4.0 - 10.7 x10E9/L 06/07/2024 12:15 AM [facility] RBC Count 2.92(L) 4.30 - 5.80 x10E12/L 06/07/2024 12:15 AM [facility] Hemoglobin 9.0(L) 13.3 - 17.5 g/dL 06/07/2024 12:15 AM [facility] Hematocrit 28.2(L) 38.7 - 51.1 % 06/07/2024 12:15 AM [facility] MCV 96.6 80.0 - 98.0 fL 06/07/2024 12:15 AM [facility] MCH 30.8 26.7 - 33.6 pg 06/07/2024 12:15 AM [facility] MCHC 31.9 31.7 - 36.3 g/dL 06/07/2024 12:15 AM [facility] RDW-CV 14.3 11.3 - 14.8 % 06/07/2024 12:15 AM [facility] Platelet Count 396 150 - 420 x10E9/L 06/07/2024 12:15 AM [facility] MPV 9.1 7.8 - 11.4 fL 06/07/2024 12:15 AM [facility] Neutrophil % 83.3(H) 41.0 - 74.0 % 06/07/2024 12:15 AM [facility] Lymphocyte % 5.3(L) 17.0 - 47.0 % 06/07/2024 12:15 AM [facility] Monocyte % 5.3 3.0 - 11.0 % 06/07/2024 12:15 AM [facility] Eosinophil % 1.2 0.0 - 7.0 % 06/07/2024 12:15 AM [facility] Basophil % 0.4 0.0 - 1.6 % 06/07/2024 12:15 AM [facility] Immature Granulocytes % 4.5(H) 0.0 - 1.0 % 06/07/2024 12:15 AM [facility] Neutrophil Absolute 15.18(H) 1.60 - 7.50 x10E9/L 06/07/2024 12:15 AM [facility] Lymphocyte Absolute 0.96(L) 1.00 - 4.40 x10E9/L 06/07/2024 12:15 AM CDT [facility] Monocyte Absolute 0.96 0.15 - 1.00 x10E9/L 06/07/2024 12:15 AM CDT [facility] Eosinophil Absolute 0.22 0.00 - 0.60 x10E9/L 06/07/2024 12:15 AM T [facility] Basophil Absolute 0.07 0.00 - 0.13 x10E9/L 06/07/2024 12:15 AM [facility] Blood BLOOD SPECIMEN / Unknown Venipuncture / Unknown 06/07/2024 12:03 AM CDT 06/07/2024 12:11 AM CDT Willie Marte PA-C LAB - HEMATOLOGY ORDERABLES [facility] [address] [place] [address], [facility] [phone] * (ABNORMAL) DIFFERENTIAL MANUAL (06/07/2024 12:00 AM CDT) Only the most recent of10 resultswithin the time period is included. Neutrophil % 82(H) 41 - 74 % 06/08/2024 12:57 AM [facility] Lymphocyte % 4(L) 17 - 47 % 06/08/2024 12:57 AM [facility] Monocyte % 7 3 - 11 % 06/08/2024 12:57 AM [facility] Eosinophil % 1 0 - 7 % 06/08/2024 12:57 AM [facility] Metamyelocyte % 3(H) 0% % 12:57 AM [facility] Myelocyte % 3(H) 0% % 06/08/2024 12:57 AM [facility] Neutrophil Absolute 14.27(H) 1.60 - 7.50 x10E9/L 06/08/2024 12:57 AM [facility] Lymphocyte Absolute 0.70(L) 1.00 - 4.40 x10E9/L 06/08/2024 12:57 AM T [facility] Monocyte Absolute 1.22(H) 0.15 - 1.00 x10E9/L 06/08/2024 12:57 AM [facility] Eosinophil Absolute 0.17 0.00 - 0.60 x10E9/L 06/08/2024 12:57 AM [facility] RBC Morphology REVIEWED 06/08/2024 12:57 AM [facility] Stomatocytes MANY(A) (none) 06/08/2024 12:57 AM [facility] Comment See Comment 06/08/2024 12:57 AM [facility] Comment:Platelets Clumped On Smear Blood BLOOD SPECIMEN / Unknown Venipuncture / Unknown 06/07/2024 06/08/2024 12:09 AM T Willie Marte PA-C LAB - HEMATOLOGY ORDERABLES Performing Organization Address City/State/[facility] Co de Phone Number [facility] [address] [place] [address], [facility] [phone] * (ABNORMAL) BLOOD GAS+COOX+LYTES+METAB VENOUS POCT (06/05/2024 12:16 PM CDT) pH Venous 7.45(H) 7.32 - 7.42 pH 06/05/2024 12:16 PM [facility] pO2 Venous 44(H) 35 - 40 mmHg 06/05/2024 12:16 PM [facility] pCO2 Venous 43 40 - 50 mmHg 06/05/2024 12:16 PM [facility] HCO3 Venous 29.9 20 - 30 mmol/L 06/05/2024 12:16 PM [facility] Base Excess Venous 5.2(H) -2.0 - 2.0 mmol/L 06/05/2024 12:16 PM [facility] Oxyhemoglobin Venous 73.8 % 05/18 12:16 PM [facility] Deoxyhemoglobin (HHB) Venous % 23.9 % 06/05/2024 12:16 PM [facility] Methemoglobin <0.8 0.0 - 2.0 % 06/05/2024 12:16 PM [facility] Carboxyhemoglobin 1.9 0.0 - 2.0 % 2023 12:16 PM [facility] Comment:Carboxyhemoglobin No rmal Concentration: Non-smokers: 0-2%; Smokers: 0- 9%; Toxic: >20% O2 Content Venous 13.8 Interpret within clinical context ml/dL 06/05/2024 12:16 PM [facility] Hemoglobin by COOX 13.3 12.0 - 17.6 g/dL 06/05/2024 12:16 PM [facility] O2 Saturation Venous 76 >=70 % 05/18 12:16 PM [facility] Sodium Whole Blood 134(L) 135 - 145 mmol/L 06/05/2024 12:16 PM [facility] Potassium Whole Blood 4.0 3.5 - 5.5 mmol/L 06/05/2024 12:16 PM [facility] Chloride WB 102 78 - 107 mmol/L 06/05/2024 12:16 PM [facility] Calcium Ionized 1.12 mmol/L 12:16 PM [facility] Ionized Calcium pH Adjusted 1.14(L) 1.19 - 1.34 mmol/L 06/05/2024 12:16 PM [facility] Anion Gap (AG) Arterial 2(L) 6 - 16 mmol/L 06/05/2024 12:16 PM [facility] Glucose WB 105 70 - 115 mg/dL 06/05/2024 12:16 PM [facility] Lactic Acid Whole Blood 1.5 <=2.0 mmol/L 06/05/2024 12:16 PM [facility] Blood BLOOD SPECIMEN / Unknown 06/05/2024 12:16 PM CDT 06/05/2024 12:16 PM [facility] Honey Alfaro MD LAB - POINT OF SD RE ORDERABLES [facility] [address] [place] [address], [place] [phone] * BLOOD GAS BRANDI+LYTES+METAB+COOX POC NOTIF (06/05/2024 12:14 PM CDT) [facility] Comment Notification Label Only - See Separate Report 06/05/2024 1:32 PM CDT [facility] Other MISCELLANEOUS SAMPLES / Unknown 06/05/2024 12:14 PM CDT 06/05/2024 12:14 PM CDT Shireen Baird MD LAB - BLOOD GASES ORDERABLES Performing Organization Address City/[facility]/ZIP Co de Phone Number [address] [address], [facility] [phone] * CARDIAC EKG ORDER (06/05/2024 11:50 AM CDT) Only the most recent of2 resultswithin the time period is included. Narrative 06/05/2024 11:50 AM CDT Ordered by an unspecified provider. Scanned Document CARDIAC SERVICES ORD ERABLES * LACTIC ACID BLOOD (06/04/2024 8:23 AM CDT) Only the most recent of3 resultswithin the time period is included. [facility] Lactic Acid-Stat 1.5 <=2.0 mmol/L 06/04/2024 8:50 AM CDT [facility] Blood BLOOD SPECIMEN / Unknown Venipuncture / Unknown 06/04/2024 8:23 AM CDT 06/04/2024 8:27 AM CDT Honey Alfaro MD LAB - CHEMISTRY O RDERABLES [address] [address], [facility] [phone] * CULTURE BLOOD (06/04/2024 5:45 AM CDT) Only the most recent of2 resultswithin the time period is included. [facility] Culture No growth day 5 [place] 06/09/2024 10:32 AM CDT [facility] Blood PERIPHERAL BLOOD / Unknown Venipuncture / Unknown 06/04/2024 5:45 AM CDT 06/04/2024 5:48 AM CDT Honey Alfaro MD LAB - MICROBIOLOG Y ORDERABLES [facility]CRO[facility] [address] [place] [address], [facility] [phone] * (ABNORMAL) BLOOD GASES ART + COOX PANEL (06/04/2024 12:42 AM CDT) Only the most recent of2 resultswithin the time period is included. pH Arterial 7.48(H) 7.35 - 7.45 pH 06/04/2024 12:46 AM [facility] pO2 Arterial 129(H) 80 - 100 mmHg 06/04/2024 12:46 AM [facility] pCO2 Arterial 39 35 - 45 mmHg 12:46 AM [facility] HCO3 Arterial 29.0 20.0 - 30.0 mmol/L 06/04/2024 12:46 AM [facility] BE Arterial 5.2(H) -2.0 - 2.0 mmol/L 06/04/2024 12:46 AM [facility] Oxyhemoglobin Arterial 96.3 % 06/04/2024 12:46 AM [facility] Dexoyhemoglobin (HHB) % <1.0 % 06/04/2024 12:46 AM [facility] Methemoglobin 1.2 0.0 - 2.0 % 06/04/2024 12:46 AM [facility] Carboxyhemoglobin 2.4(H) 0.0 - 2.0 % 2023 12:46 AM [facility] O2 Content Arterial 19.9 Interpret within clinical context ml/dL 06/04/2024 12:46 AM [facility] Hemoglobin by COOX 14.6 12.0 - 17.6 g/dL 06/04/2024 12:46 AM [facility] O2 Saturation Arterial 100 90 - 100 % 06/04/2024 12:46 AM CDT [facility] FI O2 Arterial 50.0 % 06/04/2024 12:46 AM CDT [facility] Blood, arterial ARTERIAL BLOOD SPECIMEN / Unknown 06/04/2024 12:42 AM CDT 06/04/2024 12:42 AM CDT Narrative [facility] - 06/04/2024 12:46 AM CDT Carboxyhemoglobin Normal Concentration: Non-smokers: 0-2%; Smokers: 0-9%; Toxic: >20% Honey Alfaro MD LAB - BLOOD GASES ORDERABLES [facility] [address] [place] [address], [place] [phone] * CULTURE FLUID+GRAM STAIN (06/04/2024 12:27 AM CDT) Culture No growth SKYLER 06/07/2024 5:07 AM CDT [facility]CRO[facility] Gram Stain Heavy Red blood cells 06/07/2024 5:07 AM CDT [facility] Gram Stain Light Polymorphonuclear cells 06/07/2024 5:07 AM CDT [facility] Gram Stain No organisms seen 024 5:07 AM CDT [facility] Other PERITONEAL FLUID / Unknown Collection / Unknown 06/04/2024 12:27 AM CDT 06/04/2024 12:27 AM CDT Honey Alfaro MD LAB - MICROBIOLOG Y ORDERABLES [facility] [address] [place] [address], [facility] [phone] * (ABNORMAL) CULTURE ANAEROBE (06/04/2024 12:26 AM CDT) Culture Rare Cutibacterium (formerly Propionibacterium ) acnes(AA) SKYLER 06/10/2024 10:40 AM CDT [facility] MICROBIOLOG[facility] Microbiology PERITONEAL FLUID / Unknown Collection / Unknown 06/04/2024 12:26 AM CDT 06/04/2024 12:26 AM CDT Honey Alfaro MD LAB - MICROBIOLOG Y ORDERABLES [facility] MICRO[facility]OLOGY [address] [place] [address], [facility] [phone] * (ABNORMAL) BLOOD GAS+COOX+LYTES+METAB ARTERIAL POCT (06/03/2024 10:15 PM CDT) pH Arterial 7.52(H) 7.35 - 7.45 pH 06/03/2024 10:15 PM [facility] pO2 Arterial 167(H) 80 - 100 mmHg 06/03/2024 10:15 PM [facility] pCO2 Arterial 40 35 - 45 mmHg 10:15 PM [facility] HCO3 Arterial 32.7(H) 20.0 - 30.0 mmol/L 06/03/2024 10:15 PM [facility] BE Arterial 9.0(H) -2.0 - 2.0 mmol/L 06/03/2024 10:15 PM [facility] Oxyhemoglobin Arterial 96.5 % 06/03/2024 10:15 PM [facility] Dexoyhemoglobin (HHB) % <1.0 % 06/03/2024 10:15 PM [facility] Methemoglobin 1.3 0.0 - 2.0 % 06/03/2024 10:15 PM [facility] Carboxyhemoglobin 1.7 0.0 - 2.0 % 2023 10:15 PM [facility] Comment:Carboxyhemoglobin No rmal Concentration: Non-smokers: 0-2%; Smokers: 0- 9%; Toxic: >20% O2 Content Arterial 19.2 Interpret within clinical context ml/dL 06/03/2024 10:15 PM [facility] Hemoglobin by COOX 13.9 12.0 - 17.6 g/dL 06/03/2024 10:15 PM [facility] O2 Saturation Arterial 99 90 - 100 % 06/03/2024 10:15 PM CDT [facility] Sodium Whole Blood 136 135 - 145 mmol/L 06/03/2024 10:15 PM CDT [facility] Potassium Whole Blood 4.0 3.5 - 5.5 mmol/L 06/03/2024 10:15 PM CDT [facility] Chloride WB 97 78 - 107 mmol/L 06/03/2024 10:15 PM CDT [facility] Calcium Ionized 0.94 mmol/L 10:15 PM CDT [facility] Ionized Calcium pH Adjusted 0.99(L) 1.19 - 1.34 mmol/L 06/03/2024 10:15 PM CDT [facility] Anion Gap (AG) Arterial 6 6 - 16 mmol/L 06/03/2024 10:15 PM CDT [facility] Glucose WB 110 70 - 115 mg/dL 06/03/2024 10:15 PM CDT [facility] Lactic Acid Whole Blood 1.8 <=2.0 mmol/L 06/03/2024 10:15 PM CDT [facility] Blood, arterial ARTERIAL BLOOD SPECIMEN / Unknown 06/03/2024 10:15 PM CDT 06/03/2024 10:16 PM CDT Honey Alfaro MD LAB - POINT OF SD RE ORDERABLES [address] [address], [facility] [phone] * BLOOD GAS ART+LYTES+METAB+COOX POC NOTIF (06/03/2024 10:10 PM CDT) Comment Notification Label Only - See Separate Report 06/03/2024 11:32 PM CDT [facility] Other MISCELLANEOUS SAMPLES / Unknown 06/03/2024 10:10 PM CDT 06/03/2024 10:13 PM CDT Jovani Banegas MD LAB - BLOOD GASES O RDERABLES [facility] [address] [address], [facility] [phone] * ETT LINE PERFORMABLE (06/03/2024 9:47 PM CDT) Narrative Crys Dawson MD - 06/03/2024 9:47 PM CDT Crys Dawson MD 06/03/2024 9:47 PM Endotracheal Tube Placement: Patient Location: OR. Intubation Event Date/Time: 06/03/2024 9:27 PM Procedure: intubation (08251) Procedure Section: Sedation: under general anesthesia. Indications [...] Time: 06/03/2024 9:35 PM Procedure: Arterial Line (40374) Procedure Section Indications: continuous blood pressure monitoring [...] MD GENERAL ANESTHESIA ORDERABLES * (ABNORMAL) PT-INR [facility] (06/03/2024 6:27 PM CDT) Only the most recent of2 resultswithin the time period is included. Pathologist [facility] PT 15.6(H) 12.1 - 14.8 Seconds 06/03/2024 6:55 PM CDT [facility] INR 1.3 See Comment 06/03/2024 6:55 PM T [facility] Comment:The suggested therap eutic range for standard coumadin (warfarin) therapy is an INR of 2.0-3.0. For high-risk patients (Mechanical Mitral Valve Prosthesis, etc.), the suggested prophylactic therapeutic range is an INR of 2.5-3.5. Blood BLOOD SPECIMEN / Unknown Venipuncture / Unknown 06/03/2024 6:27 PM CDT 06/03/2024 6:33 PM CDT Blaze Dumont MD LAB - COAGULATION OR DERABLES Performing Organization Address City/State/[facility] Co de Phone Number [facility] [address] [place] [address], [facility] [phone] * (ABNORMAL) COMPREHENSIVE METABOLIC PANEL (06/03/2024 6:27 PM CDT) BUN 49(H) 7 - 26 mg/dL 06/03/2024 7:00 PM CDT [facility] Creatinine 2.35(H) 0.71 - 1.16 mg/dL 06/03/2024 7:00 PM T [facility] Sodium 142 136 - 145 mmol/L 06/03/2024 7:00 PM T [facility] Potassium 3.6 3.5 - 4.5 mmol/L 06/03/2024 7:00 PM T [facility] Chloride 92(L) 98 - 107 mmol/L 06/03/2024 7:00 PM [facility] CO2 30(H) 22 - 29 mmol/L 06/03/2024 7:00 PM [facility] Glucose 112 70 - 115 mg/dL 06/03/2024 7:00 PM [facility] Calcium 8.8 8.4 - 10.2 mg/dL 06/03/2024 7:00 PM [facility] Protein Total 8.2 6.0 - 8.3 g/dL 06/03/2024 7:00 PM [facility] Albumin 2.8(L) 3.4 - 5.0 g/dL 06/03/2024 7:00 PM [facility] Bilirubin Total 1.5(H) 0.2 - 1.2 mg/dL 06/03/2024 7:00 PM [facility] Alkaline Phosphatase 166(H) 40 - 150 U/L 06/03/2024 7:00 PM [facility] ALT 351(H) 5 - 55 U/L 06/03/2024 7:00 PM [facility] AST 360(H) 5 - 34 U/L 06/03/2024 7:00 PM [facility] Anion Gap 20(H) 6 - 16 06/03/2024 7:00 PM [facility] BUN/Creatinine Ratio 21 7 - 23 06/03/2024 7:00 PM [facility] Osmolality Calculated 308(H) 275 - 295 mOsm/kg 06/03/2024 7:00 PM [facility] Albumin/Globulin Ratio 0.5(L) 1.1 - 2.3 06/03/2024 7:00 PM [facility] eGFR by CKD-EPI 34(L) >=90 mL/min/1.7 3 m2 06/03/2024 7:00 PM [facility] Blood BLOOD SPECIMEN / Unknown Venipuncture / Unknown 06/03/2024 6:27 PM CDT 06/03/2024 6:33 PM T Blaze Dumont MD LAB - CHEMISTRY ONEAL CALDERA [facility] Organization Address City/State/ZIP Co de Phone Number [address] [address], [facility] [phone] * EKG 12-LEAD (06/03/2024 6:12 PM CDT) Only the most recent of4 resultswithin the time period is included. Pathologist [facility] Ventricular Rate 140 BPM [facility] MUSE Atrial Rate 140 BPM [facility] MUSE P-R Interval 114 ms [facility] MUSE QRS Duration ms 80 ms [facility] MUSE Q-T Interval ms 304 ms [facility] MUSE QTC Calculation (Bezet) 464 ms [facility] MUSE Calculated P Ethridge 28 degrees [facility] MUSE Calculated R Ethridge -41 degrees [facility] MUSE Calculated T Ethridge 5 degrees [facility] MUSE Interpretation EKG SINUS TACHYCARDIA POSSIBLE [...] DAMIR, HENOK ([id number]) on 06/04/2024 12:56:07 PM [facility] MUSE 06/03/2024 6:12 PM CDT 06/04/2024 12:56 PM CDT Blaze Dumont MD ECG ORDERABLES Performing Organization Address City/[facility]/ZIP Co de Phone Number [facility] MUSE * (ABNORMAL) GLUCOSE - POINT OF CARE (05/30/2024 7:41 AM CDT) Only the most recent of8 resultswithin the time period is included. [facility] Glucose WB/POC 119(H) 70 - 115 mg/dL 05/30/2024 6:13 PM CDT [facility] Specimen Type Cap Fingerstick 2023 6:13 PM CDT [facility] Blood BLOOD SPECIMEN / Unknown 05/30/2024 7:41 AM CDT 05/30/2024 6:13 PM CDT Willie Johnson DO LAB - POINT OF CARE ORDERABLES [address] [address], [place] [phone] * TROPONIN-I HIGH SENSITIVE (05/27/2024 12:39 PM CDT) Pathologist [facility] Troponin I High Sensitive <3 <=35 ng/L 05/27/2024 1:35 PM CDT [facility] Blood BLOOD SPECIMEN / Unknown Venipuncture / Unknown 05/27/2024 12:39 PM CDT 05/27/2024 12:52 PM CDT Willie Johnson DO LAB - CHEMISTRY ORD ERABLES Performing Organization Address [facility] Co de Phone Number [address] [address], [place] [phone] * (ABNORMAL) CK BLOOD (05/27/2024 8:38 AM CDT) Pathologist [facility] CK Total 262(H) 30 - 200 U/L 05/27/2024 9:22 AM CDT [facility] Blood BLOOD SPECIMEN / Unknown Venipuncture / Unknown 05/27/2024 8:38 AM CDT 05/27/2024 8:53 AM CDT Willie Johnson DO LAB - CHEMISTRY ORD ERABLES Performing Organization Address [facility] Co de Phone Number [address] [address], [place] [phone] * PREPARE (CROSSMATCH) RBC UNIT(S), 2 Units (05/27/2024 1:17 AM CDT) Only the most recent of3 resultswithin the time period is included. Pathologist [facility] Unit Description N/A [facility] B[facility]OD [facility]ANK LAB Blood Bank BLOOD SPECIMEN / Unknown 05/23/2024 10:33 PM CDT Willie Johnson DO LAB - BLOOD BANK OR DERABLES Performing Organization Address City/[facility]/ZIP Co de Phone Number [facility] [address] [place] [address], [facility] [phone] * XR Humerus Left 2Vw or More [...] identified. > Dictated by Wade Morin DO (vice president for philanthropy). I, Adin Corral MD have personally reviewed and interpreted this examination/study. > Interpreting Provider: Adin Corral MD on 05/25/2024 8:59 AM Narrative 05/25/2024 8:59 AM CDT PROCEDURE: XR SHOULDER RIGHT 2VW OR MORE, DATE/TIME OF EXAM: 05/24/2024 8:30 PM, LOCATION [facility] INDICATION: T14.90XA: Trauma ADDITIONAL CLINICAL INFORMATION: Ordering [...] DATE/TIME OF EXAM: 05/24/2024 8:30 PM, LOCATION [facility] INDICATION: T14.90XA: Trauma ADDITIONAL CLINICAL INFORMATION: Ordering Provider Reason For Exam: acute fracture COMPARISON: None. FINDINGS: The lung volumes. Opacities noted within the right midlung, potentially atelectasis. The osseous structures are intact without acute fracture. Theglenohumeral and acromioclavicular joints are in anatomic alignment. Bone density and texture are normal. IMPRESSION: No acute fracture or dislocation identified. > Dictated by Wade Morin DO (vice president for philanthropy). Adin Pardo MD have personally reviewed and [...] identified. > Dictated by Wade Morin DO (vice president for philanthropy). Meme Pardo MD have personally reviewed and interpreted this examination/study. > Interpreting Provider: Meme Valenzuela MD on 05/25/2024 1:39 PM Narrative 05/25/2024 1:39 PM CDT PROCEDURE: XR SHOULDER LEFT 2VW OR MORE, DATE/TIME OF EXAM: 05/24/2024 9:42 PM, LOCATION [facility] INDICATION: T14.90XA: Trauma ADDITIONAL CLINICAL INFORMATION: Ordering Provider Reason For Exam: acute fracture COMPARISON: None. FINDINGS: The osseous structures are intact without acute fracture. The glenohumeral and acromioclavicular joints are in anatomic alignment. Bone density and texture are normal. Procedure Note Meme Valenzuela MD - 05/25/2024 PROCEDURE: XR SHOULDER LEFT 2VW OR MORE, DATE/TIME OF EXAM: 49:42 PM, LOCATION [facility] INDICATION: T14.90XA: Trauma ADDITIONAL CLINICAL INFORMATION: Ordering Provider Reason For Exam: acute fracture COMPARISON: None. FINDINGS: The osseous structures are intact without acute fracture. Theglenohumeral and acromioclavicular joints are in anatomic alignment. Bone density and texture are normal. IMPRESSION: No acute fracture or dislocation identified. > Dictated by Wade Morin DO (vice president for philanthropy). Meme Pardo MD have personally reviewed and [...] Report dictated by Cherrie Villa Dr, MD (vice president for philanthropy). Eliseo Pardo MD have personally reviewed and interpreted this examination/study. > Interpreting Provider: Eliseo Mckeon MD on 05/24/2024 11:55 PM Narrative 05/24/2024 11:55 PM CDT PROCEDURE: CT 3D RECON W INDEPENDENT WKSN, DATE/TIME OF EXAM: 05/24/2024 9:10 AM, LOCATION [facility] INDICATION: T14.90XA: Trauma ADDITIONAL CLINICAL INFORMATION: Ordering [...] DATE/TIME OF EXAM: 05/24/2024 9:10 AM, LOCATION [facility] INDICATION: T14.90XA: Trauma ADDITIONAL CLINICAL INFORMATION: Ordering [...] Report dictated by Cherrie Villa Dr, MD (vice president for philanthropy). I, Eliseo Mckeon MD have personally reviewed and interpreted this examination/study. > Interpreting Provider: Eliseo Mckeon MD on 05/24/2024 11:55 PM Willie Marte PA-C CT ORDERABLES * (ABNORMAL) TEG 6 GLOBAL HEMOSTASIS W/ LYSIS (05/24/2024 3:06 AM CDT) Citrated Kaolin R (Reaction Time) 3.3(L) 4.6 - 9.1 min 05/24/2024 4:55 AM [facility] Comment:CK R result below no rmal range. Consistent with hypercoagulable clotting factors. Citrated Kaolin LY30 (Lysis) 0.0 0.0 - 2.6 % 05/24/2024 4:55 AM [facility] Citrated Functional Fibrinogen MA (Max Amplitude) 4.2(L) 15.0 - 32.0 mm 05/24/2024 4:55 AM [facility] Comment:CFF MA below normal range. Consistent with decreased fibrinogen contribution to clot strength. Citrated RapidTEG MA (Max Amplitude) <40.0(L) 52.0 - 70.0 mm 05/24/2024 4:55 AM [facility] Comment:[employer]OD SERVICE LEAD MA below normal range. Consistent with reduced clot strength from platelets or fibrinogen. Compare with CFF MA. Blood BLOOD SPECIMEN / Unknown Venipuncture / Unknown 05/24/2024 3:06 AM CDT 05/24/2024 3:40 AM CDT Willie Johnson DO LAB - HEMATOLOGY OR DERABLES [facility] [address] [place] [address], [facility] [phone] * (ABNORMAL) TEG 6S PLATELET MAPPING (05/24/2024 3:06 AM CDT) TEGPLM (Max Amplitude) Koalin <42.0(L) 53.0 - 68.0 mm 05/24/2024 4:30 AM [facility] TEGPLM (Max Amplitude) ACTF 4.2 2.0 - 19.0 mm 05/24/2024 4:30 AM [facility] TEGPLM (Max Amplitude) ADP 20.4(L) 45.0 - 69.0 mm 05/24/2024 4:30 AM [facility] Comment:ADP MA below normal range. Inhibition present. TEGPLM (Max Amplitude) AA 19.8(L) 51.0 - 71.0 mm 05/24/2024 4:30 AM CDT [facility] Comment:AA MA below normal r froilan. Inhibition present. TEGPLM %Inhibition ADP 05/24/2024 4:30 AM CDT [facility] Comment:1 or more values are outside of the TEG maximum reportable ranges, calculation cannot be determined. TEGPLM %Inhibition AA 05/24/2024 4:30 AM T [facility] Comment:1 or more values are outside of the TEG maximum reportable ranges, calculation cannot be determined. TEGPLM %Aggregation ADP 05/24/2024 4:30 AM T [facility] Comment:1 or more values are outside of the TEG maximum reportable ranges, calculation cannot be determined. TEGPLM % Aggregation AA 05/24/2024 4:30 AM T [facility] Comment:1 or more values are outside of the TEG maximum reportable ranges, calculation cannot be determined. Blood BLOOD SPECIMEN / Unknown Venipuncture / Unknown 05/24/2024 3:06 AM CDT 05/24/2024 3:40 AM CDT Willie Johnson DO LAB - HEMATOLOGY OR DERABLES [address] [address], [facility] [phone] * IR Visceral Angio (05/24/2024 1:38 AM [...] case. > Dictated by Jonathon Rosario MD (Newspaper Carrier) 05/24/2024 1:49 AM Deonna Pardo MD have [...] Huff, Attending Physician 2.Dr. Jonathon Rosario, interventional vice president for philanthropy Physician Anesthesia: 1.Local anesthesia - 10 mL [...] and draped in the usual sterile fashion. Coil Taper radiograph of the abdomen was obtained, which [...] documented. Following a series of exchanges, a 5-Citizen Of [place] vascular sheath was placed. 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 Selective catheterization of the replaced common hepatic artery was performed with a coaxially advanced 2.4 Citizen Of [place] microcatheter and angiogram was obtained. The angiogram [...] Huff, Attending Physician 2.Dr. Jonathon Rosario, interventional vice president for philanthropy Physician Anesthesia: 1.Local anesthesia - 10 mL [...] documented. Following a series of exchanges, a 5-Citizen Of [place] vascular sheath was placed. 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 Selective catheterization of the replaced common hepatic artery was performed with a coaxially advanced 2.4 Citizen [place] microcatheter andangiogram was obtained. The angiogram demonstrated [...] the procedure well [facility] There were no [...] case. > Dictated by Jonathon Rosario MD (Newspaper Carrier) 05/24/2024 1:49 AM IDeonna MD have personally reviewed and interpreted this examination/study. > Interpreting Provider: Deonna Huff MD on 05/24/2024 8:20 AM Farrukh Bedolla MD IR ORDERABLES * TRANSFUSE RED BLOOD CELL LEUKOREDUCED ML(S) (05/24/2024 12:54 AM CDT) Cheyenne Jackson DO NURSING - BLOOD DE OD TRANSFUSION * TRANSFUSE RED BLOOD CELL LEUKOREDUCED ML(S) (05/24/2024 12:44 AM CDT) Cheyenne Jackson DO NURSING - BLOOD DE OD TRANSFUSION * ETT LINE PERFORMABLE (05/24/2024 12:04 AM CDT) Narrative Jen Haskins MD - 05/24/2024 12:04 AM CDT Jen Haskins MD 05/24/2024 12:05 AM Endotracheal Tube Placement: Patient Location: OR. Intubation Event Date/Time: 05/23/2024 11:50 PM Procedure: intubation (15777) Procedure Section: Sedation: under general anesthesia. Indications [...] Rh AB POS 05/23/2024 11:40 PM CDT [facility] B[facility]OD [facility]ANK LAB Blood Bank BLOOD SPECIMEN / Unknown Venipuncture / Unknown 05/23/2024 11:02 PM CDT 05/23/2024 11:12 PM CDT Romulo Willis MD LAB - BLOOD BANK ORD ERABLES [facility] [address] [place] [address], [facility] [phone] * (ABNORMAL) URINE DRUG SCREEN IMMUNOASSAY (05/23/2024 10:18 PM CDT) Amphetamines Screen Urine Negative Negative : < 1000 ng/mL 05/23/2024 10:49 PM CDT [facility] Barbiturates Screen Urine Negative Negative : < 200 ng/mL 05/23/2024 10:49 PM CDT [facility] Benzodiazepine Screen Urine Negative Negative : < 200 ng/mL 05/23/2024 10:49 PM CDT [facility] Opiates Urine Negative Negative : < 300 ng/mL 05/23/2024 10:49 PM T [facility] Cocaine Metabolites Urine Negative Negative : < 300 ng/mL 05/23/2024 10:49 PM CDT [facility] Phencyclidine Screen Urine Negative Negative : < 25 ng/ml 05/23/2024 10:49 PM T [facility] Cannabinoids Screen Urine Positive(A) Negative : <50 ng/mL 05/23/2024 10:49 PM T [facility] Comment:Positive urine canna binoids (THC) screening results should be confirmed by another generally accepted non-immunological method such as gas chromatography or mass spectrometry. Methadone Screen Urine Negative Negative : < 300 ng/mL 05/23/2024 10:49 PM CDT [facility] Fentanyl Screen Urine Negative Negative : <1.5 ng/mL 05/23/2024 10:49 PM CDT [facility] Urine URINE / Unknown Collection / Unknown 05/23/2024 10:18 PM CDT 05/23/2024 10:36 PM CDT Narrative [facility] - 05/23/2024 10:49 PM CDT The Urine Toxicology Screening Panel does not screen for Propoxyphene, Meprobamate, Carisoprodol, Trazodone, ylau-bao-craupxb medications and/or volatiles (Acetone, Isopropanol, Methanol or Ethylene Glycol). Ethanol, Salicylate, Acetaminophen, Tricyclic Antidepressants and several therapeutic drugs may be individually assayed in serum or plasma specimen. Toxicology testing by the [facility] is an aid to medical diagnosis and treatment of patients. No documented chain of custody was maintained. Results are intended to be used for clinical purposes only. Romulo Willis MD LAB - URINE CHEMISTR Y ORDERABLES Performing Organization Address City/[facility]/ZIP Co de Phone Number [address] [address], [facility] [phone] * TROPONIN-I HIGH SENSITIVE REFLEX 1HOUR (05/23/2024 9:54 PM CDT) Troponin I High Sensitive 4 <=35 ng/L 05/23/2024 10:38 PM CDT [facility] Delta Troponin I HS 1 <6 ng/L 05/23/2024 10:38 PM CDT [facility] Blood BLOOD SPECIMEN / Unknown Venipuncture / Unknown 05/23/2024 9:54 PM CDT 05/23/2024 10:17 PM CDT Romulo Willis MD LAB - CHEMISTRY ORDE RABLES Performing Organization Address City/[facility]/ZIP Co de Phone Number [address] [address], [place] [phone] * CT CHEST ABDOMEN PELVIS W CONT [...] verification. > Dictated by He Cerna MD (vice president for philanthropy). I, Eliseo Mckeon MD have personally reviewed and interpreted this examination/study. > Interpreting Provider: Eliseo Mckeon MD on 05/24/2024 12:43 AM Narrative 05/24/2024 12:43 AM CDT PROCEDURE: CT CHEST ABDOMEN PELVIS W CONT, DATE/TIME OF EXAM: 05/23/2024 9:34 PM, LOCATION [facility] INDICATION: Trauma COMPARISON: None. TECHNIQUE: CT of [...] area. Small fat-containing umbilical hernia. Procedure Note Elieso Mckeon MD - 05/24/2024 PROCEDURE: CT CHEST ABDOMEN PELVIS W CONT, DATE/TIME OF EXAM: 05/23/2024 9:34 PM, LOCATION [facility] INDICATION: Trauma COMPARISON: None. TECHNIQUE: CT of [...] verification. > Dictated by He Cerna MD (vice president for philanthropy). I, Eliseo Mckeon MD have personally reviewed [...] hepatic lobe, right adrenal gland hemorrhage, and qnbme-wc-pcenmkox volume hemoperitoneum within the abdomen and pelvis. [...] DATE/TIME OF EXAM: 05/23/2024 9:34 PM, LOCATION: [facility] HISTORY: Trauma EXAMINATION: CT scan of the [...] aspect of the right hepatic lobe and joxkh-zq-tcryovww volume hemoperitoneum within the abdomen and pelvis. 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 Osseous structures are demineralized. DISCS: Normal. DEGENERATIVE CHANGES: No significant degenerative changes for age. SPINAL CANAL/NEUROFORAMEN: No significant osseous spinal canal stenosisor neuroforaminal narrowing. SOFT TISSUES: Visualized soft tissues are normal. OTHER: Mild degenerative of the bilateral sacroiliac joints, leftgreater than right. Partially imaged laceration of the posterior aspect of the right hepatic lobe and whvpi-rp-yztbhmbx volume hemoperitoneum withinthe abdomen and pelvis. Right [...] hepatic lobe, right adrenal gland hemorrhage, and ucqcg-mr-gcftuwhf volume hemoperitoneum within theabdomen and pelvis. Report [...] hepatic lobe, right adrenal gland hemorrhage, and jeald-ij-ljkahilk volume hemoperitoneum within the abdomen and pelvis. [...] DATE/TIME OF EXAM: 05/23/2024 9:34 PM, LOCATION: [facility] HISTORY: Trauma EXAMINATION: CT scan of the [...] aspect of the right hepatic lobe and cbmas-ou-rmxwgfab volume hemoperitoneum within the abdomen and pelvis. [...] DATE/TIME OF EXAM: 05/23/2024 9:34 PM, LOCATION: [facility] HISTORY: Trauma EXAMINATION: CT scan of the [...] Incidentally noted congenital incomplete fusion of the F5ubtbc transverse process. Osseous structures are demineralized. DISCS: Normal. DEGENERATIVE CHANGES: No significant degenerative changes for age. SPINAL CANAL/NEUROFORAMEN: No significant osseous spinal canal stenosisor neuroforaminal narrowing. SOFT TISSUES: Visualized soft tissues are normal. OTHER: Mild degenerative of the bilateral sacroiliac joints, leftgreater than right. Partially imaged laceration of the posterior aspect of the right hepatic lobe and ivatx-kx-fztmgydz volume hemoperitoneum withinthe abdomen and pelvis. Right [...] hepatic lobe, right adrenal gland hemorrhage, and qtoqp-cg-pjhvjbgy volume hemoperitoneum within theabdomen and pelvis. Report [...] hepatic lobe, right adrenal gland hemorrhage, and bwxmb-pj-zwkhbnde volume hemoperitoneum within the abdomen and pelvis. [...] DATE/TIME OF EXAM: 05/23/2024 9:34 PM, LOCATION: [facility] HISTORY: Trauma EXAMINATION: CT scan of the [...] aspect of the right hepatic lobe and wqbuc-mw-foybvioi volume hemoperitoneum within the abdomen and pelvis. [...] DATE/TIME OF EXAM: 05/23/2024 9:34 PM, LOCATION: [facility] HISTORY: Trauma EXAMINATION: CT scan of the [...] Incidentally noted congenital incomplete fusion of the T7yxted transverse process. Osseous structures are demineralized. DISCS: Normal. DEGENERATIVE CHANGES: No significant degenerative changes for age. SPINAL CANAL/NEUROFORAMEN: No significant osseous spinal canal stenosisor neuroforaminal narrowing. SOFT TISSUES: Visualized soft tissues are normal. OTHER: Mild degenerative of the bilateral sacroiliac joints, leftgreater than right. Partially imaged laceration of the posterior aspect of the right hepatic lobe and vrblg-ud-fodlgemd volume hemoperitoneum withinthe abdomen and pelvis. Right [...] hepatic lobe, right adrenal gland hemorrhage, and wlyri-ag-omhzihnv volume hemoperitoneum within theabdomen and pelvis. Report [...] hepatic lobe, right adrenal gland hemorrhage, and bklvt-az-shykkkno volume hemoperitoneum within the abdomen and pelvis. [...] DATE/TIME OF EXAM: 05/23/2024 9:34 PM, LOCATION: [facility] HISTORY: Trauma EXAMINATION: CT scan of the [...] aspect of the right hepatic lobe and dwnlu-in-joekrpmv volume hemoperitoneum within the abdomen and pelvis. [...] DATE/TIME OF EXAM: 05/23/2024 9:34 PM, LOCATION: [facility] HISTORY: Trauma EXAMINATION: CT scan of the [...] Incidentally noted congenital incomplete fusion of the G7ukfoo transverse process. Osseous structures are demineralized. DISCS: Normal. DEGENERATIVE CHANGES: No significant degenerative changes for age. SPINAL CANAL/NEUROFORAMEN: No significant osseous spinal canal stenosisor neuroforaminal narrowing. SOFT TISSUES: Visualized soft tissues are normal. OTHER: Mild degenerative of the bilateral sacroiliac joints, leftgreater than right. Partially imaged laceration of the posterior aspect of the right hepatic lobe and sufdy-vl-gvpacaox volume hemoperitoneum withinthe abdomen and pelvis. Right [...] hepatic lobe, right adrenal gland hemorrhage, and pfven-wv-dopptpif volume hemoperitoneum within theabdomen and pelvis. Report [...] hepatic lobe, right adrenal gland hemorrhage, and hqeov-xp-wpjeqode volume hemoperitoneum within the abdomen and pelvis. [...] DATE/TIME OF EXAM: 05/23/2024 9:34 PM, LOCATION: [facility] HISTORY: Trauma EXAMINATION: CT scan of the [...] aspect of the right hepatic lobe and itexw-bw-thjcshti volume hemoperitoneum within the abdomen and pelvis. [...] DATE/TIME OF EXAM: 05/23/2024 9:34 PM, LOCATION: [facility] HISTORY: Trauma EXAMINATION: CT scan of the [...] Incidentally noted congenital incomplete fusion of the T1zawdd transverse process. Osseous structures are demineralized. DISCS: Normal. DEGENERATIVE CHANGES: No significant degenerative changes for age. SPINAL CANAL/NEUROFORAMEN: No significant osseous spinal canal stenosisor neuroforaminal narrowing. SOFT TISSUES: Visualized soft tissues are normal. OTHER: Mild degenerative of the bilateral sacroiliac joints, leftgreater than right. Partially imaged laceration of the posterior aspect of the right hepatic lobe and ieqgq-gi-qmhpvadu volume hemoperitoneum withinthe abdomen and pelvis. Right [...] hepatic lobe, right adrenal gland hemorrhage, and vdtiw-kp-ektiecgc volume hemoperitoneum within theabdomen and pelvis. Report dictated by Twan Mullen MD I, Yadira Jj MD, PhD have personally reviewed and interpreted this examination/study. > Interpreting Provider: Yadira Jj MD, PhD on 05/24/2024 12:28 AM Romulo Willis MD CT ORDERABLES * TROPONIN-I HIGH SENSITIVE BASELINE + 1HR (05/23/2024 8:58 PM CDT) [facility] Troponin I High Sensitive 3 <=35 ng/L 05/23/2024 9:41 PM CDT [facility] Blood BLOOD SPECIMEN / Unknown Venipuncture / Unknown 05/23/2024 8:58 PM CDT 05/23/2024 9:21 PM CDT Romulo Willis MD LAB - CHEMISTRY [facility] Organization Address City/State/ZIP Co de Phone Number [facility] [address] [place] [phone], [facility] [phone] * (ABNORMAL) ALCOHOL ETHYL BLOOD (05/23/2024 8:58 PM CDT) Ethanol (mg/dL) 296(H) <10 mg/dL 9:37 PM CDT [facility] Ethanol Calculated (g/dL) 0.296(H) <=0.010 g/dL 05/23/2024 9:37 PM CDT [facility] Blood BLOOD SPECIMEN / Unknown Venipuncture / Unknown 05/23/2024 8:58 PM CDT 05/23/2024 9:21 PM CDT Narrative [facility] - 05/23/2024 9:37 PM CDT Ethanol Interp <10: None Detected. Depression of CORN GRINDER: >100 mg/dl Potentially Critical: >250 mg/dl Potentially [...] Willis MD LAB - CHEMISTRY [facility] Organization Address City/State/ZIP Co de Phone Number [facility] [address] [place] [phone], [facility] [phone] * XR PELVIS 1 OR 2VW (05/23/2024 8:57 PM CDT) Anatomical Region Laterality Modality Pelvis Radiographic Alicia ging 05/23/2024 9:00 PM CDT Impressions 05/23/2024 10:01 PM CDT IMPRESSION: No acute fracture identified. Report dictated by Cherrie Villa Dr, MD (vice president for philanthropy). IMeme MD have personally reviewed and interpreted this examination/study. > Interpreting Provider: Meme Valenzuela MD on 05/23/2024 10:01 PM Narrative 05/23/2024 10:01 PM CDT PROCEDURE: XR PELVIS 1 OR 2VW, DATE/TIME OF EXAM: 05/23/2024 8:58 PM, LOCATION [facility] INDICATION: Trauma Fracture suspected ADDITIONAL CLINICAL INFORMATION: [...] DATE/TIME OF EXAM: 05/23/2024 8:58 PM, LOCATION [facility] INDICATION: Trauma Fracture suspected ADDITIONAL CLINICAL INFORMATION: Ordering Provider Reason For Exam: Technologist Note: Additional: COMPARISON: None. FINDINGS: No acute fracture is identified. The femoral heads appear well-seated within their respective acetabula. The pubic symphysis is intact. Bone density and texture are normal. The sacroiliac joints are normal. IMPRESSION: No acute fracture identified. Report dictated by Cherrie Villa Dr, MD (vice president for philanthropy). I, Meme Valenzuela MD have personally reviewed and interpreted this examination/study. > Interpreting Provider: Meme Valenzuela MD on 05/23/2024 10:01 PM Romulo Willis MD DIAGNOSTIC IMAGING [facility] Care Teams Field Return Repairer Relationship Specialty Start Date End Date Esteban Palm MD [address] [place] [id number] PCP - General Family Medicine 05/25/24
--- NOTE | 2024-11-26 12:38 | ED.CHESTPAIN ---
HPI - Chest Pain General Chief Complaint: Chest Pain Stated Complaint: chest pain Time Seen by Provider: 11/26/24 12:06 History of Present Illness HPI narrative: 44-year-old otherwise healthy appearing male with a history of hypertension presenting to the emergency department after having an abnormal EKG during preop clearance. Patient is scheduled for right rotator cuff surgery this upcoming week. Patient has no symptoms such as chest pain, chest pressure, shortness a breath, jaw pain, arm pain, nausea, vomiting, paresthesias, back pain or abdominal pain. Patient states he is otherwise in his normal state of health. He was told he had no abnormal EKG and was wheeled down to the emergency department for further evaluation. Presently patient is asymptomatic. No history of cardiac disease aside from hypertension for which he takes blood pressure medicines. No history of cardiac disease in the family. No history of heart attacks. Related Data Home Medications ?Medication ?Instructions ?Recorded ?Confirmed ?Last Taken ?Type folic acid 1 mg tablet 1 mg PO DAILY 06/01/24 11/20/24 11/20/24 History thiamine HCl (vitamin B1) 100 mg 50 mg PO DAILY 06/01/24 11/20/24 11/20/24 History tablet Allergies Allergy/AdvReac Type Severity Reaction Status Date / Time No Known Allergies Allergy Unknown Verified 11/26/24 11:41 Review of Systems Review of Systems: As reviewed above in HPI [facility] Surgical History Surgical History History of orthopedic surgery Family History Family History Other Hypertension Social History Social History Smoking packs per day: 0.5 Smoking cigarettes per day: 10.0 Years smoked: 20 Smoking pack-years: 10.00 Smoking status: Current every day smoker Alcohol intake: current Drinks per week: 5 Substance use: current Other substance usage details: couple times a week Do You Feel Safe in your Home?: Yes Lack of Transportation: No Lack of Food: Never True Current Housing: I Have Housing Concerned About Future Housing: No Difficulty Paying Gas/Electric Bills: No Difficulty Paying for Meds: No Currently Unemployed: No Education: High School Diploma/GED Difficulty w/ Childcare or Family Care: No Living arrangements: with roommate(s) Gender identity (if verbalized by the patient): Male Spiritual care concerns: No Exam Narrative: GENERAL: [Well-appearing, well-nourished, and in no acute distress.] HEAD: [Normocephalic, atraumatic.] EYES: [PERRLA and EOMI.] ENT: Nares clear, no rhinorrhea or epistaxis. Mucous membranes moist. NECK: Supple. CHEST: [Clear to auscultation. No respiratory distress.] HEART: [Regular rate and rhythm]. No murmur heard. [Normal peripheral pulses.] ABDOMEN: [Soft, nondistended], [nontender], [No rigidity or guarding] EXTREMITIES: Normal range of motion. [No edema.] SKIN: Warm, dry, no rash. NEURO: [No focal deficits]. Alert and oriented [x3.] PSYCH: [Normal mood and affect.] Course Vital Signs Vital signs: Vital Signs Temperature 36.7 C 11/26/24 11:21 Pulse Rate 79 11/26/24 11:21 Respiratory Rate 17 11/26/24 11:21 Blood Pressure 156/97 H 11/26/24 11:21 Pulse Oximetry 99 11/26/24 11:21 Oxygen Delivery Room Air 11/26/24 11:21 Temperature 36.7 C 11/26/24 11:21 Pulse Rate 76 11/26/24 11:40 Respiratory Rate 13 11/26/24 11:38 Blood Pressure 140/102 H 11/26/24 11:38 Pulse Oximetry 100 11/26/24 11:40 Oxygen Delivery Room Air 11/26/24 11:40 MDM - Chest Pain MDM Narrative Medical decision making narrative: 44-year-old otherwise healthy male with history of hypertension presenting for abnormal EKG reading. Patient was getting his preop clearance for his scheduled rotator cuff surgery when he had abnormal EKG done this morning. Patient is not any acute distress and has no symptoms whatsoever. He has regular rhythm and rate on auscultation, clear breath sounds, 2+ pulses symmetrically, normal vital signs and stable hypertension. Cardiac workup was ordered here including troponin, EKG, chest x-ray, CBC CMP and lipase. EKG was reviewed from this morning and the machine has a abnormal EKG reading however the EKG itself does not appear to have any signs of acute ischemia and when compared to his previous EKG in May does not appear to have any interval change besides changes in his heart rate. Low suspicion for any acute NM or ACS at this time. Workup shows no leukocytosis, normal hemoglobin, normal platelet count. Normal coagulation panel. Normal electrolytes, normal renal and hepatic function panel. Normal glucose. Negative troponin. Negative lipase. Chest x-rays independent reviewed does not show any pneumonia pneumothorax. Patient is still asymptomatic by my repeat evaluations. He is safe and stable for discharge home at this time with regular primary care provider follow-up and can go back to his planned workup for upcoming surgery. Medical Records Data Attestation: I reviewed the patient's medical records. Lab Data Attestation: I reviewed the patient's lab results. 11/26/24 11:41 11/26/24 11:41 Labs: Lab Results 11/26/24 Range/Units 11:41 WBC 6.5 (4.5-10.0) K/mm3 RBC 4.76 (4.6-6.20) M/mm3 Hgb 14.7 (14.0-18.0) g/dL Hct 42.8 (42.0-52.0) % MCV 89.9 (80-100) fl MCH 30.9 (26-34) pg MCHC 34.3 (32-36) g/dl RDW 12.8 (11.5-14.5) % Plt Count 237 D (150-375) k/mm3 MPV 8.7 (7.4-10.4) fl Immature Gran % (Auto) 0.6 H (0-0.5) % Neut % (Auto) 50.2 (45.5-73.1) % Lymph % (Auto) 34.2 (18.3-44.2) % Winkler % (Auto) 11.5 H (2.6-8.5) % Eos % (Auto) 2.6 (0-4.4) % Baso % (Auto) 0.9 (0.2-1.2) % Lymph # (Auto) 2.22 (0.9-3.2) K/mm3 Winkler # (Auto) 0.8 H (0.1-0.6) K/mm3 Eos # (Auto) 0.2 (0-0.3) K/mm3 Baso # (Auto) 0.1 (0.0-0.1) K/mm3 Abs Immat Gran (auto) 0.04 H (0.00-0.031) K/mm3 Absolute Neuts (auto) 3.3 (1.3-6.7) K/mm3 Absolute Nucleated RBC 0.000 (0.0-0.012) K/mm3 Nucleated RBC % 0.0 (0.0-0.2) % PT 13.2 (11.1-14.7) Seconds INR 1.0 APTT 27.2 (22.3-36.8) Seconds Sodium 136 L (137-145) mmol/L Potassium 4.2 (3.4-5.0) mmol/L Chloride 100 (98-107) mmol/L Carbon Dioxide 27 (22-30) mmol/L Anion Gap 9 (4-12) mmol/L BUN 13 D (9-20) mg/dL Creatinine 0.81 (0.7-1.3) mg/dL Estim Creat Clear Calc 99 ml/min Estimated GFR > 60 (59 - ) Glucose 96 (65-110) mg/dL Calcium 9.3 (8.4-10.2) mg/dL Total Bilirubin 0.5 (0.2-1.3) mg/dL AST 46 (17-59) U/L ALT 42 (6-50) U/L Alkaline Phosphatase 89 (38-126) U/L Troponin I < 0.012 (0.000-0.034) ng/mL Total Protein 8.0 (6.3-8.2) g/dL Albumin 4.6 (3.5-5.1) g/dL Lipase 118 (23-300) U/L Imaging Data Attestation: I personally reviewed and interpreted this imaging study as follows: My impression: No pneumonia or consolidation. No pneumothorax. Radiologist's impression: Impressions Chest X-Ray 11/26/24 12:41 IMPRESSION: 1. No acute cardiopulmonary disease. ECG Data EKG #1: Attestation: I personally reviewed and interpreted this ECG as follows: ECG completion date: 11/26/24 ECG completion time: 11:01 Prior ECG tracings: available for review Interpretation: Incomplete left bundle branch block but no ST segment elevations, depressions or inversions. No Sgarbossa criteria. Regular rate, leftward axis, regular rhythm. QTC 431, NH interval 187, QRS 119. No signs of acute occlusive NM. compared to previous EKG no significant interval change. EKG #2: Attestation: I personally reviewed and interpreted this ECG as follows: ECG completion date: 11/26/24 ECG completion time: 11:26 Prior ECG tracings: available for review Interpretation: No significant interval change, left bundle-branch block incomplete, no ST segment elevations, depressions or inversions. No evidence of acute occlusive NM. overall impression sinus rhythm with incomplete left bundle. Discharge Plan Discharge Clinical Impression: Abnormal ECG Patient Disposition: Home, Self-Care Condition: Stable Instructions: Antibiotic Form Additional Instructions: Follow-up with your regular doctor and go back to your physician for preop clearance. No signs of any heart damage, EKG was not showing any kind of acute heart attack or any concerns today. If you develop any severe symptoms such as crushing chest pain, chest pressure, difficulty breathing, jaw pain, or any other concerns return to the ER otherwise follow-up regular outpatient. Patient Language: Northern Irish Prescriptions: No Action hydrochlorothiazide 25 mg tablet 25 mg PO DAILY Qty: 90 1RF folic acid 1 mg tablet 1 mg PO DAILY thiamine HCl (vitamin B1) 100 mg tablet 50 mg PO DAILY ibuprofen [IBU] 600 mg tablet 600 mg PO Q6H PRN (Reason: fever or pain) Qty: 7 0RF Follow-up/Referrals: Esteban Palm MD [Primary Care Provider] - Time of Disposition: 12:55 Quality HEART score for chest pain patients History: slightly suspicious ECG: non specific repolarization disturbance/LBTB/PM Age: > 45 and < 65 years Risk factors: 1 or 2 risk factors Troponin: < or = to 1x normal limit Heart score: 3
== END 2024-11-26 13:14 | disposition home or self-care (01) ==
PROVIDERS: Emergency Medicine; Emergency Provider Student in an Organized Health Care Education/Training Program; PCP Family Medicine
DX: R94.31 Abnormal electrocardiogram [ECG] [EKG] (principal); F17.210 Nicotine dependence, cigarettes, uncomplicated; I10 Essential (primary) hypertension
CPT/HCPCS: 36415; 71046; 80053; 83690; 84484; 85025; 85610; 85730; 93005; 99284

== ENCOUNTER 2024-12-14 09:36 | Outpatient (CLI) | payer BC, SELFPAY | END 2024-12-14 09:37 | disposition home or self-care (01) | PROVIDERS: PCP Family Medicine; Visit Provider Family Medicine | DX: R94.31 Abnormal electrocardiogram [ECG] [EKG] (principal) | CPT/HCPCS: 78452; 93017; A9502; J2785 ==

== ENCOUNTER 2025-03-19 13:29 | Outpatient (CLI) | payer BC, SELFPAY ==
--- OUTSIDE RECORDS SUMMARY | 2025-03-19 13:39 | XMS_ITS | Clinical Summary ---
Author Organization [facility] [employer] Address [address] [facility] [place] [address] Care Team Providers Care Rental Sales Agent Name Role Phone Esteban Palm MD Primary Care Provider [phone] Source Comments [facility] [employer],non-owned Affiliates and Associated Physician Practices is amultiple site organization consisting of ambulatory clinics and hospital sitesin [place], [place], [place] and [place]. This disclosure is being madepursuant to the Care Everywhere program and may not contain all information available regarding this patient. Last updated 18.[facility] Allergies No known active allergies Medications * Be aware that medications may not be up to date on this document. Alwaysverify current medications with the patient. acetaminophen (Tylenol) 500 MG tablet Take 2 (two) tablets by mouth every 6 hours Maximum allowable Acetaminophen amount = 4 Grams (4000 mg) / 24 hours. 4 Active saline nasal spray ([place]; Baby Hasty) 0.65 % nasal spray [place] 1 (one) spray into each nostril every 1 hour as needed for Dry Nose 4 Active lidocaine (Lidoderm) 5 % patch Apply 2 (two) patches to skin every 24 hours Apply patch to most painful area and remove after 12 hours. May reapply a new patch 12 hours later. 4 Active folic acid (Folvite) 1 MG tablet Take 1 (one) tablet by mouth once daily 4 Active polyethylene glycol 3350 (Miralax) 17 g packetIndicati ons:Constipati on Take 17 (seventeen) g by mouth once daily Reasons: Constipation 4 Active senna-docusate (Senokot-S) 8.6-50 MG tablet Take 1 (one) tablet by mouth once daily 4 Active phenol 1.4 % 1 spray by Mouth/Throat route every 1 hour as needed 4 Active multiple vitamins with minerals tablet Take 1 (one) tablet by mouth once daily 4 Active white petroleum (Vaseline) ointment Apply to affected area 2 times daily 4 Active thiamine (Vitamin B-1) 100 MG tablet Take 1 (one) tablet by mouth once daily 4 Active methocarbamol (Robaxin) 750 MG tablet TAKE ONE TABLET BY MOUTH EVERY 6 HOURS NEEDED FOR MUSCLE SPASMS 12 tablet 4 05/30/20 25 Active oxyCODONE, immediate release, (Roxicodone) 5 MG tabletIndicati ons:Unspecifie d laceration of spleen, initial encounter TAKE ONE TABLET BY MOUTH EVERY 4 HOURS NEEDED 16 tablet 4 Active Active Problems Problem Noted Date Diagnosed Date Ileus following gastrointestinal surgery 024 Small bowel ischemia 06/15/2024 Leukocytosis 06/15/2024 Decreased mobility 06/15/2024 SBO (small bowel obstruction) 06/03/2024 Splenic laceration, initial encounter 05/24/2024 Multiple fractures of ribs, right side, init for clos fx 05/24/2024 Laceration of liver, initial encounter 4 Immunizations Immunization Administration Dates Next Due TDAP (7yrs+) 05/23/2024 [...] and heating? Not hard at all 06/04/2024 [facility] [place] of Occupat ional Health - Occupational Stress [...] place to sleep or slept in a longterm (including now)? No 06/04/2024 Sex and Gender Information Value Date Recorded Sex Assigned at Not on file Legal Sex Male 8:29 PM CDT Gender Identity Not on file Sexual Orientation [...] HEPATITIS B VACCINE (1 of 3 - 19+ 3-dose series) 1997 COVID-19 VACCINE (2023-2 5 season) 2024 05/08/2021, 04/17/2021 DEPRESSION SCREENING 10/17/2024 INFLUENZA VACCINE (Season Ended) 2025 08/25/2015 ZOSTER VACCINE (1 of 2) 01/03/2028 DTAP/TDAP/TD VACCINES (2 - T d or Tdap) 05/23/2034 05/23/2024 HIB VACCINE Aged Out No longer eligi ble based on patient's age to complete this topic HPV VACCINE Aged Out No longer eligi ble based on patient's age to complete this topic MENINGOCOCCAL (Group B) VACCINE SHARED DECISION-MAKING Aged Out No longer eligible based on patient's age to complete this topic MENINGOCOCCAL GROUPS A/C/Y/W VACCINE Aged Out No longer eligible b ased on patient's age to complete this topic PNEUMOCOCCAL VACCINE Aged Out No long er eligible based on patient's age to complete this topic Medical Devices Implanted Type Area Medical Stenographer Device Identifier Shelf Expiration Date Model / Serial / Lot Coil Azur Cx Hdrcl 4cm 2mm Dtch Loop Sld Implanted:Qty: 1 on 05/24/2024 by Deonna Huff MD at [facility] 01/14/2029 [id number] / / [id number] Prtcl Embl 2.5mm 1ml Syr Embocube Geltn Implanted:Qty: 1 on 05/24/2024 by Deonna Huff MD at [facility] Right: Liver [employer] 01/23/2027 [id number] / / [id number] Coil Azur Cx Hdrcl 4cm 2mm Dtch Loop Sld Implanted:Qty: 1 on 05/24/2024 by Deonna Huff MD at [facility] Right: Liver [employer] 01/14/2029 [id number] / / [id number] [facility] [facility] Address: [address] [phone] Advance Directives * Full Code (Latest Code Status on File) Date Activated Date Inactivated Comments 06/08/2024 5:14 PM 06/15/2024 5:35 PM * Full Code Date Activated Date Inactivated Comments 05/23/2024 11:39 PM 05/31/2024 6:42 PM Care Teams Rental Sales Agent Relationship Specialty Start Date End Date Esteban Palm MD [address] [place], [place] [id number] PCP - General Family Medicine 05/25/24
--- OUTSIDE RECORDS SUMMARY | 2025-03-19 13:39 | XMS_ITS | Clinical Summary ---
Author Organization [facility] [address] Address [address] [place] [phone] Care Team Providers Care Collections Specialist Name Role Phone No, Physician Primary Care Provider Allergies No known active allergies Medications al & mag hydroxide with simethicone-diph enhydramine-lido edis (MAGIC MOUTHWASH) suspension [id number] :Acute pharyngitis, unspecified etiology Swish and swallow [...] on file Legal Sex Male 1:55 PM ORNAMENTAL IRONWORKER Gender Identity Not on file Sexual Orientation Not on file Obstetrics History Last Filed Vital Signs Vital Sign Reading Time Taken Comments Blood Pressure 132/84 09/21/2023 5:59 PM ORNAMENTAL IRONWORKER Pulse 76 09/21/2023 5:59 PM ORNAMENTAL IRONWORKER Temperature 36.9 C (98.4 F) 09/21/2023 5:59 PM ORNAMENTAL IRONWORKER Respiratory Rate 18 09/21/2023 5:59 PM ORNAMENTAL IRONWORKER Oxygen Saturation 96% 09/21/2023 5:59 PM ORNAMENTAL IRONWORKER Inhaled Oxygen Concentration - - Weight 78 kg (172 lb) 09/21/2023 5:59 PM ORNAMENTAL IRONWORKER Height 175.3 cm (5' 9) 09/21/2023 5:59 PM ORNAMENTAL IRONWORKER Body Mass Index 25.4 09/21/2023 5:59 PM ORNAMENTAL IRONWORKER Plan of Treatment Health Maintenance Due Date Last Done Comments Colon Cancer Screening-Colonoscopy 1978 Depression Screening 1978 Hepatitis C Screening 1978 Prostate Cancer Screening-PSA 1978 DTaP/Tdap/Td Vaccine (1 - Tdap) 1989 Hepatitis B Screening 01/03/1996 Regular Well Visit/Exam 18-64 01/03/1996 Covid-19 Vaccine (3 - 2023-2 5 season) 2024 05/08/2021, 04/17/2021 Influenza Vaccine (Season Ended) 2025 08/25/2015 Pneumococcal vaccine <65 Aged Out No longer eligible based on patient's age to complete this topic Insurance BMdr OOS BMdr OOS Care Teams Collections Specialist Relationship Specialty Start Date End Date No, Physician PCP - General 03/01/23
--- OUTSIDE RECORDS SUMMARY | 2025-03-19 13:39 | XMS_ITS | Continuity of Care Document ---
Author Organization [facility] Address [address] [place] [address] [place] [address] Phone Care Team Providers Care Logistics Coordinator Name Role Phone Matty Dasilva MD Unavailable Unavailable Allergies, Adverse Reactions, Alerts Substance Reaction Status Criticality No Known Allergies Active No Inform ation Medications Medication Instructions Dosage Effective Dates (start - stop) Status Comments Klonopin 1 mg tablet take 1 tablet (1MG) by oral route every bedtime 1 MG - Active Procedures Procedure Date PREV VISIT, [facility], AGE 18-39 OFFICE/OUTPATIENT VISIT, [facility] Advance Directives Directive Yes / No Effective Date File Name No Information Encounters Encounter Description Practice Location Reason(s) For Visit Diagnoses Date Provider Providers Copied on Encounter PREV VISIT, NEW, AGE 18-39 [facility], [address] [place], [place], [id number], [place] tel:[phone] [facility] Physical (chief complaint) Routine Medical ExamInsomnia, OtherRoutine Medical ExamGeneralized anxiety disorder [address] [facility] [place], [id number] , [place]. tel:[phone] Referring Provider: Matty Dasilva, [address] [facility] [place], [id number]. tel:[phone] Family History Family Member Type Diagnosis Age [...] Mental Status Date Cognitive Assessment Orientation - Clyde ed to time, place, person, situation.
--- OUTSIDE RECORDS SUMMARY | 2025-03-19 13:39 | XMS_ITS | CONTINUITY OF CARE DOCUMENT ---
Author Name stephen mitchell Address Unknown Organization [facility] Address [address] [place] [address] [address] [place] [address] Phone [phone] Care Team Providers Care Crutching Contractor Name Role Phone Ranjit NÚÑEZ, Akash Unavailable INSURANCE PROVIDERS Payer name Policy type / Coverage type Constantin red constitution party ID [id number] PAY [id number]
--- OUTSIDE RECORDS SUMMARY | 2025-03-19 13:39 | XMS_ITS | Referral Summary ---
Author Organization [facility] [address] Address [address] [place] [phone] Care Team Providers Care Nurse Ob Name Role Phone No, Physician Primary Care Provider [phone] Allergies No known active allergies Medications al & mag hydroxide with simethicone-diph enhydramine-lido edis (MAGIC MOUTHWASH) suspension [id number] :Acute pharyngitis, unspecified etiology Swish and swallow [...] on file Legal Sex Male 1:55 PM TANK BUILDER AND ERECTOR Gender Identity Not on file Sexual Orientation Not on file Last Filed Vital Signs Vital Sign Reading Time Taken Comments Blood Pressure 132/84 09/21/2023 5:59 PM TANK BUILDER AND ERECTOR Pulse 76 09/21/2023 5:59 PM TANK BUILDER AND ERECTOR Temperature 36.9 C (98.4 F) 09/21/2023 5:59 PM TANK BUILDER AND ERECTOR Respiratory Rate 18 09/21/2023 5:59 PM TANK BUILDER AND ERECTOR Oxygen Saturation 96% 09/21/2023 5:59 PM TANK BUILDER AND ERECTOR Inhaled Oxygen Concentration - - Weight 78 kg (172 lb) 09/21/2023 5:59 PM TANK BUILDER AND ERECTOR Height 175.3 cm (5' 9) 09/21/2023 5:59 PM TANK BUILDER AND ERECTOR Body Mass Index 25.4 09/21/2023 5:59 PM TANK BUILDER AND ERECTOR Plan of Treatment Not on file Insurance [employer] OOS At[place] OOS Care Teams Nurse Ob Relationship Specialty Start Date End Date No, Physician PCP - General 03/01/23
[2025-03-19 13:55] LABS: Chloride 102 mmol/L (98-107)
[2025-03-19 14:22] LABS: Potassium 4.6 mmol/L (3.4-5.0)
[2025-03-19 14:23] LABS: Anion Gap 14 mmol/L (4-12); Blood Urea Nitrogen 16 mg/dL (9-20); Calcium 9.4 mg/dL (8.4-10.2); Carbon Dioxide 18 mmol/L (22-30); Estimated Glomerular Filt Rate > 60; Glucose 88 mg/dL (65-110); Sodium 134 mmol/L (137-145)
== END 2025-03-19 13:30 | disposition home or self-care (01) ==
LOC: ANHSURGERY 13:32
PROVIDERS: Anesthesiology; PCP Family Medicine; Visit Provider Orthopaedic Surgery
DX: Z79.899 Other long term (current) drug therapy (principal); Z01.818 Encounter for other preprocedural examination
CPT/HCPCS: 36415; 80048

== ENCOUNTER 2025-03-22 01:01 | Day surgery (SDC) | payer BC, SELFPAY ==
[2024-11-20 13:24] VITALS: BMI 25.8
--- NOTE | 2024-11-20 13:45 | SUR.PREOP ---
Report to the Outpatient Waiting Room, entrance under the green pavilion located off [facility], at time 1000 on date 11/30/24. Planned Procedure Time: 1200.? Time changes happen often and if your time is changed the preop area will call you the afternoon before. - You and your visitor will be asked to self-screen and do not enter if you have any COVID symptoms. Please call surgeon if you need to reschedule. - A mask is optional within the hospital at this time. Patients may have clear liquids (water, carbonated beverages, clear teas, apple juice) until 3 hours prior to surgery with a maximum of 20 ounces. - No food from midnight until time of surgery and no smoking, or chewing Tabacco (or any form of nicotine). No chewing gum, candy or mints. - Infants may have breast milk until 4 hours before surgery, infant formula 6 hours prior to surgery. - Children will be allowed to drink immediately following surgery.? If applicable, please bring a bottle or sippy cup to assist with drinking. Juice, water, soda, and popsicles are readily available.? For infants on formula, please bring formula the day of surgery.? Pacifiers are allowed. Take only the following medications with a SIP of water on the morning of surgery: N/A DO NOT STOP ANY OF YOUR OTHER PRESCRIPTION MEDICATIONS PRIOR TO SURGERY EXCEPT THE FOLLOWING Medications to discontinue per physician NSAIDS STOPPED X 7 DAYS PRIOR, VITAMINS AND SUPPLIMENTS X 3 DAYS PRIOR Date to take last dose NSAIDS= 11/23/24, VIT & SUPP.= 11/27/24 Please no make-up, nail nauruan, hairspray, perfume, deodorant, or body powder the day of surgery.? No jewelry (including any body piercings) or valuables the day of surgery, leave them at home.? Please take a shower or bath the night before, or the morning of, surgery with an antibacterial soap.? Wear comfortable, loose fitting clothing.? Children are encouraged to wear pajamas. - Jewelry must be removed prior to entering the operating room.? Rings and piercings that are not removed may be cut off. - The hospital will not accept responsibility for valuables.? - Please leave all valuables, including medications, at home the day of surgery. If you are going home after surgery, a licensed driver license reviewing officer must drive you home.? - NO public transportation without another adult if you receive anesthesia. - We recommend that an adult stay with you for 24 hours following discharge. - We also recommend that you do not drive, make important decision, drink alcoholic beverages, or take any drugs that were not prescribed by your health care provider for at least 24 hours after your discharge time. For Pediatric surgeries, we recommend two adults accompany the child home. Hold all vitamins and supplements for 3 days per anesthesiologist. Follow any additional instructions given to you from your surgeon. Telephone instructions given to NADEGE ZAMORA and asked if any additional questions and then verbalized understanding. Patient advised to call surgeon office or pre surgery nurse liaison [phone] if any additional questions.
--- OUTSIDE RECORDS SUMMARY | 2024-11-30 01:32 | XMS_ITS | Clinical Summary ---
Author Organization [facility] [address] Address [address] [place] [id number] Care Team Providers Care Prizer Hand Name Role Phone No, Physician Primary Care Provider [phone] Allergies No known active allergies Medications al & mag hydroxide with simethicone-diph enhydramine-lido edis (MAGIC MOUTHWASH) suspension [id number] :Acute pharyngitis, unspecified etiology Swish and swallow [...] on file Legal Sex Male 1:55 PM POSTAL CLERK Gender Identity Not on file Sexual Orientation Not on file Obstetrics History Last Filed Vital Signs Vital Sign Reading Time Taken Comments Blood Pressure 132/84 09/21/2023 5:59 PM POSTAL CLERK Pulse 76 09/21/2023 5:59 PM POSTAL CLERK Temperature 36.9 C (98.4 F) 09/21/2023 5:59 PM POSTAL CLERK Respiratory Rate 18 09/21/2023 5:59 PM POSTAL CLERK Oxygen Saturation 96% 09/21/2023 5:59 PM POSTAL CLERK Inhaled Oxygen Concentration - - Weight 78 kg (172 lb) 09/21/2023 5:59 PM POSTAL CLERK Height 175.3 cm (5' 9) 09/21/2023 5:59 PM POSTAL CLERK Body Mass Index 25.4 09/21/2023 5:59 PM POSTAL CLERK Plan of Treatment Health Maintenance Due Date [...] patient's age to complete this topic Insurance [employer] OOS In[employer] OOS Care Teams Prizer Hand Relationship Specialty Start Date End Date No, Physician PCP - General 03/01/23
--- OUTSIDE RECORDS SUMMARY | 2024-11-30 01:32 | XMS_ITS | Continuity of Care Document ---
Author Organization [facility] Address [address] [facility] [place] [address] [place] [address] Phone Care Team Providers Care Pneumatic System Conveyor Operator Name Role Phone Matty Dasilva MD Unavailable Unavailable Allergies, Adverse Reactions, Alerts Substance Reaction Status Criticality No Known Allergies Active No Inform ation Medications Medication Instructions Dosage Effective Dates (start - stop) Status Comments Klonopin 1 mg tablet take 1 tablet (1MG) by oral route every bedtime 1 MG - Active Procedures Procedure Date PREV VISIT, [facility], AGE 18-39 OFFICE/OUTPATIENT VISIT, [facility] Advance Directives Directive Yes / No Effective Date File Name No Information Encounters Encounter Description Practice Location Reason(s) For Visit Diagnoses Date Provider Providers Copied on Encounter PREV VISIT, NEW, AGE 18-39 [facility], [address] [place], [place], [id number], [place] tel:[phone] [facility] Physical (chief complaint) Routine Medical ExamInsomnia, OtherRoutine Medical ExamGeneralized anxiety disorder [address] [facility] [place] [id number] , [place]. tel:[phone] Referring Provider: Matty Dasilva, [address] [facility] [place], [id number]. tel:[phone] Family History Family Member Type Diagnosis Age At Onset Father Problem (finding) Hypertension Sister Problem (finding) Alive and well Mother Problem (finding) Hypertension Payers Payer name Insurance type Covered libertarian ID Authoriza tion(s) No Information Social History [...] Mental Status Date Cognitive Assessment Orientation - [place] ed to time, place, person, situation.
--- OUTSIDE RECORDS SUMMARY | 2024-11-30 01:32 | XMS_ITS | Referral Summary ---
Author Organization [facility] [place] [address] Address [address] [place] [phone] Care Team Providers Care Environmental Health Inspector Name Role Phone No, Physician Primary Care Provider [phone] Allergies No known active allergies Medications al & mag hydroxide with simethicone-diph enhydramine-lido edis (MAGIC MOUTHWASH) suspension [id number] :Acute pharyngitis, unspecified etiology Swish and swallow [...] on file Legal Sex Male 1:55 PM GALVANIZER ZINC Gender Identity Not on file Sexual Orientation Not on file Last Filed Vital Signs Vital Sign Reading Time Taken Comments Blood Pressure 132/84 09/21/2023 5:59 PM GALVANIZER ZINC Pulse 76 09/21/2023 5:59 PM GALVANIZER ZINC Temperature 36.9 C (98.4 F) 09/21/2023 5:59 PM GALVANIZER ZINC Respiratory Rate 18 09/21/2023 5:59 PM GALVANIZER ZINC Oxygen Saturation 96% 09/21/2023 5:59 PM GALVANIZER ZINC Inhaled Oxygen Concentration - - Weight 78 kg (172 lb) 09/21/2023 5:59 PM GALVANIZER ZINC Height 175.3 cm (5' 9) 09/21/2023 5:59 PM GALVANIZER ZINC Body Mass Index 25.4 09/21/2023 5:59 PM GALVANIZER ZINC Plan of Treatment Not on file Insurance [employer] OOS Modi[employer] OOS Care Teams Environmental Health Inspector Relationship Specialty Start Date End Date No, Physician PCP - General 03/01/23
--- OUTSIDE RECORDS SUMMARY | 2024-11-30 01:32 | XMS_ITS | Patient Health Summary ---
Author Organization [facility] Address [address] [facility] [place] [address] Care Team Providers Care Aviation Safety Officer Name Role Phone Esteban Palm MD Primary Care Provider [phone] Note from [facility],non-owned Affiliates and Associated Physician Practices is amultiple site organization consisting of ambulatory clinics and hospital sitesin [place], [place], [place] and [place]. This disclosure is being madepursuant to the Care Everywhere program and may not contain all information available regarding this patient. Last updated 18.[facility] Allergies No known active allergies Medications * Be aware that medications may not be up to date on this document. Alwaysverify current medications with the patient. * acetaminophen (Tylenol) 500 MG tablet(Started 06/15/2024) Take 2 (two) tablets by mouth every 6 hours Maximum allowable Acetaminophen amount = 4 Grams (4000 mg) / 24 hours. * saline nasal spray ([place]; Baby Sanderson) 0.65 % nasal spray(Started 06/15/2024) [place] 1 (one) spray into each nostril every [...] and heating? Not hard at all 06/04/2024 [facility] Occupat ional Health - Occupational Stress [...] place to sleep or slept in a [place] facility (including now)? No 06/04/2024 Sex and Gender [...] 2:31 PM CDT Height 175.3 cm (5' 9) 07/10/2024 2:31 PM CDT Body Mass Index 23.04 07/10/2024 2:31 PM CDT Medical Devices Implanted Type Area Milk Treater Device Identifier Shelf Expiration Date Model / Serial / Lot Coil Azur Cx Hdrcl 4cm 2mm Dtch Loop Sld Implanted:Qty: 1 on 05/24/2024 by Deonna Huff MD at [facility] Win[employer]red 01/14/2029 [id number] / / [id number] Prtcl Embl 2.5mm 1ml Syr Embocube Geltn Implanted:Qty: 1 on 05/24/2024 by Deonna Huff MD at [facility] Right: Liver [employer] 01/23/2027 [id number] / / [id number] Coil Azur Cx Hdrcl 4cm 2mm Dtch Loop Sld Implanted:Qty: 1 on 05/24/2024 by Deonna Huff MD at [facility] Right: Liver [employer] Winifred 01/14/2029 [id number] / / [id number] Procedures * PHOSPHORUS BLOOD(Performed 06/15/2024) * [...] Performed for Splenic laceration, initial encounter * MO EXPLORATORY OF ABDOMEN(Performed 06/07/2024) Performed for Open [...] encounter * CARDIAC EKG ORDER(Performed 06/05/2024) * MO EXPLORATORY OF ABDOMEN(Performed 06/05/2024) Performed for Open [...] 06/03/2024) * ARTERIAL LINE NOTE(Performed 06/03/2024) * MO EXPLORATORY OF ABDOMEN(Performed 06/03/2024) Performed for Trauma [...] SENSITIVE BASELINE + 1HR(Performed 05/23/2024) * PT-INR [facility](Performed 05/23/2024) * BASIC METABOLIC PANEL (CALCIUM TOTAL)(Performed 05/23/2024) * ALCOHOL ETHYL BLOOD(Performed 05/23/2024) * XR CHEST 1VW PORTABLE(Performed 05/23/2024) Performed for Trauma * XR PELVIS 1 OR 2VW(Performed 05/23/2024) Performed for Trauma Results * (ABNORMAL) CBC W/O DIFFERENTIAL (06/15/2024 4:17 AM CDT) Only the most recent of22 resultswithin the time period is included. WBC 14.8(H) 4.0 - 10.7 x10E9/L 06/15/2024 5:40 AM CDT [facility] RBC Count 3.39(L) 4.30 - 5.80 x10E12/L 06/15/2024 5:40 AM CDT [facility] Hemoglobin 10.3(L) 13.3 - 17.5 g/dL 06/15/2024 5:40 AM [facility] Hematocrit 31.5(L) 38.7 - 51.1 % 06/15/2024 5:40 AM [facility] MCV 92.9 80.0 - 98.0 fL 06/15/2024 5:40 AM [facility] MCH 30.4 26.7 - 33.6 pg 06/15/2024 5:40 AM [facility] MCHC 32.7 31.7 - 36.3 g/dL 06/15/2024 5:40 AM [facility] RDW-CV 13.2 11.3 - 14.8 % 06/15/2024 5:40 AM [facility] Platelet Count 435(H) 150 - 420 x10E9/L 06/15/2024 5:40 AM [facility] MPV 9.8 7.8 - 11.4 fL 06/15/2024 5:40 AM [facility] Blood BLOOD SPECIMEN / Unknown Lab Venipuncture / Unknown 06/15/2024 4:17 AM CDT 06/15/2024 5:14 AM CDT Honey Alfaro MD LAB - HEMATOLOGY ORDERABLES [facility] [address] [place] [address], [facility] [phone] * (ABNORMAL) BASIC METABOLIC PANEL (CALCIUM TOTAL) (06/15/2024 4:17 AM CDT) Only the most recent of31 resultswithin the time period is included. BUN 20 7 - 26 mg/dL 06/15/2024 5:51 AM [facility] Creatinine 0.68(L) 0.71 - 1.16 mg/dL 06/15/2024 5:51 AM [facility] Sodium 139 136 - 145 mmol/L 06/15/2024 5:51 AM [facility] Potassium 3.5 3.5 - 4.5 mmol/L 06/15/2024 5:51 AM [facility] Chloride 108(H) 98 - 107 mmol/L 06/15/2024 5:51 AM [facility] CO2 21(L) 22 - 29 mmol/L 06/15/2024 5:51 AM [facility] Glucose 114 70 - 115 mg/dL 06/15/2024 5:51 AM [facility] Calcium 8.1(L) 8.4 - 10.2 mg/dL 06/15/2024 5:51 AM [facility] Anion Gap 10 6 - 16 06/15/2024 5:51 AM [facility] BUN/Creatinine Ratio 29(H) 7 - 23 06/15/2024 5:51 AM [facility] Osmolality Calculated 291 275 - 295 mOsm/kg 06/15/2024 5:51 AM [facility] eGFR by CKD-EPI >90 >=90 mL/min/1.7 3 m2 06/15/2024 5:51 AM [facility] Blood BLOOD SPECIMEN / Unknown Lab Venipuncture / Unknown 06/15/2024 4:17 AM CDT 06/15/2024 5:14 AM CDT Honey Alfaro MD LAB - CHEMISTRY O FALGUNI Performing Organization Address City/[facility]/ZIP Co de Phone Number [address] [address], [facility] [phone] * PHOSPHORUS BLOOD (06/15/2024 4:17 AM CDT) Only the most recent of19 resultswithin the time period is included. Phosphorus 4.0 2.8 - 5.1 mg/dL 06/15/2024 5:51 AM T [facility] Blood BLOOD SPECIMEN / Unknown Lab Venipuncture / Unknown 06/15/2024 4:17 AM CDT 06/15/2024 5:14 AM CDT Honey Alfaro MD LAB - CHEMISTRY O FALGUNI [address] [place] [address], [place] [phone] * MAGNESIUM BLOOD (06/15/2024 4:17 AM CDT) Only the most recent of19 resultswithin the time period is included. Magnesium 1.9 1.6 - 2.6 mg/dL 06/15/2024 5:51 AM CDT [facility] Blood BLOOD SPECIMEN / Unknown Lab Venipuncture / Unknown 06/15/2024 4:17 AM CDT 06/15/2024 5:14 AM CDT Honey Alfaro MD LAB - CHEMISTRY O FALGUNI [address] [address], [facility] [phone] * (ABNORMAL) TRIGLYCERIDES BLOOD (06/14/2024 4:04 AM CDT) Only the most recent of3 resultswithin the time period is included. Triglycerides 225(H) <150 mg/dL 06/14/2024 4:51 AM CDT [facility] Comment: ATP III Classification of Triglycerides: <150 mg/dL: Normal 150 - 199 mg/dL: Borderline High 200 - 400 mg/dL: High >500 mg/dL: Very High Blood BLOOD SPECIMEN / Unknown Lab Venipuncture / Unknown 06/14/2024 4:04 AM CDT 06/14/2024 4:21 AM CDT Celina Tellez PA-C LAB - CHEMISTRY ONEAL CALDERA [address] [address], [facility] [phone] * (ABNORMAL) CALCIUM IONIZED WHOLE BLOOD (06/13/2024 4:08 AM CDT) Only the most recent of10 resultswithin the time period is included. Calcium Ionized 1.14 mmol/L 06/13/2024 4:28 AM CDT [facility] pH 7.45 7.35 - 7.45 pH 06/13/2024 4:28 AM CDT [facility] Ionized Calcium pH Adjusted 1.16(L) 1.19 - 1.34 mmol/L 06/13/2024 4:28 AM CDT [facility] Blood BLOOD SPECIMEN / Unknown Lab Venipuncture / Unknown 06/13/2024 4:08 AM CDT 06/13/2024 4:19 AM CDT Honey Alfaro MD LAB - CHEMISTRY O RDERABLES [facility] [address] [place] [address], [facility] [phone] * XR Abdomen Kub Portable (06/12/2024 9:29 AM CDT) Only the most recent of6 resultswithin the time period is included. Anatomical Region Laterality Modality Abdomen Radiographic Alicia ging 06/12/2024 9:53 AM CDT Impressions 06/12/2024 2:57 PM CDT IMPRESSION: Improving appearance of the previously visualized incomplete small bowel obstruction. > Dictated by Scott Baltazar MD, (residential director). I, Nick Polanco MD have personally reviewed and interpreted this examination/study. > Interpreting Provider: Nick Polanco MD on 06/12/2024 2:57 PM Narrative 06/12/2024 2:57 PM CDT PROCEDURE: XR ABDOMEN KUB PORTABLE, DATE/TIME OF EXAM: 06/12/2024 9:29 AM, LOCATION [facility] INDICATION: K56.609: SBO (small bowel obstruction) ([facility]) ADDITIONAL CLINICAL INFORMATION: Ordering Provider Reason For [...] PORTABLE, DATE/TIME OF EXAM: 06/12/2024 9:29AM, LOCATION [facility] INDICATION: K56.609: SBO (small bowel obstruction) ([facility]) [...] > Dictated by Scott Baltazar MD, (residential director). I, Nick Polanco MD have personally reviewed and interpreted this examination/study. > Interpreting Provider: Nick Polanco MD on 06/12/2024 2:57 PM Honey Alfaro MD DIAGNOSTIC ACACIA G ORDERABLES * (ABNORMAL) HEPATIC FUNCTION PANEL (06/12/2024 12:38 AM CDT) Protein Total 7.3 6.0 - 8.3 g/dL 024 1:16 AM [facility] Albumin 1.9(L) 3.4 - 5.0 g/dL 06/12/2024 1:16 AM [facility] Bilirubin Total 0.3 0.2 - 1.2 mg/dL 05/18 1:16 AM CDT [facility] Bilirubin Conjugated 0.2 0.1 - 0.5 mg/dL 06/12/2024 1:16 AM [facility] Bilirubin Unconjugated 0.1 Unconjugated Bilirubin is a calculated value: Reference ranges have not been established. mg/dL 06/12/2024 1:16 AM [facility] Alkaline Phosphatase 173(H) 40 - 150 U/L 06/12/2024 1:16 AM [facility] ALT 71(H) 5 - 55 U/L 06/12/2024 1:16 AM CDT [facility] AST 76(H) 5 - 34 U/L 06/12/2024 1:16 AM CDT [facility] Albumin/Globulin Ratio 0.4(L) 1.1 - 2.3 06/12/2024 1:16 AM CDT [facility] Blood BLOOD SPECIMEN / Unknown Venipuncture / Unknown 06/12/2024 12:38 AM CDT 06/12/2024 12:49 AM CDT Honey Alfaro MD LAB - CHEMISTRY O RDERABLES [facility] [address] [place] [address], [facility] [phone] * XR Chest 1Vw Portable (06/10/2024 5:10 AM CDT) Only the most recent of17 resultswithin the time period is included. Anatomical Region Laterality Modality Chest Radiographic Alicia ging 06/10/2024 12:1 3 PM CDT Narrative 06/10/2024 1:05 PM CDT PROCEDURE: XR CHEST 1VW PORTABLE, DATE/TIME OF EXAM: 06/10/2024 5:10 AM, LOCATION [facility] INDICATION: S36.039A: Splenic laceration, initial encounter ADDITIONAL CLINICAL INFORMATION: Ordering Provider Reason For Exam: intrapulmonary process? COMPARISON: Chest radiograph dated 06/08/2024 FINDINGS/IMPRESSION: Enteric tube coursing the stomach. Low lung volumes bilaterally with bronchovascular crowding. Mild bibasilar atelectasis. Intervally improved aeration of left retrocardiac space. There is no pleural effusion or pneumothorax. The cardiomediastinal silhouette is normal. > Dictated by James Foreman MD (residential director). I, Wade Garner DO have personally reviewed and interpreted this examination/study. > Interpreting Provider: Wade Garner DO on 06/10/2024 1:05 PM Procedure Note Wade Garner DO - 06/10/2024 PROCEDURE: XR CHEST 1VW PORTABLE, DATE/TIME OF EXAM: 06/10/2024 5:10AM, LOCATION [facility] INDICATION: S36.039A: Splenic laceration, initial encounter ADDITIONAL CLINICAL INFORMATION: Ordering Provider Reason For Exam: intrapulmonary process? COMPARISON: Chest radiograph dated 06/08/2024 FINDINGS/IMPRESSION: Enteric tube coursing the stomach. Low lung volumes bilaterally with bronchovascular crowding. Mildbibasilar atelectasis. Intervally improved aeration of left retrocardiac space.There is no pleural effusion or pneumothorax. The cardiomediastinal silhouetteis normal. > Dictated by James Foreman MD (residential director). I, Wade Garner DO have personally reviewed and interpreted this examination/study. > Interpreting Provider: Wade Garner DO on 06/10/2024 1:05 PM Honey Alfaro MD DIAGNOSTIC IMAGIN G ORDERABLES * METABOLIC STUDY (06/08/2024 11:40 AM CDT) Impressions Beatriz Lazaro MD - 06/08/2024 11:40 AM CDT [facility] DEPARTMENT OF PULMONARY, CRITICAL CARE, AND SLEEP [...] of Pulmonary, Critical Care and Sleep Medicine [facility] I have personally reviewed the fellow's interpretation of the test and made any necessary changes when needed. Beatriz Lazaro MD [employer] Architectpipe line repairer Division of Pulmonary, Critical Care and Sleep Medicine [facility] Pager: [phone] Narrative Beatriz Lazaro MD - 06/08/2024 11:40 AM CDT Haider Fox MD 06/08/2024 12:24 PM Procedure Note Haider Fox MD - 06/08/2024 11:40 AM CDT Images from the original note were not included. Willie Marte PA-C RESPIRATORY THERA PY ORDERABLES * VANCOMYCIN LEVEL RANDOM (06/07/2024 6:35 AM CDT) Only the most recent of5 resultswithin the time period is included. [facility] Vancomycin Random 9.1 Therapeutic Ranges not established for random specimens ug/mL 06/07/2024 7:19 AM CDT [facility] Blood BLOOD SPECIMEN / Unknown Venipuncture / Unknown 06/07/2024 6:35 AM CDT 06/07/2024 6:39 AM CDT Narrative [facility] - 06/07/2024 7:19 AM CDT See institution protocol. Honey Alfaro MD LAB - CHEMISTRY O RDERABLES Performing Organization Address City/[facility]/ZIP Co de Phone Number [address] [address], [facility] [phone] * TYPE + SCREEN PANEL (06/07/2024 12:03 AM CDT) Only the most recent of3 resultswithin the time period is included. [facility] Antibody Screen NEG 06/07/2024 1:45 AM CDT [facility] ABO Rh AB POS 06/07/2024 1:45 AM CDT [facility] Blood Bank BLOOD SPECIMEN / Unknown Venipuncture / Unknown 06/07/2024 12:03 AM CDT 06/07/2024 1:09 AM CDT Calderon Ramos MD LAB - BLOOD BANK ORD ERABLES Performing Organization Address City/[facility]/ZIP Co de Phone Number [facility] [address] [place] [phone], [place] [phone] * (ABNORMAL) CBC W AUTO DIFFERENTIAL (06/07/2024 12:03 AM CDT) Only the most recent of11 resultswithin the time period is included. [facility] WBC 18.2(H) 4.0 - 10.7 x10E9/L 06/07/2024 12:15 AM [facility] RBC Count 2.92(L) 4.30 - 5.80 x10E12/L 06/07/2024 12:15 AM [facility] Hemoglobin 9.0(L) 13.3 - 17.5 g/dL 06/07/2024 12:15 AM [facility] Hematocrit 28.2(L) 38.7 - 51.1 % 06/07/2024 12:15 AM [facility] MCV 96.6 80.0 - 98.0 fL 06/07/2024 12:15 AM [facility] MCH 30.8 26.7 - 33.6 pg 06/07/2024 12:15 AM [facility] MCHC 31.9 31.7 - 36.3 g/dL 06/07/2024 12:15 AM [facility] RDW-CV 14.3 11.3 - 14.8 % 06/07/2024 12:15 AM [facility] Platelet Count 396 150 - 420 x10E9/L 06/07/2024 12:15 AM [facility] MPV 9.1 7.8 - 11.4 fL 06/07/2024 12:15 AM [facility] Neutrophil % 83.3(H) 41.0 - 74.0 % 06/07/2024 12:15 AM [facility] Lymphocyte % 5.3(L) 17.0 - 47.0 % 06/07/2024 12:15 AM [facility] Monocyte % 5.3 3.0 - 11.0 % 06/07/2024 12:15 AM [facility] Eosinophil % 1.2 0.0 - 7.0 % 06/07/2024 12:15 AM [facility] Basophil % 0.4 0.0 - 1.6 % 06/07/2024 12:15 AM [facility] Immature Granulocytes % 4.5(H) 0.0 - 1.0 % 06/07/2024 12:15 AM [facility] Neutrophil Absolute 15.18(H) 1.60 - 7.50 x10E9/L 06/07/2024 12:15 AM [facility] Lymphocyte Absolute 0.96(L) 1.00 - 4.40 x10E9/L 06/07/2024 12:15 AM CDT [facility] Monocyte Absolute 0.96 0.15 - 1.00 x10E9/L 06/07/2024 12:15 AM CDT [facility] Eosinophil Absolute 0.22 0.00 - 0.60 x10E9/L 06/07/2024 12:15 AM T [facility] Basophil Absolute 0.07 0.00 - 0.13 x10E9/L 06/07/2024 12:15 AM [facility] Blood BLOOD SPECIMEN / Unknown Venipuncture / Unknown 06/07/2024 12:03 AM CDT 06/07/2024 12:11 AM CDT Willie Marte PA-C LAB - HEMATOLOGY ORDERABLES [facility] [address] [place] [address], [facility] [phone] * (ABNORMAL) DIFFERENTIAL MANUAL (06/07/2024 12:00 AM CDT) Only the most recent of10 resultswithin the time period is included. Neutrophil % 82(H) 41 - 74 % 06/08/2024 12:57 AM [facility] Lymphocyte % 4(L) 17 - 47 % 06/08/2024 12:57 AM [facility] Monocyte % 7 3 - 11 % 06/08/2024 12:57 AM [facility] Eosinophil % 1 0 - 7 % 06/08/2024 12:57 AM [facility] Metamyelocyte % 3(H) 0% % 12:57 AM [facility] Myelocyte % 3(H) 0% % 06/08/2024 12:57 AM [facility] Neutrophil Absolute 14.27(H) 1.60 - 7.50 x10E9/L 06/08/2024 12:57 AM [facility] Lymphocyte Absolute 0.70(L) 1.00 - 4.40 x10E9/L 06/08/2024 12:57 AM T [facility] Monocyte Absolute 1.22(H) 0.15 - 1.00 x10E9/L 06/08/2024 12:57 AM [facility] Eosinophil Absolute 0.17 0.00 - 0.60 x10E9/L 06/08/2024 12:57 AM [facility] RBC Morphology REVIEWED 06/08/2024 12:57 AM [facility] Stomatocytes MANY(A) (none) 06/08/2024 12:57 AM [facility] Comment See Comment 06/08/2024 12:57 AM [facility] Comment:Platelets Clumped On Smear Blood BLOOD SPECIMEN / Unknown Venipuncture / Unknown 06/07/2024 06/08/2024 12:09 AM T Willie Marte PA-C LAB - HEMATOLOGY ORDERABLES Performing Organization Address City/State/[facility] Co de Phone Number [facility] [address] [place] [address], [facility] [phone] * (ABNORMAL) BLOOD GAS+COOX+LYTES+METAB VENOUS POCT (06/05/2024 12:16 PM CDT) pH Venous 7.45(H) 7.32 - 7.42 pH 06/05/2024 12:16 PM [facility] pO2 Venous 44(H) 35 - 40 mmHg 06/05/2024 12:16 PM [facility] pCO2 Venous 43 40 - 50 mmHg 06/05/2024 12:16 PM [facility] HCO3 Venous 29.9 20 - 30 mmol/L 06/05/2024 12:16 PM [facility] Base Excess Venous 5.2(H) -2.0 - 2.0 mmol/L 06/05/2024 12:16 PM [facility] Oxyhemoglobin Venous 73.8 % 05/18 12:16 PM [facility] Deoxyhemoglobin (HHB) Venous % 23.9 % 06/05/2024 12:16 PM [facility] Methemoglobin <0.8 0.0 - 2.0 % 06/05/2024 12:16 PM [facility] Carboxyhemoglobin 1.9 0.0 - 2.0 % 2023 12:16 PM [facility] Comment:Carboxyhemoglobin No rmal Concentration: Non-smokers: 0-2%; Smokers: 0- 9%; Toxic: >20% O2 Content Venous 13.8 Interpret within clinical context ml/dL 06/05/2024 12:16 PM [facility] Hemoglobin by COOX 13.3 12.0 - 17.6 g/dL 06/05/2024 12:16 PM [facility] O2 Saturation Venous 76 >=70 % 05/18 12:16 PM [facility] Sodium Whole Blood 134(L) 135 - 145 mmol/L 06/05/2024 12:16 PM [facility] Potassium Whole Blood 4.0 3.5 - 5.5 mmol/L 06/05/2024 12:16 PM [facility] Chloride WB 102 78 - 107 mmol/L 06/05/2024 12:16 PM [facility] Calcium Ionized 1.12 mmol/L 12:16 PM [facility] Ionized Calcium pH Adjusted 1.14(L) 1.19 - 1.34 mmol/L 06/05/2024 12:16 PM [facility] Anion Gap (AG) Arterial 2(L) 6 - 16 mmol/L 06/05/2024 12:16 PM [facility] Glucose WB 105 70 - 115 mg/dL 06/05/2024 12:16 PM [facility] Lactic Acid Whole Blood 1.5 <=2.0 mmol/L 06/05/2024 12:16 PM [facility] Blood BLOOD SPECIMEN / Unknown 06/05/2024 12:16 PM CDT 06/05/2024 12:16 PM [facility] Honey Alfaro MD LAB - POINT OF WI RE ORDERABLES [facility] [address] [place] [address], [place] [phone] * BLOOD GAS BRANDI+LYTES+METAB+COOX POC NOTIF (06/05/2024 12:14 PM CDT) [facility] Comment Notification Label Only - See Separate Report 06/05/2024 1:32 PM CDT [facility] Other MISCELLANEOUS SAMPLES / Unknown 06/05/2024 12:14 PM CDT 06/05/2024 12:14 PM CDT Shireen Baird MD LAB - BLOOD GASES ORDERABLES Performing Organization Address City/[facility]/ZIP Co de Phone Number [address] [address], [facility] [phone] * CARDIAC EKG ORDER (06/05/2024 11:50 AM CDT) Only the most recent of2 resultswithin the time period is included. Narrative 06/05/2024 11:50 AM CDT Ordered by an unspecified provider. Scanned Document CARDIAC SERVICES ORD ERABLES * LACTIC ACID BLOOD (06/04/2024 8:23 AM CDT) Only the most recent of3 resultswithin the time period is included. [facility] Lactic Acid-Stat 1.5 <=2.0 mmol/L 06/04/2024 8:50 AM CDT [facility] Blood BLOOD SPECIMEN / Unknown Venipuncture / Unknown 06/04/2024 8:23 AM CDT 06/04/2024 8:27 AM CDT Honey Alfaro MD LAB - CHEMISTRY O RDERABLES [address] [address], [facility] [phone] * CULTURE BLOOD (06/04/2024 5:45 AM CDT) Only the most recent of2 resultswithin the time period is included. [facility] Culture No growth day 5 SKYLER 06/09/2024 10:32 AM CDT [facility] Blood PERIPHERAL BLOOD / Unknown Venipuncture / Unknown 06/04/2024 5:45 AM CDT 06/04/2024 5:48 AM CDT Honey Alfaro MD LAB - MICROBIOLOG Y ORDERABLES [facility] [address] [place] [address], [facility] [phone] * (ABNORMAL) BLOOD GASES ART + COOX PANEL (06/04/2024 12:42 AM CDT) Only the most recent of2 resultswithin the time period is included. pH Arterial 7.48(H) 7.35 - 7.45 pH 06/04/2024 12:46 AM [facility] pO2 Arterial 129(H) 80 - 100 mmHg 06/04/2024 12:46 AM [facility] pCO2 Arterial 39 35 - 45 mmHg 12:46 AM [facility] HCO3 Arterial 29.0 20.0 - 30.0 mmol/L 06/04/2024 12:46 AM [facility] BE Arterial 5.2(H) -2.0 - 2.0 mmol/L 06/04/2024 12:46 AM [facility] Oxyhemoglobin Arterial 96.3 % 06/04/2024 12:46 AM [facility] Dexoyhemoglobin (HHB) % <1.0 % 06/04/2024 12:46 AM [facility] Methemoglobin 1.2 0.0 - 2.0 % 06/04/2024 12:46 AM [facility] Carboxyhemoglobin 2.4(H) 0.0 - 2.0 % 2023 12:46 AM [facility] O2 Content Arterial 19.9 Interpret within clinical context ml/dL 06/04/2024 12:46 AM [facility] Hemoglobin by COOX 14.6 12.0 - 17.6 g/dL 06/04/2024 12:46 AM [facility] O2 Saturation Arterial 100 90 - 100 % 06/04/2024 12:46 AM CDT [facility] FI O2 Arterial 50.0 % 06/04/2024 12:46 AM CDT [facility] Blood, arterial ARTERIAL BLOOD SPECIMEN / Unknown 06/04/2024 12:42 AM CDT 06/04/2024 12:42 AM CDT Narrative [facility] - 06/04/2024 12:46 AM CDT Carboxyhemoglobin Normal Concentration: Non-smokers: 0-2%; Smokers: 0-9%; Toxic: >20% Honey Alfaro MD LAB - BLOOD GASES ORDERABLES [facility] [address] [place] [address], [place] [phone] * CULTURE FLUID+GRAM STAIN (06/04/2024 12:27 AM CDT) Culture No growth SKYLER 06/07/2024 5:07 AM CDT [facility] Gram Stain Heavy Red blood cells 06/07/2024 5:07 AM CDT [facility] Gram Stain Light Polymorphonuclear cells 06/07/2024 5:07 AM CDT [facility] Gram Stain No organisms seen 024 5:07 AM CDT [facility] Other PERITONEAL FLUID / Unknown Collection / Unknown 06/04/2024 12:27 AM CDT 06/04/2024 12:27 AM CDT Honey Alfaro MD LAB - MICROBIOLOG Y ORDERABLES [facility] [address] [place] [address], [facility] [phone] * (ABNORMAL) CULTURE ANAEROBE (06/04/2024 12:26 AM CDT) Culture Rare Cutibacterium (formerly Propionibacterium ) acnes(AA) SKYLER 06/10/2024 10:40 AM CDT [facility]CRO[facility] Microbiology PERITONEAL FLUID / Unknown Collection / Unknown 06/04/2024 12:26 AM CDT 06/04/2024 12:26 AM CDT Honey Alfaro MD LAB - MICROBIOLOG Y ORDERABLES [facility] MICROBIOLOGY [address] [place] [address], [facility] [phone] * (ABNORMAL) BLOOD GAS+COOX+LYTES+METAB ARTERIAL POCT (06/03/2024 10:15 PM CDT) pH Arterial 7.52(H) 7.35 - 7.45 pH 06/03/2024 10:15 PM [facility] pO2 Arterial 167(H) 80 - 100 mmHg 06/03/2024 10:15 PM [facility] pCO2 Arterial 40 35 - 45 mmHg 10:15 PM [facility] HCO3 Arterial 32.7(H) 20.0 - 30.0 mmol/L 06/03/2024 10:15 PM [facility] BE Arterial 9.0(H) -2.0 - 2.0 mmol/L 06/03/2024 10:15 PM [facility] Oxyhemoglobin Arterial 96.5 % 06/03/2024 10:15 PM [facility] Dexoyhemoglobin (HHB) % <1.0 % 06/03/2024 10:15 PM [facility] Methemoglobin 1.3 0.0 - 2.0 % 06/03/2024 10:15 PM [facility] Carboxyhemoglobin 1.7 0.0 - 2.0 % 2023 10:15 PM [facility] Comment:Carboxyhemoglobin No rmal Concentration: Non-smokers: 0-2%; Smokers: 0- 9%; Toxic: >20% O2 Content Arterial 19.2 Interpret within clinical context ml/dL 06/03/2024 10:15 PM [facility] Hemoglobin by COOX 13.9 12.0 - 17.6 g/dL 06/03/2024 10:15 PM [facility] O2 Saturation Arterial 99 90 - 100 % 06/03/2024 10:15 PM CDT [facility] Sodium Whole Blood 136 135 - 145 mmol/L 06/03/2024 10:15 PM CDT [facility] Potassium Whole Blood 4.0 3.5 - 5.5 mmol/L 06/03/2024 10:15 PM CDT [facility] Chloride WB 97 78 - 107 mmol/L 06/03/2024 10:15 PM CDT [facility] Calcium Ionized 0.94 mmol/L 10:15 PM CDT [facility] Ionized Calcium pH Adjusted 0.99(L) 1.19 - 1.34 mmol/L 06/03/2024 10:15 PM CDT [facility] Anion Gap (AG) Arterial 6 6 - 16 mmol/L 06/03/2024 10:15 PM CDT [facility] Glucose WB 110 70 - 115 mg/dL 06/03/2024 10:15 PM CDT [facility] Lactic Acid Whole Blood 1.8 <=2.0 mmol/L 06/03/2024 10:15 PM CDT [facility] Blood, arterial ARTERIAL BLOOD SPECIMEN / Unknown 06/03/2024 10:15 PM CDT 06/03/2024 10:16 PM CDT Honey Alfaro MD LAB - POINT OF WI RE ORDERABLES [address] [address], [facility] [phone] * BLOOD GAS ART+LYTES+METAB+COOX POC NOTIF (06/03/2024 10:10 PM CDT) Comment Notification Label Only - See Separate Report 06/03/2024 11:32 PM CDT [facility] Other MISCELLANEOUS SAMPLES / Unknown 06/03/2024 10:10 PM CDT 06/03/2024 10:13 PM CDT Jovani Banegas MD LAB - BLOOD GASES O RDERABLES [facility] [address] [address], [facility] [phone] * ETT LINE PERFORMABLE (06/03/2024 9:47 PM CDT) Narrative Crys Dawson MD - 06/03/2024 9:47 PM CDT Crys Dawson MD 06/03/2024 9:47 PM Endotracheal Tube Placement: Patient Location: OR. Intubation Event Date/Time: 06/03/2024 9:27 PM Procedure: intubation (21329) Procedure Section: Sedation: under general anesthesia. Indications [...] Time: 06/03/2024 9:35 PM Procedure: Arterial Line (04857) Procedure Section Indications: continuous blood pressure monitoring [...] MD GENERAL ANESTHESIA ORDERABLES * (ABNORMAL) PT-INR [facility] (06/03/2024 6:27 PM CDT) Only the most recent of2 resultswithin the time period is included. Pathologist [facility] PT 15.6(H) 12.1 - 14.8 Seconds 06/03/2024 6:55 PM CDT [facility] INR 1.3 See Comment 06/03/2024 6:55 PM T [facility] Comment:The suggested therap eutic range for standard coumadin (warfarin) therapy is an INR of 2.0-3.0. For high-risk patients (Mechanical Mitral Valve Prosthesis, etc.), the suggested prophylactic therapeutic range is an INR of 2.5-3.5. Blood BLOOD SPECIMEN / Unknown Venipuncture / Unknown 06/03/2024 6:27 PM CDT 06/03/2024 6:33 PM CDT Blaze Dumont MD LAB - COAGULATION OR DERABLES Performing Organization Address City/State/[facility] Co de Phone Number [facility] [address] [place] [address], [facility] [phone] * (ABNORMAL) COMPREHENSIVE METABOLIC PANEL (06/03/2024 6:27 PM CDT) BUN 49(H) 7 - 26 mg/dL 06/03/2024 7:00 PM CDT [facility] Creatinine 2.35(H) 0.71 - 1.16 mg/dL 06/03/2024 7:00 PM T [facility] Sodium 142 136 - 145 mmol/L 06/03/2024 7:00 PM T [facility] Potassium 3.6 3.5 - 4.5 mmol/L 06/03/2024 7:00 PM T [facility] Chloride 92(L) 98 - 107 mmol/L 06/03/2024 7:00 PM [facility] CO2 30(H) 22 - 29 mmol/L 06/03/2024 7:00 PM [facility] Glucose 112 70 - 115 mg/dL 06/03/2024 7:00 PM [facility] Calcium 8.8 8.4 - 10.2 mg/dL 06/03/2024 7:00 PM [facility] Protein Total 8.2 6.0 - 8.3 g/dL 06/03/2024 7:00 PM [facility] Albumin 2.8(L) 3.4 - 5.0 g/dL 06/03/2024 7:00 PM [facility] Bilirubin Total 1.5(H) 0.2 - 1.2 mg/dL 06/03/2024 7:00 PM [facility] Alkaline Phosphatase 166(H) 40 - 150 U/L 06/03/2024 7:00 PM [facility] ALT 351(H) 5 - 55 U/L 06/03/2024 7:00 PM [facility] AST 360(H) 5 - 34 U/L 06/03/2024 7:00 PM [facility] Anion Gap 20(H) 6 - 16 06/03/2024 7:00 PM [facility] BUN/Creatinine Ratio 21 7 - 23 06/03/2024 7:00 PM [facility] Osmolality Calculated 308(H) 275 - 295 mOsm/kg 06/03/2024 7:00 PM [facility] Albumin/Globulin Ratio 0.5(L) 1.1 - 2.3 06/03/2024 7:00 PM [facility] eGFR by CKD-EPI 34(L) >=90 mL/min/1.7 3 m2 06/03/2024 7:00 PM [facility] Blood BLOOD SPECIMEN / Unknown Venipuncture / Unknown 06/03/2024 6:27 PM CDT 06/03/2024 6:33 PM T Blaze Dumont MD LAB - CHEMISTRY ONEAL [facility] Organization Address City/State/ZIP Co de Phone Number [address] [address], [facility] [phone] * EKG 12-LEAD (06/03/2024 6:12 PM CDT) Only the most recent of4 resultswithin the time period is included. Pathologist [facility] Ventricular Rate 140 BPM [facility] Atrial Rate 140 BPM [facility] P-R Interval 114 ms [facility] QRS Duration ms 80 ms [facility] Q-T Interval ms 304 ms [facility] QTC Calculation (Bezet) 464 ms [facility] Calculated P [place] 28 degrees [facility] Calculated R [place] -41 degrees [facility] Calculated T [place] 5 degrees [facility] Interpretation EKG SINUS TACHYCARDIA POSSIBLE LEFT [...] DAMIR, HENOK ([id number]) on 06/04/2024 12:56:07 PM [facility] 06/03/2024 6:12 PM CDT 06/04/2024 12:56 PM CDT Blaze Dumont MD ECG ORDERABLES Performing Organization Address City/[facility]/ZIP Co de Phone Number [facility] * (ABNORMAL) GLUCOSE - POINT OF CARE (05/30/2024 7:41 AM CDT) Only the most recent of8 resultswithin the time period is included. [facility] Glucose WB/POC 119(H) 70 - 115 mg/dL 05/30/2024 6:13 PM CDT [facility] Specimen Type Cap Fingerstick 2023 6:13 PM CDT [facility] Blood BLOOD SPECIMEN / Unknown 05/30/2024 7:41 AM CDT 05/30/2024 6:13 PM CDT Willie Johnson DO LAB - POINT OF CARE ORDERABLES [address] [address], [place] [phone] * TROPONIN-I HIGH SENSITIVE (05/27/2024 12:39 PM CDT) Pathologist [facility] Troponin I High Sensitive <3 <=35 ng/L 05/27/2024 1:35 PM CDT [facility] Blood BLOOD SPECIMEN / Unknown Venipuncture / Unknown 05/27/2024 12:39 PM CDT 05/27/2024 12:52 PM CDT Willie Johnson DO LAB - CHEMISTRY ORD ERABLES Performing Organization Address [facility] Co de Phone Number [address] [address], [place] [phone] * (ABNORMAL) CK BLOOD (05/27/2024 8:38 AM CDT) Pathologist [facility] CK Total 262(H) 30 - 200 U/L 05/27/2024 9:22 AM CDT [facility] Blood BLOOD SPECIMEN / Unknown Venipuncture / Unknown 05/27/2024 8:38 AM CDT 05/27/2024 8:53 AM CDT Willie Johnson DO LAB - CHEMISTRY ORD ERABLES Performing Organization Address [facility] Co de Phone Number [address] [address], [place] [phone] * PREPARE (CROSSMATCH) RBC UNIT(S), 2 Units (05/27/2024 1:17 AM CDT) Only the most recent of3 resultswithin the time period is included. Pathologist [facility] Unit Description N/A [facility] Blood Bank BLOOD SPECIMEN / Unknown 05/23/2024 10:33 PM CDT Willie Johnson DO LAB - BLOOD BANK OR DERABLES Performing Organization Address City/[facility]/ZIP Co de Phone Number [facility] [address] [place] [address], [facility] [phone] * XR Humerus Left 2Vw or More [...] > Dictated by Wade Morin DO (residential director). I, Adin Corral MD have personally reviewed and interpreted this examination/study. > Interpreting Provider: Adin Corral MD on 05/25/2024 8:59 AM Narrative 05/25/2024 8:59 AM CDT PROCEDURE: XR SHOULDER RIGHT 2VW OR MORE, DATE/TIME OF EXAM: 05/24/2024 8:30 PM, LOCATION [facility] INDICATION: T14.90XA: Trauma ADDITIONAL CLINICAL INFORMATION: Ordering [...] DATE/TIME OF EXAM: 05/24/2024 8:30 PM, LOCATION [facility] INDICATION: T14.90XA: Trauma ADDITIONAL CLINICAL INFORMATION: Ordering Provider Reason For Exam: acute fracture COMPARISON: None. FINDINGS: The lung volumes. Opacities noted within the right midlung, potentially atelectasis. The osseous structures are intact without acute fracture. Theglenohumeral and acromioclavicular joints are in anatomic alignment. Bone density and texture are normal. IMPRESSION: No acute fracture or dislocation identified. > Dictated by Wade Morin DO (residential director). Adin Pardo MD have personally reviewed and [...] > Dictated by Wade Morin DO (residential director). Meme Pardo MD have personally reviewed and interpreted this examination/study. > Interpreting Provider: Meme Valenzuela MD on 05/25/2024 1:39 PM Narrative 05/25/2024 1:39 PM CDT PROCEDURE: XR SHOULDER LEFT 2VW OR MORE, DATE/TIME OF EXAM: 05/24/2024 9:42 PM, LOCATION [facility] INDICATION: T14.90XA: Trauma ADDITIONAL CLINICAL INFORMATION: Ordering Provider Reason For Exam: acute fracture COMPARISON: None. FINDINGS: The osseous structures are intact without acute fracture. The glenohumeral and acromioclavicular joints are in anatomic alignment. Bone density and texture are normal. Procedure Note Mmee Valenzuela MD - 05/25/2024 PROCEDURE: XR SHOULDER LEFT 2VW OR MORE, DATE/TIME OF EXAM: 49:42 PM, LOCATION [facility] INDICATION: T14.90XA: Trauma ADDITIONAL CLINICAL INFORMATION: Ordering Provider Reason For Exam: acute fracture COMPARISON: None. FINDINGS: The osseous structures are intact without acute fracture. Theglenohumeral and acromioclavicular joints are in anatomic alignment. Bone density and texture are normal. IMPRESSION: No acute fracture or dislocation identified. > Dictated by Wade Morin DO (residential director). Meme Pardo MD have personally reviewed and [...] dictated by Cherrie Villa Dr, MD (residential director). Eliseo Pardo MD have personally reviewed and interpreted this examination/study. > Interpreting Provider: Eliseo Mckeon MD on 05/24/2024 11:55 PM Narrative 05/24/2024 11:55 PM CDT PROCEDURE: CT 3D RECON W INDEPENDENT WKSN, DATE/TIME OF EXAM: 05/24/2024 9:10 AM, LOCATION [facility] INDICATION: T14.90XA: Trauma ADDITIONAL CLINICAL INFORMATION: Ordering [...] DATE/TIME OF EXAM: 05/24/2024 9:10 AM, LOCATION [facility] INDICATION: T14.90XA: Trauma ADDITIONAL CLINICAL INFORMATION: Ordering [...] dictated by Cherrie Villa Dr, MD (residential director). I, Eliseo Mckeon MD have personally reviewed and interpreted this examination/study. > Interpreting Provider: Eliseo Mckeon MD on 05/24/2024 11:55 PM Willie Marte PA-C CT ORDERABLES * (ABNORMAL) TEG 6 GLOBAL HEMOSTASIS W/ LYSIS (05/24/2024 3:06 AM CDT) Citrated Kaolin R (Reaction Time) 3.3(L) 4.6 - 9.1 min 05/24/2024 4:55 AM [facility] Comment:CK R result below no rmal range. Consistent with hypercoagulable clotting factors. Citrated Kaolin LY30 (Lysis) 0.0 0.0 - 2.6 % 05/24/2024 4:55 AM [facility] Citrated Functional Fibrinogen MA (Max Amplitude) 4.2(L) 15.0 - 32.0 mm 05/24/2024 4:55 AM [facility] Comment:CFF MA below normal range. Consistent with decreased fibrinogen contribution to clot strength. Citrated RapidTEG MA (Max Amplitude) <40.0(L) 52.0 - 70.0 mm 05/24/2024 4:55 AM [facility] Comment:CLAMSHELL OPERATOR MA below normal range. Consistent with reduced clot strength from platelets or fibrinogen. Compare with CFF MA. Blood BLOOD SPECIMEN / Unknown Venipuncture / Unknown 05/24/2024 3:06 AM CDT 05/24/2024 3:40 AM CDT Willie Johnson DO LAB - HEMATOLOGY OR DERABLES [facility] [address] [place] [phone], [facility] [phone] * (ABNORMAL) TEG 6S PLATELET MAPPING (05/24/2024 3:06 AM CDT) TEGPLM (Max Amplitude) [place] <42.0(L) 53.0 - 68.0 mm 05/24/2024 4:30 AM [facility] TEGPLM (Max Amplitude) ACTF 4.2 2.0 - 19.0 mm 05/24/2024 4:30 AM [facility] TEGPLM (Max Amplitude) ADP 20.4(L) 45.0 - 69.0 mm 05/24/2024 4:30 AM [facility] Comment:ADP MA below normal range. Inhibition present. TEGPLM (Max Amplitude) AA 19.8(L) 51.0 - 71.0 mm 05/24/2024 4:30 AM CDT [facility] Comment:AA MA below normal r froilan. Inhibition present. TEGPLM %Inhibition ADP 05/24/2024 4:30 AM CDT [facility] Comment:1 or more values are outside of the TEG maximum reportable ranges, calculation cannot be determined. TEGPLM %Inhibition AA 05/24/2024 4:30 AM T [facility] Comment:1 or more values are outside of the TEG maximum reportable ranges, calculation cannot be determined. TEGPLM %Aggregation ADP 05/24/2024 4:30 AM T [facility] Comment:1 or more values are outside of the TEG maximum reportable ranges, calculation cannot be determined. TEGPLM % Aggregation AA 05/24/2024 4:30 AM T [facility] Comment:1 or more values are outside of the TEG maximum reportable ranges, calculation cannot be determined. Blood BLOOD SPECIMEN / Unknown Venipuncture / Unknown 05/24/2024 3:06 AM CDT 05/24/2024 3:40 AM CDT Willie Johnson DO LAB - HEMATOLOGY OR DERABLES [address] [address], [facility] [phone] * IR Visceral Angio (05/24/2024 1:38 AM [...] case. > Dictated by Jonathon Rosario MD (Suede Brusher) 05/24/2024 1:49 AM Deonna Pardo MD have [...] Attending Physician 2.Dr. Jonathon Rosario, interventional residential director Physician Anesthesia: 1.Local anesthesia - 10 mL [...] and draped in the usual sterile fashion. Wood Shingle Roofer radiograph of the abdomen was obtained, which [...] documented. Following a series of exchanges, a 5-[place] vascular sheath was placed. 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 Selective catheterization of the replaced common hepatic artery was performed with a coaxially advanced 2.4 [place] microcatheter and angiogram was obtained. The angiogram [...] Attending Physician 2.Dr. Jonathon Rosario, interventional residential director Physician Anesthesia: 1.Local anesthesia - 10 mL [...] documented. Following a series of exchanges, a 5-[place] vascular sheath was placed. 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 Selective catheterization of the replaced common hepatic artery was performed with a coaxially advanced 2.4 [place] microcatheter andangiogram was obtained. The angiogram demonstrated [...] the procedure well [facility] There were [...] case. > Dictated by Jonathon Rosario MD (Suede Brusher) 05/24/2024 1:49 AM IDeonna MD have personally reviewed and interpreted this examination/study. > Interpreting Provider: Deonna Huff MD on 05/24/2024 8:20 AM Farrukh Bedolla MD IR ORDERABLES * TRANSFUSE RED BLOOD CELL LEUKOREDUCED ML(S) (05/24/2024 12:54 AM CDT) Cheyenne Jackson DO NURSING - BLOOD MO OD TRANSFUSION * TRANSFUSE RED BLOOD CELL LEUKOREDUCED ML(S) (05/24/2024 12:44 AM CDT) Cheyenne Jackson DO NURSING - BLOOD MO OD TRANSFUSION * ETT LINE PERFORMABLE (05/24/2024 12:04 AM CDT) Narrative Jen Haskins MD - 05/24/2024 12:04 AM CDT Jen Haskins MD 05/24/2024 12:05 AM Endotracheal Tube Placement: Patient Location: OR. Intubation Event Date/Time: 05/23/2024 11:50 PM Procedure: intubation (09109) Procedure Section: Sedation: under general anesthesia. Indications [...] Rh AB POS 05/23/2024 11:40 PM CDT [facility] Blood Bank BLOOD SPECIMEN / Unknown Venipuncture / Unknown 05/23/2024 11:02 PM CDT 05/23/2024 11:12 PM CDT Romulo Willis MD LAB - BLOOD BANK ORD ERABLES [facility] [address] [place] [address], [facility] [phone] * (ABNORMAL) URINE DRUG SCREEN IMMUNOASSAY (05/23/2024 10:18 PM CDT) Amphetamines Screen Urine Negative Negative : < 1000 ng/mL 05/23/2024 10:49 PM CDT [facility] Barbiturates Screen Urine Negative Negative : < 200 ng/mL 05/23/2024 10:49 PM CDT [facility] Benzodiazepine Screen Urine Negative Negative : < 200 ng/mL 05/23/2024 10:49 PM CDT [facility] Opiates Urine Negative Negative : < 300 ng/mL 05/23/2024 10:49 PM T [facility] Cocaine Metabolites Urine Negative Negative : < 300 ng/mL 05/23/2024 10:49 PM CDT [facility] Phencyclidine Screen Urine Negative Negative : < 25 ng/ml 05/23/2024 10:49 PM T [facility] Cannabinoids Screen Urine Positive(A) Negative : <50 ng/mL 05/23/2024 10:49 PM T [facility] Comment:Positive urine canna binoids (THC) screening results should be confirmed by another generally accepted non-immunological method such as gas chromatography or mass spectrometry. Methadone Screen Urine Negative Negative : < 300 ng/mL 05/23/2024 10:49 PM CDT [facility] Fentanyl Screen Urine Negative Negative : <1.5 ng/mL 05/23/2024 10:49 PM CDT [facility] Urine URINE / Unknown Collection / Unknown 05/23/2024 10:18 PM CDT 05/23/2024 10:36 PM CDT Narrative [facility] - 05/23/2024 10:49 PM CDT The Urine Toxicology Screening Panel does not screen for Propoxyphene, Meprobamate, Carisoprodol, Trazodone, zsvo-kqu-zswedyn medications and/or volatiles (Acetone, Isopropanol, Methanol or Ethylene Glycol). Ethanol, Salicylate, Acetaminophen, Tricyclic Antidepressants and several therapeutic drugs may be individually assayed in serum or plasma specimen. Toxicology testing by the [facility] is an aid to medical diagnosis and treatment of patients. No documented chain of custody was maintained. Results are intended to be used for clinical purposes only. Romulo Willis MD LAB - URINE CHEMISTR Y ORDERABLES Performing Organization Address City/[facility]/ZIP Co de Phone Number [address] [address], [facility] [phone] * TROPONIN-I HIGH SENSITIVE REFLEX 1HOUR (05/23/2024 9:54 PM CDT) Troponin I High Sensitive 4 <=35 ng/L 05/23/2024 10:38 PM CDT [facility] Delta Troponin I HS 1 <6 ng/L 05/23/2024 10:38 PM CDT [facility] Blood BLOOD SPECIMEN / Unknown Venipuncture / Unknown 05/23/2024 9:54 PM CDT 05/23/2024 10:17 PM CDT Romulo Willis MD LAB - CHEMISTRY ORDE RABLES Performing Organization Address City/[facility]/ZIP Co de Phone Number [address] [address], [place] [phone] * CT CHEST ABDOMEN PELVIS W CONT [...] > Dictated by He Cerna MD (residential director). I, Eliseo Mckeon MD have personally reviewed and interpreted this examination/study. > Interpreting Provider: Eliseo Mckeon MD on 05/24/2024 12:43 AM Narrative 05/24/2024 12:43 AM CDT PROCEDURE: CT CHEST ABDOMEN PELVIS W CONT, DATE/TIME OF EXAM: 05/23/2024 9:34 PM, LOCATION [facility] INDICATION: Trauma COMPARISON: None. TECHNIQUE: CT of [...] DATE/TIME OF EXAM: 05/23/2024 9:34 PM, LOCATION [facility] INDICATION: Trauma COMPARISON: None. TECHNIQUE: CT of [...] > Dictated by He Cerna MD (residential director). I, Eliseo Mckeon MD have personally reviewed [...] hepatic lobe, right adrenal gland hemorrhage, and gistr-xr-xkmpoqgd volume hemoperitoneum within the abdomen and pelvis. [...] DATE/TIME OF EXAM: 05/23/2024 9:34 PM, LOCATION: [facility] HISTORY: Trauma EXAMINATION: CT scan of the [...] aspect of the right hepatic lobe and pknmp-ix-sufbjrmb volume hemoperitoneum within the abdomen and pelvis. 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 Osseous structures are demineralized. DISCS: Normal. DEGENERATIVE CHANGES: No significant degenerative changes for age. SPINAL CANAL/NEUROFORAMEN: No significant osseous spinal canal stenosisor neuroforaminal narrowing. SOFT TISSUES: Visualized soft tissues are normal. OTHER: Mild degenerative of the bilateral sacroiliac joints, leftgreater than right. Partially imaged laceration of the posterior aspect of the right hepatic lobe and jingv-gt-oehtgoef volume hemoperitoneum withinthe abdomen and pelvis. Right [...] hepatic lobe, right adrenal gland hemorrhage, and mysdj-wl-dxhkjnrh volume hemoperitoneum within theabdomen and pelvis. Report [...] hepatic lobe, right adrenal gland hemorrhage, and rkwna-vm-nksilzoz volume hemoperitoneum within the abdomen and pelvis. [...] DATE/TIME OF EXAM: 05/23/2024 9:34 PM, LOCATION: [facility] HISTORY: Trauma EXAMINATION: CT scan of the [...] aspect of the right hepatic lobe and qzcym-wm-eernomdq volume hemoperitoneum within the abdomen and pelvis. [...] DATE/TIME OF EXAM: 05/23/2024 9:34 PM, LOCATION: [facility] HISTORY: Trauma EXAMINATION: CT scan of the [...] Incidentally noted congenital incomplete fusion of the P1kukfa transverse process. Osseous structures are demineralized. DISCS: Normal. DEGENERATIVE CHANGES: No significant degenerative changes for age. SPINAL CANAL/NEUROFORAMEN: No significant osseous spinal canal stenosisor neuroforaminal narrowing. SOFT TISSUES: Visualized soft tissues are normal. OTHER: Mild degenerative of the bilateral sacroiliac joints, leftgreater than right. Partially imaged laceration of the posterior aspect of the right hepatic lobe and nbwix-ak-ekgmzzsx volume hemoperitoneum withinthe abdomen and pelvis. Right [...] hepatic lobe, right adrenal gland hemorrhage, and rlwzx-jv-hiqxwrls volume hemoperitoneum within theabdomen and pelvis. Report [...] hepatic lobe, right adrenal gland hemorrhage, and ypbar-pu-izscaukr volume hemoperitoneum within the abdomen and pelvis. [...] DATE/TIME OF EXAM: 05/23/2024 9:34 PM, LOCATION: [facility] HISTORY: Trauma EXAMINATION: CT scan of the [...] aspect of the right hepatic lobe and nlaxt-qv-dpnbehzt volume hemoperitoneum within the abdomen and pelvis. [...] DATE/TIME OF EXAM: 05/23/2024 9:34 PM, LOCATION: [facility] HISTORY: Trauma EXAMINATION: CT scan of the [...] Incidentally noted congenital incomplete fusion of the A8gtfbq transverse process. Osseous structures are demineralized. DISCS: Normal. DEGENERATIVE CHANGES: No significant degenerative changes for age. SPINAL CANAL/NEUROFORAMEN: No significant osseous spinal canal stenosisor neuroforaminal narrowing. SOFT TISSUES: Visualized soft tissues are normal. OTHER: Mild degenerative of the bilateral sacroiliac joints, leftgreater than right. Partially imaged laceration of the posterior aspect of the right hepatic lobe and xxsae-lf-bnlckqza volume hemoperitoneum withinthe abdomen and pelvis. Right [...] hepatic lobe, right adrenal gland hemorrhage, and xbooy-ct-bbbtzqjh volume hemoperitoneum within theabdomen and pelvis. Report [...] hepatic lobe, right adrenal gland hemorrhage, and rkyyd-va-igoeyjoa volume hemoperitoneum within the abdomen and pelvis. Report dictated by Twna Mullen MD I, Yadira Jj MD, PhD have personally reviewed and interpreted this examination/study. > Interpreting Provider: Yadira Jj MD, PhD on 05/24/2024 12:28 AM Narrative 05/24/2024 12:28 AM CDT EXAM: CT HEAD WO CONTRAST, CT FACIAL BONES WO CONTRAST, CT CERVICAL SPINE WO CONTRAST, CT THORACIC SPINE WO CONTRAST, CT LUMBAR SPINE WO CONTRAST, DATE/TIME OF EXAM: 05/23/2024 9:34 PM, LOCATION: [facility] HISTORY: Trauma EXAMINATION: CT scan of the [...] aspect of the right hepatic lobe and kiueb-uc-fggyrewo volume hemoperitoneum within the abdomen and pelvis. [...] DATE/TIME OF EXAM: 05/23/2024 9:34 PM, LOCATION: [facility] HISTORY: Trauma EXAMINATION: CT scan of the [...] Incidentally noted congenital incomplete fusion of the X6tmaws transverse process. Osseous structures are demineralized. DISCS: Normal. DEGENERATIVE CHANGES: No significant degenerative changes for age. SPINAL CANAL/NEUROFORAMEN: No significant osseous spinal canal stenosisor neuroforaminal narrowing. SOFT TISSUES: Visualized soft tissues are normal. OTHER: Mild degenerative of the bilateral sacroiliac joints, leftgreater than right. Partially imaged laceration of the posterior aspect of the right hepatic lobe and tdpsc-gn-bojmzqds volume hemoperitoneum withinthe abdomen and pelvis. Right [...] hepatic lobe, right adrenal gland hemorrhage, and jsbua-oq-ayexhnbz volume hemoperitoneum within theabdomen and pelvis. Report [...] hepatic lobe, right adrenal gland hemorrhage, and dsdkq-rq-jbmyprbe volume hemoperitoneum within the abdomen and pelvis. [...] DATE/TIME OF EXAM: 05/23/2024 9:34 PM, LOCATION: [facility] HISTORY: Trauma EXAMINATION: CT scan of the [...] aspect of the right hepatic lobe and kxgne-qy-dcdadiki volume hemoperitoneum within the abdomen and pelvis. [...] DATE/TIME OF EXAM: 05/23/2024 9:34 PM, LOCATION: [facility] HISTORY: Trauma EXAMINATION: CT scan of the [...] Incidentally noted congenital incomplete fusion of the R9aeelu transverse process. Osseous structures are demineralized. DISCS: Normal. DEGENERATIVE CHANGES: No significant degenerative changes for age. SPINAL CANAL/NEUROFORAMEN: No significant osseous spinal canal stenosisor neuroforaminal narrowing. SOFT TISSUES: Visualized soft tissues are normal. OTHER: Mild degenerative of the bilateral sacroiliac joints, leftgreater than right. Partially imaged laceration of the posterior aspect of the right hepatic lobe and pvxhe-ni-kaaukklf volume hemoperitoneum withinthe abdomen and pelvis. Right [...] hepatic lobe, right adrenal gland hemorrhage, and cwwex-gs-hvmagugc volume hemoperitoneum within theabdomen and pelvis. Report dictated by Twan Mullen MD I, Yadira Jj MD, PhD have personally reviewed and interpreted this examination/study. > Interpreting Provider: Yadira Jj MD, PhD on 05/24/2024 12:28 AM Romulo Willis MD CT ORDERABLES * TROPONIN-I HIGH SENSITIVE BASELINE + 1HR (05/23/2024 8:58 PM CDT) [facility] Troponin I High Sensitive 3 <=35 ng/L 05/23/2024 9:41 PM CDT [facility] Blood BLOOD SPECIMEN / Unknown Venipuncture / Unknown 05/23/2024 8:58 PM CDT 05/23/2024 9:21 PM CDT Romulo Willis MD LAB - CHEMISTRY ONEAL [facility] Organization Address City/State/ZIP Co de Phone Number [facility] [address] [place] [phone], [facility] [phone] * (ABNORMAL) ALCOHOL ETHYL BLOOD (05/23/2024 8:58 PM CDT) Ethanol (mg/dL) 296(H) <10 mg/dL 9:37 PM CDT [facility] Ethanol Calculated (g/dL) 0.296(H) <=0.010 g/dL 05/23/2024 9:37 PM CDT [facility] Blood BLOOD SPECIMEN / Unknown Venipuncture / Unknown 05/23/2024 8:58 PM CDT 05/23/2024 9:21 PM CDT Narrative [facility] - 05/23/2024 9:37 PM CDT Ethanol Interp <10: None Detected. Depression of LEGAL DEPARTMENT MANAGER: >100 mg/dl Potentially Critical: >250 mg/dl Potentially [...] Willis MD LAB - CHEMISTRY ONEAL [facility] Organization Address City/State/ZIP Co de Phone Number [facility] [address] [place] [phone], [facility] [phone] * XR PELVIS 1 OR 2VW (05/23/2024 8:57 PM CDT) Anatomical Region Laterality Modality Pelvis Radiographic Alicia ging 05/23/2024 9:00 PM CDT Impressions 05/23/2024 10:01 PM CDT IMPRESSION: No acute fracture identified. Report dictated by Cherrie Villa Dr, MD (residential director). IMeme MD have personally reviewed and interpreted this examination/study. > Interpreting Provider: Meme Valenzuela MD on 05/23/2024 10:01 PM Narrative 05/23/2024 10:01 PM CDT PROCEDURE: XR PELVIS 1 OR 2VW, DATE/TIME OF EXAM: 05/23/2024 8:58 PM, LOCATION [facility] INDICATION: Trauma Fracture suspected ADDITIONAL CLINICAL INFORMATION: [...] DATE/TIME OF EXAM: 05/23/2024 8:58 PM, LOCATION [facility] INDICATION: Trauma Fracture suspected ADDITIONAL CLINICAL INFORMATION: Ordering Provider Reason For Exam: Technologist Note: Additional: COMPARISON: None. FINDINGS: No acute fracture is identified. The femoral heads appear well-seated within their respective acetabula. The pubic symphysis is intact. Bone density and texture are normal. The sacroiliac joints are normal. IMPRESSION: No acute fracture identified. Report dictated by Cherrie Villa Dr, MD (residential director). I, Meme Valenzuela MD have personally reviewed and interpreted this examination/study. > Interpreting Provider: Meme Valenzuela MD on 05/23/2024 10:01 PM Romulo Willis MD DIAGNOSTIC IMAGING O [facility] Care Teams Aviation Safety Officer Relationship Specialty Start Date End Date Esteban Palm MD [address] [place] [id number] PCP - General Family Medicine 05/25/24
--- OUTSIDE RECORDS SUMMARY | 2024-11-30 01:32 | XMS_ITS | Clinical Summary ---
Author Organization [email or web address] Address [address] [address] Care Team Providers Care Cardiothoracic Icu Rn Name Role Phone Esteban Palm MD Primary Care Provider [phone] Source Comments [facility],non-owned Affiliates and Associated Physician Practices is amultiple site organization consisting of ambulatory clinics and hospital sitesin [place], [place] and [place]. This disclosure is being madepursuant to the Care Everywhere program and may not contain all information available regarding this patient. Last updated 18.[email or web address] Allergies No known active allergies Medications * [...] 24 hours. 06/15/2024 Active saline nasal spray ([place]; Baby [place]) 0.65 % nasal spray [place] 1 (one) spray into each nostril every [...] and heating? Not hard at all 06/04/2024 [facility] of Occupat ional Health - Occupational Stress [...] this topic Medical Devices Implanted Type Area Electronic Resources Librarian Device Identifier Shelf Expiration Date Model / Serial / Lot Coil Azur Cx Hdrcl 4cm 2mm Dtch Loop Sld Implanted:Qty: 1 on 05/24/2024 by Deonna Huff MD at [facility] [employer] [facility] 01/14/2029 [id number] / / [id number] Prtcl Embl 2.5mm 1ml Syr Embocube Geltn Implanted:Qty: 1 on 05/24/2024 by Deonna Huff MD at [facility] Right: Liver [employer] 01/23/2027 [id number] / / [id number] Coil Azur Cx Hdrcl 4cm 2mm Dtch Loop Sld Implanted:Qty: 1 on 05/24/2024 by Deonna Huff MD at [facility] Right: Liver [employer] 01/14/2029 [id number] / / [id number] Advance Directives * Full Code (Latest Code Status on File) Date Activated Date Inactivated Comments 06/08/2024 5:14 PM 06/15/2024 5:35 PM * Full Code Date Activated Date Inactivated Comments 05/23/2024 11:39 PM 05/31/2024 6:42 PM Care Teams Cardiothoracic Icu Rn Relationship Specialty Start Date End Date Esteban Palm MD [address] [place] [address] PCP - General Family Medicine 05/25/24
--- OUTSIDE RECORDS SUMMARY | 2024-11-30 01:32 | XMS_ITS | Referral Summary ---
Author Organization [facility] Address [address] [facility] [place] [address] Care Team Providers Care Circuit Judge Name Role Phone Esteban Palm MD Primary Care Provider [phone] Source Comments [facility],non-owned Affiliates and Associated Physician Practices is amultiple site organization consisting of ambulatory clinics and hospital sitesin [place], [place], [place] and [place]. This disclosure is being madepursuant to the Care Everywhere program and may not contain all information available regarding this patient. Last updated 18.[facility] Allergies No known active allergies Medications * [...] 24 hours. 06/15/2024 Active saline nasal spray ([place]; Baby [place]) 0.65 % nasal spray [place] 1 (one) spray into each nostril every [...] and heating? Not hard at all 06/04/2024 [facility] [place] of Occupat ional Health - Occupational Stress [...] on file Medical Devices Implanted Type Area Spooling Machine Operator Device Identifier Shelf Expiration Date Model / Serial / Lot Coil Azur Cx Hdrcl 4cm 2mm Dtch Loop Sld Implanted:Qty: 1 on 05/24/2024 by Deonna Huff MD at [facility] [employer] 01/14/2029 [id number] / / [id number] Prtcl Embl 2.5mm 1ml Syr Embocube Geltn Implanted:Qty: 1 on 05/24/2024 by Deonna Huff MD at [facility] Right: Liver [employer] 01/23/2027 [id number] / / [id number] Coil Azur Cx Hdrcl 4cm 2mm Dtch Loop Sld Implanted:Qty: 1 on 05/24/2024 by Deonna Huff MD at [facility] Right: Liver [employer] [place] 01/14/2029 [id number] / / [id number] Advance Directives * Full Code (Latest Code Status on File) Date Activated Date Inactivated Comments 06/08/2024 5:14 PM 06/15/2024 5:35 PM * Full Code Date Activated Date Inactivated Comments 05/23/2024 11:39 PM 05/31/2024 6:42 PM Care Teams Circuit Judge Relationship Specialty Start Date End Date Esteban Palm MD [address] [place] [address] PCP - General Family Medicine 05/25/24
--- NOTE | 2025-03-18 13:14 | PC.NURSE ---
Addendum entered by Layton Gonzales RN 03/18/25 13:30: Planned procedure time is 1200 Original Note: Report to the Outpatient Waiting Room, entrance under the green pavilion located off [facility], at time _1000_ on date _[id number]_. Planned Procedure Time: __.? Time changes happen often and if your time is changed the preop area will call you the afternoon before. - You and your visitor will be asked to self-screen and do not enter if you have any COVID symptoms. Please call surgeon if you need to reschedule. - A mask is optional within the hospital at this time. Patients may have clear liquids (water, carbonated beverages, clear teas, apple juice) until 3 hours prior to surgery with a maximum of 20 ounces. - No food from midnight until time of surgery and no smoking, or chewing tobacco (or any form of nicotine). No chewing gum, candy or mints. Take only the following medications with a SIP of water on the morning of surgery: ___None____ DO NOT STOP ANY OF YOUR OTHER PRESCRIPTION MEDICATIONS PRIOR TO SURGERY EXCEPT THE FOLLOWING Hold all vitamins and supplements for 3 days per anesthesiologist. Medications to discontinue per physician ____Ibuprofen stop now. Date to take last onwa___[id number]___ Please no make-up, nail algerian, hairspray, perfume, deodorant, or body powder the day of surgery.? No jewelry (including any body piercings) or valuables the day of surgery, leave them at home.? Please take a shower or bath the night before, or the morning of, surgery with an antibacterial soap.? Wear comfortable, loose fitting clothing.? - Jewelry must be removed prior to entering the operating room.? Rings and piercings that are not removed may be cut off. - The hospital will not accept responsibility for valuables.? - Please leave all valuables, including medications, at home the day of surgery. If you are going home after surgery, a licensed otr company driver must drive you home.? - NO public transportation without another adult if you receive anesthesia. - We recommend that an adult stay with you for 24 hours following discharge. - We also recommend that you do not drive, make important decision, drink alcoholic beverages, or take any drugs that were not prescribed by your health care provider for at least 24 hours after your discharge time. Follow any additional instructions given to you from your surgeon. Telephone instructions given to __Darin___and asked if any additional questions and then verbalized understanding. Patient advised to call surgeon office or pre surgery nurse liaison [phone] if any additional questions.
[2025-03-22] VITALS (10 sets, daily range): BP systolic 125–157; BP diastolic 90–111; PULSE 64–72; RESP 11–16; TEMP 36.3–36.9; O2SAT 98–100
--- OUTSIDE RECORDS SUMMARY | 2025-03-22 01:04 | XMS_ITS | Clinical Summary ---
Author Organization [facility] [address] Address [address] [place] [phone] Care Team Providers Care Customer Service Technician Name Role Phone No, Physician Primary Care Provider [phone] Allergies No known active allergies Medications al & mag hydroxide with simethicone-diph enhydramine-lido edis (MAGIC MOUTHWASH) suspension [id number] :Acute pharyngitis, unspecified etiology Swish and swallow [...] on file Legal Sex Male 1:55 PM SHOP TEACHER Gender Identity Not on file Sexual Orientation Not on file Obstetrics History Last Filed Vital Signs Vital Sign Reading Time Taken Comments Blood Pressure 132/84 09/21/2023 5:59 PM SHOP TEACHER Pulse 76 09/21/2023 5:59 PM SHOP TEACHER Temperature 36.9 C (98.4 F) 09/21/2023 5:59 PM SHOP TEACHER Respiratory Rate 18 09/21/2023 5:59 PM SHOP TEACHER Oxygen Saturation 96% 09/21/2023 5:59 PM SHOP TEACHER Inhaled Oxygen Concentration - - Weight 78 kg (172 lb) 09/21/2023 5:59 PM SHOP TEACHER Height 175.3 cm (5' 9) 09/21/2023 5:59 PM SHOP TEACHER Body Mass Index 25.4 09/21/2023 5:59 PM SHOP TEACHER Plan of Treatment Health Maintenance Due Date [...] patient's age to complete this topic Insurance [employer] OOS [employer] OOS Care Teams Customer Service Technician Relationship Specialty Start Date End Date No, Physician PCP - General 03/01/23"
--- OUTSIDE RECORDS SUMMARY | 2025-03-22 01:04 | XMS_ITS | CONTINUITY OF CARE DOCUMENT ---
Author Name tsephen mitchell Address Unknown Organization [facility] Address [id number] [place] [address] [address] [place] [address] Phone [phone] Care Team Providers Care Bobbin Hauler Name Role Phone Ranjit NÚÑEZ, Akash Unavailable INSURANCE PROVIDERS Payer name Policy type / Coverage type Constantin red alliance party ID SELF PAY [id number]
--- OUTSIDE RECORDS SUMMARY | 2025-03-22 01:04 | XMS_ITS | Referral Summary ---
Author Organization [facility] [address] [place] Address [address] [place] [phone] Care Team Providers Care Skidder Lever Operator Name Role Phone No, Physician Primary Care Provider [phone] Allergies No known active allergies Medications al & mag hydroxide with simethicone-diph enhydramine-lido edis (MAGIC MOUTHWASH) suspension 9-2-1Lutkxuauian :Acute pharyngitis, unspecified etiology Swish and swallow [...] on file Legal Sex Male 1:55 PM QUILLER OPERATOR Gender Identity Not on file Sexual Orientation Not on file Last Filed Vital Signs Vital Sign Reading Time Taken Comments Blood Pressure 132/84 09/21/2023 5:59 PM QUILLER OPERATOR Pulse 76 09/21/2023 5:59 PM QUILLER OPERATOR Temperature 36.9 C (98.4 F) 09/21/2023 5:59 PM QUILLER OPERATOR Respiratory Rate 18 09/21/2023 5:59 PM QUILLER OPERATOR Oxygen Saturation 96% 09/21/2023 5:59 PM QUILLER OPERATOR Inhaled Oxygen Concentration - - Weight 78 kg (172 lb) 09/21/2023 5:59 PM QUILLER OPERATOR Height 175.3 cm (5' 9) 09/21/2023 5:59 PM QUILLER OPERATOR Body Mass Index 25.4 09/21/2023 5:59 PM QUILLER OPERATOR Plan of Treatment Not on file Insurance Mini[employer] OOS MiniBrake OOS Care Teams Skidder Lever Operator Relationship Specialty Start Date End Date No, Physician PCP - General 03/01/23
--- OUTSIDE RECORDS SUMMARY | 2025-03-22 01:04 | XMS_ITS | Clinical Summary ---
Author Organization [facility] Address [address] [place] [address] Care Team Providers Care Safety Deposit Supervisor Name Role Phone Esteban Palm MD Primary Care Provider [phone] Source Comments [facility],non-owned Affiliates and Associated Physician Practices is amultiple site organization consisting of ambulatory clinics and hospital sitesin [place], [place], [place] and [place]. This disclosure is being madepursuant to the Care Everywhere program and may not contain all information available regarding this patient. Last updated 18.[facility] Allergies No known active allergies Medications * Be aware that medications may not be up to date on this document. Alwaysverify current medications with the patient. acetaminophen (Tylenol) 500 MG tablet Take 2 (two) tablets by mouth every 6 hours Maximum allowable Acetaminophen amount = 4 Grams (4000 mg) / 24 hours. 4 Active saline nasal spray ([place]; Baby [place]) 0.65 % nasal spray [place] 1 (one) spray into each nostril every [...] heating? Not hard at all 06/04/2024 [facility] [place] of Occupat ional Health - Occupational Stress [...] place to sleep or slept in a fpc (including now)? No 06/04/2024 Sex and Gender [...] this topic Medical Devices Implanted Type Area Lamp Shade Assembler Device Identifier Shelf Expiration Date Model / Serial / Lot Coil Azur Cx Hdrcl 4cm 2mm Dtch Loop Sld Implanted:Qty: 1 on 05/24/2024 by Deonna Huff MD at [facility] 01/14/2029 [id number] / / [id number] Prtcl Embl 2.5mm 1ml Syr Embocube Geltn Implanted:Qty: 1 on 05/24/2024 by Deonna uHff MD at [facility] Right: Liver [employer] 01/23/2027 [id number] / / [id number] Coil Azur Cx Hdrcl 4cm 2mm Dtch Loop Sld Implanted:Qty: 1 on 05/24/2024 by Deonna Huff MD at [facility] Right: Liver [employer] 01/14/2029 [id number] / / [id number] Insurance [facility] Address: [address] [address] Advance Directives * Full Code (Latest Code Status on File) Date Activated Date Inactivated Comments 06/08/2024 5:14 PM 06/15/2024 5:35 PM * Full Code Date Activated Date Inactivated Comments 05/23/2024 11:39 PM 05/31/2024 6:42 PM Care Teams Safety Deposit Supervisor Relationship Specialty Start Date End Date Esteban Palm MD [address] [place], [place] [id number] PCP - General Family Medicine 05/25/24
--- OUTSIDE RECORDS SUMMARY | 2025-03-22 01:04 | XMS_ITS | Continuity of Care Document ---
Author Organization [facility] Address [address] [facility] [place] [address] [place] [address] Phone Care Team Providers Care Multiple Games Dealer Name Role Phone Matty Dasilva MD Unavailable Unavailable Allergies, Adverse Reactions, Alerts Substance Reaction Status Criticality No Known Allergies Active No Inform ation Medications Medication Instructions Dosage Effective Dates (start - stop) Status Comments Klonopin 1 mg tablet take 1 tablet (1MG) by oral route every bedtime 1 MG - Active Procedures Procedure Date PREV VISIT, [facility], AGE 18-39 OFFICE/OUTPATIENT VISIT, [facility] Advance Directives Directive Yes / No Effective Date File Name No Information Encounters Encounter Description Practice Location Reason(s) For Visit Diagnoses Date Provider Providers Copied on Encounter PREV VISIT, NEW, AGE 18-39 [facility], [address] [place], [place], [id number], [place] tel:[phone] [facility] Physical (chief complaint) Routine Medical ExamInsomnia, OtherRoutine Medical ExamGeneralized anxiety disorder [address] [facility] [place], [id number] , [place]. tel:[phone] Referring Provider: Matty Dasilva, [address] [facility] [place], [id number]. tel:[phone] Family History Family Member Type Diagnosis Age At Onset Father Problem (finding) Hypertension Sister Problem (finding) Alive and well Mother Problem (finding) Hypertension Payers Payer name Insurance type Covered alliance party ID Authoriza tion(s) No Information Social [...] Mental Status Date Cognitive Assessment Orientation - [place] ed to time, place, person, situation.
[2025-03-22] MEDS: LACTATED RINGERS 1,000 ML 30 ML IV CONT ×2 (10:30→14:24)
[2025-03-22] MEDS: ACETAMINOPHEN 500 MG TABLET 1000 MG PO (11:07)
[2025-03-22] MEDS: KETOROLAC 15 MG/ML VIAL (*BKC) IV PUSH (11:07)
--- NOTE | 2025-03-22 11:23 | WPDANESEPPF ---
Anes - Initial Pre Proc Eval Procedure: Operation Date: 03/22/25 12:00 Proposed Procedures p Right Shoulder Arthroscopic Rotator Cuff Repair, Subacromial Decompression, Proceed As Indicated - Mj Poe MD Date/Time: 03/22/25 11:23 Surgeon: Mj Poe MD Pre Op Diagnosis: complete right rotator cuff tear Patient Data Age: 45 Gender: M Height: 1.75 m Weight: 81.3 kg Last Vital Signs Temp 36.9 C 03/22/25 11:08 Pulse 64 03/22/25 11:08 Resp 16 03/22/25 11:08 Pulse Ox 98 03/22/25 11:08 O2 Del Method Room Air 03/22/25 11:08 Allergies Allergy/AdvReac Type Severity Reaction Status Date / Time No Known Allergies Allergy Unknown Verified 03/22/25 11:05 Home Medications ?Medication ?Instructions ?Recorded ?Confirmed ?Type ibuprofen 600 mg tablet (IBU) 600 mg PO Q6H PRN fever or pain #7 08/04/20 03/04/25 Rx tabs folic acid 1 mg tablet 1 mg PO DAILY 06/01/24 03/18/25 History thiamine HCl (vitamin B1) 100 mg 50 mg PO DAILY 06/01/24 03/04/25 History tablet hydrochlorothiazide 25 mg tablet 25 mg PO DAILY #90 tabs 07/18/24 03/04/25 Rx Patient hx anesthesia problems: none Family hx anesthesia problems: none Results Review: All pre-operative results and documents have been reviewed as part of the pre-operative evaluation. [facility] Past Medical History Medical History Hypertension Surgical History Surgical History History of orthopedic surgery Family History Family History Other Hypertension Social History Social History Smoking packs per day: 0.5 Smoking cigarettes per day: 10.0 Years smoked: 20 Smoking pack-years: 10.00 Smoking status: Current every day smoker Alcohol intake: current Drinks per week: 5 Substance use: current Other substance usage details: couple times a week Do You Feel Safe in your Home?: Yes Lack of Transportation: No Lack of Food: Never True Current Housing: I Have Housing Concerned About Future Housing: No Difficulty Paying Gas/Electric Bills: No Difficulty Paying for Meds: No Currently Unemployed: No Education: High School Diploma/GED Difficulty w/ Childcare or Family Care: No Living arrangements: with roommate(s) Gender identity (if verbalized by the patient): Male Spiritual care concerns: No Anes - Eval Final PreProcedure Day of Procedure 03/22/25 11:23 Patient weight: overweight Heart: regular rate and rhythm Lungs: clear to auscultation Airway: Mallampati scale class II Neurological: alert and oriented Last oral intake: >/= 8 hours ASA classification: II Emergent: no Anesthetic plan: proceed Anesthesia type and monitoring: general ETT and standard monitoring Results Review: All pre-operative results and documents have been reviewed as part of the pre-operative evaluation. Informed Consent: The patient's anesthetic plan and its attendant risks and benefits were discussed with the patient/family/POA. Questions were solicited and answers provided to the satisfaction of the patient/family/POA.
--- NOTE | 2025-03-22 12:08 | WPDHPUPDATE1 ---
History and Physical Update Update Date/Time: 03/22/25 12:08 History and Physical has been reviewed, including an updated exam of the patient. There are NO changes in the patient's condition. Risks, benefits, and alternatives have been discussed and questions answered. Patient agrees to proceed with procedure.
[2025-03-22] MEDS: EPINEPHrine HCL INJ 1 MG/ML AMPUL 3 MG IRRIGATION (12:21)
[2025-03-22] MEDS: ceFAZolin 2 GM/D5W 50 ML 2 GM/50 ML BAG IVPB (12:21)
[2025-03-22] MEDS: BUPIVACAINE/EPINEPHRINE 0.5% 30 ML VIAL 20 ML INFILTRATE (13:12)
[2025-03-22] MEDS: hydrALAZINE HCL 20 MG/ML VIAL 10 MG IV PUSH (15:01)
[2025-03-22] MEDS: fentaNYL CITRATE INJ (*CRX) 100 MCG/2 ML VIAL 25 MCG IV PUSH ×2 (15:14→15:21)
[2025-03-22] MEDS: oxyCODONE HCL (*CRX) 5 MG TAB IR PO (16:07)
--- NOTE | 2025-03-22 17:28 | P.OP_ITS ---
Procedure Note - Detailed Date of Procedure 03/22/25 Pre-op Diagnosis Complete right rotator cuff tear Post-op Diagnosis Other (Massive acute on chronic rotator cuff tear right shoulder) Procedure Performed Right shoulder Arthroscopic rotator cuff repair Surgeon Mj Poe MD Anesthesia General Findings Massive retracted tear. Supraspinatus tissue was unrepairable. The infraspinatus was mobilized and repaired with 2 suture anchors and a lateral row anchor. Biceps appeared normal. The subscapularis was normal. The articular cartilage was healthy. No significant labral damage. Description of Procedure Preoperative antibiotics were given. An interscalene block was administered in the preoperative area. The patient was bought brought to the operating room. A general anesthetic was administered. The patient was carefully positioned in the beach chair position. The head and neck were carefully positioned. The non operative extremity was also carefully positioned. The shoulder was prepped and draped in the usual sterile fashion. Examination was performed. Standard posterior and anterior arthroscopic portals were established. Inflow achieved with the arthroscopic pump using saline and epinephrine. The glenohumeral joint was carefully inspected. The joint itself appeared quite healthy. The massive tear was immediately evident. The subscapularis appeared normal. The biceps tendon was normal as was the superior labral anchor. Attention was turned to the subacromial space. A complete bursectomy was performed. There was some prominent greater tuberosity bone which shows gently shaped and smoothed. The subacromial space appeared quite smooth and there was no obvious spurring. Debridement of some of tissue was performed and then the acromion was left intact due to the massive nature of the tear. The tear configuration was carefully assessed. The posterior bursal tissue was carefully debrided away from the underlying infraspinatus rotator cuff. Cuff tissue and some overlying bursal tissue was preserved to reinforce the remaining tissue. The posterior tissue was moderately mobile and was brought back to the posterior greater trochanter. The footprint was lightly debrided and a few mm of articular cartil age were taken back as well. Two FiberTak suture anchors were placed along this posterior articular margin. Three suture passes with tape from each anchor. 1 set of posterior anchor sutures were tied. All 6 suture limbs were brought anterolaterally to a SwiveLock anchor. This compressed the tissue onto the footprint very nicely. The arthroscopic instruments were removed. The wounds were closed with 3-0 Monocryl subcuticular suture and steri strips. There were no complications. A sling was applied and the patient brought to the recovery room. Implants Arthrex anchors: Two FiberTak anchors. One 4.75 bioabsorbable swivel lock anchor Estimated Blood Loss 10 Pathology None sent Complications No immediate complications Condition Stable Disposition PACU [facility] Billing Surgery - Charge Forward: Surgery Billing
== END 2025-03-22 17:07 | disposition home or self-care (01) ==
PROVIDERS: PCP Family Medicine; Visit Provider Orthopaedic Surgery
PROC: (CPT 29805; principal; 2025-03-22 12:00)
DX: S46.011A Strain of muscle(s) and tendon(s) of the rotator cuff of right shoulder, initial encounter (principal); W10.9XXA Fall (on) (from) unspecified stairs and steps, initial encounter; F17.210 Nicotine dependence, cigarettes, uncomplicated
CPT/HCPCS: 29827; A4565; A9270; C1713; J0171; J0360; J0690; J1100; J1171; J1885; J2003; J2250; J2405; J2704; J3010; J7120

== ENCOUNTER 2025-07-25 13:51 | Outpatient (CLI) | payer BC, SELFPAY ==
[2025-07-25 14:25] LABS: Anion Gap 10 mmol/L (4-12); Blood Urea Nitrogen 9 mg/dL (9-20); Calcium 9.4 mg/dL (8.4-10.2); Carbon Dioxide 27 mmol/L (22-30); Chloride 98 mmol/L (98-107); Estimated Glomerular Filt Rate > 60; Glucose 98 mg/dL (65-110); Potassium 4.2 mmol/L (3.4-5.0); Sodium 135 mmol/L (137-145)
== END 2025-07-25 13:52 | disposition home or self-care (01) ==
LOC: ANHLAB 13:54
PROVIDERS: PCP Family Medicine; Visit Provider Anesthesiology
DX: I10 Essential (primary) hypertension (principal); Z79.899 Other long term (current) drug therapy
CPT/HCPCS: 36415; 80048

== ENCOUNTER 2025-07-26 00:30 | Day surgery (SDC) | payer BC, SELFPAY ==
[2025-07-23 10:09] VITALS: BMI 28.9
--- NOTE | 2025-07-23 10:32 | PC.NURSE ---
[facility] has started construction of its new state of the art ER which will open Spring 2026. With this, we anticipate parking may be a challenge for some our surgical patients and families. Parking spaces are limited but are available for all Surgical, obstetrics, and ER patients sharing this lot. If you arrive and find you are having a hard time finding a parking space, please note that we understand the challenges, please drive around the hospital and park near Hospital Entrance 1. When you enter this entrance, you can ask a volunteer to direct or take you back to the surgical waiting area to check in. We appreciate everyone?s understanding of these expected challenges while we build for your future. Report to the Outpatient Waiting Room, entrance under the green pavilion located off [address], at time _10:00 on date _08/05/25 . Planned Procedure Time: _12:00 .? Time changes happen often and if your time is changed the preop area will call you the afternoon before. - You and your visitor will be asked to self-screen and do not enter if you have any COVID symptoms. Please call surgeon if you need to reschedule. - A mask is optional within the hospital at this time. Patients may have clear liquids (water, carbonated beverages, clear teas, apple juice) until 3 hours prior to surgery with a maximum of 20 ounces. - No food from midnight until time of surgery and no smoking, or chewing tobacco (or any form of nicotine). No chewing gum, candy or mints. Take only the following medications with a SIP of water on the morning of surgery: BUSPIRONE DO NOT STOP ANY OF YOUR OTHER PRESCRIPTION MEDICATIONS PRIOR TO SURGERY EXCEPT THE FOLLOWING Hold all vitamins and supplements for 3 days per anesthesiologist. Medications to discontinue per physician IBUPROFEN Date to take last dose__STOP NOW 07/23/25 Please no make-up, nail costa rican, hairspray, perfume, deodorant, or body powder the day of surgery.? No jewelry (including any body piercings) or valuables the day of surgery, leave them at home.? Please take a shower or bath the night before, or the morning of, surgery with an antibacterial soap.? Wear comfortable, loose fitting clothing.? - Jewelry must be removed prior to entering the operating room.? Rings and piercings that are not removed may be cut off. - The hospital will not accept responsibility for valuables.? - Please leave all valuables, including medications, at home the day of surgery. If you are going home after surgery, a licensed tractor driver teamster must drive you home.? - NO public transportation without another adult if you receive anesthesia. - We recommend that an adult stay with you for 24 hours following discharge. - We also recommend that you do not drive, make important decision, drink alcoholic beverages, or take any drugs that were not prescribed by your health care provider for at least 24 hours after your discharge time. Follow any additional instructions given to you from your surgeon. Telephone instructions given to _NADEGE and asked if any additional questions and then verbalized understanding. Patient advised to call surgeon office or pre surgery nurse liaison [phone] if any additional questions.
[2025-07-26] VITALS (11 sets, daily range): BP systolic 135–166; BP diastolic 84–123; PULSE 72–86; RESP 14–20; TEMP 36.4–36.6; O2SAT 95–100
--- OUTSIDE RECORDS SUMMARY | 2025-07-26 00:34 | XMS_ITS | Clinical Summary ---
Author Organization [facility] [employer] Address [address] [place] [address] Care Team Providers Care Public Health Technologist Name Role Phone Esteban Palm MD Primary Care Provider [phone] Source Comments [facility] [employer] [employer],non-owned Affiliates and Associated Physician Practices is amultiple site organization consisting of ambulatory clinics and hospital sitesin [place], [place], [place] and [place]. This disclosure is being madepursuant to the Care Everywhere program and may not contain all information available regarding this patient. Last updated 18.[facility] Allergies No known active allergies Medications * Be aware that medications may not be up to date on this document. Alwaysverify current medications with the patient. acetaminophen (Tylenol) 500 MG tablet Take 2 (two) tablets by mouth every 6 hours Maximum allowable Acetaminophen amount = 4 Grams (4000 mg) / 24 hours. 4 Active saline nasal spray ([place]; Baby [place]) 0.65 % nasal spray [place] 1 (one) spray into each nostril every [...] NEEDED FOR MUSCLE SPASMS 12 tablet 4 Active oxyCODONE, immediate release, (Roxicodone) 5 MG [...] and heating? Not hard at all 06/04/2024 [facility] [place] of Occupat ional Health - Occupational Stress [...] place to sleep or slept in a prison (including now)? No 06/04/2024 Sex and Gender [...] of 3 - 19+ 3-dose series) 1997 DEPRESSION SCREENING 10/17/2024 COVID-19 VACCINE (3 - 2024-2 6 season) 2025 05/08/2021, 04/17/2021 INFLUENZA VACCINE (#1) 2025 08/25/2015 ZOSTER VACCINE (1 of 2) [...] this topic Medical Devices Implanted Type Area Business Services Sales Agent Device Identifier Shelf Expiration Date Model / Serial / Lot Coil Azur Cx Hdrcl 4cm 2mm Dtch Loop Sld Implanted:Qty: 1 on 05/24/2024 by Deonna Huff MD at [facility] 01/14/2029 [id number] / / [id number] Prtcl Embl 2.5mm 1ml Syr Embocube Geltn Implanted:Qty: 1 on 05/24/2024 by Deonna Huff MD at [facility] Right: Liver [employer] 01/23/2027 [id number] / / [id number] Coil Azur Cx Hdrcl 4cm 2mm Dtch Loop Sld Implanted:Qty: 1 on 05/24/2024 by Deonna Huff MD at [facility] Right: Liver [employer] 01/14/2029 [id number] / / [id number] [facility] Address: [address] [address] Advance Directives * Full Code (Latest Code Status on File) Date Activated Date Inactivated Comments 06/08/2024 5:14 PM 06/15/2024 5:35 PM * Full Code Date Activated Date Inactivated Comments 05/23/2024 11:39 PM 05/31/2024 6:42 PM Care Teams Public Health Technologist Relationship Specialty Start Date End Date Esteban Palm MD [address] [place], [place] [id number] PCP - General Family Medicine 05/25/24
--- NOTE | 2025-07-26 11:48 | WPDHPUPDATE1 ---
History and Physical Update Update Date/Time: 07/26/25 11:48 History and Physical has been reviewed, including an updated exam of the patient. There are NO changes in the patient's condition. Risks, benefits, and alternatives have been discussed and questions answered. Patient agrees to proceed with procedure.
[2025-07-26] MEDS: ACETAMINOPHEN 500 MG TABLET 1000 MG PO (12:00)
[2025-07-26] MEDS: LACTATED RINGERS 1,000 ML 30 ML IV CONT ×2 (12:00→15:27)
[2025-07-26] MEDS: KETOROLAC 15 MG/ML VIAL (*BKC) IV PUSH (12:00)
--- NOTE | 2025-07-26 12:02 | P.PNAN_ITS ---
Anes - Initial Pre Proc Eval Procedure: Operation Date: 07/26/25 12:00 Proposed Procedures p Left Shoulder Arthroscopic Rotator Cuff Repair, Proceed As Indicated - Mj Poe MD Date/Time: 07/26/25 12:02 Surgeon: Mj Poe MD Pre Op Diagnosis: Complete rot cuff tear Lt shoulder Patient Data Age: 45 Gender: M Height: 1.73 m Weight: 86.3 kg Allergies Allergy/AdvReac Type Severity Reaction Status Date / Time No Known Allergies Allergy Unknown Verified 07/23/25 10:31 Home Medications ?Medication ?Instructions ?Recorded ?Confirmed ?Type ibuprofen 600 mg tablet (IBU) 600 mg PO Q6H PRN fever or pain #7 08/04/20 07/23/25 Rx tabs folic acid 1 mg tablet 1 mg PO DAILY 06/01/2407/23 History omeprazole 20 mg capsule,delayed 20 mg PO DAILY #14 ca ps 06/19/25 07/23/25 Rx release hydrochlorothiazide 25 mg tablet 25 mg PO DAILY #90 ta bs 07/12/25 07/23/25 Rx buspirone 5 mg tablet See Rx Instructions .Route 0 07/16/25 07/23/25 Rx .COMPLEX #60 tabs Patient hx anesthesia problems: none Family hx anesthesia problems: none Results Review: All pre-operative results and documents have been reviewed as part of the pre- operative evaluation. [facility] Past Medical History Medical History Hypertension Surgical History Surgical History Status post right rotator cuff repair (~03/22/25) History of orthopedic surgery Family History Family History Other Hypertension Social History Social History Smoking packs per day: 0.5 Smoking cigarettes per day: 10.0 Years smoked: 25 Smoking pack-years: 12.50 Smoking status: Current every day smoker Tobacco type: cigarettes Additional smoking assessment comments: EDIBLES OCCAS. Alcohol intake: current Drinks per week: 10 Substance use: current Substance use type: marijuana Other substance usage details: couple times a week Last use: 06/18/2025 Do You Feel Safe in your Home?: Yes Lack of Transportation: No Lack of Food: Never True Current Housing: I Have Housing Concerned About Future Housing: No Difficulty Paying Gas/Electric Bills: No Difficulty Paying for Meds: No Currently Unemployed: No Education: High School Diploma/GED Difficulty w/ Childcare or Family Care: No Living arrangements: with family Gender identity (if verbalized by the patient): Male Spiritual care concerns: No Anes - Eval Final PreProcedure Day of Procedure 07/26/25 12:02 Patient weight: normal Heart: regular rate and rhythm Lungs: clear to auscultation Airway: Mallampati scale class II Neurological: alert and oriented Last oral intake: >/= 8 hours ASA classification: II Emergent: no Anesthetic plan: proceed Anesthesia type and monitoring: general ETT and standard monitoring Results Review: All pre-operative results and documents have been reviewed as part of the pre- operative evaluation. Informed Consent: The patient's anesthetic plan and its attendant risks and benefits were discussed with the patient/family/POA. Questions were solicited and answers provided to the satisfaction of the patient/family/POA.
[2025-07-26] MEDS: ceFAZolin 2 GM in SODIUM CHLORIDE 0.9% IV 50 ML 100 ML IVPB (13:04)
[2025-07-26] MEDS: BUPIVACAINE/EPINEPHRINE 0.5% 50 ML VIAL 30 ML INFILTRATE (13:53)
[2025-07-26] MEDS: fentaNYL CITRATE INJ (*CRX) 100 MCG/2 ML VIAL 25 MCG IV PUSH ×3 (15:55→16:12)
--- NOTE | 2025-07-26 16:16 | P.OP_ITS ---
Procedure Note - Detailed Date of Procedure 07/26/25 Pre-op Diagnosis 1. Complete rotator cuff tear left shoulder 2. Biceps tenon rupture 3. Subacromial impingement. Post-op Diagnosis Same (1. Rotator cuff tear 2. Subacromial impingement 3. Biceps tendinosis 4. Degenerative labral tear) Procedure Performed Left shoulder 1. Arthroscopic rotator cuff repair 2. Arthroscopic subacromial decompression 3. Arthroscopic biceps tenodesis Surgeon Mj Poe MD [employer] Kayy Herrera PA-C Anesthesia General Findings Large retracted tear. L shaped with severe supraspinatus retraction. Margin convergence with medialization of the footprint allowed for complete repair without tension. Biceps displaced medially anterior to the subscapularis which was intact. Tenodesis performed with an anchor and loop and tack stitch. The acromion was prominent. Acromioplasty was performed gently, given that a large os acromiale was observed on the MRI. Description of Procedure Preoperative antibiotics were given. An interscalene block was administered in the preoperative area. The patient was bought brought to the operating room. A general anesthetic was administered. The patient was carefully positioned in the beach chair position. The head and neck were carefully positioned. The non operative extremity was also carefully positioned. The shoulder was prepped and draped in the usual sterile fashion. Examination was performed. Standard posterior and anterior arthroscopic portals were established. Inflow achieved with the arthroscopic pump using saline and epinephrine. The glenohumeral joint was carefully inspected. The cartilage was very healthy with only mild grade 1 chondromalacia on the humerus. The subscapularis was intact. The large retracted supraspinatus tear was evident. The infraspinatus appeared to be intact. The biceps was displaced anteriorly. Attention was turned to the subacromial space. A complete bursectomy was performed. The tear configuration was carefully assessed. L-shaped tear with moderate mobility. The footprint was medialized for supraspinatus repair 5 mm. Margin conversions posteriorly created a very anatomic appearing reduction. Two free sutures were used follow ed by 1 anchor based suture posteriorly. A simple suture and the posterior cuff also from this posterior anchor. A more anterior anchor with a modified Keon- Dutch suture to complete the supraspinatus repair. The biceps tenodesis was done with loop intact suture and a SwiveLock anchor anteriorly, just lateral to the more medial anchor. An extra suture was used to secure the anterior most tissue near the rotator interval providing additional fixation for the anterior cable. Acromion at plasty was performed with the arthroscopic bur removing a small amount of anterolateral bone to open up the subacromial space. Rough areas of bone on the lateral greater tuberosity were also taper down to avoid impingement. The arthroscopic instruments were removed. The wounds were closed with 3-0 Monocryl subcuticular suture and steri strips. There were no complications. A sling was applied and the patient brought to the recovery room. Physician assistant teacher, Kayy Herrera PA-C, required for surgery; including patient positioning, draping, arthroscopic camera operation, maintaining instrument position, suture retrieval, wound closure, and dressing and sling placement. Implants Arthrex SwiveLock anchor 4.75 mm. Two all suture FiberTak anchors. Estimated Blood Loss 10 Pathology None sent Complications No immediate complications Condition Stable Disposition PACU [facility] Billing Surgery - Charge Forward: Surgery Billing
--- NOTE | 2025-07-26 16:25 | WPDANESPNB ---
Anes - Peripheral Nerve Block Date/Time: 07/26/25 16:25 I have discussed with the patient/family/POA the placement of a peripheral nerve block for post-operative pain management, including associated risks, benefits, complications, and side effects. Alternative methods of post-operative analgesia were detailed. Questions were solicited and answers provided to the satisfaction of the patient/family/POA. Time-Out: A pre-procedural Time-Out was completed immediately before starting the procedure and confirmed: Patient Identification, Site, Procedure, Patient Position and the Availability of Requisite Equipment. Clinical Indications: Acute post-operative pain management requested by the operative surgeon. Nerve Block Insertion Note Anes-nerve block: interscalene left Patient position: supine Skin prep: chlorhexidine Needle: 22 gauge, stimulating, insulated echogenic needle. Needle length: 50 mm Technique: ultrasound Injectate: bupivacaine 0.5% with epi 5 mcg/ml (20cc- no epi) Observations: tolerated well Complications: none Procedure start time:: 161 Procedure end time:: 162
[2025-07-26] MEDS: oxyCODONE HCL (*CRX) 5 MG TAB IR PO (17:35)
== END 2025-07-26 18:06 | disposition home or self-care (01) ==
PROVIDERS: PCP Family Medicine; Visit Provider Orthopaedic Surgery
PROC: (CPT 29805; principal; 2025-07-26 12:00)
DX: M75.122 Complete rotator cuff tear or rupture of left shoulder, not specified as traumatic (principal); M67.814 Other specified disorders of tendon, left shoulder; G89.18 Other acute postprocedural pain; I10 Essential (primary) hypertension; F17.210 Nicotine dependence, cigarettes, uncomplicated; F12.90 Cannabis use, unspecified, uncomplicated; Z79.1 Long term (current) use of non-steroidal anti-inflammatories (NSAID); Z79.899 Other long term (current) drug therapy; Z98.890 Other specified postprocedural states
CPT/HCPCS: 64415; 29827; 29828; 29826; J0690; A4565; A9270; C1713; J0166; J0360; J1100; J1171; J1885; J2003; J2250; J2405; J2704; J3010; J7120